=== PATIENT | female | born 1975 | race Caucasian/White ===

== ENCOUNTER 2019-10-21 10:48 | Outpatient (RCR) | payer BC, SELFPAY | END 2019-11-14 23:59 | disposition home or self-care (01) | LOC: SR3 10:48 | PROVIDERS: Family Provider Family Medicine; PCP Family Medicine; Referring Provider Specialist/Technologist Athletic Trainer; Visit Provider Specialist/Technologist Athletic Trainer | DX: R56.9 Unspecified convulsions (principal); G43.909 Migraine, unspecified, not intractable, without status migrainosus; Z79.82 Long term (current) use of aspirin | CPT/HCPCS: 95992; 96125; 97110; 97162; 97165 ==

== ENCOUNTER 2020-01-09 10:13 | Outpatient (CLI) | payer BC, SELFPAY ==
--- NOTE | 2020-01-09 10:23 | CT_ITS ---
NOTE: Report was unsigned for reason: Ordering provider was edited. Original Signature date and time was: 01/09/20 1125 WS: [id number] CT scan of the head, 01/09/2020 Clinical Data: HEADACHES WITH DIZZINESS AND NAUSEA Comparison: AP head, 09/04/2019. DLP: 992.[address] scans at [facility] use at least one of these dose optimization techniques: automated exposure control; mA and/or kV adjustment per patient size (includes targeted exams where dose is matched to clinical indication); or iterative reconstruction. Findings: The previous intracerebral hematoma involving the right parietal lobe has cleared. There is an area of encephalomalacia in the right parietal lobe at the vertex which is much smaller than the area of the previous hemorrhage. The ventricular system is normal without shift. No recent infarct or hemorrhage is seen. There are no abnormal intracerebral masses. The cerebellum and brainstem are not remarkable. Bony windows of the skull and skull base show no fractures or erosions. The mastoid air cells, internal auditory canals, sella turcica, intraorbital contents, and paranasal sinuses are unremarkable. [facility] CT/CT head wo con* [id number] Impression: 1. Small area of encephalomalacia malacia in the right parietal lobe. 2. Negative for recent hemorrhage or infarct.
== END 2020-01-09 10:14 | disposition home or self-care (01) ==
PROVIDERS: Family Provider Family Medicine; PCP Family Medicine; Visit Provider Psychiatry & Neurology Neurology
DX: I61.9 Nontraumatic intracerebral hemorrhage, unspecified (principal); R51 Headache; R42 Dizziness and giddiness; G93.89 Other specified disorders of brain
CPT/HCPCS: 70450

== ENCOUNTER 2020-02-05 20:09 | Emergency (ER) | payer BC, SELFPAY ==
[2020-02-05 20:16] VITALS: BP 143/87; PULSE 97; RESP 16; TEMP 36.4; O2SAT 99; BMI 24.3
--- NOTE | 2020-02-05 20:17 | ED_ITS ---
HPI - Allergic Reaction General: Chief complaint: Allergic Reaction Stated complaint: Allergic Reaction Time Seen by Provider: 02/05/20 20:12 History of Present Illness: HPI narrative: Estella is a very nice 44-year-old female who comes in with hives and allergic reaction type symptoms after eating bread with milk in it. The patient has a history of severe allergic reactions to different allergens. Patient currently has hives and a funny sensation in the back of her throat. She had no vomiting, diarrhea she is not been weak or lightheaded or passed out. Review of Systems General: Reports: 10 or more systems reviewed and unremarkable except in HPI and below PFSH ED PFSH: Social History Smoking and tobacco status: former smoker Alcohol intake: current Alcohol intake frequency: few times a month Marital status: Current occupational status: employed Physical Exam Const: COMMON NORMALS: no apparent distress, oriented x3, no limitations, healthy appearing and well nourished EXAM LIMITATIONS: no altered mental status GENERAL APPEARANCE: cooperative, well kempt and well developed ORIENTATION/CONSCIOUSNESS: Yes awake HENMT: COMMON NORMALS: normocephalic, head/scalp atraumatic, hearing grossly normal bilaterally, external ears normal, EAC's normal, external nose normal and moist oral mucous membranes HEAD & SCALP: normal to inspection, normocephalic and atraumatic FACE & SINUS: normal facial exam and face symmetric NOSE: external nose normal and nares normal EXTERNAL EAR: Yes external ears normal EXTERNAL AUDITORY CANAL: EAC's normal MOUTH: oral and palatal mucosa normal and tongue normal Eye: COMMON NORMALS: PERRL, EOMs intact bilaterally, conjunctivae normal and no scleral icterus GENERAL EYE: normal appearance of both eyes and normal light reflex CONJUNCTIVA: Yes conjunctivae normal SCLERA: sclerae normal CORNEA: Yes corneas normal PUPIL: Yes PERRL DIRECT OPHTHALMOSCOPY: Yes normal light reflex Neck/C-Spine: COMMON NORMALS: full ROM, no lymphadenopathy, supple, no meningeal signs and no JVD GENERAL: Yes normal visual inspection and Yes trachea midline CERVICAL SPINE: Yes cervical ROM normal Chest: COMMONS NORMALS: inspection of chest normal and palpation of chest normal Resp: COMMON NORMALS: normal respiratory effort, no retractions, no use of accessory muscles and clear to auscultation bilaterally EFFORT & INSPECTION: Yes able to speak in complete sentences AUSCULTATION: clear to auscultation bilaterally Cardio: COMMON NORMALS: no JVD, regular rate, regular rhythm, S1 normal heart sound, S2 normal heart sound, no gallops, no clicks, no murmurs and no rub JUGULAR VENOUS DISTENTION: no JVD RATE: regular rate RHYTHM: regular rhythm HEART SOUNDS: S1 normal and S2 normal GI: COMMON NORMALS: soft to palpation, non-tender, no hepatosplenomegaly and no masses INSPECTION: Yes normal to inspection PALPATION: Yes soft and Yes no hepatosplenomegaly : COMMON NORMALS: Yes no CVA tenderness BLADDER/KIDNEY EXAM: Yes no CVA tenderness Back/Pelvis: COMMON NORMALS: no CVA tenderness, thoracic and lumbar spine normal to inspection, no thoracic nor lumbar tenderness and thoraco-lumbar ROM normal Extremity: COMMON NORMALS: normal to inspection, full ROM, normal capillary refill, no joint enlargement, no clubbing, cyanosis or edema and no calf tenderness Neuro: COMMON NORMALS: oriented x3, CN's II-XII intact bilaterally, moves all extremities, no focal motor deficits and no sensory deficits noted MENINGEAL SIGNS: Yes no meningeal signs Psych: COMMON NORMALS: mental status grossly normal, thought process normal, cooperative, affect normal, speech normal and activity/motor behavior normal APPEARANCE: Yes well kempt SPEECH: Yes normal speech THOUGHT PROCESS: normal thought process Skin: COMMON NORMALS: skin turgor normal, no jaundice, no petechiae and no mottling NARRATIVE SKIN EXAM: Hives to chest and face. GENERAL SKIN EXAM: turgor normal Course ED course: 2099 -patient states she is feeling better. She still has diffuse itching but her hives are gone and she states her throat feels normal again. 2139 - Estella states her symptoms are gone at this time. She has no itching, no throat tightening, no shortness of breath. 2233 -Estella is resting comfortably without any complaint at all at this time. 14 -Estella is resting comfortably without any hives, throat issues or shortness of breath. 49 -Estella is resting comfortably without any complaints. Vital signs are stable. Vital Signs: Vital signs: Vital Signs Temperature 97.6 F 02/05/20 20:16 Pulse Rate 88 02/06/20 02:37 Respiratory Rate 16 02/06/20 02:37 Blood Pressure 110/86 02/06/20 02:37 Pulse Oximetry 99 02/06/20 02:37 MDM - Allergic Reaction MDM Narrative: Medical decision making narrative: 0200 - Estella is still symptom-free at this time. She was offered admission but because she is doing so much better she would like to go home. She is well versed in this and knows what to look for should she start to have a reaction again. She will be given another dose of Benadryl IV before leaving and she has an EpiPen at home if needed. She will be placed on Pepcid, Benadryl and prednisone for the next several days. She agrees to return should her symptoms change or worsen but otherwise she is feeling tremendously better and would like to be discharged. Discharge Plan Discharge Patient Disposition: Home, Self-Care Clinical Impression: Allergic reaction Qualifiers: Encounter type: initial encounter Qualified Code(s): T78.40XA - Allergy, unspecified, initial encounter Condition: Stable Prescriptions: New prednisone 10 mg tablets,dose pack See Rx Instructions .ROUTE .COMPLEX Qty: 21 RF: 0 Pepcid 40 mg tablet 40 mg PO BID 5 Days Qty: 10 RF: 0 No Action clonazepam 0.5 mg tablet 0.5 mg PO .prn PRNRF: 0 Linzess 72 mcg capsule 72 mcg PO QAM RF: 0 Trintellix 20 mg tablet 20 mg PO ONCE RF: 0 trazodone 50 mg tablet 50 mg PO .QHS RF: 0 epinephrine [EpiPen] 0.3 mg/0.3 mL auto-injector 0.3 mg IM Q10M PRNRF: 0 Referrals: Chi Cobb MD [Primary Care Provider] - 1-3 days Discharge Diet: Usual diet Discharge Activity: Increase activity as tolerated Patient Instructions: Allergic Reaction, Urticaria (ED), Food Allergy (ED), Anaphylaxis (ED) Activity Restrictions/Additional Instructions: Please return to the ER immediately for any of the signs or symptoms listed on your discharge instruction sheets, worsening/changing of your symptoms, you are not getting better as quickly as expected, or for ANY other cause or concerns. Take the Benadryl 25 to 50 mg every 6 hours as needed for the next 3 to 5 days. Take the Pepcid for the next 3 to 5 days and take the prednisone as I have prescribed. Stand Alone Forms: Work/School Release Discharge Date/Time: 02/06/20 02:37 Coding Level of Care Code ED Health Education Director for 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
[2020-02-05] MEDS: ondansetron 2 mg/ML SDV 2 mL 4 MG IVP (20:23)
[2020-02-05] MEDS: diphenhydrAMINE 50 mg/mL SDV 1mL IVP (20:23)
[2020-02-05] MEDS: famotidine 20 mg/2 mL INJ 40 MG IVP (20:24)
[2020-02-05] MEDS: sodium chloride 0.9% 1,000 ML 999 ML IV ×2 (20:30→23:42)
[2020-02-05] MEDS: LORazepam 2 mg/mL INJ 1 mL 1 MG IVP (20:40)
[2020-02-05 21:15] VITALS: RESP 91; O2SAT 99
[2020-02-05] MEDS: ipratropium-albuterol 3 mL Neb INHALATION (21:15)
[2020-02-05 21:19] VITALS: RESP 91
[2020-02-05 21:53] VITALS: BP 99/62; PULSE 96; RESP 13; O2SAT 97
[2020-02-05 22:58] VITALS: BP 98/62; PULSE 90; RESP 15; O2SAT 95
[2020-02-06] VITALS: BP 96/55; PULSE 87; RESP 14; O2SAT 96
[2020-02-06] MEDS: predniSONE 20 mg Tablet 60 MG PO (02:22)
[2020-02-06] MEDS: diphenhydrAMINE 50 mg/mL SDV 1mL IVP (02:23)
[2020-02-06 02:37] VITALS: BP 110/86; PULSE 88; RESP 16; O2SAT 99
== END 2020-02-06 02:37 | disposition home or self-care (01) ==
PROVIDERS: Emergency Provider Emergency Medicine; Family Provider Family Medicine; PCP Family Medicine
DX: T78.40XA Allergy, unspecified, initial encounter (principal); Z87.891 Personal history of nicotine dependence
CPT/HCPCS: 12345; 94640; 96361; 96374; 96375; 96376; 99282; 99283; 99284; J1200; J2060; J2405; J2930; J3490; J7030; J7512

== ENCOUNTER 2020-02-16 14:15 | Outpatient (RCR) | payer BC, SELFPAY ==
[2020-02-16 14:42] VITALS: BP 132/94; PULSE 77; RESP 18; TEMP 37.4; O2SAT 98; BMI 23.9
[2020-02-16] MEDS: diphenhydrAMINE 50 mg/mL SDV 1mL IVP (14:48)
== END 2020-03-14 23:59 | disposition home or self-care (01) ==
LOC: GILAB 14:15
PROVIDERS: Family Provider Family Medicine; PCP Family Medicine; Visit Provider Nurse Practitioner Family
DX: R06.02 Shortness of breath (principal); L50.9 Urticaria, unspecified; L29.9 Pruritus, unspecified
CPT/HCPCS: 96375; J1200

== ENCOUNTER 2020-02-17 14:41 | Inpatient (IN) | payer BC, SELFPAY ==
[2020-02-17 14:42] VITALS: BP 162/99; PULSE 65; RESP 16; TEMP 36.9; O2SAT 98; BMI 23.9
--- NOTE | 2020-02-17 14:57 | XR_ITS ---
WS: [id number] XR chest 1V portable [id number] REASON FOR EXAM: allergic reaction FINDINGS: The heart and mediastinal interfaces are normal. The lung alberto are adequately aerated. There is no pneumonia, pleural effusion, pulmonary edema, mas s effect, are pneumothorax. The hilum is and apices are normal. No osseous abnormalities. XR/XR chest 1V portable [id number] IMPRESSION: Negative chest for acute pathology.
[2020-02-17] MEDS: dexamethasone 10 mg/mL INJ IVP (15:03)
[2020-02-17] MEDS: diphenhydrAMINE 50 mg/mL SDV 1mL IVP (15:04)
[2020-02-17] MEDS: LORazepam 2 mg/mL INJ 1 mL 1 MG IVP (15:05)
[2020-02-17] MEDS: famotidine 20 mg/2 mL INJ IVP (15:05)
[2020-02-17] MEDS: ondansetron 2 mg/ML SDV 2 mL 4 MG IVP ×2 (15:10→20:04)
--- NOTE | 2020-02-17 15:22 | ED_ITS ---
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 Patient has been having symptoms of an allergic reaction for the past 5 days. Her and her financial health counselor had narrowed the causative agent down to milk or lactose for this episode. Patient was accidentally exposed to milk through diet recently. Also research has shown that several of the medication she is on contain lactose. Onset (ago): day(s) Location: lower extremity Severity: severe and similar to prior episodes Quality: burning and constant Pain Consistency: constant Relieving factors: none Associated symptoms: Reports cough, dyspnea, malaise and nausea Review of Systems General: Reports: 10 or more systems reviewed and unremarkable except in HPI and below Const: Reports: fatigue and malaise; Denies: fever or chills ENMT: Reports: painful swallowing; Denies: hoarseness or swelling of lips/tongue Resp: Reports: shortness of breath GI: Reports: nausea PFSH ED PFSH: Family History Mother Diabetes Thyroid condition Hypercholesteremia Family/Other Cancer Social History Smoking and tobacco status: never smoked Alcohol intake: current Alcohol intake frequency: few times a month Marital status: Current occupational status: employed Physical Exam Const: COMMON NORMALS: oriented x3 and alert GENERAL APPEARANCE: cooperative, in distress and anxious ORIENTATION/CONSCIOUSNESS: Yes awake, Yes oriented to person, Yes oriented to place and Yes oriented to time HENMT: COMMON NORMALS: normocephalic and external nose normal HEAD & SCALP: normal to inspection and normocephalic FACE & SINUS: normal facial exam NOSE: external nose normal MOUTH: oral and palatal mucosa normal and tongue normal Neck/C-Spine: COMMON NORMALS: no lymphadenopathy, supple, no meningeal signs and no JVD Lymph: LYMPHATIC: no lymphadenopathy noted Resp: COMMON NORMALS: normal respiratory effort, no retractions, no use of accessory muscles and clear to auscultation bilaterally EFFORT & INSPECTION: No stridor AUSCULTATION: clear to auscultation bilaterally and no wheezes Cardio: COMMON NORMALS: no JVD, regular rate and regular rhythm RATE: regular rate RHYTHM: regular rhythm GI: COMMON NORMALS: normal to inspection, nondistended, normoactive bowel sounds, soft to palpation and non-tender PALPATION: Yes soft : COMMON NORMALS: Yes no CVA tenderness BLADDER/KIDNEY EXAM: Yes no CVA tenderness Back/Pelvis: COMMON NORMALS: no CVA tenderness and thoracic and lumbar spine normal to inspection Extremity: COMMON NORMALS: normal to inspection and full ROM Neuro: COMMON NORMALS: oriented x3 SENSORIUM/ORIENTATION: Yes alert, Yes oriented to person, Yes oriented to place and Yes oriented to time MENINGEAL SIGNS: Yes no meningeal signs Skin: COMMON NORMALS: no jaundice, no petechiae and no mottling RASHES: rashes noted (hives to legs) Course Vital Signs: Vital signs: Vital Signs Temperature 98.4 F 02/17/20 14:42 Pulse Rate 65 02/17/20 14:42 Respiratory Rate 16 02/17/20 14:42 Blood Pressure 162/99 02/17/20 14:42 Pulse Oximetry 98 02/17/20 14:42 [facility] - General Adult Lab Data: Labs: Lab Results 02/17/20 Range/Units 15:03 WBC 8.7 (4.0-10.0) 10^3/ uL RBC 4.49 (4.1-5.3) 10^6/u L Hgb 12.5 (11.5-15.3) g/dL Hct 41.2 (37.0-47.0) % MCV 91.8 (81-99) fL MCH 27.8 L (28.0-34.0) pg MCHC 30.3 (30.0-36.0) g/dL RDW 15.2 H (12.1-15.1) % Plt Count 325 (130-400) 10^3/c mm MPV 9.8 (7.4-10.4) fL Neut % (Auto) 86.3 % Lymph % (Auto) 10.3 % [place] % (Auto) 2.2 % Eos % (Auto) 0.0 % Baso % (Auto) 0.0 % Neut # (Auto) 7.5 (1.8-7.7) 10^3/u L Lymph # (Auto) 0.9 (0.8-4.8) 10^3/u L [place] # (Auto) 0.2 (0.2-0.9) 10^3/u L Eos # (Auto) 0.0 (0.0-0.8) 10^3/u L Baso # (Auto) 0.0 (0.0-0.1) 10^3/u L Nucleated RBC % (a uto) 0 % Nucleated RBCs # 0.0 /100WBC Discharge Plan Discharge Patient Disposition: Admitted As Inpatient Clinical Impression: Multiple food allergies, Multiple environmental allergies, Hives Acute allergic reaction Qualifiers: Encounter type: subsequent encounter Qualified Code(s): T78.40XD - Allergy, unspecified, subsequent encounter Condition: Fair Referrals: Chi Cobb MD [Primary Care Provider] - Coding Level of Care Code ED Salesperson Handbags for g Fwd Exam Comprehensive
[2020-02-17 15:35] LABS: Hematocrit 41.2 % (37.0-47.0); Hemoglobin 12.5 g/dL (11.5-15.3); Lymphocytes # 0.9 10^3/uL (0.8-4.8); Lymphocytes % 10.3 %; Mean Corpuscular HGB Conc 30.3 g/dL (30.0-36.0); Mean Corpuscular Hemoglobin 27.8 pg (28.0-34.0); Mean Corpuscular Volume 91.8 fL (81-99); Mean Platelet Volume 9.8 fL (7.4-10.4); Monocytes # 0.2 10^3/uL (0.2-0.9); Monocytes % 2.2 %; Neutrophils # 7.5 10^3/uL (1.8-7.7); Neutrophils % 86.3 %; Nucleated Red Blood Cells % 0 %; Platelet Count 325 10^3/cmm (130-400); Red Blood Count 4.49 10^6/uL (4.1-5.3); Red Cell Distribution Width 15.2 % (12.1-15.1); White Blood Count 8.7 10^3/uL (4.0-10.0)
[2020-02-17 16:00] VITALS: BP 153/113; PULSE 54; RESP 14
[2020-02-17 16:41] VITALS: BP 166/93; PULSE 60; RESP 16; O2SAT 98
[2020-02-17] MEDS: metoprolol tartrate 1 mg/1 mL SDV 5 mL 5 MG IV (16:45)
[2020-02-17 16:47] LABS: Procalcitonin 0.02 ng/mL (0-0.5); Thyroid Stimulating Hormone 0.33 uIU/mL (0.27-4.20)
[2020-02-17 16:58] LABS: Alanine Aminotransferase 11 U/L (0-33); Albumin Level 4.4 g/dL (3.5-5.2); Alkaline Phosphatase 76 IU/L (35-105); Anion Gap 19.4 (5-19); Aspartate Amino Transferase 14 U/L (0-32); Blood Urea Nitrogen 13 mg/dL (6-20); Calcium 9.8 mg/dL (8.5-10.5); Carbon Dioxide 17 mmol/L (22-29); Chloride 104 mmol/L (98-107); Glomerular Filtration Rate 91.8 mL/min (90-130); Glucose 192 mg/dL (65-115); Magnesium 2.3 mg/dL (1.7-2.3); Osmolality Calculated 285 mOsm/kg (285-295); Phosphorus 3.1 mg/dL (2.5-4.5); Potassium 3.4 mmol/L (3.5-5.1); Sodium 137 mmol/L (136-145); Total Bilirubin 0.3 mg/dL (0.15-1.2); Total Protein 7.4 g/dL (6.6-8.7)
[2020-02-17 17:25] VITALS: BP 130/81; BP 133/82; PULSE 51; PULSE 52; RESP 15; RESP 18; TEMP 36.8; O2SAT 97; O2SAT 98
--- NOTE | 2020-02-17 18:24 | PM.HP ---
Providers/Chief Complaint Admitting Physician: Criselda Kennedy DO Primary Care Provider: Chi Cobb MD Chief Complaint: ACUTE ALLERGIC RXN IN PT W/ HX OF ANAPHYLAXIS History of Present Illness Estella Burgess is a 44 year old female with a past medical history of multiple anaphylactic reactions with concern for multiple food allergies that presented to the emergency department today for allergic reaction. Patient reported that she has been followed by director surgical in [place]. She reported that starting February 05 she had worsening symptoms after having bread that inadvertently contained milk products. Patient stated that she was started on a prednisone taper at that time but after burst of prednisone she continued to have difficulty and required change of medication. Ultimately prednisone was transitioned to prednisolone due to lactose-containing products. Patient had hospitalization in the fall 2018 with anaphylactic reaction with intracranial hemorrhage at that time and she was transferred to an outside facility. Patient has been followed closely for anaphylactic reaction since that time, had previously received a Xolair injection, however insurance would not cover this and she was taken off. Patient has had continued issues over the past couple of days therefore other medications have been looked into and it is also noted that her Singulair had a lactose-containing products, it was transitioned to granules today. Her Trintellix also contains lactose products and recommendation by director surgical was to receive this medication at a compounding pharmacy. Patient was seen and evaluated in the emergency department due to concern for anaphylactic reaction she was given IV Decadron, epinephrine was held off at this time due to her history of intracranial hemorrhage. She was given IV Pepcid and admitted for further evaluation and treatment. Review of Systems Const: Denies: fever or chills Eyes: Denies: change in vision ENMT: Denies: nasal congestion Card: Reports: palpitations; Denies: chest pain or edema Resp: Reports: other (Initially reported nonproductive cough and wheezing, now improved); Denies: shortness of breath, productive cough or coughing up blood GI: Denies: abdominal pain, nausea, vomiting, diarrhea, constipation, blood in stool or black tarry stool : Denies: painful urination or blood in urine Musc: Denies: extremity pain or muscle cramps Skin/Breast: Reports: rash and other (Hives); Denies: new lesion Neuro: Reports: headache; Denies: dizziness Psych: Reports: anxiety; Denies: depression Endo: Denies: excessive urination or hot flashes Nigel/Lymph: Denies: easy bruising or easy bleeding Medications/Allergies Home Medications Medication Instructions Recorded Confirmed Last Taken Type vortioxetine 20 mg tablet 20 mg PO ONCE 10/28/19 02/17/20 02/16/20 History epinephrine 0.3 mg/0.3 mL 0.3 mg IM Q10M PRN 12/15/19 02/17/20 Unknown History injection, auto-injector prednisone See Rx Instructions .ROUTE 02/06/20 02/17/20 02/16/20 Rx .COMPLEX #21 each acetaminophen [Tylenol] 325 mg PO QID PRN 02/17/20 02/17/20 02/17/20 History cetirizine 1 mg PO DAILY 02/17/20 02/17/20 02/16/20 History doxepin 10 mg PO BEDTIME 02/17/20 02/17/20 02/16/20 History famotidine [Pepcid] 40 mg PO DAILY 02/17/20 02/17/20 02/16/20 History lorazepam [Lorazepam Intensol] 2 mg PO Q6H PRN 02/17/20 02/17/20 02/16/20 History montelukast 10 mg PO DAILY 02/17/20 02/17/20 02/16/20 History omalizumab [Xolair] 150 mg SUBCUT ONCE 14 Days #1 each 02/18/20 Unknown Rx Allergies Allergy/AdvReac Type Severity Reaction Status Date / Time Beef Containing Products Allergy na Verified 02/17/20 14:52 epinephrine Allergy Unknown Verified 02/17/20 14:52 lactose Allergy ALGY-Anaphy Verified 02/17/20 14:52 laxis Pork/Porcine Containing Allergy ALGY-Anaphy Verified 02/17/20 14:52 Products laxis Poultry Allergy ALGY-Anaphy Verified 02/17/20 14:52 laxis trimethobenzamide Allergy ALGY-Anaphy Verified 02/17/20 14:52 [facility] laxis PFSH Acute PFSH: Medical History (Updated 02/17/20 @ 18:34 by Criselda Kennedy DO) Alpha galactosidase deficiency Anxiety Surgical History (Updated 02/17/20 @ 18:34 by Criselda Kennedy DO) History of abdominoplasty History of appendectomy History of artificial lens replacement History of cataract surgery History of section, low transverse History of eye surgery Surgical plate placement and removal History of surgery Intracranial angiogram Family History Mother Diabetes Thyroid condition Hypercholesteremia Family/Other Cancer Social History Smoking and tobacco status: never smoked Alcohol intake: current Alcohol intake frequency: few times a month Marital status: Current occupational status: employed Female 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 History: Date of last menstrual period: 02/09/20 Vitals/I&O/Wt Last Vital Signs Temp 98.3 F 02/17/20 17:25 Pulse 51 L 02/17/20 17:25 Resp 15 02/17/20 17:25 BP 133/82 02/17/20 17:25 Pulse Ox 98 02/17/20 17:25 Weight last 48 hrs Weight 61.235 kg Physical Exam Const: COMMON NORMALS: oriented x3 and alert GENERAL APPEARANCE: cooperative ORIENTATION/CONSCIOUSNESS: Yes awake, Yes oriented to person, Yes oriented to place and Yes oriented to time HENMT: COMMON NORMALS: normocephalic and head/scalp atraumatic HEAD & SCALP: normocephalic and atraumatic Eye: COMMON NORMALS: PERRL PUPIL: Yes PERRL Neck/C-Spine: COMMON NORMALS: supple GENERAL: Yes normal visual inspection Resp: COMMON NORMALS: normal respiratory effort and clear to auscultation bilaterally EFFORT & INSPECTION: Yes able to speak in complete sentences AUSCULTATION: clear to auscultation bilaterally, no rhonchi and no wheezes Cardio: COMMON NORMALS: regular rhythm and no murmurs RATE: bradycardic RHYTHM: regular rhythm GI: COMMON NORMALS: soft to palpation and non-tender INSPECTION: No abdominal distension AUSCULTATION: Yes normoactive bowel sounds PALPATION: Yes soft Extremity: COMMON NORMALS: no clubbing, cyanosis or edema and no calf tenderness Neuro: COMMON NORMALS: oriented x3, CN's II-XII intact bilaterally, moves all extremities and no focal motor deficits SENSORIUM/ORIENTATION: Yes alert, Yes oriented to person, Yes oriented to place and Yes oriented to time SPEECH: speech normal Psych: COMMON NORMALS: mental status grossly normal and cooperative Skin: COMMON NORMALS: no rashes or lesions noted GENERAL SKIN EXAM: no rashes or lesions noted Data : 02/18/20 05:35 02/18/20 05:35 A&P Assessment and plan (1) Acute allergic reaction: Acute allergic reaction Currently followed by director surgical in [place], Dr. Clemons Continue on IV Pepcid Continue on IV Decadron Continue on cetirizine Patient had previously received Xolair injection, insurance did not cover this further, would recommend continuation and prior authorization by director surgical We will check ESR, CRP, tryptase level, 5 HIAA 24-hour urine sample Status: Acute Qualifiers: Encounter type: subsequent encounter Qualified Code(s): T78.40XD - Allergy, unspecified, subsequent encounter (2) Hives: Secondary to above Status: Acute (3) Multiple environmental allergies: Continue to follow with outpatient director surgical, continue with restrictions at this time. Discussed with pharmacy about lactose-containing medications Recommendation from director surgical is for patient to have Trintellix compounded at a compounding pharmacy. Will discuss further Status: Acute (4) Multiple food allergies: Status: Acute Attestations Medical Necessity Statement*: Patient requires hospitalization due to acute allergic reaction in the setting of recurrent anaphylactic reactions requiring IV treatment. Expected stay greater than 2 midnights Coding Level of Care Code Acute Coal Miner for Shanthi Fwd Exam Comprehensive Diagnoses Acute allergic reaction T78.40XD Encounter type: subsequent encounter Hives L50.9 Multiple environmental allergies Z91.09 Multiple food allergies Z91.018
[2020-02-17] MEDS: sodium chloride 0.9% 500 ML IV (18:32)
[2020-02-17 19:46] VITALS: BP 130/84; PULSE 56; RESP 17; TEMP 36.7; O2SAT 98
[2020-02-17] MEDS: diphenhydrAMINE 50 mg/mL SDV 1mL 25 MG IVP ×2 (19:52→23:42)
[2020-02-17] MEDS: dexamethasone 4 mg/mL INJ IVP (19:52)
[2020-02-17] MEDS: sodium chlor 0.9% + KCl 20 mEq 20 MEQ/1,000 ML BAG 75 MEQ IV (19:53)
[2020-02-17] MEDS: LORazepam 2 mg/mL INJ 1 mL 0.5 MG IVP (20:02)
[2020-02-17 21:14] LABS: Glucose Point of Care 126 mg/dL (70-110)
[2020-02-17 22:47] LABS: Erythrocyte Sedimentation Rate 9 mm/hr (0-15)
[2020-02-17 23:11] VITALS: BP 128/72; PULSE 53; RESP 15; TEMP 37; O2SAT 96
[2020-02-18] VITALS (10 sets, daily range): BP systolic 118–150; BP diastolic 78–90; PULSE 47–82; RESP 16–18; TEMP 36.7–37.3; O2SAT 96–99
[2020-02-18] MEDS: dexamethasone 4 mg/mL INJ IVP ×4 (03:17→20:31)
[2020-02-18] MEDS: sodium chlor 0.9% + KCl 20 mEq 20 MEQ/1,000 ML BAG 75 MEQ IV ×2 (03:17→17:20)
[2020-02-18] MEDS: ondansetron 2 mg/ML SDV 2 mL 4 MG IVP (03:18)
[2020-02-18] MEDS: LORazepam 2 mg/mL INJ 1 mL 0.5 MG IVP ×5 (04:15→22:42)
[2020-02-18] MEDS: famotidine 20 mg/2 mL INJ IVP ×2 (04:16→18:03)
[2020-02-18 04:47] LABS: C Reactive Protein 1.3 mg/L (0.0-4.9)
[2020-02-18] MEDS: diphenhydrAMINE 50 mg/mL SDV 1mL 25 MG IVP ×2 (04:48→09:37)
[2020-02-18 05:47] LABS: Cortisol Random 1.33 mcg/dL (2.47-19.5)
[2020-02-18 06:42] LABS: Anion Gap 17.5 (5-19); Blood Urea Nitrogen 13 mg/dL (6-20); Calcium 9.1 mg/dL (8.5-10.5); Carbon Dioxide 19 mmol/L (22-29); Chloride 103 mmol/L (98-107); Glomerular Filtration Rate 91.8 mL/min (90-130); Glucose 127 mg/dL (65-115); Osmolality Calculated 278 mOsm/kg (285-295); Potassium 4.5 mmol/L (3.5-5.1); Sodium 135 mmol/L (136-145)
[2020-02-18 06:48] LABS: Hematocrit 35.2 % (37.0-47.0); Hemoglobin 11.3 g/dL (11.5-15.3); Mean Corpuscular HGB Conc 32.1 g/dL (30.0-36.0); Mean Corpuscular Hemoglobin 28.4 pg (28.0-34.0); Mean Corpuscular Volume 88.4 fL (81-99); Mean Platelet Volume 10.4 fL (7.4-10.4); Monocytes # 0.5 10^3/uL (0.2-0.9); Neutrophils # 7.8 10^3/uL (1.8-7.7); Neutrophils % 83.6 %; Nucleated Red Blood Cells % 0 %; Platelet Count 279 10^3/cmm (130-400); Red Blood Count 3.98 10^6/uL (4.1-5.3); Red Cell Distribution Width 15.1 % (12.1-15.1); White Blood Count 9.3 10^3/uL (4.0-10.0)
[2020-02-18 07:23] LABS: Glucose Point of Care 143 mg/dL (70-110)
--- NOTE | 2020-02-18 10:13 | PC.CHAP ---
Pastoral Care Encounter/Spiritual Assessment Type of Contact [] Declined logger visit [] Patient/Family/Request visit [] Outpatient visit [] Follow-up visit [] Physician referral [] Code/Alert [x] Routine visit [] Staff referral [] Actively dying [] Patient sleeping [] Family support [] [] Out of room [] Palliative care [] [] Receiving care in room [] Pre-surgical visit [] Trauma [] Long length of stay [] ICU visit [] Other: Relational/Emotional Strength [] Patient feels connected with others/family/visitors/staff [] Distress [] Loneliness/isolation [] Abandonment Spirituality of Patient [] Person of Evy [] Attends Mormon of their Evy [x] Believes in Prayer [] Reads Bible or Mormon materials [] There are Spiritual issues to be addressed Field Specialist Interventions [x] Prayer [] Active listening [] Non-anxious presence [] Spiritual/emotional support [] Crisis/trauma care [] Spiritual counseling [] Bereavement support [] Provided bereavement packet [] Provided Bible/devotional materials [] Provided toy/stuffed animal, coloring book to patient or family member [] Provided Communion [] Anointing/[place] [] Salvation [x] Completed spiritual assessment [] Other: Impact on Illness or Injury [] Angry [] Fearful [] Anxious [] Often cries [] Exhaustion [] Unable to work [] Unable to attend cheondoism [] Unable to walk/stand [] Unable to read [] Unable to drive [] Unable to eat/drink [] Unable to sleep [] Unable to be with family [] Patient intubated [] Other: Summary Patient resting, and feeling better Time spent with patient 5 min
[2020-02-18 12:01] LABS: Glucose Point of Care 129 mg/dL (70-110)
[2020-02-18] MEDS: diphenhydrAMINE 50 mg/mL SDV 1mL IVP ×3 (14:13→22:42)
--- NOTE | 2020-02-18 17:50 | P.PN_ITS ---
Subjective Subjective: Interval history: Patient awake in bed at time of exam. Reports that she continues to have some scratchiness throat but slightly improved today. Reports that she feels anxious about current situation and admission status as well as uncertain and feels up in the year about her home medications. Discussed with patient plan to continue with IV steroids at this time and will call and discuss with compounding pharmacy about her home medications. Vitals/I&O/Wt Last Vital Signs Temp 99.1 F 02/18/20 15:04 Pulse 55 L 02/18/20 15:11 Resp 17 02/18/20 15:04 BP 135/82 02/18/20 15:04 Pulse Ox 96 02/18/20 15:11 02/18/20 02/18/20 02/18/20 06:59 14:59 22:59 Intake Total 680 / 1080 720 / 720 875 / 1595 Output Total 450 / 450 1250 / 1250 400 / 1650 Balance 230 / 630 -530 / -530 475 / -55 Weight last 48 hrs Weight 61.235 kg Weight 61.235 kg Physical Exam Const: COMMON NORMALS: oriented x3 and alert GENERAL APPEARANCE: cooperative ORIENTATION/CONSCIOUSNESS: Yes awake, Yes oriented to person, Yes oriented to place and Yes oriented to time HENMT: COMMON NORMALS: normocephalic and head/scalp atraumatic HEAD & SCALP: normocephalic and atraumatic Eye: COMMON NORMALS: PERRL PUPIL: Yes PERRL Neck/C-Spine: COMMON NORMALS: supple GENERAL: Yes normal visual inspection Resp: COMMON NORMALS: normal respiratory effort and clear to auscultation bilaterally EFFORT & INSPECTION: Yes able to speak in complete sentences AUSCULTATION: clear to auscultation bilaterally, no rhonchi and no wheezes Cardio: COMMON NORMALS: regular rhythm and no murmurs RATE: bradycardic RHYTHM: regular rhythm GI: COMMON NORMALS: soft to palpation and non-tender INSPECTION: No abdominal distension AUSCULTATION: Yes normoactive bowel sounds PALPATION: Yes soft Extremity: COMMON NORMALS: no clubbing, cyanosis or edema and no calf tenderness Neuro: COMMON NORMALS: oriented x3, CN's II-XII intact bilaterally, moves all extremities and no focal motor deficits SENSORIUM/ORIENTATION: Yes alert, Yes oriented to person, Yes oriented to place and Yes oriented to time SPEECH: speech normal Psych: COMMON NORMALS: mental status grossly normal and cooperative Skin: COMMON NORMALS: no rashes or lesions noted GENERAL SKIN EXAM: no rashes or lesions noted Data : 02/18/20 05:35 02/18/20 05:35 A&P Assessment and plan (1) Acute allergic reaction: Acute allergic reaction Currently followed by motion picture equipment machinist in [place], Dr. Deonte Jolley, Decadron, cetirizine Strongly believe that patient would benefit from Xolair injection, this was ordered and sent to pharmacy for outpatient infusion. Will discuss with patient's motion picture equipment machinist, Dr. Clemons Pending: Tryptase level, 5 HIAA 24-hour urine sample Status: Acute Qualifiers: Encounter type: subsequent encounter Qualified Code(s): T78.40XD - Allergy, unspecified, subsequent encounter (2) Hives: Secondary to above Status: Acute (3) Multiple environmental allergies: Continue to follow with outpatient motion picture equipment machinist, continue with restrictions at this time. Discussed with pharmacy about lactose-containing medications Discussed with compounding pharmacy and unfortunately Trintellix is unable to be compounded at this time as it does not come in powder formation Status: Acute (4) Multiple food allergies: Status: Acute Additional A&P Information Anxiety: Continue with Ativan as needed, patient has been on Trintellix, however this is unknown to be with compounded and contains lactose and current formation. Discussed with psychiatry for consultation, appreciate recommendations and assistance in patient's care. Attestations Medical Necessity Statement*: Patient requires further hospitalization due to concern for acute allergic reaction with severe and refractory allergic reactions in the past Coding Level of Care Code Acute Form Builder Helper for 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 Diagnoses Acute allergic reaction T78.40XD Encounter type: subsequent encounter Hives L50.9 Multiple environmental allergies Z91.09 Multiple food allergies Z91.018
[2020-02-18] MEDS: morphine 4 mg/mL SDV 1 mL 2 MG IVP (20:33)
[2020-02-19] VITALS (12 sets, daily range): BP systolic 124–165; BP diastolic 73–92; PULSE 57–73; RESP 16–20; TEMP 36.4–36.9; O2SAT 97–98
[2020-02-19] MEDS: LORazepam 2 mg/mL INJ 1 mL 0.5 MG IVP ×4 (03:13→16:48)
[2020-02-19] MEDS: dexamethasone 4 mg/mL INJ IVP ×2 (03:13→08:03)
[2020-02-19] MEDS: diphenhydrAMINE 50 mg/mL SDV 1mL IVP ×5 (03:14→22:20)
[2020-02-19 06:15] LABS: Hematocrit 37.3 % (37.0-47.0); Lymphocytes # 1.1 10^3/uL (0.8-4.8); Lymphocytes % 9.4 %; Mean Corpuscular HGB Conc 32.2 g/dL (30.0-36.0); Mean Corpuscular Volume 83.8 fL (81-99); Mean Platelet Volume 10.1 fL (7.4-10.4); Monocytes # 0.7 10^3/uL (0.2-0.9); Monocytes % 5.7 %; Neutrophils # 10.2 10^3/uL (1.8-7.7); Neutrophils % 84.3 %; Nucleated Red Blood Cells % 0 %; Platelet Count 324 10^3/cmm (130-400); Red Blood Count 4.45 10^6/uL (4.1-5.3); White Blood Count 12.1 10^3/uL (4.0-10.0)
[2020-02-19] MEDS: famotidine 20 mg/2 mL INJ IVP ×2 (06:28→18:10)
[2020-02-19 06:32] LABS: Anion Gap 17.2 (5-19); Blood Urea Nitrogen 14 mg/dL (6-20); Calcium 9.2 mg/dL (8.5-10.5); Carbon Dioxide 22 mmol/L (22-29); Chloride 101 mmol/L (98-107); Glomerular Filtration Rate 78.7 mL/min (90-130); Glucose 144 mg/dL (65-115); Osmolality Calculated 281 mOsm/kg (285-295); Potassium 4.2 mmol/L (3.5-5.1); Sodium 136 mmol/L (136-145)
[2020-02-19] MEDS: ondansetron 2 mg/ML SDV 2 mL 4 MG IVP ×2 (08:13→17:03)
--- NOTE | 2020-02-19 08:22 | PC.NURSE ---
shadia pt took her own shadia
[2020-02-19] MEDS: morphine 4 mg/mL SDV 1 mL 2 MG IVP ×3 (09:37→19:46)
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
[2020-02-19] MEDS: pred sod phos 15 mg/5 mL Soln 30mL Btl 60 MG PO (15:20)
--- NOTE | 2020-02-19 15:46 | P.PN_ITS ---
Subjective Subjective: Interval history: Patient awake in bed at time of exam this morning. Reported feeling better but did report concern for symptoms after taking vortioxetine. Called and discussed with patient's coffee plantation worker and will transition to oral steroids and monitor symptoms overnight with potential discharge tomorrow. Vitals/I&O/Wt Last Vital Signs Temp 98.1 F 02/19/20 15:15 Pulse 73 02/19/20 15:15 Resp 17 02/19/20 15:20 BP 124/81 02/19/20 15:15 Pulse Ox 97 02/19/20 15:15 02/19/20 02/19/20 02/19/20 06:59 14:59 22:59 Intake Total 500 / 2215 1320 / 1320 Output Total 400 / 2050 Balance 100 / 165 1320 / 1320 Weight last 48 hrs Weight 61.235 kg Physical Exam Const: COMMON NORMALS: oriented x3 and alert GENERAL APPEARANCE: cooperative ORIENTATION/CONSCIOUSNESS: Yes awake, Yes oriented to person, Yes oriented to place and Yes oriented to time HENMT: COMMON NORMALS: normocephalic and head/scalp atraumatic HEAD & SCALP: normocephalic and atraumatic Eye: COMMON NORMALS: PERRL PUPIL: Yes PERRL Neck/C-Spine: COMMON NORMALS: supple GENERAL: Yes normal visual inspection Resp: COMMON NORMALS: normal respiratory effort and clear to auscultation bilaterally EFFORT & INSPECTION: Yes able to speak in complete sentences AUSCULTATION: clear to auscultation bilaterally, no rhonchi and no wheezes Cardio: COMMON NORMALS: regular rate, regular rhythm and no murmurs RATE: regular rate RHYTHM: regular rhythm GI: COMMON NORMALS: soft to palpation and non-tender INSPECTION: No abdominal distension AUSCULTATION: Yes normoactive bowel sounds PALPATION: Yes soft Extremity: COMMON NORMALS: no clubbing, cyanosis or edema and no calf tenderness Neuro: COMMON NORMALS: oriented x3, CN's II-XII intact bilaterally, moves all extremities and no focal motor deficits SENSORIUM/ORIENTATION: Yes alert, Yes oriented to person, Yes oriented to place and Yes oriented to time SPEECH: speech normal Psych: COMMON NORMALS: mental status grossly normal and cooperative Skin: COMMON NORMALS: no rashes or lesions noted GENERAL SKIN EXAM: no rashes or lesions noted Data : 02/19/20 00:55 05/07/20 00:55 A&P Assessment and plan (1) Acute allergic reaction: Acute allergic reaction with concern for severe food allergies Currently followed by coffee plantation worker in [place], Dr. Frias, cetirizine continued, discontinue decadron and start on prednisolone taper as recommended by coffee plantation worker in [place]. Start prednisolone 60mg daily for 1 week, followed by, 40mg daily for 1 week, 20mg daily for 1 week, 10mg daily for 1 week then 5mg daily for 1 week Discussed that patient would benefit from Xolair injection, Dr. Fonseca agreed and prescription and PA process started, RX sent to [facility] pharmacy Patient has televisit with Dr. Fonseca tomorrow Concern for reaction from depression medication, discussed with Dr. Cortez and appreciate consult and recommendations. He is reaching out to compounding pharmacies for options Pending: Tryptase level, 5 HIAA 24-hour urine sample Status: Acute Qualifiers: Encounter type: subsequent encounter Qualified Code(s): T78.40XD - Allergy, unspecified, subsequent encounter (2) Hives: Resolved Status: Acute (3) Multiple environmental allergies: Continue to follow with outpatient coffee plantation worker, continue with restrictions at this time. Discussed with pharmacy about lactose-containing medications Discussed with compounding pharmacy and unfortunately Trintellix is unable to be compounded at this time as it does not come in powder formation, consult to phychiatrist at this time with plan as above Status: Acute (4) Multiple food allergies: Status: Acute Attestations Medical Necessity Statement*: Patient requires further hospitalization due to severe and recurrent anaphylactic reactions with concern for medications containing lactose contributing to these reactions. Coding Level of Care Code Acute Food And Beverage Assistant Manager for 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 Diagnoses Acute allergic reaction T78.40XD Encounter type: subsequent encounter Hives L50.9 Multiple environmental allergies Z91.09 Multiple food allergies Z91.018
[2020-02-20] VITALS (10 sets, daily range): BP systolic 117–144; BP diastolic 76–93; PULSE 50–76; RESP 16–20; TEMP 36.6–37; O2SAT 96–98; BMI 29.0
[2020-02-20] MEDS: diphenhydrAMINE 50 mg/mL SDV 1mL IVP ×2 (02:25→06:24)
[2020-02-20] MEDS: morphine 4 mg/mL SDV 1 mL 2 MG IVP ×3 (02:46→13:34)
[2020-02-20 06:20] LABS: Basophils % 0.1 %; Hematocrit 38.9 % (37.0-47.0); Hemoglobin 12.4 g/dL (11.5-15.3); Lymphocytes # 1.7 10^3/uL (0.8-4.8); Lymphocytes % 12.3 %; Mean Corpuscular HGB Conc 31.9 g/dL (30.0-36.0); Mean Corpuscular Hemoglobin 27.4 pg (28.0-34.0); Mean Corpuscular Volume 86.1 fL (81-99); Mean Platelet Volume 9.7 fL (7.4-10.4); Monocytes # 1.1 10^3/uL (0.2-0.9); Monocytes % 7.9 %; Neutrophils # 10.9 10^3/uL (1.8-7.7); Neutrophils % 79.2 %; Nucleated Red Blood Cells % 0 %; Platelet Count 308 10^3/cmm (130-400); Red Blood Count 4.52 10^6/uL (4.1-5.3); Red Cell Distribution Width 14.9 % (12.1-15.1); White Blood Count 13.8 10^3/uL (4.0-10.0)
[2020-02-20] MEDS: famotidine 20 mg/2 mL INJ IVP (06:24)
[2020-02-20 06:38] LABS: Anion Gap 16.7 (5-19); Blood Urea Nitrogen 15 mg/dL (6-20); Calcium 9.7 mg/dL (8.5-10.5); Carbon Dioxide 23 mmol/L (22-29); Chloride 100 mmol/L (98-107); Glomerular Filtration Rate 91.8 mL/min (90-130); Glucose 120 mg/dL (65-115); Osmolality Calculated 277 mOsm/kg (285-295); Potassium 4.7 mmol/L (3.5-5.1); Sodium 135 mmol/L (136-145)
[2020-02-20] MEDS: pred sod phos 15 mg/5 mL Soln 30mL Btl 60 MG PO (08:00)
[2020-02-20] MEDS: LORazepam 2 mg/mL INJ 1 mL 0.5 MG IVP ×2 (08:00→14:48)
[2020-02-20] MEDS: ondansetron 2 mg/ML SDV 2 mL 4 MG IVP (08:02)
--- NOTE | 2020-02-20 15:30 | P.DS_ITS ---
Discharge Providers Date of Admission: 02/17/20 16:02 Date of Discharge: February 20, 2020 Attending Provider at Admission: Criselda Kennedy DO Attending Provider at Discharge: Sarah Shell MD Primary Care Provider: Chi Cobb MD Diagnoses at Discharge Discharge Diagnosis (1) PTSD (post-traumatic stress disorder): Status: Acute (2) Major depressive disorder: Status: Acute (3) Anxiety: Status: Acute Reason for Visit Reason for Visit: Reason For Visit: ACUTE ALLERGIC RXN IN PT W/ HX OF ANAPHYLAXIS Hospital Course Discharge Summary: Estella Burgess is a 44 year old female with a past medical history of multiple anaphylactic reactions with concern for multiple food allergies that presented to the emergency department for allergic reaction.Patient has been followed closely for anaphylactic reaction since that time, had previously received a Xolair injection, however insurance would not cover this and she was taken off. Patient has had continued issues over the past couple of days therefore other medications have been looked into and it is also noted that her Singulair had a lactose-containing products, it was transitioned to granules. Her Trintellix also contains lactose products and recommendation by social service agency director was to receive this medication at a compounding pharmacy, however this has not been possible,therefore after discussion with ricarda holt, her medication has been changed to lamictal and prozac, which will be available from [facility] in [place] in 4-5 days. Until then, she will remain on Ativan. After discussion with her social service agency director Dr. Fonseca, she is being discharged today in stable condition with the following taper: Prednisolone 60mg daily for 1 week, 40mg daily for 1 week, 20mg daily for 1 week, 10mg daily for 1 week, 5mg daily for 1 week. Attempts were made to get Xolair while she was admitted, however only 150mcg is currently available at the outpatient pharmacy, with more supply expected on Sunday (today is Sunday). An outpatient surgery appointment has been scheduled for outpatient administration of Xolair 300mcg on Sunday morning. Physical Exam Narrative: EXAM NARRATIVE: GEN: Awake, alert and oriented, no acute distress HEENT: no uvular swelling or deviation, no pharyngeal wall congestion, no angioedema CVS: S1S2 N RS: CTA B/L Abd: Soft, nt/nd , bs+ SAW MAKER: no focal neuro deficits EXT: no cludding, edema or cyanosis Discharge Data Data Completed and Pending: Completed Studies During Hospitalization Category Date Time Status XR chest 1V zee ble [id number] Urgent Exams 02/17/20 14:57 Completed Pending at discharge Category Date Time Status 5-HIAA 24Hr Urine Routine Lab 02/18/20 21:15 Received Miscellaneous Marilu t Routine Lab 02/17/20 15:03 Received Labs from last 24 hours 02/20/20 02/20/20 06:14 06:14 WBC 13.8 H RBC 4.52 Hgb 12.4 Hct 38.9 MCV 86.1 MCH 27.4 L MCHC 31.9 RDW 14.9 Plt Count 308 MPV 9.7 Neut % (Auto) 79.2 Lymph % (Auto) 12.3 [place] % (Auto) 7.9 Eos % (Auto) 0.0 Baso % (Auto) 0.1 Neut # (Auto) 10.9 H Lymph # (Auto) 1.7 [place] # (Auto) 1.1 H Eos # (Auto) 0.0 Baso # (Auto) 0.0 Nucleated RBC % (a uto) 0 Nucleated RBCs # 0.0 Sodium 135 L Potassium 4.7 Chloride 100 Carbon Dioxide 23 Anion Gap 16.7 BUN 15 Creatinine 0.7 GFR Calculation 91.8 Glucose 120 H Calculated Osmolal ity 277 L Calcium 9.7 Vitals: Last Vital Signs Temp 97.9 F 02/20/20 10:54 Pulse 76 02/20/20 10:54 Resp 18 02/20/20 13:34 BP 117/77 02/20/20 10:54 Pulse Ox 96 02/20/20 10:54 Discharge Plan Discharge Patient Disposition: Home, Self-Care Condition: Fair Prescriptions: New fluoxetine 20 mg tablet 20 mg PO QAM Qty: 30 RF: 2 lamotrigine 25 mg tablet 25 mg PO .am Qty: 42 RF: 1 lamotrigine 100 mg tablet 100 mg PO DIRECTED Qty: 60 RF: 2 lamotrigine 100 mg tablet 100 mg PO DAILY Qty: 60 RF: 2 Xolair 150 mg recon soln 300 mg SUBCUT ONCE Qty: 1 RF: 0 prednisolone sodium phosphate 15 mg/5 mL (3 mg/mL) Solution 60 mg PO DAILY 35 Days Qty: 1 RF: 0 Continued epinephrine [EpiPen] 0.3 mg/0.3 mL auto-injector 0.3 mg IM Q10M PRN (Reason: Allergic Reaction) RF: 0 Tylenol 325 mg Tablet 325 mg PO QID PRN (Reason: Pain) RF: 0 Pepcid 40 mg Tablet 40 mg PO DAILY RF: 0 doxepin 10 mg/mL concentrate 10 mg PO BEDTIME RF: 0 Lorazepam Intensol 2 mg/mL concentrate 2 mg PO Q6H PRN (Reason: Anxiety) RF: 0 cetirizine 1 mg/mL solution 1 mg PO DAILY RF: 0 Discontinued Trintellix 20 mg tablet 20 mg PO ONCE RF: 0 montelukast 10 mg tablet 10 mg PO DAILY RF: 0 prednisone 10 mg tablets,dose pack See Rx Instructions .ROUTE .COMPLEX Qty: 21 RF: 0 Discharge Orders: Discharge Order (Routine); Ordered 02/20/20 Ordered By: Sarah Shell [place] [facility] [place] - 02/24/20 10:00 am (You have been placed on the schedule to come in and receive your medication injection. They will have sterile water to administer the medication. Please [place] [facility] [place] if you have any questions or concerns at [phone]. 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
--- NOTE | 2020-02-20 17:29 | PC.SOCIAL ---
Discussed information regarding PA with Cover My Med rep # . . Dx codes: Z91.018, T78.40XA, Z91.09, E75.6. We discussed extensively that patient does not have Asthma however did well on Xolair when took it for short time (not sure of time period) when prescribed by Hazardous Substances Scientist. Cost was high since was not approved on insurance. She had repeat readmissions since stopping medications and continues to have allergic reactions to certain items including some pharmaceuticals that contain any Lactose agents. Based on the prevention of hospitalization even though clarified not related to asthma PA was approved and with Approval # [id number] from 01/21/2020-02/19/2021. Updated Patrizai at pharmacy.
[2020-02-24 13:31] LABS: 24 Hour Urine Volume 3500 mL/24 h; 5-HIAA, 24 Hour Urine 5.6 mg/24 h (<=6.0)
== END 2020-02-20 16:28 | disposition home or self-care (01) | DRG 918 ==
LOC: ER 15:31 → MEDSURG 16:41
PROVIDERS: Admitting Provider Family Medicine; Emergency Provider Family Medicine; Family Provider Family Medicine; PCP Family Medicine; Visit Provider Student in an Organized Health Care Education/Training Program
DX: T50.995A Adverse effect of other drugs, medicaments and biological substances, initial encounter (principal); L50.0 Allergic urticaria; F41.9 Anxiety disorder, unspecified; Z91.018 Allergy to other foods; Z91.048 Other nonmedicinal substance allergy status; Z86.73 Personal history of transient ischemic attack (TIA), and cerebral infarction without residual deficits; F43.10 Post-traumatic stress disorder, unspecified; F32.9 Major depressive disorder, single episode, unspecified
CPT/HCPCS: 12345; 36415; 36416; 71045; 80048; 80053; 82533; 82962; 83497; 83520; 83605; 83735; 84100; 84145; 84443; 85025; 85651; 86140; 96375; 99282; J1100; J1200; J2060; J2270; J2405; J3490; J7040; J7510

== ENCOUNTER 2020-02-25 11:21 | Outpatient (RCR) | payer BC, SELFPAY ==
[2020-02-24 11:34] VITALS: BP 100/80; PULSE 119; RESP 16; TEMP 36.1; O2SAT 97; BMI 23.9
[2020-02-24] MEDS: diphenhydrAMINE 50 mg/mL SDV 1mL IVP ×2 (11:39→12:32)
--- NOTE | 2020-02-24 11:47 | PC.NURSE ---
PT IS TO RECEIVE BENADRYL 50MG IVP PRN & XOLAIR 300MG SQ MONTHLY. PT WILL PICKUP HER XOLAIR AT THE [facility] AND BRING WITH HER TO HER APPT EACH MONTH PER BELINDA IN PHARMACY.
--- NOTE | 2020-02-24 12:33 | PC.NURSE ---
PT BEGAN FEELING ITCHY APPROXIMATELY 1 HR AFTER HER XOLAIR INJECTIONS, ANOTHER DOSE OF BENADRYL 50MG IVP WAS ADMINISTERED BY POP/RN.
--- NOTE | 2020-02-24 12:46 | PC.NURSE ---
PT RECEIVED XOLAIR FROM [facility] [place] [facility] AND IT WAS ADMINISTERED BY THIS NURSE. THE [facility] [place] DID NOT SUPPLY THIS MEDICATION, THEREFORE, THERE SHOULD BE NO CHARGE FOR THE MEDICATION ITSELF PER BELINDA IN PHARMACY.
[2020-02-25 11:20] VITALS: BP 128/90; PULSE 115; RESP 18; TEMP 37.1; O2SAT 97
[2020-02-25] MEDS: diphenhydrAMINE 50 mg/mL SDV 1mL IVP (11:30)
== END 2020-03-14 23:59 | disposition home or self-care (01) ==
LOC: GILAB 11:21
PROVIDERS: Family Provider Family Medicine; PCP Family Medicine; Visit Provider Student in an Organized Health Care Education/Training Program
DX: G43.909 Migraine, unspecified, not intractable, without status migrainosus (principal)
CPT/HCPCS: 96372; 96374; 96375; J1200; J2357

== ENCOUNTER 2020-02-28 19:05 | Inpatient (IN) | payer BC, SELFPAY ==
[2020-02-28] VITALS (15 sets, daily range): BP systolic 105–172; BP diastolic 70–107; PULSE 66–111; RESP 12–24; TEMP 36.5–36.8; O2SAT 95–98; BMI 23.9
--- NOTE | 2020-02-28 19:14 | XRR_ITS ---
PROCEDURE INFORMATION: Exam: XR Chest, 1 View Exam date and time: 02/28/2020 7:35 PM Age: 44 years old Clinical indication: Cough TECHNIQUE: Imaging protocol: XR of the chest Views: 1 view. COMPARISON: CR XR chest 1V portable [id number] 02/17/2020 3:20 PM FINDINGS: Lungs: Unremarkable. No consolidation. Pleural space: Unremarkable. No pleural effusion. No pneumothorax. Heart/Mediastinum: Unremarkable. No cardiomegaly. Bones/joints: Unremarkable. XR/XR chest 1V portable [id number] IMPRESSION: No acute findings.
[2020-02-28 19:26] LABS: Basophils % 0.1 %; Hematocrit 34.1 % (37.0-47.0); Hemoglobin 11.2 g/dL (11.5-15.3); Lymphocytes # 0.8 10^3/uL (0.8-4.8); Lymphocytes % 5.7 %; Mean Corpuscular HGB Conc 32.8 g/dL (30.0-36.0); Mean Corpuscular Hemoglobin 28.3 pg (28.0-34.0); Mean Corpuscular Volume 86.1 fL (81-99); Mean Platelet Volume 9.4 fL (7.4-10.4); Monocytes # 1.1 10^3/uL (0.2-0.9); Monocytes % 7.6 %; Neutrophils % 85.7 %; Nucleated Red Blood Cells % 0 %; Platelet Count 317 10^3/cmm (130-400); Red Blood Count 3.96 10^6/uL (4.1-5.3); White Blood Count 13.9 10^3/uL (4.0-10.0)
[2020-02-28] MEDS: LORazepam 2 mg/mL INJ 1 mL 1 MG IVP ×2 (19:26→20:54)
[2020-02-28] MEDS: famotidine 20 mg/2 mL INJ 40 MG IVP (19:27)
[2020-02-28] MEDS: dexamethasone 4 mg/mL INJ 2 MG IVP (19:28)
--- NOTE | 2020-02-28 19:28 | ED_ITS ---
HPI - Allergic Reaction General: Chief complaint: Allergic Reaction Stated complaint: SOB Time Seen by Provider: 02/28/20 19:13 History of Present Illness: HPI narrative: Estella is a very nice 44-year-old female well-known to me who comes in with report of feeling like she is having an allergic reaction. 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 She had an IV started at home and was given 10 mg of Decadron. She took a dose of hydroxyzine unknown how many milligrams. She states she just feels like there is something deep in her throat that she cannot get out. She has no skin rashes and she denies any shortness of breath. Associated symptoms: Reports hoarseness; Deny abdominal pain, dizziness, facial swelling, nausea, tongue swelling or vomiting Review of Systems Const: Denies: fever(s), chills, body aches, fatigue, malaise, night sweats or diaphoresis Eyes: Denies: change in vision, blurry vision or blind spots ENMT: Reports: throat pain and hoarseness; Denies: odynophagia, ear or mastoid pain, ear discharge, change in hearing or nasal discharge Card: Denies: chest pain, irregular heart rhythm, lightheadedness, syncope, pre-syncope, dyspnea on exertion or orthopnea Resp: Denies: dyspnea, productive cough, non-productive cough, wheezing, hemoptysis or chest congestion GI: Denies: abdominal pain, nausea, vomiting, hematemesis, coffee ground emesis, heartburn, diarrhea, constipation, GI cramping, hematochezia or melena : Denies: flank pain, dysuria, urinary frequency, urinary urgency, oliguria, urinary incontinence or hematuria Musc: Denies: neck pain, back pain, extremity pain, extremity swelling, joint pain, joint swelling, joint redness, joint warmth or joint stiffness Skin/Breast: Denies: rash, pruritus, erythema, skin tenderness or jaundice Neuro: Denies: headache(s), numbness in extremities, weakness in extremities, sensory changes, lack of coordination, difficulty walking, dizziness, vertigo, confusion or Slurred speech present Endo: Denies: polyuria, polydipsia, tired all the time, cold intolerance, excessive sweating, flushing, hot flashes or heat intolerance Nigel/Lymph: Denies: easy bruising, easy bleeding, petechiae, purpura or enlarged lymph nodes All/Imm: Denies: urticaria, throat swelling, tongue swelling, facial swelling or acute wheezing PFSH ED PFSH: Medical History Alpha galactosidase deficiency Anxiety Surgical History History of abdominoplasty History of appendectomy History of artificial lens replacement History of cataract surgery History of section, low transverse History of eye surgery Surgical plate placement and removal History of surgery Intracranial angiogram Family History Mother Diabetes Thyroid condition Hypercholesteremia Family/Other Cancer Social History Smoking and tobacco status: never smoked Alcohol intake: current Alcohol intake frequency: few times a month Marital status: Current occupational status: employed Female 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 History: Date of last menstrual period: 02/09/20 Physical Exam Const: COMMON NORMALS: patient oriented x3, no limitations, healthy appearing and well nourished EXAM LIMITATIONS: no altered mental status GENERAL APPEARANCE: cooperative, well kempt, well developed and anxious HENMT: COMMON NORMALS: normocephalic, atraumatic, hearing grossly normal bilaterally, external ears normal, EAC's normal, Normal external nose present and moist oral mucous membranes HEAD & SCALP: normal to inspection, normocephalic and atraumatic FACE & SINUS: normal facial exam and face symmetric NOSE: Normal external nose present and Normal nares present EXT ERNAL EAR: Yes external ears normal EXTERNAL AUDITORY CANAL: EAC's normal MOUTH: Normal oral and palatal mucosa present, lip normal and tongue normal Eye: COMMON NORMALS: Equal, round and reactive pupils present, EOMs intact bilaterally, conjunctivae normal and no scleral icterus GENERAL EYE: appearance normal, both eyes and all related structures ALIGNMENT: Yes alignment normal PERIORBITAL: periorbital findings normal EYELID: eyelids normal CONJUNCTIVA: Yes conjunctivae normal SCLERA: sclerae normal PUPIL: Yes Equal, round and reactive pupils present Neck/C-Spine: COMMON NORMALS: full ROM, no lymphadenopathy, supple, no meningeal signs and no JVD GENERAL: Yes normal visual inspection and Yes trachea midline CERVICAL SPINE: Yes cervical ROM normal Chest: COMMONS NORMALS: normal inspection of the chest and normal palpation of entire chest wall Resp: COMMON NORMALS: normal respiratory effort, No retractions, No use of accessory muscles and clear to auscultation bilaterally EFFORT & INSPECTION: Yes able to speak in complete sentences AUSCULTATION: clear to auscultation bilaterally, no crackles, no rales, no rhonchi and no wheezes Cardio: COMMON NORMALS: no JVD, regular rate, regular rhythm, S1 normal heart sound present, S2 normal heart sound present, No gallops present (Cardio), No clicks present (Cardio), No murmurs present (Cardio) and No rub (Cardio) RATE: regular rate RHYTHM: regular rhythm HEART SOUNDS: S1 normal heart sound present, S2 normal heart sound present, no click, no gallops, no murmurs and no rubs GI: COMMON NORMALS: Soft to palpation, non-tender, No hepatosplenomegaly present and no masses PALPATION: Yes Soft to palpation, No Tenderness to palpation present (GI), No Guarding due to palpation present (GI), No Rigid due to palpation, Yes No hepatosplenomegaly present, No Hernia present, No Palpable mass present and No Pulsatile mass present : COMMON NORMALS: Yes no CVA tenderness BLADDER/KIDNEY EXAM: Yes no CVA tenderness EXTERNAL FEMALE EXAM: No Hernia present Back/Pelvis: COMMON NORMALS: no CVA tenderness, thoracic and lumbar spine normal to inspection, no thoracic nor lumbar tenderness and thoraco-lumbar ROM normal Extremity: COMMON NORMALS: normal to inspection, full ROM, capillary refill normal, no joint enlargement, no clubbing, cyanosis or edema and no calf tenderness Neuro: COMMON NORMALS: patient oriented x3, CN's II-XII intact bilaterally, moves all extremities, no focal motor deficits and no sensory deficits noted MENINGEAL SIGNS: Yes no meningeal signs SPEECH: speech normal Psych: COMMON NORMALS: mental status grossly normal, Normal thought process present, cooperative, normal affect, speech normal and activity/motor behavior normal APPEARANCE: Yes well kempt SPEECH: Yes normal speech THOUGHT PROCESS: Normal thought process present Skin: COMMON NORMALS: no rashes or lesions noted, turgor normal, no jaundice, no petechiae and no mottling GENERAL SKIN EXAM: no rashes or lesions noted and turgor normal Course ED course: 2005 -patient states that she is feeling no worse but still has the sensation of something deep within her throat. Vital Signs: Vital signs: Vital Signs Temperature 97.7 F 02/28/20 19:16 Pulse Rate 66 02/28/20 21:49 Respiratory Rate 18 02/28/20 22:02 Blood Pressure 145/95 02/28/20 21:49 Pulse Oximetry 97 02/28/20 22:02 MDM - Allergic Reaction MDM Narrative: Medical decision making narrative: 2104 -the patient is feeling better. Her throat is slightly improved. The patient has had severe anaphylactic reactions in the past and I believe it would be in her best interest to keep her for observation. I reviewed the case in full with Dr. Leroy and he is agreeable to this. Lab Data: Attestation: I reviewed the patient's lab results. Labs: Lab Results 02/28/20 02/28/20 Range/Units 19:20 19:20 WBC 13.9 H (4.0-10.0) 10^3/ uL RBC 3.96 L (4.1-5.3) 10^6/u L Hgb 11.2 L (11.5-15.3) g/dL Hct 34.1 L (37.0-47.0) % MCV 86.1 (81-99) fL MCH 28.3 (28.0-34.0) pg MCHC 32.8 (30.0-36.0) g/dL RDW 16.0 H (12.1-15.1) % Plt Count 317 (130-400) 10^3/c mm MPV 9.4 (7.4-10.4) fL Neut % (Auto) 85.7 % Lymph % (Auto) 5.7 % [place] % (Auto) 7.6 % Eos % (Auto) 0.0 % Baso % (Auto) 0.1 % Neut # (Auto) 12.0 H (1.8-7.7) 10^3/u L Lymph # (Auto) 0.8 (0.8-4.8) 10^3/u L [place] # (Auto) 1.1 H (0.2-0.9) 10^3/u L Eos # (Auto) 0.0 (0.0-0.8) 10^3/u L Baso # (Auto) 0.0 (0.0-0.1) 10^3/u L Nucleated RBC % (a uto) 0 % Nucleated RBCs # 0.0 /100WBC Sodium 141 (136-145) mmol/L Potassium 4.2 (3.5-5.1) mmol/L Chloride 106 (98-107) mmol/L Carbon Dioxide 21 L (22-29) mmol/L Anion Gap 18.2 (5-19) BUN 10 (6-20) mg/dL Creatinine 0.7 (0.5-0.9) mg/dL GFR Calculation 91.8 (90-130) mL/min Glucose 142 H (65-115) mg/dL Calculated Osmolal ity 290 (285-295) mOsm/k g Calcium 9.3 (8.5-10.5) mg/dL Magnesium 2.2 (1.7-2.3) mg/dL Total Bilirubin 0.2 (0.15-1.2) mg/dL AST 9 (0-32) U/L ALT 11 (0-33) U/L Alkaline Phosphata se 62 (35-105) IU/L Total Protein 6.3 L (6.6-8.7) g/dL Albumin 4.1 (3.5-5.2) g/dL Globulin 2.2 (1.3-4.6) g/dL Imaging Data^: CXR: My impression: No acute cardiopulmonary findings. Discharge Plan Discharge Patient Disposition: Placed in Observation Admit Provider: Adithya Pina Clinical Impression: Allergic reaction Qualifiers: Encounter type: initial encounter Qualified Code(s): T78.40XA - Allergy, unspecified, initial encounter Condition: Stable Referrals: Chi Cobb MD [Primary Care Provider] - Discharge Date/Time: 02/28/20 22:19 Coding Level of Care Code ED Telephone Service Adviser for Chg Fwd Exam Comprehensive
[2020-02-28] MEDS: diphenhydrAMINE 50 mg/mL SDV 1mL IVP (19:32)
[2020-02-28] MEDS: ipratropium-albuterol 3 mL Neb INHALATION (19:32)
[2020-02-28 19:43] LABS: Alanine Aminotransferase 11 U/L (0-33); Albumin Level 4.1 g/dL (3.5-5.2); Alkaline Phosphatase 62 IU/L (35-105); Anion Gap 18.2 (5-19); Aspartate Amino Transferase 9 U/L (0-32); Blood Urea Nitrogen 10 mg/dL (6-20); Calcium 9.3 mg/dL (8.5-10.5); Carbon Dioxide 21 mmol/L (22-29); Chloride 106 mmol/L (98-107); Globulin 2.2 g/dL (1.3-4.6); Glomerular Filtration Rate 91.8 mL/min (90-130); Glucose 142 mg/dL (65-115); Magnesium 2.2 mg/dL (1.7-2.3); Osmolality Calculated 290 mOsm/kg (285-295); Potassium 4.2 mmol/L (3.5-5.1); Sodium 141 mmol/L (136-145); Total Bilirubin 0.2 mg/dL (0.15-1.2); Total Protein 6.3 g/dL (6.6-8.7)
[2020-02-28] MEDS: labetalol 5 mg/mL SDV 20mL 10 MG IVP (21:45)
[2020-02-28] MEDS: morphine 4 mg/mL SDV 1 mL 2 MG IVP (22:02)
[2020-02-28] MEDS: sodium chloride 0.9% 1,000 ML 100 ML IV (22:22)
[2020-02-28] MEDS: ondansetron 2 mg/ML SDV 2 mL 4 MG IVP (22:23)
--- NOTE | 2020-02-28 22:35 | PM.HP ---
Providers/Chief Complaint Admitting Physician: Adithya Pina Primary Care Provider: Chi Cobb MD Chief Complaint: ANAPHYLAXIS History of Present Illness Estella Burgess is a 44 year old female with past medical history of multiple food and drug allergies, previous anaphylactic reactions requiring ICU admission, posttraumatic stress disorder, history of recent hemorrhagic CVA during hospitalization for allergic reaction who presents today with concerns that she might be developing another allergic event. She is very anxious and worried. She felt some scratchy sensation deep in the throat. She reports that previous anaphylactic reactions presented in the same way. She also reported some hoarseness earlier. No shortness of breath, cough, wheezes, changes in mental status, chest pain, fever or chills. No new edema. She reports having some skin rash on the lower extremities earlier today which is currently resolved probably because she received steroids already. She denies any new focal weakness or sensory loss. She still has numbness and paresthesias from previous hemorrhagic CVA. Review of Systems General: Reports: 10 or more systems reviewed and unremarkable except in HPI and below Medications/Allergies Home Medications Medication Instructions Recorded Confirmed Last Taken Type epinephrine 0.3 mg/0.3 mL 0.3 mg IM Q10M PRN 12/15/19 02/24/20 Unknown History injection, auto-injector acetaminophen [Tylenol] 325 mg PO QID PRN 02/17/20 02/24/20 02/24/20 History cetirizine 1 mg PO DAILY 02/17/20 02/24/20 02/24/20 History doxepin 10 mg PO BEDTIME 02/17/20 02/24/20 02/24/20 History famotidine [Pepcid] 40 mg PO DAILY 02/17/20 02/24/20 02/24/20 History lorazepam [Lorazepam Intensol] 2 mg PO Q6H PRN 02/17/20 02/24/20 02/24/20 History montelukast 10 mg PO DAILY 02/17/20 02/24/20 02/24/20 History fluoxetine 20 mg PO QAM #30 tab 02/19/20 02/24/20 02/24/20 Rx lamotrigine 25 mg PO .am #42 tab 02/19/20 02/24/20 02/24/20 Rx lamotrigine 100 mg PO DIRECTED #60 tab 02/19/20 02/24/20 02/24/20 Rx lamotrigine 100 mg PO DAILY #60 tab 02/19/20 02/24/20 02/24/20 Rx omalizumab [Xolair] 300 mg SUBCUT ONCE #1 each 02/20/20 02/24/20 02/24/20 Rx prednisolone sodium phosphate 60 mg PO DAILY 35 Days #1 ml 02/20/20 02/24/20 02/24/20 Rx Allergies Allergy/AdvReac Type Severity Reaction Status Date / Time Beef Containing Products Allergy na Verified 02/17/20 14:52 epinephrine Allergy Unknown Verified 02/17/20 14:52 gluten Allergy Unknown Verified 02/28/20 22:30 lactose Allergy ALGY-Anaphy Verified 02/17/20 14:52 laxis Pork/Porcine Containing Allergy ALGY-Anaphy Verified 02/17/20 14:52 Products laxis Poultry Allergy ALGY-Anaphy Verified 02/17/20 14:52 laxis trimethobenzamide Allergy ALGY-Anaphy Verified 02/17/20 14:52 [From Tigan] laxis PFSH Acute PFSH: Medical History Alpha galactosidase deficiency Anxiety Surgical History History of abdominoplasty History of appendectomy History of artificial lens replacement History of cataract surgery History of section, low transverse History of eye surgery Surgical plate placement and removal History of surgery Intracranial angiogram Family History Mother Diabetes Thyroid condition Hypercholesteremia Family/Other Cancer Social History Smoking and tobacco status: never smoked Alcohol intake: current Alcohol intake frequency: few times a month Marital status: Current occupational status: employed Female 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 History: Date of last menstrual period: 02/09/20 Vitals/I&O/Wt Last Vital Signs Temp 97.7 F 02/28/20 19:16 Pulse 66 02/28/20 21:49 Resp 18 02/28/20 22:02 BP 145/95 02/28/20 21:49 Pulse Ox 97 02/28/20 22:02 Weight last 48 hrs Weight 61.235 kg Physical Exam Narrative: EXAM NARRATIVE: The patient is awake alert oriented. Anxious but no significant distress. Mood and affect are appropriate. Responses are adequate. Skin is warm and dry. No rash. Eyes Linda, extraocular muscle intact. No icterus. Moist mucous membranes. Normal speech in full sentences without changes in her voice. Neck no JVD. Midline trachea. Lungs are clear bilaterally. No wheezes or crackles. No respiratory distress no tachypnea, no accessory muscle use. Abdomen is soft, nontender, bowel sounds are present extremities: Trace edema no cyanosis no calf tenderness bilaterally Neuro. Moves all extremities. Cranial nerves II through XII are grossly intact. Data : 02/28/20 19:20 02/28/20 19:20 Other Labs: Laboratory Results WBC 13.9 10^3/uL (4.0-10.0) H 02/28/20 19:20 RBC 3.96 10^6/uL (4.1-5.3) L 02/28/20 19: Hgb 11.2 g/dL (11.5-15.3) L 02/28/20 19:20 Hct 34.1 % (37.0-47.0) L 02/28/20 19:20 MCV 86.1 fL (81-99) 02/28/20: MCH 28.3 pg (28.0-34.0) 02/28/20 19:20 MCHC 32.8 g/dL (30.0-36.0) 02/28/20 19:20 RDW 16.0 % (12.1-15.1) H 02/28/20 19: Plt Count 317 10^3/cmm (130-400) 02/28/20 19:20 MPV 9.4 fL (7.4-10.4) 02/28/20 19:20 Neut % (Auto) 85.7 % 02/28/20 19:20 Lymph % (Auto) 5.7 % 02/28/20 19:20 [place] % (Auto) 7.6 % 02/28/20 19:20 Eos % (Auto) 0.0 % 02/28/20 19:20 Baso % (Auto) 0.1 % 02/28/20: Neut # (Auto) 12.0 10^3/uL (1.8-7.7) H 02/28/20 19:20 Lymph # (Auto) 0.8 10^3/uL (0.8-4.8) 02/28/20 19:20 [place] # (Auto) 1.1 10^3/uL (0.2-0.9) H 02/28/20 19:20 Eos # (Auto) 0.0 10^3/uL (0.0-0.8) 02/28/20 19:20 Baso # (Auto) 0.0 10^3/uL (0.0-0.1) 02/28/20 19:20 Nucleated RBC % (auto) 0 % 02/28/20 19:20 Nucleated RBCs # 0.0 /100WBC 02/28/20 19:20 Sodium 141 mmol/L (136-145) 02/28/20 19:20 Potassium 4.2 mmol/L (3.5-5.1) 02/28/20 19:20 Chloride 106 mmol/L (98-107) 02/28/20 19:20 Carbon Dioxide 21 mmol/L (22-29) L 02/28/20 19:20 Anion Gap 18.2 (5-19) 02/28/20 19:20 BUN 10 mg/dL (6-20) 02/28/20 19:20 Creatinine 0.7 mg/dL (0.5-0.9) 02/28/20 19:20 GFR Calculation 91.8 mL/min (90-130) 02/28/20 19:20 Glucose 142 mg/dL (65-115) H 02/28/20 19:20 Calculated Osmolality 290 mOsm/kg (285-295) 02/28/20 19:20 Calcium 9.3 mg/dL (8.5-10.5) 02/28/20 19:20 Magnesium 2.2 mg/dL (1.7-2.3) 02/28/20 19:20 Total Bilirubin 0.2 mg/dL (0.15-1.2) 02/28/20 19:20 AST 9 U/L (0-32) 02/28/20 19:20 ALT 11 U/L (0-33) 02/28/20 19:20 Alkaline Phosphatase 62 IU/L (35-105) 02/28/20 19:20 Total Protein 6.3 g/dL (6.6-8.7) L 02/28/20 19:20 Albumin 4.1 g/dL (3.5-5.2) 02/28/20 19:20 Globulin 2.2 g/dL (1.3-4.6) 02/28/20 19:20 Chest x-ray. My impression. No acute pulmonary findings. Please review official radiology report when it is available. A&P Additional A&P Information 44-year-old female with past medical history of severe anaphylactic and other allergic reactions in the past requiring ICU hospitalization and mechanical ventilation who is presenting with suspected allergic reaction. Currently she is stable. There is no evidence of impending respiratory compromise. However due to significant prior history of we will admit her for observation and close monitoring to ICU. We will continue IV dexamethasone, PRN Benadryl and IV famotidine. She will also receive PRN DuoNeb treatments when needed. Small dose of lorazepam for anxiety which I suspect will worsen with steroids. DVT prophylaxis. Teds and SCDs only. No anticoagulation due to prior hemorrhagic CVA. The plan of care was discussed with the patient and her . They verbalized understanding and agreement. Attestations Medical Necessity Statement*: Observation Coding Level of Care Code Acute [employer] for 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
[2020-02-28] MEDS: LORazepam 2 mg/mL INJ 1 mL 0.5 MG IVP (23:15)
[2020-02-28] MEDS: diphenhydrAMINE 50 mg/mL SDV 1mL 25 MG IVP (23:16)
[2020-02-29] VITALS (18 sets, daily range): BP systolic 118–156; BP diastolic 75–96; PULSE 62–101; RESP 14–22; TEMP 36.8–37; O2SAT 96–98
[2020-02-29] MEDS: dexamethasone 4 mg/mL INJ IVP ×2 (01:42→07:21)
[2020-02-29] MEDS: diphenhydrAMINE 50 mg/mL SDV 1mL 25 MG IVP ×4 (05:21→21:07)
[2020-02-29] MEDS: LORazepam 2 mg/mL INJ 1 mL 0.5 MG IVP (05:21)
[2020-02-29 05:30] LABS: Basophils % 0.1 %; Hematocrit 35.7 % (37.0-47.0); Hemoglobin 11.3 g/dL (11.5-15.3); Lymphocytes # 0.7 10^3/uL (0.8-4.8); Lymphocytes % 5.7 %; Mean Corpuscular HGB Conc 31.7 g/dL (30.0-36.0); Mean Corpuscular Hemoglobin 28.2 pg (28.0-34.0); Mean Platelet Volume 9.7 fL (7.4-10.4); Monocytes # 0.6 10^3/uL (0.2-0.9); Monocytes % 4.5 %; Neutrophils # 11.4 10^3/uL (1.8-7.7); Neutrophils % 88.3 %; Nucleated Red Blood Cells % 0 %; Platelet Count 296 10^3/cmm (130-400); Red Blood Count 4.01 10^6/uL (4.1-5.3); Red Cell Distribution Width 16.2 % (12.1-15.1); White Blood Count 12.9 10^3/uL (4.0-10.0)
[2020-02-29 05:44] LABS: Anion Gap 19.5 (5-19); Blood Urea Nitrogen 9 mg/dL (6-20); Calcium 9.4 mg/dL (8.5-10.5); Carbon Dioxide 19 mmol/L (22-29); Chloride 104 mmol/L (98-107); Creatinine Clr Calc Pharmacy 107.8542; Glomerular Filtration Rate 109.6 mL/min (90-130); Glucose 179 mg/dL (65-115); Osmolality Calculated 286 mOsm/kg (285-295); Potassium 4.5 mmol/L (3.5-5.1); Sodium 138 mmol/L (136-145)
[2020-02-29 06:13] LABS: Magnesium 2.2 mg/dL (1.7-2.3)
[2020-02-29] MEDS: famotidine 20 mg/2 mL INJ IVP ×2 (07:20→18:27)
--- NOTE | 2020-02-29 10:42 | P.PN_ITS ---
Subjective Subjective: Interval history: Estella is doing better this morning although she continues to have a dry cough. She is able to drink water without any difficulty. Her throat remains scratchy feeling. No stridor or wheezing. We talked at length about what she has been through. In talking with her, she has identified some additional home medications that contain pork products. She has been able to get some of them changed over to different brands or compounded solutions. Vitals/I&O/Wt Last Vital Signs Temp 98.3 F 02/29/20 10:35 Pulse 84 02/29/20 10:00 Resp 17 02/29/20 10:00 BP 130/85 02/29/20 10:00 Pulse Ox 96 02/29/20 10:00 02/28/20 02/29/20 02/29/20 22:59 06:59 14:59 Intake Total 200 / 200 1000 / 1000 Balance 200 / 200 1000 / 1000 Weight last 48 hrs Weight 61.235 kg Physical Exam Narrative: EXAM NARRATIVE: Patient is sitting up in bed. She looks anxious. She has a dry cough at times. She is intermittently tearful talking about the things that she has been through. She has good insight and is able to see the situation from different perspectives. 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 Sandy has developed some puffiness in her face related to steroid use. Extraocular movements are intact. Lips are not swollen. No tongue edema. Eyes are red slightly swollen but from crying rather than allergies from what I can tell. Speech is clear. There is no audible stridor. No wheezing noted. No tachypnea no accessory muscle use. She has a regular rhythm. She has intention tremors of both hands that may actually be resting tremors she is controlling well in front of me. She has bruises to both arms at sites of blood draws and IVs. No urticaria noted. She does scratch near the IV site in her right arm. Data : 02/29/20 05:02 02/29/20 05:02 A&P Assessment and plan (1) Allergic reaction: Specific etiology not clear this time. did purchase a new dog food and she was near that. 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 Has been on high-dose steroids, 60 mg of prednisolone and decreased to 50 mg of prednisolone recently. 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 1 of these includes her medical issues. She is aware of the impact of the PTSD on her. She is very fearful of having another hemorrhagic stroke and the potential consequences from that. That particular episode was preceded by a very similar feeling to what she has today. The PTSD extends beyond this event but that is the one most prevalent at the moment. Status: Chronic (6) Anxiety: On Ativan currently with the plan to wean as outlined by Dr. Cortez compounded form of Lamictal is available Status: Chronic (7) Major depressive disorder: Has had to switch antidepressants around due to products and tablet forms Status: Chronic (8) History of gluten sensitivity: Status: Chronic (9) Cerebral hemorrhage with hemiparesis: Mild residual weakness on the left Status: Chronic Additional A&P Information I think it might be beneficial for Sandy to have some Benadryl that she can give IM at home. One of the issues is that when these events come on she has difficulty swallowing. That escalates some of the anxiety which I think in turn makes those allergic reaction issues worse. We talked about maximum daily dose of Benadryl at home not to exceed 300 mg in a day. I also talked to her about being concerned that if she was overly anxious in the setting of an allergic reaction that she might give herself too much Benadryl, not in an effort to hurt herself but in an effort to stifle the allergic reaction she is sensing. She agreed to let her Sushant keep the supply and only have access for her to obtain 2 doses at a time. She will get her second dose of Xolair on March 22. My idea was to use the IM Benadryl only for short duration until the Xolair has a little bit more time to work. Ann also may need to come down more slowly on the steroids. The situation is challenging because she is finding more and more products in her home medications that have a form of protein that she cannot be exposed to. She is working through this and paying more attention to ingredients and having medications compounded that she cannot otherwise get in a different way. With her persistent sensations of scratchy throat and cough that is similar to the symptoms she experienced prior to the episode in which she required i ntubation, will change her to inpatient status. Plan is to try to transition current medications to an oral form where we can safely do so to make sure that she can get the medications down and does okay. I would also like for her to try to give herself the IM Benadryl injections while she is here. Assuming no significant changes or problems overnight anticipate discharge tomorrow. We have been able to verify that Valerie has some of the IM Benadryl vials. Continue SCDs Wrote for her to be able to take her home doxepin, cetirizine and fluoxetine which are liquid or compounded medications which are safe for her Allergy list was updated to maximize interaction alerts for the products that she is allergic to I gave Sandy opportunity to talk and ask questions which were answered Attestations Medical Necessity Statement*: Patient stay will exceed 2 midnights. We are going to transition her to oral medications and work on a plan to get her some IM Benadryl at home to may be decreased need to come into the emergency room so frequently. Coding Level of Care Code Acute [employer] for 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 Diagnoses Allergic reaction T78.40XA Encounter type: initial encounter Hyper-IgE syndrome D82.4 History of anaphylaxis Z87.892 Alpha galactosidase deficiency E75.6 PTSD (post-traumatic stress disorder) F43.10 Anxiety F41.9 Major depressive disorder F32.9 History of gluten sensitivity Cerebral hemorrhage with hemiparesis I61.9; G81.90
[2020-02-29] MEDS: pred sod phos 15 mg/5 mL Soln 30mL Btl 60 MG PO (13:21)
[2020-02-29] MEDS: morphine 4 mg/mL SDV 1 mL 2 MG IVP (14:42)
[2020-02-29] MEDS: ondansetron 2 mg/ML SDV 2 mL 4 MG IVP (16:14)
[2020-02-29] MEDS: LORazepam 2 mg/mL INJ 1 mL PO ×2 (16:17→21:40)
[2020-02-29] MEDS: diphenhydrAMINE 50 mg/mL SDV 1mL IM (18:21)
--- NOTE | 2020-02-29 18:35 | PC.NURSE ---
update Patient reports after dinner she feels like her throat is closing, however, she is unsure of this is michael or if it is paranoia. this nurse notified Dr. Zamarripa, a one time Benadryl 50mg IM dose ordered and instructed to allow patient to administer herself with nurse supervision and instruction. Patient administered to right vastus lateralis. Patient did appropriately. She states she does get paranoid after eating that she is having another reaction.
[2020-03-01] VITALS (8 sets, daily range): BP systolic 106–148; BP diastolic 73–95; PULSE 66–96; RESP 13–19; TEMP 36.8; O2SAT 95–98
[2020-03-01] MEDS: diphenhydrAMINE 50 mg/mL SDV 1mL 25 MG IVP ×2 (03:11→08:52)
[2020-03-01] MEDS: LORazepam 2 mg/mL INJ 1 mL PO (03:12)
[2020-03-01] MEDS: famotidine 20 mg/2 mL INJ IVP (07:35)
[2020-03-01] MEDS: FLUOXETINE 20 MG 20 EACH PO (07:36)
[2020-03-01] MEDS: pred sod phos 15 mg/5 mL Soln 30mL Btl 60 MG PO (08:52)
[2020-03-01] MEDS: diphenhydrAMINE 50 mg/mL SDV 1mL 25 MG IM (11:27)
--- NOTE | 2020-03-01 11:58 | P.DS_ITS ---
Discharge Providers Date of Admission: 02/29/20 11:00 Date of Discharge: March 01, 2020 Attending Provider at Admission: Adithya Pina Attending Provider at Discharge: Sveta Zamarripa MD Primary Care Provider: Chi Cobb MD Diagnoses at Discharge Discharge Diagnosis (1) Allergic reaction: Status: Acute Qualifiers: Encounter type: initial encounter Qualified Code(s): T78.40XA - Allergy, unspecified, initial encounter (2) Hyperglycemia: Status: Acute Problem details: [place] related to steroids (3) History of anaphylaxis: Status: Chronic Problem details: Requiring intubation (4) Hyper-IgE syndrome: Status: Chronic (5) Alpha galactosidase deficiency: Status: Chronic (6) PTSD (post-traumatic stress disorder): Status: Chronic (7) Anxiety: Status: Chronic (8) Major depressive disorder: Status: Chronic (9) Multiple environmental allergies: Status: Chronic (10) Multiple food allergies: Status: Chronic (11) History of gluten sensitivity: Status: Chronic (12) Cerebral hemorrhage with hemiparesis: Status: Chronic Problem details: Occurred while on epinephrine drip for anaphylaxis. Mild residual weakness on the left side Reason for Visit Reason for Visit: Reason For Visit: ANAPHYLAXIS Hospital Course Hospital Course: Estella was admitted with recurrent symptoms suggestive of acute hypersensitivity reaction. She had a scratchy sensation in her throat and a sensation of something being stuck deep down in there that she could not get out. She was hoarse but able to talk. She had had some Decadron and hydroxyzine at home without any improvement. In the emergency room she received 2 mg of IV dexamethasone, 40 mg of IV Pepcid, 50 mg of IV Benadryl, 2 mg of Ativan, 2 mg of morphine and 10 mg of labetalol over a several hour period of time in the emergency room. Her symptoms persisted and she was admitted for further treatment and monitoring. On the floor she was continued on Decadron, Benadryl, Ativan which is a home medication, and Pepcid. She was transitioned to oral or IM equivalents the following morning as she was hoping that she could go home.. She did have clinical improvement at times that seemed to most coincide with administration of Benadryl. Nevertheless she continued to have itching of upper chest and extremities. She had some erythema but no whelps noted. The need to clear her throat and sensation of something going on her throat continued so she was watched an additional day. During my time with her noted that she frequently clears her throat even when more comfortable and relaxed. This is especially prominent after eating. 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 While there is definitely an inflammatory or autoimmune response at play here in her presentations, I am wondering if there is not also a component of some pharyngeal dysphagia. She does not recall having a swallow study after her stroke as she was doing okay. Not clear that this throat clear ing is present as frequently at times outside of when she presents with recurrent hypersensitivity reaction but we discussed this as a possible contributing factor to the sensations that she has. Emphasized that she should not ignore her symptoms in support of this diagnosis but that I thought it might be worthwhile to evaluate further. She is agreeable to modified barium swallow and this will be arranged outpatient. After the transition to IM Benadryl and resumption of other usual medications and a bump up back to 60 mg of her prednisolone, she did not have any progressive or new symptoms. She felt a bit better and wanted to try going home. We debated watching her further but thought that as long as we can get IM Benadryl at home she might be able to manage there. Prescription was called into [facility] and they did have it available. I reviewed plans with her primary care provider, Dr. Cobb. He will be in communication with Dr. Clemons, her mobile sales technician later today. Dr. Neil dawkins was agreeable with the plan for IM administration of Benadryl at home as well as the modified barium swallow at this time although, as I, is not sure it will change management administrator approach too much under the circumstances. Patient needed refills of the only Tylenol formulation she can take as well as her doxepin. These were provided. One of the challenges in her management is finding medications that do not have any components to which she is allergic. She can only take one brand of acetaminophen called MAJOR , has to have liquid formulations of several medications (Pepcid, cetirizine, doxepin, Ativan and prednisolone) rather than tablet, granule dosing rather than tablet for Singulair, compounded fluoxetine and Lamictal (Lamictal dosing is pending availability from [facility] [employer]). She has a hesitancy anytime she is exposed to or takes something new even if she has confirmed that the item or medication should be okay. She has been working with her mobile sales technician to eliminate all sources of allergens for her to the best of her ability. She has recently started on Xolair with the hope that within a month or 2 she will start to show improvement in frequency and severity of reactions. She has significant PTSD, understandably in my opinion, surrounding the anaphylactic reaction in which she required intubation and subsequently developed a hemorrhagic stroke. She was in severe respiratory distress prior to intubation and awakened from sedation with left-sided hemiparesis. When she has recurrent symptoms, this prior experience does come to mind and contributes to some anxiety about the developing symptoms she experiences even in the setting of appropriate treatment. 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 She has been following with a therapist in [place] and communicating with her mobile sales technician as well as her primary care provider. She knows that anxiety over the developing symptoms hinders her ability to approach them calmly. There is another component here. I think she is probably struggling to balance her own personal medical experience currently with some of the perceptions that she knows medical personnel develop after seeing a patient present with the same symptoms repeatedly. 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 We do have a therapist locally that does EMDR. It may not be a bad thing for her to look into this as a way to help deal with the anxiety component that naturally coincides with the hypersensitivity reactions that she is experiencing. She is willing to look into this. I will personally contact that therapist and see if this is somet jake that we can look into. During the hospital stay, patient's blood sugar was noted to be elevated. Fairly certain is from high-dose steroids but she has been on them and off lately that I did add a hemoglobin A1c to blood from yesterday. It is pending at the time of discharge. Personally reviewed with patient's plan for addition of IM Benadryl. She was given an opportunity to ask questions all of which were answered. She seemed calmer and clinically improved at the time of discharge. Personally reviewed discharge paperwork with her. Physical Exam Narrative: EXAM NARRATIVE: Patient is awake and alert. She still anxious. Voice is clear without any hoarseness. She does clear her throat intermittently. She has some erythema on arms near her blood pressure cuff and IV site. I do not see significant erythema nor evidence of shawn urticaria on the chest at this time. No oral pharyngeal or lip swelling noted. No stridor. No wheezing. Abdomen is soft. Mood is calm on the outside with an underlying anxiety, not tearful during discussion. Agreeable to plan of care. Discharge Data Data Completed and Pending: Completed Studies During Hospitalization Category Date Time Status XR chest 1V zee ble [id number] Stat Exams 02/28/20 19:14 Completed Imaging^: CXR: Radiologist's impression: FINDINGS: Lungs: Unremarkable. No consolidation. Pleural space: Unremarkable. No pleural effusion. No pneumothorax. Heart/Mediastinum: Unremarkable. No cardiomegaly. Bones/joints: Unremarkable. XR/XR chest 1V portable [id number] IMPRESSION: No acute findings. Addt'l Data from Hospital Stay: Laboratory Results - last 72 hr 02/28/20 02/28/20 02/29/20 19:20 19:20 05:02 WBC 13.9 H 12.9 H RBC 3.96 L 4.01 L Hgb 11.2 L 11.3 L Hct 34.1 L 35.7 L MCV 86.1 89.0 MCH 28.3 28.2 MCHC 32.8 31.7 RDW 16.0 H 16.2 H Plt Count 317 296 MPV 9.4 9.7 Neut % (Auto) 85.7 88.3 Lymph % (Auto) 5.7 5.7 [place] % (Auto) 7.6 4.5 Eos % (Auto) 0.0 0.0 Baso % (Auto) 0.1 0.1 Neut # (Auto) 12.0 H 11.4 H Lymph # (Auto) 0.8 0.7 L [place] # (Auto) 1.1 H 0.6 Eos # (Auto) 0.0 0.0 Baso # (Auto) 0.0 0.0 Nucleated RBC % (a uto) 0 0 Nucleated RBCs # 0.0 0.0 Sodium 141 Potassium 4.2 Chloride 106 Carbon Dioxide 21 L Anion Gap 18.2 BUN 10 Creatinine 0.7 GFR Calculation 91.8 Glucose 142 H Calculated Osmolal ity 290 Calcium 9.3 Magnesium 2.2 Total Bilirubin 0.2 AST 9 ALT 11 Alkaline Phosphata se 62 Total Protein 6.3 L Albumin 4.1 Globulin 2.2 02/29/20 02/29/20 05:02 05:02 WBC RBC Hgb Hct MCV MCH MCHC RDW Plt Count MPV Neut % (Auto) Lymph % (Auto) [place] % (Auto) Eos % (Auto) Baso % (Auto) Neut # (Auto) Lymph # (Auto) [place] # (Auto) Eos # (Auto) Baso # (Auto) Nucleated RBC % (a uto) Nucleated RBCs # Sodium 138 Potassium 4.5 Chloride 104 Carbon Dioxide 19 L Anion Gap 19.5 H BUN 9 Creatinine 0.6 GFR Calculation 109.6 Glucose 179 H Calculated Osmolal ity 286 Calcium 9.4 Magnesium 2.2 Total Bilirubin AST ALT Alkaline Phosphata se Total Protein Albumin Globulin Vitals: Last Vital Signs Temp 98.2 F 03/01/20 00:00 Pulse 93 03/01/20 10:00 Resp 18 03/01/20 10:00 BP 140/95 03/01/20 10:00 Pulse Ox 97 03/01/20 10:00 Discharge Plan Discharge Patient Disposition: Home, Self-Care Condition: Stable Prescriptions: New diphenhydramine HCl 50 mg/mL solution 50 mg IM Q12H PRN (Reason: allergic reaction) 15 Days Qty: 25 RF: 2 (DME) Monoject Safety Syringes 3 mL 20 gauge x 1 1/2 syringe See Rx Instructions .ROUTE .MEDSUPPLY Qty: 100 RF: 0 famotidine 40 mg/5 mL (8 mg/mL) suspension 40 mg PO Q12H 30 Days Qty: 300 RF: 0 Continued montelukast 10 mg tablet 10 mg PO DAILY RF: 0 lorazepam [Lorazepam Intensol] 2 mg/mL concentrate 2 mg PO Q6H PRN (Reason: Anxiety) RF: 0 cetirizine 1 mg/mL solution 10 mg PO BID RF: 0 fluoxetine 20 mg/5 mL (4 mg/mL) Solution 20 mg PO DAILY Qty: 0 RF: 0 doxepin 10 mg/mL concentrate 10 mg PO BEDTIME Qty: 30 RF: 0 Changed Tylenol 325 mg Tablet 650 mg PO QID PRN (Reason: Pain) Qty: 100 RF: 0 prednisolone sodium phosphate 15 mg/5 mL (3 mg/mL) solution 60 mg PO DAILY Qty: 0 RF: 0 Xolair 150 mg recon soln 300 mg SUBCUT DIRECTED Qty: 1 RF: 0 Discharge Orders: Discharge Order (Routine); Ordered 03/01/20 Ordered By: Sveta Zamarripa Other Ambulatory Orders: [place] barium swallow modifd [id number] (Routine) Timeframe: 2 Weeks Facility: [facility] - Location: Radiology Ordered By: Sveta Zamarripa Referrals: Anne-Marie Turner [Other] (Dr Zamarripa will contact you with information after I discuss case with her) Chi Cobb MD [Primary Care Provider] - 1 week (Appointment scheduled for , March 11, 2020 at 1:45pm.) Discharge Diet: Usual diet Discharge Activity: Resume usual activity Activity Restrictions/Additional Instructions: You presented with sensations of scratchy throat and increased itching similar to symptoms of prior anaphylactic reaction. You were admitted to the hospital and treated with increased dose steroids, H2 grady, Benadryl as well as usual home medications. Your symptoms did not progress though you continue to have intermittent sensation of the scratchy throat. Arrangements have been made for IM Benadryl prescription to facilitate management of symptoms at home. You can take a maximum of 300 mg a day. Recommend only having access to 2 vials with syringes at a time. Refills for your doxepin and MAJOR Brand acetaminophen (the only brand you can take), as well as for Pepcid were transmitted to [facility] pharmacy. Recommend going back up on prednisolone 60 mg a day. Unless otherwise directed by your meter engineer, decrease by no more than 5 mg/week back to 50 mg dose you are on prior to arrival. I personally discussed hospital stay and plan of discharge care with your primary care provider Dr. Cobb prior to discharge. He was agreeable to outpatient modified barium swallow. Order has been placed. Keep follow-up with Dr. Cobb, your meter engineer, neurologist and other care providers. I did notice that your blood sugars have been elevated. Assume related to high-dose steroids in the setting of allergic reaction. I did add an hemoglobin A1c to blood in the lab. Result is pending at the time of discharge. Return to the ER for worsening signs and symptoms of anaphylactic reaction. Your next dose of Xolair is March 22. Discharge Date/Time: 03/01/20 12:30 Discharge Attestations Time Spent in Discharge Care*: greater than 30 min Specific Discharge Activities: Specific discharge activities: educating patient, discussing with pcp/other providers, documenting/other paperwork and evaluating patient/reviewing data Quality Metrics Clinical Quality Measures During this hospital stay, did patient experience: None Coding Level of Care Code Acute Physician Vice President for Chg Fwd Diagnoses Allergic reaction T78.40XA Encounter type: initial encounter Hyperglycemia R73.9 History of anaphylaxis Z87.892 Hyper-IgE syndrome D82.4 Alpha galactosidase deficiency E75.6 PTSD (post-traumatic stress disorder) F43.10 Anxiety F41.9 Major depressive disorder F32.9 Multiple environmental allergies Z91.09 Multiple food allergies Z91.018 History of gluten sensitivity Cerebral hemorrhage with hemiparesis I61.9; G81.90
[2020-03-01 12:48] LABS: Estmated Average Glucose 134; Hemoglobin A1C 6.3 % (4.0-6.0)
--- NOTE | 2020-03-01 12:49 | PC.NURSE ---
discharge Dr. Zamarripa reviewed new meds and medication changes. also reviewed follow up appointments. Patient verbalized understanding. Patient taken to personal vehicle via wheelchair. Patient tolerated well.
== END 2020-03-01 12:30 | disposition home or self-care (01) | DRG 916 ==
LOC: ER 21:20 → ICU 21:21
PROVIDERS: Emergency Medicine; Admitting Provider Internal Medicine; Family Provider Family Medicine; PCP Family Medicine; Visit Provider Hospitalist
DX: T78.49XA Other allergy, initial encounter (principal); I69.359 Hemiplegia and hemiparesis following cerebral infarction affecting unspecified side; E75.6 Lipid storage disorder, unspecified; D82.4 Hyperimmunoglobulin E [IgE] syndrome; F41.8 Other specified anxiety disorders; F43.12 Post-traumatic stress disorder, chronic; R73.9 Hyperglycemia, unspecified; X58.XXXA Exposure to other specified factors, initial encounter
CPT/HCPCS: 12345; 36415; 71045; 80048; 80053; 83036; 83735; 85025; 94640; 94664; 96372; 96375; 99283; G0378; J1100; J1200; J2060; J2270; J2405; J3490; J7030; J7510

== ENCOUNTER 2020-03-14 18:45 | Inpatient (IN) | payer BC, SELFPAY ==
[2020-03-14] VITALS (26 sets, daily range): BP systolic 123–175; BP diastolic 77–110; PULSE 104–167; RESP 9–31; TEMP 36.6; O2SAT 97–100; BMI 24.7
[2020-03-14] MEDS: famotidine 20 mg/2 mL INJ 40 MG IVP (19:00)
[2020-03-14] MEDS: diphenhydrAMINE 50 mg/mL SDV 1mL IVP (19:00)
[2020-03-14] MEDS: midazolam 1 mg/mL INJ 2 mL 4 MG IVP (19:06)
[2020-03-14] MEDS: dexamethasone 10 mg/mL INJ IVP (19:08)
[2020-03-14] MEDS: racepinephrine 0.5 mL Neb 1 ML INHALATION (19:09)
[2020-03-14] MEDS: sodium chloride 0.9% 1,000 ML 999 ML IV (19:13)
[2020-03-14 19:30] LABS: Alanine Aminotransferase 33 U/L (0-33); Albumin Level 4.5 g/dL (3.5-5.2); Alkaline Phosphatase 82 IU/L (35-105); Anion Gap 24.2 (5-19); Blood Urea Nitrogen 6 mg/dL (6-20); Calcium 10.1 mg/dL (8.5-10.5); Carbon Dioxide 20 mmol/L (22-29); Chloride 98 mmol/L (98-107); Globulin 2.5 g/dL (1.3-4.6); Glomerular Filtration Rate 68.7 mL/min (90-130); Glucose 238 mg/dL (65-115); Osmolality Calculated 292 mOsm/kg (285-295); Potassium 3.2 mmol/L (3.5-5.1); Sodium 139 mmol/L (136-145); Total Bilirubin 0.2 mg/dL (0.15-1.2)
[2020-03-14 19:32] LABS: Aspartate Amino Transferase 35 U/L (0-32)
[2020-03-14 20:06] LABS: Basophils % 0.2 %; Hematocrit 34.7 % (37.0-47.0); Hemoglobin 11.1 g/dL (11.5-15.3); Lymphocytes # 0.5 10^3/uL (0.8-4.8); Lymphocytes % 7.8 %; Mean Corpuscular Volume 90.6 fL (81-99); Mean Platelet Volume 9.4 fL (7.4-10.4); Monocytes # 0.4 10^3/uL (0.2-0.9); Monocytes % 5.9 %; Neutrophils # 5.5 10^3/uL (1.8-7.7); Neutrophils % 85.3 %; Nucleated Red Blood Cells % 0 %; Platelet Count 258 10^3/cmm (130-400); Red Blood Count 3.83 10^6/uL (4.1-5.3); Red Cell Distribution Width 16.5 % (12.1-15.1); White Blood Count 6.4 10^3/uL (4.0-10.0)
[2020-03-14] MEDS: fentaNYL 50 mcg/mL INJ 2mL 100 MCG IVP (20:07)
--- NOTE | 2020-03-14 20:25 | W.ED.ALLEREA ---
HPI - Allergic Reaction General: Chief complaint: Allergic Reaction Stated complaint: RESP DISTRESS Time Seen by Provider: 03/14/20 18:51 History of Present Illness: HPI narrative: 44-year-old female history of anaphylactic reactions presents with itchiness to her chest and right thigh in particular, shortness of breath, a full feeling in her throat, and tightness in her chest and throat. This started around dinnertime this evening. She did not have any new foods that she knows of, and prepared the meal she ate herself. She had given herself Benadryl at home without any improvement. She is also already on daily antihistamine including cetirizine, diphenhydramine, and methylprednisolone. complaint: allergic reaction Onset (ago): hour(s) Exposure: unknown Associated symptoms: Reports difficulty breathing, hoarseness, itching and nausea; Deny abdominal pain, dizziness or vomiting Severity: similar to previous episodes Treatment prior to arrival: benadryl and steroids Review of Systems Const: Denies: fever(s) or chills Eyes: Denies: change in vision or blurry vision ENMT: Reports: hoarseness Card: Reports: dyspnea on exertion; Denies: chest pain, palpitations or orthopnea Resp: Reports: dyspnea, non-productive cough and wheezing; Denies: productive cough GI: Reports: nausea; Denies: abdominal pain or vomiting : Denies: dysuria or hematuria Musc: Denies: neck pain or back pain Skin/Breast: Reports: rash and erythema; Denies: pruritus Neuro: Reports: headache(s); Denies: dizziness or vertigo Psych: Reports: anxiety PFS ED PFSH: Medical History (Updated 03/15/20 @ 00:43 by Tj Garcia DO) Alpha galactosidase deficiency Anxiety Cerebral hemorrhage with hemiparesis (~08/2019) Occurred while on epinephrine drip for anaphylaxis. Mild residual weakness on the left side History of anaphylaxis Requiring intubation History of gluten sensitivity Hyper-IgE syndrome Major depressive disorder Multiple environmental allergies Multiple food allergies PCOS (polycystic ovarian syndrome) PTSD (post-traumatic stress disorder) Rosacea Vocal cord palsy Per laryngoscopy 08/20/2019 showing shortened right true vocal fold with possible superior laryngeal nerve palsy. Surgical History History of abdominoplasty History of appendectomy History of artificial lens replacement History of cataract surgery History of section, low transverse History of eye surgery Surgical plate placement and removal History of surgery Intracranial angiogram Family History Mother Diabetes Thyroid condition Hypercholesteremia Family/Other Cancer Social History Smoking and tobacco status: never smoked Alcohol intake: current Alcohol intake frequency: few times a month Marital status: Current occupational status: employed Female 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 History: Date of last menstrual period: 02/09/20 Physical Exam Const: GENERAL APPEARANCE: well developed, in distress and ill appearing ORIENTATION/CONSCIOUSNESS: Yes oriented to person, Yes oriented to place and Yes oriented to time HENMT: COMMON NORMALS: normocephalic, external ears normal and Normal external nose present HEAD & SCALP: normocephalic FACE & SINUS: normal facial exam NOSE: Normal external nose present and No nasal discharge present EXTERNAL EAR: Yes external ears normal MOUTH: tongue normal Eye: COMMON NORMALS: Equal, round and reactive pupils present, EOMs intact bilaterally and conjunctivae normal EYELID: eyelids normal CONJUNCTIVA: Yes conjunctivae normal PUPIL: Yes Equal, round and reactive pupils present Neck/C-Spine: GENERAL: No tracheal deviation Chest: COMMONS NORMALS: normal inspection of the chest CHEST: No tenderness Resp: EFFORT & INSPECTION: Yes tachypneic, Yes respiratory distress, No retractions, Yes uses accessory muscles and No tracheal deviation AUSCULTATION: no rhonchi, no wheezes, lung sounds not diminished and other (Mild stridor) Cardio: RATE: tachycardic HEART SOUNDS: no murmurs PERIPHERAL PULSES: radial pulses present GI: INSPECTION: No abdominal distension AUSCULTATION: No Hyperactive bowel sounds present and No Hypoactive bowel sounds present PALPATION: No Guarding due to palpation present (GI) and No Rigid due to palpation PERCUSSION: no dullness to percussion and no tympanic to percussion Neuro: SENSORIUM/ORIENTATION: Yes oriented to person, Yes oriented to place and Yes oriented to time Psych: COMMON NORMALS: mental status grossly normal Skin: NARRATIVE SKIN EXAM: Mild general erythema to anterior chest. She has an urticarial rash on her right thigh. Course Vital Signs: Vital signs: Vital Signs Temperature 97.6 F 03/15/20 00:00 Pulse Rate 120 H 03/14/20 22:22 Respiratory Rate 18 03/14/20 22:22 Blood Pressure 129/77 03/15/20 00:00 Pulse Oximetry 98 03/14/20 22:22 MDM - Allergic Reaction MDM Narrative: Medical decision making narrative: 44-year-old female presenting in significant respiratory distress with stridulous breath sounds on arrival. Her oxygen saturations remain normal. Stridor resolved after racemic epinephrine treatment, then later returned and resolved again after another racemic treatment. She had had adverse reactions to epinephrine including subarachnoid hemorrhage prior, so attempt was made not to use epinephrine unless absolutely necessary. The patient maintained a normal to significantly hypertensive pressure throughout this process. She received 10 mg of dexamethasone, 40 mg Pepcid, 50 mg Benadryl IV. She received some antianxiety medication as well. When this did not improve her pressure, she received 20 of hydralazine which improved her pressure significantly. Intubation/difficult airway instrumentation was at the bedside the entire time in the ER. Medications for RSI were ordered, but did not have to be given. Lab Data: Labs: Lab Results 03/14/20 03/14/20 03/14/20 Range/Units 19:04 19:04 20:00 WBC 6.4 (4.0-10.0) 10^3/ uL RBC 3.83 L (4.1-5.3) 10^6/u L Hgb 11.1 L (11.5-15.3) g/dL Hct 34.7 L (37.0-47.0) % MCV 90.6 (81-99) fL MCH 29.0 (28.0-34.0) pg MCHC 32.0 (30.0-36.0) g/dL RDW 16.5 H (12.1-15.1) % Plt Count 258 (130-400) 10^3/c mm MPV 9.4 (7.4-10.4) fL Neut % (Auto) 85.3 % Lymph % (Auto) 7.8 % [place] % (Auto) 5.9 % Eos % (Auto) 0.0 % Baso % (Auto) 0.2 % Neut # (Auto) 5.5 (1.8-7.7) 10^3/u L Lymph # (Auto) 0.5 L (0.8-4.8) 10^3/u L [place] # (Auto) 0.4 (0.2-0.9) 10^3/u L Eos # (Auto) 0.0 (0.0-0.8) 10^3/u L Baso # (Auto) 0.0 (0.0-0.1) 10^3/u L Nucleated RBC % (a uto) 0 % Nucleated RBCs # 0.0 /100WBC D-Dimer >= 20.00 H (0-0.59) ug/mIFE U Sodium 139 (136-145) mmol/L Potassium 3.2 L (3.5-5.1) mmol/L Chloride 98 (98-107) mmol/L Carbon Dioxide 20 L (22-29) mmol/L Anion Gap 24.2 H (5-19) BUN 6 (6-20) mg/dL Creatinine 0.9 (0.5-0.9) mg/dL GFR Calculation 68.7 L (90-130) mL/min Glucose 238 H (65-115) mg/dL Calculated Osmolal ity 292 (285-295) mOsm/k g Calcium 10.1 (8.5-10.5) mg/dL Ferritin (15-150) ng/mL Total Bilirubin 0.2 (0.15-1.2) mg/dL AST 35 H (0-32) U/L ALT 33 (0-33) U/L Alkaline Phosphata se 82 (35-105) IU/L Lactate Dehydrogen ase (135-214) U/L C-Reactive Protein (0.0-4.9) mg/L Total Protein 7.0 (6.6-8.7) g/dL Albumin 4.5 (3.5-5.2) g/dL Globulin 2.5 (1.3-4.6) g/dL Procalcitonin (0-0.5) ng/mL 03/14/20 Range/Units 20:00 WBC (4.0-10.0) 10^3/ uL RBC (4.1-5.3) 10^6/u L Hgb (11.5-15.3) g/dL Hct (37.0-47.0) % MCV (81-99) fL MCH (28.0-34.0) pg MCHC (30.0-36.0) g/dL RDW (12.1-15.1) % Plt Count (130-400) 10^3/c mm MPV (7.4-10.4) fL Neut % (Auto) % Lymph % (Auto) % [place] % (Auto) % Eos % (Auto) % Baso % (Auto) % Neut # (Auto) (1.8-7.7) 10^3/u L Lymph # (Auto) (0.8-4.8) 10^3/u L [place] # (Auto) (0.2-0.9) 10^3/u L Eos # (Auto) (0.0-0.8) 10^3/u L Baso # (Auto) (0.0-0.1) 10^3/u L Nucleated RBC % (a uto) % Nucleated RBCs # /100WBC D-Dimer (0-0.59) ug/mIFE U Sodium (136-145) mmol/L Potassium (3.5-5.1) mmol/L Chloride (98-107) mmol/L Carbon Dioxide (22-29) mmol/L Anion Gap (5-19) BUN (6-20) mg/dL Creatinine (0.5-0.9) mg/dL GFR Calculation (90-130) mL/min Glucose (65-115) mg/dL Calculated Osmolal ity (285-295) mOsm/k g Calcium (8.5-10.5) mg/dL Ferritin 28 (15-150) ng/mL Total Bilirubin (0.15-1.2) mg/dL AST (0-32) U/L ALT (0-33) U/L Alkaline Phosphata se (35-105) IU/L Lactate Dehydrogen ase 236 H (135-214) U/L C-Reactive Protein 1.4 (0.0-4.9) mg/L Total Protein (6.6-8.7) g/dL Albumin (3.5-5.2) g/dL Globulin (1.3-4.6) g/dL Procalcitonin 0.05 (0-0.5) ng/mL Critical Care Time Critical Care Time: Critical Care Time: Yes Total Critical Care Time: 60 Attestation: This case had a high probability of a clinically significant, sudden, or life threatening deterioration of this patient's condition which required my full and direct attention, intervention and personal management. 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
--- NOTE | 2020-03-14 20:51 | PM.HP ---
Providers/Chief Complaint Primary Care Provider: Chi Cobb MD Chief Complaint: RESP DISTRESS History of Present Illness Estella Burgess is a 44 year old female who carries diagnosis of multiple food and drug allergies, in August last year she was intubated because of laryngeal edema, she has had multiple admissions due to respiratory distress in the past, she has spent 6 to 8 weeks in [place] for management of similar complaints, coming in today with chief complaint of respiratory stress and stridor. She is stating that she has started seeing an food and nutrition professor at [place], he has started her on Xolair which she is getting every week, she is trying to eat low histamine containing vegan lactose-free diet, she has been very careful about her drug and food intake, she is using specific brand medications to avoid recurrence of symptoms. Unfortunately she has been experiencing a lot of anxiety, her Prozac dose has been increased to 40 mg and Lamictal was added by Dr. Cobb. Her prednisolone has been tapered down to 30 mg from 60 mg. Today she was cooking her dinner when she started experiencing sore throat and scratchy sensation in back of her throat (her was cooking meat outside), she started experiencing stridor as well, she took Benadryl and Pepcid at home and came to the ER for further evaluation. In the ER she had stridor on arrival, consideration was being given to intubation, but her condition improved after getting treatment At the time of my interview she is very anxious, systolic blood pressure 180, diastolic 100, heart rate 120 sinus tachycardia, she has been experiencing coarse tremors, no active stridor or respiratory distress Drill Operator has been contacted by the ER physician to see if she would benefit from medical management at their hospital, they recommended tryptase test and continuing current management. In the ER she has been given hydralazine 20 mg, Ativan 4 mg, midazolam 4 mg, racemic epinephrine 1.5 mL, famotidine 40 mg IV, Benadryl 50 mg and Decadron 10 mg Of note, she was tested for COVID today at [facility] because of the possibility of exposure of her son to his uncle who is symptomatic. She is denying fever, myalgias, sputum production. Her son is also asymptomatic. Review of Systems Const: Reports: chills, fatigue, malaise and change in sleep pattern Eyes: Denies: change in vision ENMT: Reports: throat pain and dry mouth; Denies: odynophagia or hoarseness Card: Reports: palpitations and dyspnea on exertion; Denies: chest pain, irregular heart rhythm, edema, swelling of feet/ankles, lightheadedness or orthopnea Resp: Reports: dyspnea; Denies: productive cough or non-productive cough GI: Denies: abdominal pain, nausea or vomiting : Denies: flank pain Musc: Reports: muscle cramps; Denies: neck pain Skin/Breast: Denies: rash Neuro: Denies: headache(s) Psych: Reports: anxiety, panic attacks, paranoia and difficulty concentrating Endo: Denies: polyuria Nigel/Lymph: Denies: easy bruising All/Imm: Reports: urticaria, seasonal rhinorrhea and food intolerance; Denies: tongue swelling, facial swelling, acute wheezing or itchy eyes Medications/Allergies Home Medications Medication Instructions Recorded Confirmed Last Taken Type cetirizine 10 mg PO BID 02/17/20 02/29/20 02/28/20 History lorazepam [Lorazepam Intensol] 2 mg PO Q6H PRN 02/17/20 02/29/20 02/28/20 History montelukast 10 mg PO DAILY 02/17/20 02/29/20 02/28/20 History diphenhydramine HCl 50 mg IM Q12H PRN 15 Days #25 ml 02/29/20 Unknown Rx syringe with needle, safety #100 each 02/29/20 Unknown Rx [Monoject Safety Syringes] Tylenol 650 mg PO QID PRN #100 tab 03/01/20 02/29/20 02/24/20 Rx Xolair 300 mg SUBCUT DIRECTED #1 each 03/01/20 02/29/20 02/24/20 Rx doxepin 10 mg PO BEDTIME #30 ml 03/01/20 Unknown Rx famotidine 40 mg PO Q12H 30 Days #300 ml 03/01/20 Unknown Rx fluoxetine 20 mg PO DAILY #0 ml 03/01/20 02/29/20 02/28/20 Rx prednisolone sodium phosphate 60 mg PO DAILY #0 ml 03/01/20 02/29/20 02/28/20 Rx Allergies Allergy/AdvReac Type Severity Reaction Status Date / Time Beef Containing Products Allergy Severe ALGY-Anaphy Verified 02/29/20 08:01 laxis epinephrine Allergy Severe Hemorrhagic Verified 02/29/20 08:49 stroke after epi drip lactose Allergy Severe ALGY-Anaphy Verified 02/29/20 09:55 laxis Pork/Porcine Containing Allergy Severe ALGY-Anaphy Verified 02/29/20 08:01 Products laxis Poultry Allergy Severe ALGY-Anaphy Verified 02/29/20 08:01 laxis trimethobenzamide Allergy Severe ALGY-Anaphy Verified 02/29/20 09:55 [From Tigan] laxis gluten Allergy Unknown Verified 02/28/20 22:30 PFSH Acute PFSH: Medical History (Updated 03/14/20 @ 22:25 by David Moy MD) Alpha galactosidase deficiency Anxiety Cerebral hemorrhage with hemiparesis (~08/2019) Occurred while on epinephrine drip for anaphylaxis. Mild residual weakness on the left side History of anaphylaxis Requiring intubation History of gluten sensitivity Hyper-IgE syndrome Major depressive disorder Multiple environmental allergies Multiple food allergies PCOS (polycystic ovarian syndrome) PTSD (post-traumatic stress disorder) Rosacea Vocal cord palsy Per laryngoscopy 08/20/2019 showing shortened right true vocal fold with possible superior laryngeal nerve palsy. Surgical History History of abdominoplasty History of appendectomy History of artificial lens replacement History of cataract surgery History of section, low transverse History of eye surgery Surgical plate placement and removal History of surgery Intracranial angiogram Family History Mother Diabetes Thyroid condition Hypercholesteremia Family/Other Cancer Social History Smoking and tobacco status: never smoked Alcohol intake: current Alcohol intake frequency: few times a month Marital status: Current occupational status: employed Female 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 History: Date of last menstrual period: 02/09/20 Vitals/I&O/Wt Last Vital Signs Temp 97.8 F 03/14/20 19:20 Pulse 127 H 03/14/20 20:08 Resp 16 03/14/20 20:08 BP 130/96 03/14/20 20:08 Pulse Ox 99 03/14/20 20:08 Weight last 48 hrs Weight 63.503 kg Physical Exam Narrative: EXAM NARRATIVE: Head to toe examination Patient sitting in her bed saturating well on room air Very anxious appearing Tachycardic heart rate 120, systolic blood pressure 180 diastolic 110 Pressured speech Coarse tremors positive No focal deficit Alert oriented x3 GCS 15 No active stridor or audible wheezing No active respiratory distress Bilateral good breath sounds without adventitious sounds Soft abdomen S1-S2 sinus tachycardia Anxious mood Skin does not show any sign ischemia gangrene ulcer Data : 03/14/20 20:00 03/14/20 19:04 A&P Assessment and plan (1) Acute allergic reaction: Status: Acute (2) Hypertension: Status: Acute (3) Anxiety: Status: Acute Additional A&P Information Acute allergic reaction History of multiple food and drug allergies No active respiratory distress or stridor She is feeling better after racemic epinephrine and H1, H2 grady medications, she received Decadron as well She would use her own medications because they are brand specific to avoid recurrent reactions I would use famotidine 20 mg IV twice daily, 50 mg Benadryl IV every 6(max is 300 mg/day), reduce Decadron dose to 4 mg (she is adamant that methylprednisolone or prednisolone is not helping her), racemic epinephrine on a as needed basis, DuoNeb as needed basis Close monitoring in ICU Acute anxiety attack She has coarse tremors, tachycardic and hypertensive Would use Ativan on as needed basis, Recently Lamictal has been added, Prozac dose has been increased by her PCP She would like to use her own medication Hypokalemia: Repleted Diet: She would call [employer] to have her meal prepared, DVT prophylaxis not indicated because of low risk and previous history of hemorrhagic stroke Full code Drill Operator from [place] recommended tryptase level. 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
[2020-03-14] MEDS: fentaNYL 50 mcg/mL INJ 2mL IVP (21:07)
[2020-03-14] MEDS: racepinephrine 0.5 mL Neb INHALATION (21:07)
[2020-03-14] MEDS: ondansetron 2 mg/ML SDV 2 mL 4 MG IVP (21:24)
--- NOTE | 2020-03-14 21:39 | PC.NURSE ---
attempted to call report waiting for ICU to call back
[2020-03-14] MEDS: LORazepam 2 mg/mL INJ 1 mL 4 MG IVP (22:09)
[2020-03-14] MEDS: hyDRALAzine 20 mg/mL INJ 1 mL IVP (22:12)
[2020-03-14 23:31] LABS: Procalcitonin 0.05 ng/mL (0-0.5)
[2020-03-14 23:36] LABS: D Dimer >= 20.00 ug/mIFEU (0-0.59)
[2020-03-14 23:42] LABS: C Reactive Protein 1.4 mg/L (0.0-4.9); Ferritin 28 ng/mL (15-150); Lactate Dehydrogenase 236 U/L (135-214)
[2020-03-15] VITALS (38 sets, daily range): BP systolic 103–141; BP diastolic 62–87; PULSE 75–149; RESP 14–24; TEMP 36.4–37; O2SAT 96–98
[2020-03-15] MEDS: acetaminophen 325 mg Tablet 650 MG PO
[2020-03-15] MEDS: LORazepam 2 mg/mL INJ 1 mL IVP ×5 (01:00→21:14)
[2020-03-15] MEDS: diphenhydrAMINE 50 mg/mL SDV 1mL IVP ×5 (01:00→21:14)
[2020-03-15 03:37] LABS: Basophils % 0.1 %; Hematocrit 35.1 % (37.0-47.0); Hemoglobin 11.1 g/dL (11.5-15.3); Lymphocytes # 0.5 10^3/uL (0.8-4.8); Lymphocytes % 5.3 %; Mean Corpuscular HGB Conc 31.6 g/dL (30.0-36.0); Mean Corpuscular Hemoglobin 28.8 pg (28.0-34.0); Mean Corpuscular Volume 90.9 fL (81-99); Mean Platelet Volume 9.5 fL (7.4-10.4); Monocytes # 0.1 10^3/uL (0.2-0.9); Neutrophils # 8.7 10^3/uL (1.8-7.7); Neutrophils % 93.1 %; Nucleated Red Blood Cells % 0 %; Platelet Count 254 10^3/cmm (130-400); Red Blood Count 3.86 10^6/uL (4.1-5.3); Red Cell Distribution Width 17.1 % (12.1-15.1); White Blood Count 9.4 10^3/uL (4.0-10.0)
[2020-03-15 03:45] LABS: Alanine Aminotransferase 25 U/L (0-33); Alkaline Phosphatase 60 IU/L (35-105); Anion Gap 14.9 (5-19); Aspartate Amino Transferase 23 U/L (0-32); Blood Urea Nitrogen 5 mg/dL (6-20); Carbon Dioxide 21 mmol/L (22-29); Chloride 105 mmol/L (98-107); Globulin 1.6 g/dL (1.3-4.6); Glomerular Filtration Rate 109.6 mL/min (90-130); Glucose 137 mg/dL (65-115); Osmolality Calculated 280 mOsm/kg (285-295); Potassium 4.9 mmol/L (3.5-5.1); Sodium 136 mmol/L (136-145); Total Bilirubin 0.2 mg/dL (0.15-1.2); Total Protein 5.6 g/dL (6.6-8.7)
[2020-03-15] MEDS: sodium chloride 0.9% 1,000 ML 75 ML IV ×2 (05:05→18:51)
[2020-03-15] MEDS: famotidine 20 mg/2 mL INJ IVP ×2 (07:47→18:51)
[2020-03-15] MEDS: fluoxetine 20 mg Capsule 40 MG PO (07:48)
[2020-03-15] MEDS: cetirizine 10 mg Tablet PO ×2 (07:48→16:47)
[2020-03-15] MEDS: dexamethasone 4 mg/mL INJ IVP (07:48)
[2020-03-15] MEDS: montelukast sodium 10 mg Tablet PO (07:48)
[2020-03-15] MEDS: ipratropium-albuterol 3 mL Neb INHALATION (08:33)
[2020-03-15] MEDS: fentaNYL 50 mcg/mL INJ 2mL 25 MCG IVP ×2 (09:20→18:49)
--- NOTE | 2020-03-15 10:15 | CT_ITS ---
WS: [id number] CT angio chest PE protcl [id number] REASON FOR EXAM: pulmonary embolism, elevated D dimer > 20 TECHNIQUE: Coronal and sagittal 2-D and MIP reformations. IV CONTRAST ADMINISTERED: Omnipaque 395 cc. TOTAL EXAM DLP: 453.[address] scans at [facility] use at least one of these dose optimization techniques: automat ed exposure control; mA and/or kV adjustment per patient size (includes targeted exams where dose is matched to clinical indication); or iterative reconstruction. FINDINGS: After the bolus injection of contrast the pulmonary vessels fill readily. No filling defect s to suggest thromboembolic disease. There is normal perfusion throughout both lung alberto. The mediastinum was normal. There was no evidence to suggest pneumonia, pleural effusion, pulmonary edema, or mass effect. The liver show normal perfusion and filling The lower lung alberto were normal. The right and left adrenal glands were normal. The gallbladder fill readily. CT/CT angio chest PE protcl [id number] IMPRESSION: No evidence of thromboembolic disease.
--- NOTE | 2020-03-15 10:23 | P.PN_ITS ---
Subjective Subjective: Interval history: patient continues to be tachycardic this morning with HR 150s-160s. Overnight review of telemetry shows tachycardia btween 120- 130 bpm, with HR 90s while asleep. She reports previously being on atenolol for rate control after her discharge from [facility], however this needed to be discontinued due to low blood pressure eventually. EKG with sinus tachycardia. Occasional intermittent dry cough +. Current nebulization is with duoneb. Reports chest discomfort over left anterior chest which is non specific. Medications: Reviewed: Yes Vitals/I&O/Wt Last Vital Signs Temp 98.1 F 03/15/20 08:00 Pulse 136 H 03/15/20 08:38 Resp 20 H 03/15/20 09:20 BP 134/87 03/15/20 08:00 Pulse Ox 97 03/15/20 09:20 Weight last 48 hrs Weight 63.503 kg Physical Exam Narrative: EXAM NARRATIVE: GEN: Awake, alert and oriented, no acute distress CVS: S1S2 N, tachycardia+ RS: CTA B/L Abd: Soft, nt/nd , bs+ GRIZZLY WORKER: no focal neuro deficits EXT: No lower extremity swelling, discoloration or pain. No pain on passive streching. SKIn: No rashes Data : 03/15/20 03:15 03/15/20 03:15 A&P Assessment and plan (1) Anaphylaxis: Status: Acute Qualifiers: Encounter type: initial encounter Qualified Code(s): T78.2XXA - Anaphylactic shock, unspecified, initial encounter (2) Anxiety: Status: Acute (3) Hyper-IgE syndrome: Status: Chronic (4) Multiple environmental allergies: Status: Chronic (5) Multiple food allergies: Status: Chronic (6) Major depressive disorder: Status: Chronic (7) PTSD (post-traumatic stress disorder): Status: Chronic (8) Alpha galactosidase deficiency: Status: Chronic (9) Elevated d-dimer: Status: Acute (10) Acute allergic reaction: Status: Acute (11) Hypertension: Status: Acute Additional A&P Information continue ICU level monitoring 1. Acute allergic reaction with a background history of multiple anaphylaxis for which she follows with data control clerk supervisor Dr. Fonseca in [place]. History of multiple food and drug allergies, alpha galactosidase deficiency No active respiratory distress or stridor She is feeling better after racemic epinephrine and H1, H2 grady medications, she received Decadron as well in the ER. Continue Cetrizine, decadron 4mg IVP daily,montelukast, benadryl,famotidine 2. Elevated D dimer together with tachycardia, respiratory symptoms and non specific chest pain, cannot exclude PE. Will obtain CTA chest to evaluate for above. No past D dimer in the system to compare yesetrday's results 3. Dyspnea upon presentation likely related to known multiple allergies, however given significantly elevated D dimer and elevated LDH with indirect COVID exposure (son exposed to someone with symptoms and known positive in [place]), will need to rule out. She was recently tested at [facility], per discussion with [facility] clinic this morning, results are not expected back until later this week. In order to optimize PPE, staffing and further diagnostic testing, will contact infection control to send testing to [facility] lab, with quicker result time. 4. Sinus tachycardia May be related to anxiety, nebulized medications EKG with sinus tachy, no acute St-T changes Check troponin series given chest pain and elevated D dimer Will start low dose atenolol. Patient has used this in the past without triggering allergic reaction 5. Acute anxiety attack She has coarse tremors, tachycardic and reports anxiety Continue ativan, doxepin and prozac per home formulations from compounding pharmacy (patient using her own) Recently Lamictal has been added, Prozac dose has been increased by her PCP She would like to use her own medication Hypokalemia: Repleted Diet: She would call [employer] to have her meal prepared, DVT prophylaxis not indicated because of low risk and previous history of hemorrhagic stroke Full code Small Business Consultant from [place] recommended tryptase level. Additional labs to be faxed over from Dr. 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
--- NOTE | 2020-03-15 12:10 | ECG_ITS ---
Measurements Intervals [place] Rate: 100 P: 69 ND: 138 QRS: 67 QRSD: 86 T: 37 QT: 342 QTc: 443 SINUS TACHYCARDIA POSSIBLE LEFT ATRIAL ENLARGEMENT [-0.1mV P WAVE IN V1/V2] ABNORMAL RHYTHM ECG Compared to ECG 03/15/2020 12:43:33 Short ND interval no longer present T-wave abnormality no longer present Electronically Signed On 03-16-2020 19:39:01 CDT by David Tyler M.D. [email or web address]
[2020-03-15] MEDS: iohexol 350 mg/mL 100 mL Btl IV (13:50)
[2020-03-15 14:24] LABS: Troponin(5th) Baseline 8 ng/mL (0-10)
--- NOTE | 2020-03-15 16:10 | ECG_ITS ---
Measurements Intervals [place] Rate: 137 P: 61 OR: 104 QRS: 63 QRSD: 86 T: 10 QT: 309 QTc: 467 SINUS TACHYCARDIA WITH SHORT OR INTERVAL NONSPECIFIC T-WAVE ABNORMALITY ABNORMAL RHYTHM ECG Compared to ECG 08/18/2019 19:04:00 Short OR interval now present T-wave abnormality now present Ventricular premature complex(es) no longer present ST (T wave) deviation no longer present Electronically Signed On 03-15-2020 17:07:48 CDT by Rob Reynolds M.D. [email or web address]
[2020-03-15] MEDS: atenolol 50 mg Tablet 12.5 MG PO (18:52)
[2020-03-15] MEDS: doxepin 10 mg Capsule PO (21:14)
[2020-03-16] VITALS (13 sets, daily range): BP systolic 105–151; BP diastolic 71–105; PULSE 66–86; RESP 12–24; TEMP 36.8–37.3; O2SAT 95–98
[2020-03-16] MEDS: sodium chloride 0.9% 1,000 ML 75 ML IV ×2 (00:10→13:47)
[2020-03-16] MEDS: LORazepam 2 mg/mL INJ 1 mL IVP ×2 (02:32→09:18)
[2020-03-16] MEDS: diphenhydrAMINE 50 mg/mL SDV 1mL IVP ×4 (05:03→23:38)
[2020-03-16] MEDS: fentaNYL 50 mcg/mL INJ 2mL 25 MCG IVP ×2 (05:07→09:18)
[2020-03-16] MEDS: dexamethasone 4 mg/mL INJ IVP (09:17)
[2020-03-16] MEDS: famotidine 20 mg/2 mL INJ IVP ×2 (09:17→20:10)
[2020-03-16] MEDS: atenolol 50 mg Tablet 12.5 MG PO (09:19)
[2020-03-16] MEDS: cetirizine 10 mg Tablet PO (09:20)
[2020-03-16] MEDS: fluoxetine 20 mg Capsule 40 MG PO (09:20)
[2020-03-16] MEDS: montelukast sodium 10 mg Tablet PO (09:21)
--- NOTE | 2020-03-16 09:41 | USCV_ITS ---
Estella Burgess Age: 44 Gender: F : 1975 Exam Date: 03/16/2020 14:16 Ordering Phys: Sarah Shell MD Technologist: Lori Garcia Exam Location: [facility]_ Indication: SWELLING HISTORY: Upper extremity swelling. PROCEDURES: Venous duplex imaging was performed in only the right upper extremity. The following venous structures were evaluated: internal jugular vein, subclavian vein, axillary vein, and brachial veins. In addition, the basilic vein, cephalic vein, radial vein, and ulnar vein. Serial compression, augmentation maneuvers, and spectral Doppler flow evaluation were performed. FINDINGS: Non obstructive thrombus seen within the right Baslic, all other veins appear free of thrombus at this time. The diastolic vein was found to be partially compressible CONCLUSIONS Features of right basilic vein thrombus, causing partial occlusion. No evidence of thrombosis in the deep vein Dr Edvin Bo MD [facility] (Electronically Signed) Final Date: 16 March 2020 17:50 S
--- NOTE | 2020-03-16 10:14 | P.PN_ITS ---
Subjective Subjective: Interval history: Tachycardia is improving after atenolol last evening. Hr ranging between 70-90bpm. BP 140/77 this am. This am noted right arm to be swollen in placed along with tenderness, mostly around sites of iv lines, appears to be consistent with superficial thromb ophlebitis. No fever. Medications: Reviewed: Yes Vitals/I&O/Wt Last Vital Signs Temp 98.3 F 03/16/20 04:00 Pulse 66 03/16/20 04:00 Resp 22 H 03/16/20 04:00 BP 119/81 03/16/20 04:00 Pulse Ox 97 03/16/20 04:00 03/15/20 03/16/20 03/16/20 22:59 06:59 14:59 Intake Total 1480 / 1959 398.75 / 2358.75 240 / 240 Balance 148 / 1959 398.75 / 2358.75 240 / 240 Weight last 48 hrs Weight 63.503 kg Physical Exam Narrative: EXAM NARRATIVE: GEN: Awake, alert and oriented, no acute distress CVS: S1S2 N, tachycardia+ RS: CTA B/L Abd: Soft, nt/nd , bs+ TECHNICAL SALES CONSULTANT: no focal neuro deficits EXT: No lower extremity swelling, discoloration or pain. No pain on passive streching. RUE with patchy areas of erythema, swelling and tenderness, mostly centered arou nd iv sites. No axillary swelling or discoloration. SKIn: No rashes Data : 03/15/20 03:15 03/15/20 03:15 A&P Assessment and plan (1) Anaphylaxis: Status: Acute Qualifiers: Encounter type: initial encounter Qualified Code(s): T78.2XXA - Anaphylactic shock, unspecified, initial encounter (2) Anxiety: Status: Acute (3) Hyper-IgE syndrome: Status: Chronic (4) Multiple environmental allergies: Status: Chronic (5) Multiple food allergies: Status: Chronic (6) Major depressive disorder: Status: Chronic (7) PTSD (post-traumatic stress disorder): Status: Chronic (8) Alpha galactosidase deficiency: Status: Chronic (9) Elevated d-dimer: Status: Acute (10) Acute allergic reaction: Status: Acute (11) Hypertension: Status: Acute Additional A&P Information continue ICU level monitoring 1. Acute allergic reaction with a background history of multiple anaphylaxis for which she follows with patient relations coordinator Dr. Fonseca in [place]. History of multiple food and drug allergies, alpha galactosidase deficiency No active respiratory distress or stridor She is feeling better after racemic epinephrine and H1, H2 grady medications, she received Decadron as well in the ER. Will convert back to prednisolone after discussion with her patient relations coordinator. Currently on 4mg iv decadron which converts to 26.7mg of po prednisolone Continue Cetrizine, decadron 4mg IVP daily,montelukast, benadryl,famotidine for now Next xolair due 2. Elevated D dimer together with tachycardia, respiratory symptoms and non specific chest pain, underwent CTA chest to evaluate for PE- negative for the same. No past D dimer in the system to compare results 3. Dyspnea upon presentation likely related to known multiple allergies, however given significantly elevated D dimer and elevated LDH with indirect COVID exposure (son exposed to someone with symptoms and known positive in [place]), will need to rule out. She was recently tested at [facility], per discussion with the clinic this morning, results are not expected back until later this week. In order to optimize PPE, staffing and further diagnostic testing, will contact infection control to send testing to [facility] lab, with quicker result time. 4. Sinus tachycardia May be related to anxiety, nebulized medications EKG with sinus tachy, no acute ST-T changes Baseline troponin negative improved after starting atenolol 12.5mg po qd 5. Acute anxiety Continue ativan, doxepin and prozac per home formulations from compounding pharmacy (patient using her own) Recently Lamictal has been added, Prozac dose has been increased by her PCP She would like to use her own medication 6. RUE pain Appears to be thrombophelibitis, superficial. Ice pack. RUE doppler. Less likely to be cellulitis, monitor off abx. 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
[2020-03-16 12:54] LABS: Coronavirus Lab Test PTC NOT DETECTED
[2020-03-16] MEDS: NON-FORMULARY MEDICATION (Lorazepam [Lorazepam Intensol] 2 MG) 2 EACH PO (13:49)
--- NOTE | 2020-03-16 13:51 | PC.NURSE ---
HOME MEDICATIONS HERE FROM PHARMACY. PT TOOK A DOSE OF LORAZEPAM & OXYCONTIN LIQUID TO MONITOR FOR REACTION. AWAITING ULTRASOUND
--- NOTE | 2020-03-16 19:53 | PC.NURSE ---
Report taken from CHARLOTTE Camejo. Patient is very anxious. States she just needs a plan . Nursing reassured that Dr. Shell is working on possibility of transfer but that it may not be a possibility tonight. Patient seems to accept that at this time. Patient has own home meds in room and is taking them appropriately. Will continue to monitor.
--- NOTE | 2020-03-16 21:15 | PC.NURSE ---
Covid screen negative. Dr. Moy notified and order given to discontinue isolation order.
--- NOTE | 2020-03-16 21:16 | PC.NURSE ---
Patient took home med of doxepin 10mg. This nurse did not admin.
--- NOTE | 2020-03-16 22:15 | PM.CONSULT ---
Providers/Reason For Consult Consulting Physican/Specialty*: Pulmonary critical care medicine Reason for Consult*: Suspected anaphylactic reaction Attending Physician: Sarah Shell MD Primary Care Provider: Chi Cobb MD History of Present Illness History of Present Illness Estella Burgess is a 44 year old female with a fairly complicated past medical history. I had evaluated the patient in late last year at which time she had multiple hospital admission with similar complaints as this time. The patient currently has a diagnosis of alpha gal allergy. However, how much of this is contributing to her illness is unknown. In the past month the patient had 3 hospital visits. All of them because of suspicion for laryngeal edema in the setting of anaphylaxis/exposure to unknown allergen. Last year, the patient was hospitalized multiple times with the same presentation. She underwent intubation and had suffered from intracranial bleed from which she has recovered beautifully. This time, the patient was at home preparing dinner and all of a sudden she had a scratchy sensation in her throat followed by rapid development of stridor. In the ED, the patient received racemic epinephrine and according to the patient she had immediate relief of her stridor. Currently the patient is in ICU and doing well. The patient is extremely anxious and concerned about going home. The patient thinks that since she does not know what predisposes her to have this life-threatening emergencies she might have the same problem again and at home. The patient would like to find out as soon as possible what is wrong with her. The patient is seeing an appliance service representative in [place] and was recently started on omalizumab for suspected diagnosis of idiopathic urticaria. There is also a concern for systemic mastocytosis however has depressed level on this admission as well as her last admission in August of last year was negative. Her complement and autoimmune work-up has always been negative. Recently she was found to have an ESR of 13 The patient told me today that when a laryngoscopy was performed last year she was told that she had right-sided vocal cord palsy. I had performed a bronchoscopy last year when the patient was intubated and at that time there was evidence of swelling of the vocal cords. However, this could have been secondary to the intubation and presence of endotracheal tube in the vocal cord. She has never been evaluated for vocal cord dysfunction. Review of Systems Narrative: General: No fevers chills night sweats Skin: No rash HEENT: No nasal congestion, rhinitis, sinusitis, sneezing, Improved hoarseness of voice. There is no blurred vision, double vision, redness of the eye or visual loss. There is no oral ulcer, sore throat or dry mouth. Neck: There is no neck swelling, mass or swollen glands. Respiratory: No significant cough, sputum production, wheezing or resting shortness of breath Cardiovascular: No chest pain, orthopnea, proximal nocturnal dyspnea, palpitation or lower extremity edema. Gastrointestinal: No abdominal pain, nausea, vomiting, melena Musculoskeletal: No joint pain or swelling, muscle weakness, morning stiffness, numbness or tingling. Neurological: Patient is awake alert and oriented x3, no paralysis, gross motor function is normal. Psychiatric: The patient is depressed and has significant anxiety. The patient is trembling Meds/Allergies Home Medications and Allergies Home Medications Medication Instructions Recorded Confirmed Last Taken Type cetirizine 10 mg PO BID 02/17/20 03/14/20 02/28/20 History lorazepam [Lorazepam Intensol] 2 mg PO Q6H PRN 02/17/20 03/14/20 03/13/20 18:00 History montelukast 10 mg PO DAILY 02/17/20 03/14/20 03/13/20 09:00 History diphenhydramine HCl 50 mg IM Q12H PRN 15 Days #25 ml 02/29/20 03/14/20 03/14/20 18:00 Rx syringe with needle, safety #100 each 02/29/20 03/14/20 Unknown Rx [Monoject Safety Syringes] Xolair 300 mg SUBCUT DIRECTED #1 each 03/01/20 02/29/20 02/24/20 Rx acetaminophen [Tylenol] 650 mg PO QID PRN #100 tab 03/01/20 03/14/20 02/24/20 Rx doxepin 10 mg PO BEDTIME #30 ml 03/01/20 03/14/20 03/13/20 21:00 Rx famotidine 40 mg PO Q12H 30 Days #300 ml 03/01/20 03/14/20 03/13/20 09:00 Rx fluoxetine 20 mg PO DAILY #0 ml 03/01/20 03/14/20 02/28/20 Rx prednisolone sodium phosphate 60 mg PO DAILY #0 ml 03/01/20 03/14/20 03/14/20 09:00 Rx hydroxyzine pamoate 50 mg PO BID PRN 03/14/20 03/14/20 03/14/20 08:00 History lamotrigine [Lamictal] 2 03/14/20 03/13/20 21:00 History lorazepam 2 mg PO Q4H PRN #30 ml 03/16/20 Unknown Rx oxycodone 10 mg PO QID PRN #30 ml 03/16/20 Unknown Rx Allergies Allergy/AdvReac Type Severity Reaction Status Date / Time Beef Containing Products Allergy Severe ALGY-Anaphy Verified 02/29/20 08:01 laxis epinephrine Allergy Severe Hemorrhagic Verified 02/29/20 08:49 stroke after epi drip lactose Allergy Severe ALGY-Anaphy Verified 02/29/20 09:55 laxis Pork/Porcine Containing Allergy Severe ALGY-Anaphy Verified 02/29/20 08:01 Products laxis Poultry Allergy Severe ALGY-Anaphy Verified 02/29/20 08:01 laxis trimethobenzamide Allergy Severe ALGY-Anaphy Verified 02/29/20 09:55 [From [facility]] laxis gluten Allergy Unknown Verified 02/28/20 22:30 Current Medications Current Medications Generic Name Dose Route Start Last Admin Trade Name Freq PRN Reason Stop Dose Admin Acetaminophen 650 mg 03/14/20 23:06 03/15/20 00:00 Tylenol PO 650 mg QID PRN Administration Pain Albuterol/Ipratropium 3 ml 03/14/20 23:06 03/15/20 08:33 Duoneb INHALATION 3 ml Q6H.RESPIRATORY PRN Administration SHORTNESS OF BREATH Atenolol 12.5 mg 03/15/20 19:00 03/16/20 09:19 Tenormin PO 12.5 mg DAILY RAYSA Administration Cetirizine HCl 10 mg 03/15/20 09:00 03/16/20 19:51 Zyrtec PO Not Given BID RAYSA Dexamethasone 4 mg 03/15/20 09:00 03/16/20 09:17 Decadron IVP 4 mg DAILY RAYSA Administration Diphenhydramine HCl 50 mg 03/14/20 23:06 03/16/20 17:49 Benadryl IVP 50 mg Q6H RAYSA Administration Doxepin HCl 10 mg 03/15/20 21:00 03/16/20 21:16 Sinequan PO Not Given BEDTIME RAYSA Famotidine 20 mg 03/15/20 09:00 03/16/20 20:10 Pepcid Inj IVP 20 mg BID RAYSA Administration Fentanyl 25 mcg 03/15/20 18:18 03/16/20 09:18 Sublimaze IVP 25 mcg Q8H PRN Administration SEVERE PAIN Fluoxetine HCl 40 mg 03/15/20 09:00 03/16/20 09:20 Prozac PO 40 mg DAILY RAYSA Administration Sodium Chloride 1,000 mls @ 75 mls/hr 03/15/20 04:45 03/16/20 13:47 Sodium Chloride 0.9% IV 75 mls/hr .[id number] RAYSA Administration Lorazepam 2 mg 03/14/20 23:06 03/16/20 09:18 Ativan IVP 2 mg Q4H PRN Administration ANXIETY Montelukast Sodium 10 mg 03/15/20 09:00 03/16/20 09:21 Singulair PO 10 mg DAILY RAYSA Administration Non-Formulary Medication 2 mg 03/14/20 23:06 03/16/20 13:49 Lorazepam [Lorazepam Intensol] PO 2 mg Q6H PRN Administration Anxiety Non-Formulary- 2 each 03/15/20 09:00 03/16/20 09:21 Lamotrigine 25mg PO 2 each DAILY RAYSA Administration PFSH Acute PFSH: Medical History Alpha galactosidase deficiency Anxiety Cerebral hemorrhage with hemiparesis (~08/2019) Occurred while on epinephrine drip for anaphylaxis. Mild residual weakness on the left side History of anaphylaxis Requiring intubation History of gluten sensitivity Hyper-IgE syndrome Major depressive disorder Multiple environmental allergies Multiple food allergies PCOS (polycystic ovarian syndrome) PTSD (post-traumatic stress disorder) Rosacea Vocal cord palsy Per laryngoscopy 08/20/2019 showing shortened right true vocal fold with possible superior laryngeal nerve palsy. Surgical History History of abdominoplasty History of appendectomy History of artificial lens replacement History of cataract surgery History of section, low transverse History of eye surgery Surgical plate placement and removal History of surgery Intracranial angiogram Family History Mother Diabetes Thyroid condition Hypercholesteremia Family/Other Cancer Social History Smoking and tobacco status: never smoked Alcohol intake: current Alcohol intake frequency: few times a month Marital status: Current occupational status: employed Female 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 History: Date of last menstrual period: 02/09/20 Vitals/I&O/Wt Last Vital Signs Temp 98.9 F 03/16/20 12:00 Pulse 81 03/16/20 21:22 Resp 24 H 03/16/20 21:22 BP 151/81 03/16/20 20:00 Pulse Ox 98 03/16/20 21:22 03/16/20 03/16/20 03/16/20 06:59 14:59 22:59 Intake Total 398.75 / 2358.75 1690 / 1690 700 / 2390 Balance 398.75 / 2358.75 1690 / 1690 700 / 2390 Physical Exam Narrative: EXAM NARRATIVE: General: Patient is awake alert and oriented, in no distress but very anxious. Neck: No JVD Respiratory: Auscultation: Bilateral clear to auscultation both anterior and posteriorly, no crackles wheezing or rhonchi Cardiovascular: Regular rate and rhythm, S1-S2 present, no murmur, no right ventricular heave, no peripheral edema. Abdomen: Soft, nontender, nondistended, positive bowel sound Skin: No rash, no evidence of erythema nodosum or multiforme. Neuro: Mental status is normal, no gross cranial nerve deficit, normal motor and coordination. Data Other Data: Other data: I have reviewed the patient's laboratory, radiologic and microbiologic data. CT angiogram of the chest was essentially normal. The patient does not have any significant CBC and CMP abnormalities. Her complement levels are normal tryptase level is normal as well. 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 During her multiple hospital admission in the past the patient had never developed hypertension, swelling of any other mucosal membrane including tongue or lips or skin.The patient has allergies to an unknown antigen and currently she is on omalizumab, high-dose steroid, H1 and H2 blockers and high-dose prednisone. Her autoimmune work-up has always been negative. And a normal tryptase level in the setting of active anaphylaxis is virtually impossible. I wonder, whether the patient has a different diagnosis for these episodes of stridor. Also, the patient experienced significant and rapid improvement with racemic epinephrine which is also unusual with laryngeal edema. Status: Acute Qualifiers: Encounter type: initial encounter Qualified Code(s): T78.2XXA - Anaphylactic shock, unspecified, initial encounter (2) Vocal cord palsy: The patient has evidence of right vocal cord palsy. It is possible that the patient has vocal cord dysfunction or inducible laryngeal obstruction or paradoxical vocal cord movement. The vocal cord dysfunction can present with discomfort in the throat, repeated throat clearing and rapid development of stridor-like sound. I had an extensive discussion with the patient today. The patient would like to go to [place] and get evaluated by her appliance service representative. We have initiated the process. The patient is in contact with her appliance service representative. We have also discussed the possibility of getting a laryngoscopic evaluation for vocal cord dysfunction. I am going to obtain a spirometry with flow volume loop if the patient is in the hospital tomorrow. We have also discussed the possibility of sending her record to large academic centers and for them to evaluate her overall condition. Status: Acute Coding Level of Care Code Acute New Product Trainer for 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 Diagnoses Anaphylaxis T78.2XXA Encounter type: initial encounter Vocal cord palsy J38.00
[2020-03-17] VITALS (14 sets, daily range): BP systolic 100–147; BP diastolic 64–94; PULSE 55–83; RESP 10–20; TEMP 36.8; O2SAT 97–98
--- NOTE | 2020-03-17 | USCV_ITS ---
Estella Burgess Age: 44 Gender: F : 1975 Exam Date: 03/17/2020 12:37 Ordering Phys: Sarah Shell MD Technologist: Sonia Moya Exam Location: [facility] [place] Indication: LUE PAIN HISTORY: History DVT, Central line RUE jugular vein, Left arm pain PROCEDURES: Venous duplex imaging was performed in only the left upper extremity. Serial compression, augmentation maneuvers, and spectral Doppler flow evaluation were performed. FINDINGS: The veins of the left upper extremity are readily compressible with normal venous flow dynamics including spontaneous flow, respiratory phasic variation and augmentation. Reevaluation of the right jugular and subclavian vein are normal CONCLUSIONS No left upper extremity DVT. No DVT right jugular or subclavian vein. Dr. Kiana Gaitan DO (Electronically Signed) Final Date: 17 March 2020 16:29 S
[2020-03-17] MEDS: diphenhydrAMINE 50 mg/mL SDV 1mL IVP ×3 (04:57→16:40)
[2020-03-17] MEDS: sodium chloride 0.9% 1,000 ML 75 ML IV (05:01)
[2020-03-17] MEDS: atenolol 50 mg Tablet 12.5 MG PO (08:18)
[2020-03-17] MEDS: dexamethasone 4 mg/mL INJ IVP (08:19)
[2020-03-17] MEDS: famotidine 20 mg/2 mL INJ IVP ×2 (08:19→16:45)
[2020-03-17] MEDS: fentaNYL 50 mcg/mL INJ 2mL 25 MCG IVP (10:06)
[2020-03-17] MEDS: LORazepam 2 mg/mL INJ 1 mL IVP (10:10)
[2020-03-17] MEDS: diphenhydrAMINE 50 mg/mL SDV 1mL 25 MG IVP (12:49)
--- NOTE | 2020-03-17 15:55 | PM.TDS ---
Transfer Summary Providers Date of Admission: 03/14/20 21:00 Date of Discharge: 03/17/20 Attending Provider at Admission: David Moy MD Attending Provider at Transfer: Sarah Shell MD Primary Care Provider: Chi Cobb MD Anticipated Date of Transfer: Anticipated date of transfer: 03/17/20 Receiving Facility & Provider: Receiving Provider: [[place], [place]] Receiving facility: [Dr. Cabrera/Dr. Sierra] Diagnoses at Discharge Discharge Diagnosis (1) Anaphylaxis: Status: Acute Qualifiers: Encounter type: initial encounter Qualified Code(s): T78.2XXA - Anaphylactic shock, unspecified, initial encounter (2) Vocal cord palsy: Status: Acute (3) Elevated d-dimer: Status: Acute (4) Acute allergic reaction: Status: Acute (5) Hyper-IgE syndrome: Status: Chronic (6) History of gluten sensitivity: Status: Chronic (7) Multiple environmental allergies: Status: Chronic (8) Multiple food allergies: Status: Chronic (9) Major depressive disorder: Status: Chronic (10) PTSD (post-traumatic stress disorder): Status: Chronic (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 Acute allergic reaction with a background history of multiple anaphylaxis for which she follows with hemmer automatic Dr. Fonseca in [place]. History of multiple food and drug allergies, alpha galactosidase deficiency She is feeling better after racemic epinephrine and H1, H2 grady medications, she received Decadron as well in the ER. Currently on 4mg iv decadron Continue Cetrizine, decadron 4mg IVP daily,montelukast, benadryl,famotidine Next xolair due 03/22 Per discussion with undercutter operator Dr. Driver other differential for her symptoms may include vocal cord dysfunction. The patient has evidence of right vocal cord palsy. It is possible that the patient has vocal cord dysfunction or inducible laryngeal obstruction or paradoxical vocal cord movement which needs further ENT evalutaion. This would additionally need discussion with her hemmer automatic. 2. Elevated D dimer together with tachycardia, respiratory symptoms and non specific chest pain, underwent CTA chest to evaluate for PE- negative for the same. No past D dimer in the system to compare results 3. Dyspnea upon presentation likely related to known multiple allergies, however given significantly elevated D dimer and elevated LDH with COVID exposure to family member, underwent COVID testing as inpatient and with PCP- both negative. 4. Sinus tachycardia May be related to anxiety, nebulized medications EKG with sinus tachy, no acute ST-T changes Baseline troponin negative improved after starting atenolol 12.5mg po qd 5. Significant anxiety Continue ativan, doxepin and prozac per home formulations from compounding pharmacy (patient using her own due to allergies, prepared specifically) 6. RUE pain Appears to be thrombophelibitis. RUE duplex with partial basilic vein thrombosis. 7. 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 She has a history of multiple admissions due to respiratory distress in the past. She follows with hemmer automatic Dr. Fonseca at [place] and has recently been started on high-dose steroids by way of prednisolone 60mg and Xolair injections which she is taking at the present time. She was admitted here on March 14 after presenting with chief complaints of started to experience a sore throat and scratchy sensation in the back of her throat while her was cooking meat outside the house. He started experiencing stridor as well and presented to the ER for further evaluation. She had significant respiratory distress upon admission, fortunately she improved with inhalation of racemic epinephrine, steroids and Benadryl. After her history of hemorrhagic stroke in August which was attributed to likely epinephrine use after anaphylaxis, attempts have been made to avoid systemic epinephrine as much as possible. She is currently stable from a respiratory perspective except for intermittent sensation of throat scratchiness which responds to benadryl and ativan. Due to a positive COVID contact in her household, she was tested and was negative by RT-PCR for COVID19 on Sunday. She had previously also been tested at her primary care physician's office over the weekend and per report from their office, was also negative. Active isssues during admission have included sinus tachycardia, which is currently well controlled after starting atenolol 12.5mg per day. Other issues have been elevted D dimer >20(no comparative numbers available), CTA chest was negative for PE. She has also developed R basilic vein partial thrombosis and signs of superficial thrombophlebitis on her right upper extremity with pain and localized swelling without overt concern for septic thrombophlebitis at this time. 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 weighing the risk/benefit ratio, deferred therapeutic anticoagulation for now given history of intracranial hemorrhage in the recent past. Should she require anticoagulation or if thrombosis progresses, it would be prudent to initiate this under the supervision of her hemmer automatic and with vascular specialty opinion on feasibility of alternate treatment options such as clot extraction, etc, if any. For both of these specialty services, transfer was initiated at [facility] in [place]. Physical Exam Narrative: EXAM NARRATIVE: GEN: Awake, alert and oriented, no acute distress CVS: S1S2 N RS: CTA B/L Abd: Soft, nt/nd , bs+ MENTAL HEALTH CLINICIAN: no focal neuro deficits TS Data Data Completed and Pending: Completed Studies During Hospitalization Category Date Time Status CT angio chest PE protcl [id number] Rout ine Cat Scan 03/15/20 10:15 [place] [id number] Routin e Ultrasound 03/16/20 09:41 Completed Pending at discharge Category Date Time Status Methylenetetrahyd rofolate Red Routi ne Lab 03/15/20 11:20 Received Miscellaneous Marilu t Routine Lab 03/14/20 19:04 Received Miscellaneous Marilu t Routine Lab 03/15/20 05:49 [place] [id number] Routin e Ultrasound 03/17/20 Taken Vitals: Last Vital Signs Temp 98.2 F 03/17/20 09:09 Pulse 74 03/17/20 14:02 Resp 17 03/17/20 14:02 BP 147/85 03/17/20 14:02 Pulse Ox 97 03/17/20 14:02 TS Medications Medications Home Medications cetirizine 10 mg PO BID 02/17/20 [History Confirmed 03/14/20] lorazepam [Lorazepam Intensol] 2 mg PO Q6H PRN 02/17/20 [History Confirmed 03/14/20] montelukast 10 mg PO DAILY 02/17/20 [History Confirmed 03/14/20] diphenhydramine HCl 50 mg IM Q12H PRN 15 Days #25 ml 02/29/20 [Rx Confirmed 03/14/20] syringe with needle, safety [Monoject Safety Syringes] #100 each 02/29/20 [Rx Confirmed 03/14/20] Xolair 300 mg SUBCUT DIRECTED #1 each 03/01/20 [Rx Confirmed 02/29/20] acetaminophen [Tylenol] 650 mg PO QID PRN #100 tab 03/01/20 [Rx Confirmed 03/14/20] doxepin 10 mg PO BEDTIME #30 ml 03/01/20 [Rx Confirmed 03/14/20] famotidine 40 mg PO Q12H 30 Days #300 ml 03/01/20 [Rx Confirmed 03/14/20] fluoxetine 20 mg PO DAILY #0 ml 03/01/20 [Rx Confirmed 03/14/20] prednisolone sodium phosphate 60 mg PO DAILY #0 ml 03/01/20 [Rx Confirmed 03/14/20] hydroxyzine pamoate 50 mg PO BID PRN 03/14/20 [History Confirmed 03/14/20] lamotrigine [Lamictal] 2 03/14/20 [History] lorazepam 2 mg PO Q4H PRN #30 ml 03/16/20 [Rx] oxycodone 10 mg PO QID PRN #30 ml 03/16/20 [Rx] Active Medications Acetaminophen (Tylenol) 650 mg PO QID PRN PRN Reason: Pain Last Admin: 03/15/20 00:00 Dose: 650 mg Documented by: Albuterol/Ipratropium (Duoneb) 3 ml INHALATION Q6H.RESPIRATORY PRN PRN Reason: SHORTNESS OF BREATH Last Admin: 03/15/20 08:33 Dose: 3 ml Documented by: Atenolol (Tenormin) 12.5 mg PO DAILY [facility] Last Admin: 03/17/20 08:18 Dose: 12.5 mg Documented by: Cetirizine HCl (Zyrtec) 10 mg PO BID [facility] Last Admin: 03/17/20 08:41 Dose: Not Given Documented by: Dexamethasone (Decadron) 4 mg IVP DAILY [facility] Last Admin: 03/17/20 08:19 Dose: 4 mg Documented by: Diphenhydramine HCl (Benadryl) 50 mg IVP Q6H [facility] Last Admin: 03/17/20 10:34 Dose: 50 mg Documented by: Doxepin HCl (Sinequan) 10 mg PO BEDTIME [facility] Last Admin: 03/16/20 21:16 Dose: Not Given Documented by: Epinephrine (Vaponephrine) 0.5 ml INHALATION ONCE PRN PRN Reason: AIR HUNGER Famotidine (Pepcid Inj) 20 mg IVP BID [facility] Last Admin: 03/17/20 08:19 Dose: 20 mg Documented by: Fentanyl (Sublimaze) 25 mcg IVP Q8H PRN PRN Reason: SEVERE PAIN Last Admin: 03/17/20 10:06 Dose: 25 mcg Documented by: Fluoxetine HCl (Prozac) 40 mg PO DAILY [facility] Last Admin: 03/17/20 08:40 Dose: Not Given Documented by: Hydralazine HCl (Apresoline) 5 mg IVP Q4H PRN PRN Reason: If systolic pressure above 200 or diastolic above 110 Sodium Chloride (Sodium Chloride 0.9%) 1,000 mls @ 75 mls/hr IV .[id number] [facility] Last Admin: 03/17/20 05:01 Dose: 75 mls/hr Documented by: Lorazepam (Ativan) 2 mg IVP Q4H PRN PRN Reason: ANXIETY Last Admin: 03/17/20 10:10 Dose: 2 mg Documented by: Montelukast Sodium (Singulair) 10 mg PO DAILY [facility] Last Admin: 03/17/20 08:40 Dose: Not Given Documented by: Non-Formulary Medication (Lorazepam [Lorazepam Intensol]) 2 mg PO Q6H PRN PRN Reason: Anxiety Last Admin: 03/16/20 13:49 Dose: 2 mg Documented by: Non-Formulary- (Lamotrigine 25mg) 2 each PO DAILY [facility] Last Admin: 03/17/20 08:44 Dose: Not Given Documented by: Non-Formulary Medication (Oxycodone Liquid Concentrate) 10 mg PO Q6H PRN PRN Reason: pain Ondansetron HCl (Zofran) 4 mg IVP Q6H PRN PRN Reason: vomit Discharge Plan Discharge Condition: Stable Prescriptions: New oxycodone 20 mg/mL concentrate 10 mg PO QID PRN (Reason: pain) Qty: 30 RF: 0 lorazepam 2 mg/mL concentrate 2 mg PO Q4H PRN (Reason: anxiety) Qty: 30 RF: 0 No Action montelukast 10 mg tablet 10 mg PO DAILY RF: 0 lorazepam [Lorazepam Intensol] 2 mg/mL concentrate 2 mg PO Q6H PRN (Reason: Anxiety) RF: 0 cetirizine 1 mg/mL solution 10 mg PO BID RF: 0 hydroxyzine pamoate 50 mg Capsule 50 mg PO BID PRN (Reason: Anxiety) RF: 0 Lamictal 25 mg Tablet 2 RF: 0 diphenhydramine HCl 50 mg/mL solution 50 mg IM Q12H PRN (Reason: allergic reaction) 15 Days Qty: 25 RF: 2 (DME) Monoject Safety Syringes 3 mL 20 gauge x 1 1/2 syringe See Rx Instructions .ROUTE .MEDSUPPLY Qty: 100 RF: 0 famotidine 40 mg/5 mL (8 mg/mL) suspension 40 mg PO Q12H 30 Days Qty: 300 RF: 0 fluoxetine 20 mg/5 mL (4 mg/mL) Solution 20 mg PO DAILY Qty: 0 RF: 0 acetaminophen [Tylenol] 325 mg Tablet 650 mg PO QID PRN (Reason: Pain) Qty: 100 RF: 0 prednisolone sodium phosphate 15 mg/5 mL (3 mg/mL) solution 60 mg PO DAILY Qty: 0 RF: 0 doxepin 10 mg/mL concentrate 10 mg PO BEDTIME Qty: 30 RF: 0 Xolair 150 mg recon soln 300 mg SUBCUT DIRECTED Qty: 1 RF: 0 Discharge Orders: Transfer Out of Facility (Order); Ordered 03/17/20 Ordered By: Sarah hSell Transfer Attestations Time Spent in Transfer Care*: greater than 30 min Specific Discharge Activities: Specific discharge activities: discussing with pcp/other providers, discussing with case filler/social workers/dc planners and evaluating patient/reviewing data Quality Metrics Clinical Quality Measures: During this hospital stay, did patient experience: None Coding Level of Care Code Acute Wrapper Leaf Inspector for Chg Fwd Diagnoses Anaphylaxis T78.2XXA Encounter type: initial encounter Vocal cord palsy J38.00 Elevated d-dimer R79.89 Acute allergic reaction T78.40XA Hyper-IgE syndrome D82.4 History of gluten sensitivity Multiple environmental allergies Z91.09 Multiple food allergies Z91.018 Major depressive disorder F32.9 PTSD (post-traumatic stress disorder) F43.10 Alpha galactosidase deficiency E75.6 Sinus tachycardia R00.0 COVID-19 ruled out by laboratory testing Z03.818 Basilic vein thrombosis I82.619
--- NOTE | 2020-03-17 17:49 | PC.NURSE ---
TRANSFER OUT OF FACILITY Patient transferred to [facility]. All belongings sent with patient. Family aware of transfer. EMS here to take patient by ground ambulance. Report called to receiving RN. Physician aware patient left.
== END 2020-03-17 17:54 | disposition short-term general hospital (02) | DRG 916 ==
LOC: ER 18:58 → ICU 21:29
PROVIDERS: Emergency Medicine; Admitting Provider Internal Medicine; PCP Family Medicine; Visit Provider Student in an Organized Health Care Education/Training Program
DX: T78.2XXA Anaphylactic shock, unspecified, initial encounter (principal); E74.29 Other disorders of galactose metabolism; I69.254 Hemiplegia and hemiparesis following other nontraumatic intracranial hemorrhage affecting left non-dominant side; I82.611 Acute embolism and thrombosis of superficial veins of right upper extremity; T78.40XA Allergy, unspecified, initial encounter; X58.XXXA Exposure to other specified factors, initial encounter; Z20.828 Contact with and (suspected) exposure to other viral communicable diseases; F41.9 Anxiety disorder, unspecified; F32.9 Major depressive disorder, single episode, unspecified; Z91.048 Other nonmedicinal substance allergy status; E28.2 Polycystic ovarian syndrome; F43.10 Post-traumatic stress disorder, unspecified; J38.01 Paralysis of vocal cords and larynx, unilateral; I10 Essential (primary) hypertension; R25.1 Tremor, unspecified; R00.0 Tachycardia, unspecified; E87.6 Hypokalemia; M79.602 Pain in left arm; Z86.718 Personal history of other venous thrombosis and embolism; L50.1 Idiopathic urticaria; I80.8 Phlebitis and thrombophlebitis of other sites
CPT/HCPCS: 12345; 36415; 71275; 80053; 82728; 83520; 83615; 84145; 84484; 85025; 85378; 86140; 87635; 93005; 93971; 94640; 96375; 99283; J0360; J1100; J1200; J2060; J2250; J2405; J3010; J3490; J7030; Q9967

== ENCOUNTER 2020-03-21 10:35 | Outpatient (CLI) | payer BC, SELFPAY ==
[2020-03-21 10:25] VITALS: BP 113/84; PULSE 93; RESP 16; TEMP 36.3; O2SAT 98; BMI 23.9
[2020-03-21] MEDS: diphenhydrAMINE 50 mg/mL SDV 1mL IM (10:52)
[2020-03-21] MEDS: omalizumab 150 mg SDV 300 MG SUBCUT (10:54)
== END 2020-03-21 10:36 | disposition home or self-care (01) ==
LOC: GILAB 10:36
PROVIDERS: PCP Family Medicine; Visit Provider Student in an Organized Health Care Education/Training Program
DX: T78.40XA Allergy, unspecified, initial encounter (principal)
CPT/HCPCS: 96372; J1200

== ENCOUNTER 2020-03-29 15:19 | Outpatient (CLI) | payer BC, SELFPAY ==
--- NOTE | 2020-03-29 15:43 | CTR_ITS ---
PROCEDURE INFORMATION: Exam: CT Angiography Chest With Contrast Exam date and time: 03/29/2020 3:50 PM Age: 44 years old Clinical indication: Shortness of breath; Additional info: Chest pain - SOB - dvt in right wrist, now right side chest pain TECHNIQUE: Imaging protocol: Computed tomographic angiography of the chest with intravenous contrast. 3D rendering: MIP and/or 3D reconstructed images were created by the technologist. Radiation optimization: All CT scans at this facility use at least one of these dose optimization techniques: automated exposure control; mA and/or kV adjustment per patient size (includes targeted exams where dose is matched to clinical indication); or iterative reconstruction. Contrast material: VISI 320; Contrast volume: 70 ml; Contrast route: IV; COMPARISON: CR XR chest 1V portable [id number] 02/28/2020 7:20 PM RADIATION DOSE METRICS: Total DLP: 568.88 mGy-cm FINDINGS: Pulmonary arteries: Normal. No pulmonary emboli. Aorta: Unremarkable. No aortic aneurysm. No aortic dissection. Lungs: Unremarkable. No consolidation. No masses. Pleural space: Unremarkable. No pneumothorax. No pleural effusion. Heart: Unremarkable. No cardiomegaly. No pericardial effusion. Lymph nodes: Unremarkable. No enlarged lymph nodes. Bones/joints: Unremarkable. No acute fracture. Soft tissues: Unremarkable. CT/CT angio chest PE protcl [id number] IMPRESSION: No acute findings. Radiation Dose CTDIVOL = (mGy): DLP = 568.88 (mGy-cm)
[2020-03-29] MEDS: iodixanol 320 mg/mL 100mL Btl IV (17:06)
== END 2020-03-29 15:20 | disposition home or self-care (01) ==
PROVIDERS: PCP Family Medicine; Visit Provider Hospitalist
DX: R07.9 Chest pain, unspecified (principal); R06.02 Shortness of breath
CPT/HCPCS: 71275; J1200; J1720

== ENCOUNTER → 2020-04-22 07:09 | Day surgery (SDC) | payer BC, SELFPAY ==
[2020-04-22] MEDS: diphenhydrAMINE 50 mg/mL SDV 1mL IM (07:38)
[2020-04-22] MEDS: omalizumab 150 mg SDV 300 MG SUBCUT (07:39)
[2020-04-22 07:40] VITALS: BMI 23.9
[2020-04-22 07:41] VITALS: BP 96/73; PULSE 83; RESP 18; TEMP 36.7
== END ==
PROVIDERS: PCP Family Medicine; Visit Provider Family Medicine
DX: T78.49XA Other allergy, initial encounter (principal)
CPT/HCPCS: 96372; J1200

== ENCOUNTER 2020-04-24 14:23 | Outpatient (CLI) | payer BC, SELFPAY ==
--- NOTE | 2020-04-24 | USR_ITS ---
PROCEDURE INFORMATION: Exam: US Duplex Right Upper Extremity Veins, Limited Exam date and time: 04/24/2020 2:41 PM Age: 44 years old Clinical indication: Pain; Arm, upper and arm, lower; Right; Additional info: Pain rue TECHNIQUE: Imaging protocol: Real-time Duplex ultrasound of the Right Upper Extremity with 2-D rubin scale, color Doppler flow and spectral waveform analysis with image documentation. Limited exam focused on the right upper extremity veins. COMPARISON: No relevant prior studies available. FINDINGS: Right deep veins: Unremarkable. Axillary and brachial veins are patent throughout without thrombus. Normal Doppler waveforms. Normal compressibility and/or augmentation response. Visualized internal jugular and subclavian veins are patent. Right superficial veins: Unremarkable. There is nonocclusive thrombus is the right basilic vein at the level of the upper arm. Visualized cephalic vein is patent without thrombus. Soft tissues: Unremarkable. US/[place] [id number] IMPRESSION: There is nonocclusive superficial thrombus is the right basilic vein at the level of the upper arm. No evidence of deep vein thrombosis.
== END 2020-04-24 14:24 | disposition home or self-care (01) ==
PROVIDERS: PCP Family Medicine; Visit Provider Family Medicine
DX: M79.601 Pain in right arm (principal)
CPT/HCPCS: 93971

== ENCOUNTER 2020-05-17 09:52 | Outpatient (CLI) | payer BC, SELFPAY ==
[2020-05-17 10:37] LABS: SARS Covid-2 Antigen Negative (Negative)
== END 2020-05-17 09:53 | disposition home or self-care (01) ==
PROVIDERS: PCP Family Medicine; Visit Provider Family Medicine
DX: J06.9 Acute upper respiratory infection, unspecified (principal)
CPT/HCPCS: 87426

== ENCOUNTER 2020-05-19 10:43 | Outpatient (CLI) | payer BC, SELFPAY ==
[2020-05-21 14:13] LABS: Coronavirus Lab Test PTC SEE COMMENTS
== END 2020-05-19 10:44 | disposition home or self-care (01) ==
LOC: LAB 10:43
PROVIDERS: PCP Family Medicine; Visit Provider Family Medicine
DX: J06.9 Acute upper respiratory infection, unspecified (principal)
CPT/HCPCS: 87635

== ENCOUNTER → 2020-05-21 13:58 | Day surgery (SDC) | payer BC, SELFPAY ==
[2020-05-21 14:36] VITALS: BP 104/64; PULSE 75; RESP 18; TEMP 36.5; O2SAT 100
[2020-05-21] MEDS: omalizumab 150 mg SDV 300 MG SUBCUT (14:44)
[2020-05-21] MEDS: diphenhydrAMINE 50 mg/mL SDV 1mL IVP (14:48)
[2020-05-21] MEDS: diphenhydrAMINE 50 mg/mL SDV 1mL IM (15:18)
--- NOTE | 2020-05-21 15:20 | SUR.OPER ---
patient was given benadryl 50mg injection per xolaire 300mg injection. after 10min patient started to itch all over body. nurse called dr. arnold who ordered another 50mg of benadryl. patient states she is itching less, will continue to moniter patient.
--- NOTE | 2020-05-21 15:49 | SUR.PREOP ---
1515 Dr. Cobb notified of patient still itching following second dose of Benadryl for suspected allergic reaction to Xolair. Pt taken to ER via wheelchair for follow up.
== END ==
PROVIDERS: PCP Family Medicine; Visit Provider Family Medicine
DX: Z91.018 Allergy to other foods (principal)
CPT/HCPCS: 96372; 96375; J1100; J1200; J2250; J2405; J2704; J3010; J3490

== ENCOUNTER 2020-05-21 15:33 | Observation (INO) | payer BC, SELFPAY ==
[2020-05-21] VITALS (24 sets, daily range): BP systolic 87–126; BP diastolic 56–83; PULSE 78–95; RESP 6–85; TEMP 37–37.1; O2SAT 95–100; BMI 23.9
--- NOTE | 2020-05-21 15:53 | ED_ITS ---
HPI - Allergic Reaction General: Chief complaint: Allergic Reaction Stated complaint: ALLERGIC REACTION Time Seen by Provider: 05/21/20 15:36 History of Present Illness: HPI narrative: 44 yo male presents to the ER from outpatients. She had been in outpatients receiving a treatment of Xolair. She began getting hives and some stridor. He has had multiple episodes of this in the past from various different stimuli precipitating him vocal cord spasm has been considered 1 of the causes. She usually does respond to steroids and antihistamines. Last year in August she had an episode like this that was thought to be mediated by food. At that time she was on epi drip and eventually ended up with a hemorrhagic stroke. She was just recently evaluated for COVID and was the result came back today is negative. This was done as an outpatient. She is on anticoagulants due to a basilic vein thrombus. 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 She does state after the last couple of Xolair treatment she has been having some hives and leading up to today she has been having hives for several days she had treated this at home with YAEL Pierre MD complaint: allergic reaction Onset (ago): minute(s) Exposure: medication (Xolair) Associated symptoms: Reports hoarseness, itching, nausea and other (Mild urticaria) Treatment prior to arrival: roland Previous Allergic Reaction History: prior ED visit(s), anaphylaxis and intubation Review of Systems Const: Denies: fever(s), chills, body aches, change in appetite, fatigue or malaise ENMT: Reports: hoarseness Card: Denies: chest pain, edema, dyspnea on exertion or orthopnea Resp: Denies: dyspnea, productive cough or non-productive cough GI: Reports: nausea : Denies: flank pain, difficulty voiding, dysuria, urinary frequency or urinary urgency Skin/Breast: Denies: rash or pruritus PFSH ED PFSH: Medical History Alpha galactosidase deficiency Anxiety Cerebral hemorrhage with hemiparesis (~08/2019) Occurred while on epinephrine drip for anaphylaxis. Mild residual weakness on the left side History of anaphylaxis Requiring intubation History of gluten sensitivity Hyper-IgE syndrome Major depressive disorder Multiple environmental allergies Multiple food allergies PCOS (polycystic ovarian syndrome) PTSD (post-traumatic stress disorder) Rosacea Vocal cord palsy Surgical History History of abdominoplasty History of appendectomy History of artificial lens replacement History of cataract surgery History of section, low transverse History of eye surgery Surgical plate placement and removal History of surgery Intracranial angiogram Family History Mother Diabetes Thyroid condition Hypercholesteremia Family/Other Cancer Social History Smoking and tobacco status: never smoked Alcohol intake: current Alcohol intake frequency: few times a month Marital status: Current occupational status: employed 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 History: Date of last menstrual period: 02/09/20 Physical Exam Const: COMMON NORMALS: no acute distress GENERAL APPEARANCE: cooperative and comfortable ORIENTATION/CONSCIOUSNESS: Yes awake, Yes oriented to person, Yes oriented to place and Yes oriented to time HENMT: COMMON NORMALS: normocephalic, atraumatic, moist oral mucous membranes and oropharynx normal HEAD & SCALP: normocephalic and atraumatic Eye: COMMON NORMALS: Equal, round and reactive pupils present, EOMs intact bilaterally, conjunctivae normal and no scleral icterus CONJUNCTIVA: Yes conjunctivae normal PUPIL: Yes Equal, round and reactive pupils present Neck/C-Spine: COMMON NORMALS: full ROM, no lymphadenopathy, supple and no JVD OTHER: Moderate upper respiratory stridor noted Lymph: LYMPHATIC: no lymphadenopathy noted and no lymphedema noted Resp: COMMON NORMALS: normal respiratory effort, No retractions, No use of accessory muscles and clear to auscultation bilaterally AUSCULTATION: clear to auscultation bilaterally Cardio: COMMON NORMALS: no JVD, regular rate, regular rhythm and No murmurs present (Cardio) RATE: regular rate RHYTHM: regular rhythm GI: COMMON NORMALS: Soft to palpation and No hepatosplenomegaly present AUSCULTATION: Yes normoactive bowel sounds PALPATION: Yes Soft to palpation, No Tenderness to palpation present (GI), No Guarding due to palpation present (GI) and Yes No hepatosplenomegaly present Extremity: COMMON NORMALS: normal to inspection, capillary refill normal, no clubbing, cyanosis or edema, no calf tenderness and no pedal edema Neuro: SENSORIUM/ORIENTATION: Yes oriented to person, Yes oriented to place and Yes oriented to time Skin: COMMON NORMALS: no rashes or lesions noted GENERAL SKIN EXAM: no rashes or lesions noted Course Vital Signs: Vital signs: Vital Signs Temperature 98.6 F 05/21/20 19:44 Pulse Rate 104 H 05/22/20 08:00 Respiratory Rate 17 05/22/20 08:00 Blood Pressure 104/71 05/22/20 08:00 Pulse Oximetry 98 05/22/20 08:00 MDM - Allergic Reaction MDM Narrative: Medical decision making narrative: Yanni with Dr. Teran we will place on observation in the ICU. She will see the patient in the emergency room. Lab Data: Labs: Lab Results 05/21/20 05/21/20 05/21/20 Range/Units 15:56 15:56 15:56 WBC 6.2 (4.0-10.0) 10^3/ uL RBC 3.59 L (4.1-5.3) 10^6/u L Hgb 10.5 L (11.5-15.3) g/dL Hct 33.5 L (37.0-47.0) % MCV 93.3 (81-99) fL MCH 29.2 (28.0-34.0) pg MCHC 31.3 (30.0-36.0) g/dL RDW 14.7 (12.1-15.1) % Plt Count 288 (130-400) 10^3/c mm MPV 10.2 (7.4-10.4) fL Neut % (Auto) 55.3 % Lymph % (Auto) 32.3 % [place] % (Auto) 10.3 % Eos % (Auto) 1.1 % Baso % (Auto) 0.8 % Neut # (Auto) 3.45 (1.8-7.7) 10^3/u L Lymph # (Auto) 2.0 (0.8-4.8) 10^3/u L Carolina # (Auto) 0.6 (0.2-0.9) 10^3/u L Eos # (Auto) 0.1 (0.0-0.8) 10^3/u L Baso # (Auto) 0.1 (0.0-0.1) 10^3/u L Nucleated RBC % (a uto) 0 % Nucleated RBCs # 0.0 /100WBC ESR 11 (0-15) mm/hr Sodium 138 (136-145) mmol/L Potassium 3.4 L (3.5-5.1) mmol/L Chloride 105 (98-107) mmol/L Carbon Dioxide 24 (22-29) mmol/L Anion Gap 12.4 (5-19) BUN 4 L (6-20) mg/dL Creatinine 0.7 (0.5-0.9) mg/dL GFR Calculation 91.8 (90-130) mL/min Glucose 89 (65-115) mg/dL Calculated Osmolal ity 281 L (285-295) mOsm/k g Calcium 8.8 (8.5-10.5) mg/dL Total Bilirubin 0.2 (0.15-1.2) mg/dL AST 22 (0-32) U/L ALT 17 (0-33) U/L Alkaline Phosphata se 77 (35-105) IU/L C-Reactive Protein 3.3 (0.0-4.9) mg/L Total Protein 6.3 L (6.6-8.7) g/dL Albumin 4.1 (3.5-5.2) g/dL Globulin 2.2 (1.3-4.6) g/dL Discharge Plan Discharge Admit Provider: Ruth Pringle Clinical Impression: Adverse reaction to drug, Multiple food allergies, Multiple environmental allergies, Alpha galactosidase deficiency, History of gluten sensitivity, Hyper- IgE syndrome, History of anaphylaxis, Vocal cord palsy Condition: Stable Interventions: ED Discharge Assessment Last Done: 05/21/20 19:03 ED Charges Last Done: 05/21/20 19:05 Discharge Date/Time: 05/21/20 19:05 Coding Level of Care Code ED Repeat Photocomposing Machine Operator for 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
[2020-05-21 16:10] LABS: Basophils # 0.1 10^3/uL (0.0-0.1); Basophils % 0.8 %; Eosinophils # 0.1 10^3/uL (0.0-0.8); Eosinophils % 1.1 %; Hematocrit 33.5 % (37.0-47.0); Hemoglobin 10.5 g/dL (11.5-15.3); Lymphocytes % 32.3 %; Mean Corpuscular HGB Conc 31.3 g/dL (30.0-36.0); Mean Corpuscular Hemoglobin 29.2 pg (28.0-34.0); Mean Corpuscular Volume 93.3 fL (81-99); Mean Platelet Volume 10.2 fL (7.4-10.4); Monocytes # 0.6 10^3/uL (0.2-0.9); Monocytes % 10.3 %; Neutrophils # 3.45 10^3/uL (1.8-7.7); Neutrophils % 55.3 %; Nucleated Red Blood Cells % 0 %; Platelet Count 288 10^3/cmm (130-400); Red Blood Count 3.59 10^6/uL (4.1-5.3); Red Cell Distribution Width 14.7 % (12.1-15.1); White Blood Count 6.2 10^3/uL (4.0-10.0)
--- NOTE | 2020-05-21 16:10 | ECG_ITS ---
[facility] Test Date: 2020-05-21 Pat Name: Estella Burgess Department: Room: Gender: Female Maintenance Tech: : [id number] Requested By: Dagoberto Clarke Order Number: [id number] Mehdrad MD: Satish Gerardo M.D. Measurements Intervals [place] Rate: 71 P: 58 MO: 124 QRS: 76 QRSD: 84 T: 61 QT: 382 QTc: 417 Interpretive Statements SINUS RHYTHM Compared to ECG 03/15/2020 15:44:29 Sinus tachycardia no longer present Electronically Signed On 05-21-2020 18:04:27 CDT by Satish Gerardo M.D. [email or web address] Solutionsgulf coast veterans health care [id number]
[2020-05-21] MEDS: famotidine 20 mg/2 mL INJ 40 MG IVP (16:16)
[2020-05-21] MEDS: dexamethasone 10 mg/mL INJ IVP (16:16)
[2020-05-21 16:29] LABS: Alanine Aminotransferase 17 U/L (0-33); Albumin Level 4.1 g/dL (3.5-5.2); Alkaline Phosphatase 77 IU/L (35-105); Aspartate Amino Transferase 22 U/L (0-32); Blood Urea Nitrogen 4 mg/dL (6-20); C Reactive Protein 3.3 mg/L (0.0-4.9); Calcium 8.8 mg/dL (8.5-10.5); Carbon Dioxide 24 mmol/L (22-29); Chloride 105 mmol/L (98-107); Globulin 2.2 g/dL (1.3-4.6); Glomerular Filtration Rate 91.8 mL/min (90-130); Glucose 89 mg/dL (65-115); Osmolality Calculated 281 mOsm/kg (285-295); Sodium 138 mmol/L (136-145); Total Bilirubin 0.2 mg/dL (0.15-1.2); Total Protein 6.3 g/dL (6.6-8.7)
[2020-05-21 16:37] LABS: Anion Gap 12.4 (5-19); Potassium 3.4 mmol/L (3.5-5.1)
[2020-05-21] MEDS: LORazepam 2 mg/mL INJ 1 mL 0.5 MG IVP (16:45)
[2020-05-21] MEDS: diphenhydrAMINE 50 mg/mL SDV 1mL 25 MG IVP (16:45)
[2020-05-21 17:07] LABS: Erythrocyte Sedimentation Rate 11 mm/hr (0-15)
[2020-05-21] MEDS: promethazine 25 mg/mL SDV 1 mL IM (18:14)
--- NOTE | 2020-05-21 19:05 | P.HP_ITS ---
Providers/Chief Complaint Admitting Physician: Ruth Pringle MD Primary Care Provider: Chi Cobb MD Chief Complaint: ALLERGIC REACTION History of Present Illness Estella Burgess is a 44 year old female with complex past medical history primarily involving acute allergic reactions and anaphylaxis resulting in multiple hospital visits, presents from clinic where she was receiving her Xolair injection following noted generalized hives, itching, throat itching and cough despite 2 doses of Benadryl 50 mg IM. She has been admitted at our facility on multiple prior occasions with similar symptoms. She reports having had some mild reactions following has previous Xolair injections primarily in the form of itching and hives, she has been able to manage these at home with B enadryl which she takes both orally and IM. She states that even before her Xolair injection earlier today she was experiencing some hives and has been taking her antihistamines for about 2 days. Because of her history of anaphylaxis and multiple triggers for episodes she was brought to the ER for further evaluation. She is protecting her airway appropriately, able to provide a good history, able to speak in complete sentences, states that her itching and hives have improved while she has been in the ER, though continues to have some throat itching. So far she has received IV steroids, Pepcid, additional Benadryl and hydrocodone and morphine for pain control. She typically takes oral medications that are specially formulated which have requested her to bring to the hospital. Due to her multiple food allergies will request very specific preparation for her diet. Due to complicated history surrounding her previous allergic reactions she is quite anxious, understandably so. She was recently started on Arixtra for anticoagulation secondary to right basilic vein thrombosis. She follows up with an cupola operator in [place], Dr. Clemons who has been find to identify particular allergens, she is currently undergoing genetic testing for this. Dr. Barraza spoke with Dr. Clemons who recommended at least overnight monitoring given patient's complicated history and low threshold for anaphylaxis. is present at bedside during my evaluation in the ER. Currently working on establishing IV access. Will admit patient to ICU secondary to low threshold for decompensation. Review of Systems Const: Denies: fever(s) or chills Eyes: Denies: change in vision ENMT: Reports: other (itching in the back of throat) Card: Denies: chest pain, swelling of feet/ankles or lightheadedness Resp: Reports: non-productive cough; Denies: dyspnea, productive cough or stridor GI: Denies: abdominal pain, nausea, vomiting, hematemesis or hematochezia : Denies: difficulty voiding or dysuria Musc: Denies: back pain Skin/Breast: Reports: rash (hives) and pruritus Neuro: Denies: numbness in extremities or weakness in extremities Psych: Reports: anxiety All/Imm: Reports: urticaria and food intolerance; Denies: throat swelling, tongue swelling or facial swelling Medications/Allergies Home Medications Medication Instructions Recorded Confirmed Last Taken Type montelukast 10 mg PO DAILY 02/17/20 05/21/20 05/21/20 History diphenhydramine HCl 50 mg IM Q12H PRN 15 Days #25 ml 02/29/20 05/21/20 05/21/20 Rx Xolair 300 mg SUBCUT DIRECTED #1 each 03/01/20 05/21/20 05/21/20 Rx acetaminophen [Tylenol] 650 mg PO QID PRN #100 tab 03/01/20 05/21/20 05/21/20 Rx hydroxyzine pamoate 50 mg PO BID PRN 03/14/20 05/21/20 05/21/20 History lamotrigine [Lamictal] 50 mg PO DAILY 03/14/20 05/21/20 05/21/20 History lorazepam 2 mg PO Q4H PRN #30 ml 03/16/20 05/21/20 05/21/20 Rx famotidine 40 mg PO BID 05/21/20 05/21/20 05/21/20 History fluoxetine 60 mg PO DAILY 05/21/20 05/21/20 05/21/20 History Allergies Allergy/AdvReac Type Severity Reaction Status Date / Time Beef Containing Products Allergy Severe ALGY-Anaphy Verified 05/21/20 15:38 laxis epinephrine Allergy Severe Hemorrhagic Verified 05/21/20 15:38 stroke after epi drip lactose Allergy Severe ALGY-Anaphy Verified 05/21/20 15:38 laxis Pork/Porcine Containing Allergy Severe ALGY-Anaphy Verified 05/21/20 15:38 Products laxis Poultry Allergy Severe ALGY-Anaphy Verified 05/21/20 15:38 laxis trimethobenzamide Allergy Severe ALGY-Anaphy Verified 05/21/20 15:38 [From [employer]] laxis gluten Allergy Unknown Verified 05/21/20 15:38 PFSH Acute PFSH: Medical History Alpha galactosidase deficiency Anxiety Cerebral hemorrhage with hemiparesis (~08/2019) Occurred while on epinephrine drip for anaphylaxis. Mild residual weakness on the left side History of anaphylaxis Requiring intubation History of gluten sensitivity Hyper-IgE syndrome Major depressive disorder Multiple environmental allergies Multiple food allergies PCOS (polycystic ovarian syndrome) PTSD (post-traumatic stress disorder) Rosacea Vocal cord palsy Surgical History History of abdominoplasty History of appendectomy History of artificial lens replacement History of cataract surgery History of section, low transverse History of eye surgery Surgical plate placement and removal History of surgery Intracranial angiogram Family History Mother Diabetes Thyroid condition Hypercholesteremia Family/Other Cancer Social History (Updated 05/21/20 @ 19:11 by Ruth Pringle MD) Smoking and tobacco status: never smoked Alcohol intake: current Alcohol intake frequency: few times a month Marital status: Current occupational status: employed 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[place] Female 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 History: Date of last menstrual period: 02/09/20 Vitals/I&O/Wt Last Vital Signs Temp 98.7 F 05/21/20 15:33 Pulse 78 05/21/20 19:03 Resp 21 H 05/21/20 19:03 BP 112/78 05/21/20 19:03 Pulse Ox 98 05/21/20 19:03 Weight last 48 hrs Weight 61.235 kg Physical Exam Const: COMMON NORMALS: no acute distress, patient oriented x3 and alert GENERAL APPEARANCE: cooperative, comfortable and anxious ORIENTATION/CONSCIOUSNESS: Yes awake OTHER: -appears appropriate for age HENMT: COMMON NORMALS: normocephalic, atraumatic, hearing grossly normal karina aterally and moist oral mucous membranes HEAD & SCALP: normocephalic and atraumatic MOUTH: no drooling and no muffled voice THROAT: posterior oropharynx normal Eye: COMMON NORMALS: Equal, round and reactive pupils present, EOMs intact bilaterally and conjunctivae normal CONJUNCTIVA: Yes conjunctivae normal PUPIL: Yes Equal, round and reactive pupils present Neck/C-Spine: COMMON NORMALS: full ROM GENERAL: Yes normal visual inspection and Yes trachea midline Resp: COMMON NORMALS: normal respiratory effort, No retractions, No use of accessory muscles and clear to auscultation bilaterally EFFORT & INSPECTION: Yes able to speak in complete sentences, Yes symmetric chest movement and No tachypneic AUSCULTATION: clear to auscultation bilaterally OTHER: -on RA Cardio: COMMON NORMALS: regular rate, regular rhythm, S1 normal heart sound present, S2 normal heart sound present and No murmurs present (Cardio) RATE: regular rate RHYTHM: regular rhythm HEART SOUNDS: S1 normal heart sound present and S2 normal heart sound present GI: COMMON NORMALS: Normal to inspection, nondistended, normoactive bowel sounds present, Soft to palpation and non-tender PALPATION: Yes Soft to palpation Extremity: COMMON NORMALS: normal to inspection, full ROM and no clubbing, cy anosis or edema; negative for no pedal edema Neuro: COMMON NORMALS: patient oriented x3, moves all extremities, no focal motor deficits, no sensory deficits noted and gait normal Psych: COMMON NORMALS: mental status grossly normal, Normal thought process present, cooperative, normal affect and speech normal SPEECH: Yes normal speech THOUGHT PROCESS: Normal thought process present Skin: COMMON NORMALS: no jaundice, no petechiae and no mottling OTHER: - residual hives on lower abdomen, back, extremities, face Data : 05/21/20 15:56 05/21/20 15:56 A&P Assessment and plan (1) Acute allergic reaction: -Patient has a very complex history of previous allergic and anaphylactic reactions, has multiple food allergies and histamine sensitivity, known alpha galactosidase deficiency; has had multiple hospital visits secondary to these episodes -Follows up with cupola operator Dr. Clemons in [place]; currently undergoing genetic testing to determine particular allergens -Presented with hives, had coughing episode and throat itching while receiving Xolair injection earlier today. Her symptoms persisted despite 2 doses of 50 mg IM Benadryl. Has previously had hives following her Xolair injections which she has been able to manage on her own with Benadryl -Received dexamethasone, additional Benadryl, Pepcid. Currently protecting her airway with no noted wheezing or stridor. Did not receive any epinephrine. -just tested for COVID-19, results earlier today, negative -Continue supportive care with IV fluid hydration, IV steroids, Benadryl, Pepcid -Very low threshold for evolving into anaphylaxis, monitor closely; as such will minimize oral intake -Has had anaphylaxis requiring mechanical ventilation in the past -Most of her oral medications are specially formulated, to bring to the hospital for administration -Discussed with kitchen need for specific foods given her extensive allergy profile to prevent inadvertent reaction -Close monitoring of vital signs Status: Acute Qualifiers: Encounter type: initial encounter Qualified Code(s): T78.40XA - Allergy, unspecified, initial encounter (2) Anxiety: -Resume anxiolytics Status: Chronic (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, has been on anticoagulation with Arixtra, continue this Status: Chronic Additional A&P Information -Known alpha galactosidase deficiency, histamine sensitivity, multiple food allergies -Prior CVA; no residual -History of intracranial hemorrhage; has recovered well -Previously noted right vocal cord palsy, possible vocal cord dysfunction: Pending further evaluation for this, has been delayed due to COVID pandemic -Hypokalemia -Mild normocytic anemia -no need for further DVT ppx as on Aritxra -vegan diet when able to advance diet -Dispo: home -Code status: FULL code -ICU admission due to need for close monitoring and low threshold for decompens ation with hx of anaphylaxis Attestations Medical Necessity Statement*: Estella Burgess's hospital stay will be less than 2 midnights for management of acute allergic reaction following Xolair injection earlier today, with prior history of anaphylactic reactions. Time Spent in Patient Care: Greater than 35 minutes (>than 50% of time spent in counselling and/or direct pt care on unit) . Coding Level of Care Code Acute Child Daycare Worker for 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 Diagnoses Acute allergic reaction T78.40XA Encounter type: initial encounter Anxiety F41.9 Basilic vein thrombosis I82.619
[2020-05-21] MEDS: diphenhydrAMINE 50 mg/mL SDV 1mL (19:49)
[2020-05-21] MEDS: LORazepam 2 mg Tablet PO (20:16)
[2020-05-21] MEDS: famotidine 20 mg/2 mL INJ IVP (20:39)
[2020-05-21] MEDS: dexamethasone 4 mg/mL INJ IVP (20:39)
[2020-05-21] MEDS: morphine 4 mg/mL SDV 1 mL 2 MG IVP (21:23)
--- NOTE | 2020-05-21 23:00 | PC.NURSE ---
Pt to unit from ED via wheelchair. VSS, RA, lungs clear, cough present. Pt states shes been suffering from hives and a scratchy throat intermittently since her allergy shot. at bedside with homemade pizza. Pt immediately stated her throat felt tight after eating. Physician at bedside, benadryl administered. Pt recovered. New IV access established, pain medication administered, pt up to bathroom with stand by assist.
[2020-05-22] VITALS (39 sets, daily range): BP systolic 70–125; BP diastolic 46–88; PULSE 80–110; RESP 13–25; TEMP 36.9; O2SAT 95–100
[2020-05-22] MEDS: morphine 4 mg/mL SDV 1 mL 2 MG IVP ×4 (02:29→17:56)
[2020-05-22] MEDS: dexamethasone 4 mg/mL INJ IVP ×4 (02:29→18:13)
[2020-05-22 03:46] LABS: Basophils % 0.2 %; Hematocrit 33.3 % (37.0-47.0); Hemoglobin 10.6 g/dL (11.5-15.3); Lymphocytes # 0.3 10^3/uL (0.8-4.8); Lymphocytes % 5.6 %; Mean Corpuscular HGB Conc 31.8 g/dL (30.0-36.0); Mean Corpuscular Hemoglobin 29.6 pg (28.0-34.0); Mean Platelet Volume 10.7 fL (7.4-10.4); Monocytes # 0.1 10^3/uL (0.2-0.9); Monocytes % 1.4 %; Neutrophils # 5.29 10^3/uL (1.8-7.7); Neutrophils % 92.5 %; Nucleated Red Blood Cells % 0 %; Platelet Count 286 10^3/cmm (130-400); Red Blood Count 3.58 10^6/uL (4.1-5.3); Red Cell Distribution Width 14.6 % (12.1-15.1); White Blood Count 5.7 10^3/uL (4.0-10.0)
[2020-05-22 04:08] LABS: Alanine Aminotransferase 17 U/L (0-33); Alkaline Phosphatase 81 IU/L (35-105); Aspartate Amino Transferase 17 U/L (0-32); Blood Urea Nitrogen 5 mg/dL (6-20); Calcium 8.8 mg/dL (8.5-10.5); Carbon Dioxide 19 mmol/L (22-29); Chloride 106 mmol/L (98-107); Globulin 2.4 g/dL (1.3-4.6); Glomerular Filtration Rate 91.8 mL/min (90-130); Glucose 293 mg/dL (65-115); Osmolality Calculated 287 mOsm/kg (285-295); Sodium 135 mmol/L (136-145); Total Bilirubin 0.2 mg/dL (0.15-1.2); Total Protein 6.4 g/dL (6.6-8.7)
[2020-05-22] MEDS: diphenhydrAMINE 50 mg/mL SDV 1mL IM (04:21)
[2020-05-22 04:42] LABS: Anion Gap 14.3 (5-19); Potassium 4.3 mmol/L (3.5-5.1)
[2020-05-22] MEDS: famotidine 20 mg/2 mL INJ IVP ×2 (06:49→18:14)
[2020-05-22] MEDS: promethazine 25 mg/mL SDV 1 mL IM (07:33)
--- NOTE | 2020-05-22 07:39 | PC.NURSE ---
request phenergan at this time before breakfast states she has nausea before meals
--- NOTE | 2020-05-22 08:58 | PC.NURSE ---
[facility] given dose
--- NOTE | 2020-05-22 09:00 | PC.NURSE ---
home med taken by patient at this time
--- NOTE | 2020-05-22 09:35 | PC.NURSE ---
placed on npo status for possible port placement today
--- NOTE | 2020-05-22 10:23 | P.CONIM_ITS ---
Providers/Reason For Consult Consulting Physican/Specialty*: Dr. Pringle Reason for Consult*: PowerPort Attending Physician: Ruth Pringle MD Primary Care Provider: Chi Cobb MD History of Present Illness History of Present Illness Estella Burgess is a 44 year old female who has had multiple hospitalizations over the last few months due to allergic reactions. patient has poor peripheral venous access. No history of clavicle fractures or central line placement. Review of Systems General: Reports: 10 or more systems reviewed and unremarkable except in HPI and below Meds/Allergies Home Medications and Allergies Home Medications Medication Instructions Recorded Confirmed Last Taken Type montelukast 10 mg PO DAILY 02/17/20 05/21/20 05/21/20 History Xolair 300 mg SUBCUT DIRECTED #1 each 03/01/20 05/21/20 05/21/20 Rx acetaminophen [Tylenol] 650 mg PO QID PRN #100 tab 03/01/20 05/21/20 05/21/20 Rx hydroxyzine pamoate 50 mg PO BID PRN 03/14/20 05/21/20 05/21/20 History lamotrigine [Lamictal] 100 mg PO BEDTIME 03/14/20 05/21/20 05/21/20 History lorazepam 2 mg PO Q4H PRN #30 ml 03/16/20 05/21/20 05/21/20 Rx atenolol DAILY 05/21/20 Unknown History famotidine 40 mg PO BID 05/21/20 05/21/20 05/21/20 History fluoxetine 60 mg PO DAILY 05/21/20 05/21/20 05/21/20 History oxycodone 2.5 mg PO TID PRN 05/21/20 05/21/20 Unknown History diphenhydramine HCl 50 mg IM Q12H PRN 15 Days #25 ml 05/23/20 Unknown Rx methylprednisolone [Methylpred DP] See Rx Instructions .ROUTE 05/23/20 Unknown Rx .COMPLEX #21 each Allergies Allergy/AdvReac Type Severity Reaction Status Date / Time Beef Containing Products Allergy Severe ALGY-Anaphy Verified 05/21/20 15:38 laxis epinephrine Allergy Severe Hemorrhagic Verified 05/21/20 15:38 stroke after epi drip lactose Allergy Severe ALGY-Anaphy Verified 05/21/20 15:38 laxis Pork/Porcine Containing Allergy Severe ALGY-Anaphy Verified 05/21/20 15:38 Products laxis Poultry Allergy Severe ALGY-Anaphy Verified 05/21/20 15:38 laxis trimethobenzamide Allergy Severe ALGY-Anaphy Verified 05/21/20 15:38 [From [facility]] laxis gluten Allergy Unknown Verified 05/21/20 15:38 Current Medications Current Medications Generic Name Dose Route Start Last Admin Trade Name Freq PRN Reason Stop Dose Admin Atenolol 12.5 mg 05/22/20 09:00 05/22/20 09:05 Tenormin PO Not Given DAILY RAYSA Dexamethasone 4 mg 05/21/20 19:11 05/22/20 06:49 Decadron IVP 4 mg Q6H RAYSA Administration Diphenhydramine HCl 50 mg 05/21/20 19:11 05/22/20 04:21 Benadryl IM 50 mg Q12H PRN Administration HIVES Famotidine 20 mg 05/21/20 19:11 05/22/20 06:49 Pepcid Inj IVP 20 mg Q12H RAYSA Administration Montelukast Sodium 10 mg 05/22/20 09:00 05/22/20 09:05 Singulair PO Not Given DAILY RAYSA Morphine Sulfate 2 mg 05/21/20 19:57 05/22/20 07:09 Morphine IVP 2 mg Q4H PRN Administration SEVERE PAIN Non-Formulary: 1 each 05/22/20 06:00 05/22/20 07:03 Fluoxetine (Dye Free PO 1 each ) 60mg QAM RAYSA Administration Non-Formulary: 1 each 05/22/20 09:00 05/22/20 09:06 Lamotrigine (Dye- PO Not Given Free) 100mg BID@0900,2100 RAYSA Non-Formulary: 1 each 05/22/20 02:32 05/22/20 08:57 Lorazepam Oral Conc PO 1 each 2mg/Ml Q4H PRN Administration ANXIETY Promethazine HCl 25 mg 05/21/20 18:00 05/22/20 07:33 Phenergan IM 25 mg Q6H PRN Administration NAUSEA PFSH Acute PFSH: Medical History Alpha galactosidase deficiency Anxiety Cerebral hemorrhage with hemiparesis (~08/2019) Occurred while on epinephrine drip for anaphylaxis. Mild residual weakness on the left side History of anaphylaxis Requiring intubation History of gluten sensitivity Hyper-IgE syndrome Major depressive disorder Multiple environmental allergies Multiple food allergies PCOS (polycystic ovarian syndrome) PTSD (post-traumatic stress disorder) Rosacea Vocal cord palsy Surgical History History of abdominoplasty History of appendectomy History of artificial lens replacement History of cataract surgery History of section, low transverse History of eye surgery Surgical plate placement and removal History of surgery Intracranial angiogram Family History Mother Diabetes Thyroid condition Hypercholesteremia Family/Other Cancer Social History Smoking and tobacco status: never smoked Alcohol intake: current Alcohol intake frequency: few times a month Marital status: Current occupational status: employed 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[place] 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 History: Date of last menstrual period: 02/09/20 Vitals/I&O/Wt Last Vital Signs Temp 98.6 F 05/21/20 19:44 Pulse 104 H 05/22/20 08:00 Resp 17 05/22/20 08:00 BP 104/71 05/22/20 08:00 Pulse Ox 98 05/22/20 08:00 05/21/20 05/22/20 05/22/20 22:59 06:59 14:59 Intake Total 250 / 250 Balance 250 / 250 Weight last 48 hrs Weight 135 lb Physical Exam Narrative: EXAM NARRATIVE: HEENT: Normocephalic Eye: Sclera /conjunctiva normal Respiratory and chest: Bilateral clear breath sounds on auscultation Cardiovascular: Normal S1 and S2 heart sounds Abdomen: Soft to palpation Neurological: Oriented to place person and time Skin: Intact, hives on her neck and over the sternum A&P Assessment and plan (1) Poor venous access: 44-year-old female with frequent hospitalizations with poor venous access requesting a long-term central venous aceess. Unfortunately patient is allergic to all porcine-based products and therefore she cannot receive heparin for port flushes. We will therefore need to investigate further to find an appropriate flushing regimen before placing the port which hopefully will do later this week. Plan for placement of PowerPort under MAC Procedure, risks, benefits and alternatives have been discussed with the patient who wishes to proceed with surgery. Status: Acute Coding Level of Care Code Acute Readers' Advisory Service Librarian for Chg Fwd Diagnoses Poor venous access I87.8
[2020-05-22] MEDS: diphenhydrAMINE 50 mg/mL SDV 1mL IVP (10:27)
[2020-05-22] MEDS: diphenhydrAMINE 50 mg/mL SDV 1mL 25 MG IVP (10:54)
[2020-05-22] MEDS: LORazepam 2 mg/mL INJ 1 mL IVP ×2 (10:55→19:23)
--- NOTE | 2020-05-22 11:01 | PC.NURSE ---
rash noted face and chest very anxious at this time lungs cta and no wheeze iv ativan and benadryl
--- NOTE | 2020-05-22 20:14 | P.PN_ITS ---
Subjective Subjective: Interval history: Patient seen and examined several times throughout the day, continues to be quite anxious, has had hives and throat itching intermittently throughout the day, anxiety seems to exacerbate her symptoms. Had a discussion on possibility of port placement including consultation with Dr. Laird. Unfortunately at this time unsure about options though will be safe to use for flushing the port to maintain patency so we will likely need to hold off on this until further clarification. Discussed this with patient and her at bedside. Throughout the day she has required quite a bit of Benadryl and some Ativan. Hemodynamically has been stable. Medications: Reviewed: Yes Medication Review Details: Active Medications Generic Name Dose Route Start Last Admin Trade Name Freq PRN Reason Stop Dose Admin Acetaminophen 650 mg 05/21/20 19:11 Tylenol PO Q6H PRN MILD PAIN OR INCR EASE TEMP Atenolol 12.5 mg 05/22/20 09:00 05/22/20 09:05 Tenormin PO Not Given DAILY RAYSA Dexamethasone 4 mg 05/21/20 19:11 05/22/20 18:13 Decadron IVP 4 mg Q6H RAYSA Administration Diphenhydramine HC l 50 mg 05/21/20 19:11 05/22/20 04:21 Benadryl IM 50 mg Q12H PRN Administration HIVES Diphenhydramine HC l 50 mg 05/22/20 10:09 05/22/20 10:27 Benadryl IVP 50 mg Q4H PRN Administration ITCHING Famotidine 20 mg 05/21/20 19:11 05/22/20 18:14 Pepcid Inj IVP 20 mg Q12H RAYSA Administration Fondaparinux 7.5 mg 05/22/20 10:00 Arixtra SUBCUT Q24H RAYSA Hydroxyzine Pamoat e 50 mg 05/21/20 19:34 Vistaril PO BID PRN Anxiety Cefazolin Sodium/D extrose 2 gm in 50 mls @ 100 mls/hr 05/23/20 07:21 Kefzol IV 05/23/20 07:50 STEAM PIPE FITTER ONE Protocol Lorazepam 2 mg 05/22/20 10:42 05/22/20 19:23 Ativan IVP 2 mg Q4H PRN Administration ANXIETY Montelukast Sodium 10 mg 05/22/20 09:00 05/22/20 09:05 Singulair PO Not Given DAILY RAYSA Morphine Sulfate 2 mg 05/21/20 19:57 05/22/20 17:56 Morphine IVP 2 mg Q4H PRN Administration SEVERE PAIN Non-Formulary: 1 each 05/22/20 06:00 05/22/20 07:03 Fluoxetine (Dye Fr ee PO 1 each ) 60mg QAM RAYSA Administration Non-Formulary: 1 each 05/22/20 09:00 05/22/20 09:06 Lamotrigine (Dye- PO Not Given Free) 100mg BID@0900,2100 RAYSA Non-Formulary: 1 each 05/22/20 02:32 05/22/20 08:57 Lorazepam Oral Con c PO 1 each 2mg/Ml Q4H PRN Administration ANXIETY Non-Formulary: 1 each 05/22/20 02:41 Benadryl Liquigel PO 25mg Q4H PRN ALLERGIES Promethazine HCl 25 mg 05/21/20 18:00 05/22/20 07:33 Phenergan IM 25 mg Q6H PRN Administration NAUSEA Beef Containing Products Allergy (Severe, Verified 05/21/20 15:38) ALGY-Anaphylaxis epinephrine Allergy (Severe, Verified 05/21/20 15:38) Hemorrhagic stroke after epi drip lactose Allergy (Severe, Verified 05/21/20 15:38) ALGY-Anaphylaxis Pork/Porcine Containing Products Allergy (Severe, Verified 05/21/20 15:38) ALGY-Anaphylaxis Poultry Allergy (Severe, Verified 05/21/20 15:38) ALGY-Anaphylaxis trimethobenzamide [From Tigan] Allergy (Severe, Verified 05/21/20 15:38) ALGY-Anaphylaxis gluten Allergy (Verified 05/21/20 15:38) Unknown Vitals/I&O/Wt Last Vital Signs Temp 98.6 F 05/21/20 19:44 Pulse 107 H 05/22/20 18:00 Resp 17 05/22/20 18:00 BP 108/75 05/22/20 18:00 Pulse Ox 96 05/22/20 18:00 05/22/20 05/22/20 05/22/20 06:59 14:59 22:59 Intake Total 250 / 250 500 / 750 Balance 250 / 250 500 / 750 Weight last 48 hrs Weight 61.235 kg Physical Exam Const: COMMON NORMALS: no acute distress, patient oriented x3 and alert GENERAL APPEARANCE: cooperative, comfortable and anxious ORIENTATION/CONSCIOUSNESS: Yes awake OTHER: -appears appropriate for age HENMT: COMMON NORMALS: normocephalic, atraumatic, hearing grossly normal bilaterally and moist oral mucous membranes HEAD & SCALP: normocephalic and atraumatic MOUTH: no drooling and no muffled voice THROAT: posterior oropharynx normal Eye: COMMON NORMALS: Equal, round and reactive pupils present, EOMs intact bilaterally and conjunctivae normal CONJUNCTIVA: Yes conjunctivae normal PUPIL: Yes Equal, round and reactive pupils present Neck/C-Spine: COMMON NORMALS: full ROM GENERAL: Yes normal visual inspection and Yes trachea midline Resp: COMMON NORMALS: normal respiratory effort, No retractions, No use of accessory muscles and clear to auscultation bilaterally EFFORT & INSPECTION: Yes able to speak in complete sentences, Yes symmetric chest movement and No tachypneic AUSCULTATION: clear to auscultation bilaterally OTHER: -on RA Cardio: COMMON NORMALS: regular rate, regular rhythm, S1 normal heart sound present, S2 normal heart sound present and No murmurs present (Cardio) RATE: regular rate RHYTHM: regular rhythm HEART SOUNDS: S1 normal heart sound present and S2 normal heart sound present GI: COMMON NORMALS: Normal to inspection, nondistended, normoactive bowel sounds present, Soft to palpation and non-tender PALPATION: Yes Soft to palpation Extremity: COMMON NORMALS: normal to inspection, full ROM and no clubbing, cyanosis or edema; negative for no pedal edema Neuro: COMMON NORMALS: patient oriented x3, moves all extremities, no focal motor deficits, no sensory deficits noted and gait normal SENSORIUM/ORIENTATION: Yes alert Psych: COMMON NORMALS: mental status grossly normal, Normal thought process present, cooperative, normal affect and speech normal SPEECH: Yes normal s peech THOUGHT PROCESS: Normal thought process present OTHER: -very low threshold for anxiety Skin: COMMON NORMALS: no jaundice, no petechiae and no mottling OTHER: - hives on lower face, neck, upper chest -dermatitis on lower face and upper neck; appears to be contact dermatitis due to wearing mask Data : 05/22/20 03:10 05/22/20 03:10 A&P Assessment and plan (1) Acute allergic reaction: -Patient has a very complex history of previous allergic and anaphylactic reactions, has multiple food allergies and histamine sensitivity, known alpha galactosidase deficiency; has had multiple hospital visits secondary to these episodes -Follows up with environmental conservation professor Dr. Clemons in [place]; currently undergoing genetic testing to determine particular allergens -Presented with hives, had coughing episode and throat itching while receiving Xolair injection earlier today. Her symptoms persisted despite 2 doses of 50 mg IM Benadryl. Has previously had hives following her Xolair injections which she has been able to manage on her own with Benadryl -Received dexamethasone, additional Benadryl, Pepcid. Continues to protect her airway with no noted wheezing or stridor. Did not receive any epinephrine. -just tested for COVID-19, negative -Continue supportive care with IV steroids, Benadryl, Pepcid; no need for IVF as hydrated appropriately PO -Very low threshold for evolving into anaphylaxis, monitor closely; as such will minimize oral intake -Has had anaphylaxis requiring mechanical ventilation in the past -Most of her oral medications are specially formulated, to bring to the hospital for administration -Discussed with kitchen need for specific foods given her extensive allergy profile to prevent inadvertent reaction -Close monitoring of vital signs -Noted significant difficulty with establishing IV access which per patient is not new. Discussed possibility of port placement for this purpose particularly given her complicated history. At this point unfortunately unable to determine alternative agent to be used for flushing as patient has porcine allergy and Lovenox allergy. Discussed this with Dr. Greenberg who will look into options on Sunday. For now we will hold off on port placement and this is further cla rified. 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, has been on anticoagulation with Arixtra, continue this Status: Chronic Additional A&P Information -Known alpha galactosidase deficiency, histamine sensitivity, multiple food allergies -Prior CVA; no residual -History of intracranial hemorrhage; has recovered well -Previously noted right vocal cord palsy, possible vocal cord dysfunction: Pending further evaluation for this, has been delayed due to COVID pandemic -Hypokalemia -Mild normocytic anemia -no need for further DVT ppx as on Aritxra -vegan diet when able to advance diet -Dispo: home -Code status: FULL code -ICU admission due to need for close monitoring and low threshold for decompensation with hx of anaphylaxis Attestations Medical Necessity Statement*: Patient requires hospitalization for continued management of acute allergic reaction with noted intermittent hives and throat itching today that would require further monitoring due to low threshold for decompensation and evolution into anaphylaxis. Time Spent in Patient Care: Greater than 35 minutes (>than 50% of time spent in counselling and/or direct pt care on unit) . Coding Level of Care Code Acute Recreational Aide for 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 Diagnoses Acute allergic reaction T78.40XA Encounter type: initial encounter Anxiety F41.9 Basilic vein thrombosis I82.619
[2020-05-23] VITALS (13 sets, daily range): BP systolic 82–126; BP diastolic 48–86; PULSE 77–100; RESP 13–19; TEMP 36.9; O2SAT 96–99
[2020-05-23] MEDS: dexamethasone 4 mg/mL INJ IVP ×2 (01:17→06:18)
[2020-05-23] MEDS: famotidine 20 mg/2 mL INJ IVP ×2 (06:18→10:27)
[2020-05-23] MEDS: morphine 4 mg/mL SDV 1 mL 2 MG IVP (06:44)
--- NOTE | 2020-05-23 07:01 | PC.NURSE ---
anxious requesting coffee if not going to surgery request we attempt to find out
[2020-05-23] MEDS: LORazepam 2 mg/mL INJ 1 mL IVP (08:14)
--- NOTE | 2020-05-23 08:17 | PC.NURSE ---
anxious and stressed ativan given per request
--- NOTE | 2020-05-23 09:10 | PC.NURSE ---
dr blancas here talked with client will not be getting port today am brk sereved at this time
--- NOTE | 2020-05-23 09:26 | PM.PN ---
Subjective Subjective: Interval history: Patient has been doing well, she is ready to go home today Vitals/I&O/Wt Last Vital Signs Temp 98.5 F 05/23/20 04:00 Pulse 92 05/23/20 07:00 Resp 19 H 05/23/20 07:00 BP 121/73 05/23/20 07:00 Pulse Ox 98 05/23/20 07:00 05/22/20 05/23/20 05/23/20 22:59 06:59 14:59 Intake Total 800 / 1050 0 / 1050 Balance 800 / 1050 0 / 1050 Weight last 48 hrs Weight 135 lb Physical Exam Const: COMMON NORMALS: no acute distress GENERAL APPEARANCE: cooperative and comfortable Data : 05/22/20 03:10 05/22/20 03:10 A&P Assessment and plan (1) Allergic reaction: 42-year-old female with multiple hospitalizations due to allergic reaction with poor venous axis. Patient like a long-term Port-A-Cath in place but she is allergic to porcine products which would include heparin. We would therefore like to look at other options to flush the catheter long-term before placing a Port-A-Cath. I will plan to schedule her for surgery on 05/26/2020 once we have a plan in place for long-term flushing of the catheter. Status: Acute Qualifiers: Encounter type: initial encounter Qualified Code(s): T78.40XA - Allergy, unspecified, initial encounter Attestations Medical Necessity Statement*: Allergic reaction, DC home today Coding Level of Care Code Acute Director Employee Safety And Health for 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 Diagnoses Allergic reaction T78.40XA Encounter type: initial encounter
[2020-05-23] MEDS: diphenhydrAMINE 50 mg/mL SDV 1mL IVP (10:27)
--- NOTE | 2020-05-23 10:46 | P.DS_ITS ---
Discharge Providers Date of Admission: 05/21/20 17:08 Date of Discharge: May 23, 2020 Attending Provider at Admission: Ruth Pringle MD Attending Provider at Discharge: Ruth Pringle MD Consults: Surgery, Dr. Osvaldo Laird Primary Care Provider: Chi Cobb MD Diagnoses at Discharge Discharge Diagnosis (1) Allergic reaction: Status: Acute Problem details: -Patient has a very complex history of previous allergic and anaphylactic reactions, has multiple food allergies and histamine sensitivity, known alpha galactosidase deficiency; has had multiple hospital visits secondary to these episodes -Follows up with precision farming specialist Dr. Clemons in [place]; currently undergoing genetic testing to determine particular allergens -Presented with hives, had coughing episode and throat itching while receiving Xolair injection earlier today. Her symptoms persisted despite 2 doses of 50 mg IM Benadryl. Has previously had hives following her Xolair injections which she has been able to manage on her own with Benadryl -Received dexamethasone, additional Benadryl, Pepcid. Continues to protect her airway with no noted wheezing or stridor. Did not receive any epinephrine. -just tested for COVID-19, negative -Continue supportive care with IV steroids, Benadryl, Pepcid; no need for IVF as hydrated appropriately PO -Very low threshold for evolving into anaphylaxis, monitor closely; as such will minimize oral intake -Has had anaphylaxis requiring mechanical ventilation in the past -Most of her oral medications are specially formulated, to bring to the hospital for administration -Discussed with kitchen need for specific foods given her extensive allergy profile to prevent inadvertent reaction -stable vital signs -Noted significant difficulty with establishing IV access which per patient is not new. Discussed possibility of port placement for this purpose particularly given her complicated history. At this point unfortunately unable to determine alternative agent to be used for flushing as patient has porcine allergy and Lovenox allergy. Discussed this with Dr. Greenberg and may be able to use saline flushes. For now we will hold off on port placement and this is further clarified. 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 Medications are specially formulated due to her allergy profile -Prior CVA; no residual -History of intracranial hemorrhage; has recovered well -Previously noted right vocal cord palsy, possible vocal cord dysfunction: Pending further evaluation for this, has been delayed due to COVID pandemic -Hypokalemia -Mild normocytic anemia Reason for Visit Reason for Visit: ALLERGIC REACTION Hospital Course Hospital Course: Patient was admitted to ICU due to need for close monitoring secondary to acute allergic reaction with previous history of anaphylactic reactions some of which have resulted in intubation. It is unclear what may have triggered her reaction but suspicion that her Xolair injection may have triggered this as she has had some minor reactions to her prior treatments, typically takes Benadryl prior to her treatments. At this time she had increased throat itching, more extensive hives and some coughing, and given her history of anaphylaxis needed close monitoring in the hospital setting. She has been managed with Benadryl, Pepcid, steroids and has been noted to have intermittent episodes of hives and some throat itching though nothing that has required more aggressive intervention. She has consistently been on room air, hemodynamically stable. Due to her complicated history she has a very low threshold for anxiety which seems to exacerbate her symptoms. She follows up with an precision farming specialist Dr. Clemons in [place] and is currently undergoing further work-up to identify particular allergens including genetic testing. She has had issues with establishing and maintaining peripheral IV access in the past particularly with her frequent hospital visits so there was some discussion about potential port placement. It is unclear what kind of anticoagulant she would be able to use for flushes as she is allergic to Lovenox and has a porcine allergy is a component of heparin. I discussed this with Dr. Laird and Dr. Greenberg and in light of known urgency, unclear agent for maintenance of port once placed, have decided to hold off on placement of this at this time. Per Dr. Greenberg we may be able to use saline flushes though I am unsure how practical this would be so will defer port placement for outpatient consideration. Patient will follow-up with Dr. Laird once this is clarified. She should continue anticoagulation with Arixtra which had been started for treatment of right upper extremity DVT. Of note, some of patient's medications are specially formulated so used her home meds as much as possible. Discharge Summary: -Patient to follow-up with her primary care provider within 1 week -Patient to continue to follow-up with her precision farming specialist in [place] Physical Exam Const: COMMON NORMALS: no acute distress, patient oriented x3 and alert GENERAL APPEARANCE: cooperative, comfortable and anxious ORIENTATION/CONSCIOUSNESS: Yes awake OTHER: -appears appropriate for age HENMT: COMMON NORMALS: normocephalic, atraumatic, hearing grossly normal bilaterally and moist oral mucous membranes HEAD & SCALP: normocephalic and atraumatic MOUTH: no drooling and no muffled voice THROAT: posterior mary ann pharynx normal Eye: COMMON NORMALS: Equal, round and reactive pupils present, EOMs intact bilaterally and conjunctivae normal CONJUNCTIVA: Yes conjunctivae normal PUPIL: Yes Equal, round and reactive pupils present Neck/C-Spine: COMMON NORMALS: full ROM GENERAL: Yes normal visual inspection and Yes trachea midline Resp: COMMON NORMALS: normal respiratory effort, No retractions, No use of accessory muscles and clear to auscultation bilaterally EFFORT & INSPECTION: Yes able to speak in complete sentences, Yes symmetric chest movement and No tachypneic AUSCULTATION: clear to auscultation bilaterally OTHER: -on RA Cardio: COMMON NORMALS: regular rate, regular rhythm, S1 normal heart sound present, S2 normal heart sound present and No murmurs present (Cardio) RATE: regular rate RHYTHM: regular rhythm HEART SOUNDS: S1 normal heart sound present and S2 normal heart sound present GI: COMMON NORMALS: Normal to inspection, nondistended, normoactive bowel sounds present, Soft to palpation and non-tender PALPATION: Yes Soft to palpation Extremity: COMMON NORMALS: normal to inspection, full ROM and no clubbing, cyanosis or edema; negative for no pedal edema Neuro: COMMON NORMALS: patient oriented x3, moves all extremities, no focal motor deficits, no sensory deficits noted and gait normal S ENSORIUM/ORIENTATION: Yes alert Psych: COMMON NORMALS: mental status grossly normal, Normal thought process pr esent, cooperative, normal affect and speech normal SPEECH: Yes normal speech THOUGHT PROCESS: Normal thought process present OTHER: -very low threshold for anxiety Skin: COMMON NORMALS: no jaundice, no petechiae and no mottling OTHER: - hives on lower face, neck, upper chest now resolved -dermatitis on lower face and upper neck; appears to be contact dermatitis due to wearing mask Discharge Data Data Completed and Pending: Pending at discharge Category Date Time Status Tryptase Routine Lab 05/21/20 15:56 Received Vitals: Last Vital Signs Temp 98.5 F 05/23/20 04:00 Pulse 100 05/23/20 10:00 Resp 17 05/23/20 10:00 BP 110/69 05/23/20 10:00 Pulse Ox 98 05/23/20 10:00 Discharge Plan Discharge Patient Disposition: Home Condition: Stable Prescriptions: New Methylpred DP 4 mg tablets,dose pack See Rx Instructions .ROUTE .COMPLEX Qty: 21 RF: 0 Continued montelukast 10 mg tablet 10 mg PO DAILY RF: 0 hydroxyzine pamoate 50 mg Capsule 50 mg PO BID PRN (Reason: Anxiety) RF: 0 lamotrigine [Lamictal] 25 mg Tablet 100 mg PO BEDTIME RF: 0 lorazepam 2 mg/mL concentrate 2 mg PO Q4H PRN (Reason: anxiety) Qty: 30 RF: 0 fluoxetine 20 mg/5 mL (4 mg/mL) solution 60 mg PO DAILY RF: 0 famotidine 40 mg/5 mL (8 mg/mL) Suspension 40 mg PO BID RF: 0 atenolol 12.5 MG DAILY RF: 0 oxycodone 5 mg/5 mL Solution 2.5 mg PO TID PRN (Reason: Pain) RF: 0 diphenhydramine HCl 50 mg/mL solution 50 mg IM Q12H PRN (Reason: allergic reaction) 15 Days Qty: 25 RF: 2 acetaminophen [Tylenol] 325 mg Tablet 650 mg PO QID PRN (Reason: Pain) Qty: 100 RF: 0 Xolair 150 mg recon soln 300 mg SUBCUT DIRECTED Qty: 1 RF: 0 Discharge Orders: Discharge Order (Routine); Ordered 05/23/20 Ordered By: Ruth Pringle Referrals: Chi Cobb MD [Primary Care Provider] - 4-7 days (Post hospital discharge follow up) Discharge Diet: Usual diet Discharge Activity: Resume usual activity and Increase activity as tolerated Discharge Attestations Time Spent in Discharge Care*: greater than 30 min Specific Discharge Activities: Specific discharge activities: educating patient, documenting/other paperwork and evaluating patient/reviewing data Status at Discharge: Cognitive status at discharge: cognitively intact , Behavioral status at discharge: cooperative and independent in ADL's , Functional status at discharge: independent ambulation Overall status at discharge: patient is back to baseline Quality Metrics Clinical Quality Measures During this hospital stay, did patient experience: None Coding Level of Care Code Acute Wool Grower for Shanthi Fwd Diagnoses Allergic reaction T78.40XA Encounter type: initial encounter Anxiety F41.9 Basilic vein thrombosis I82.619
--- NOTE | 2020-05-23 12:48 | PC.NURSE ---
discharged home to husbands care for followup apt with dr arnold
== END 2020-05-23 10:30 | disposition home or self-care (01) ==
LOC: ER 17:42 → ICU 17:58
PROVIDERS: Family Medicine; Admitting Provider Family Medicine; Emergency Provider Emergency Medicine; PCP Family Medicine; Visit Provider Family Medicine
DX: T78.40XA Allergy, unspecified, initial encounter (principal); F41.9 Anxiety disorder, unspecified; I82.619 Acute embolism and thrombosis of superficial veins of unspecified upper extremity; I87.8 Other specified disorders of veins; E74.29 Other disorders of galactose metabolism; Z86.73 Personal history of transient ischemic attack (TIA), and cerebral infarction without residual deficits; E87.6 Hypokalemia; D64.9 Anemia, unspecified
CPT/HCPCS: 12345; 36415; 80053; 83520; 85025; 85651; 86140; 93005; 93010; 96372; 96374; 96375; 99282; 99285; G0378; J1100; J1200; J1652; J2060; J2270; J2550; J3490

== ENCOUNTER 2020-05-26 05:49 | Day surgery (SDC) | payer BC, SELFPAY ==
--- NOTE | 2020-05-26 | SCC_ITS ---
Procedure Done: Placement of PowerPort in the left subclavian vein Fluoroscopic guidance and interpretation for placement of catheter 21.4 seconds of fluoroscopic guidance, for a cumulative dose of 2.67 mGy, was provided to Dr. Laird by the radiology department. C-arm images of the chest were saved for the patient's permanent record. [facility]
[2020-05-26 06:08] VITALS: BMI 23.9
[2020-05-26 06:12] VITALS: BP 125/82; PULSE 81; RESP 18; TEMP 36.6; O2SAT 99
[2020-05-26] MEDS: sodium chloride 0.9% 1,000 ML 30 ML IV (06:29)
--- NOTE | 2020-05-26 06:42 | P.ANESASSM_ITS ---
Pre-Anesthetic Assessment Pre-Anesthetic Assessment: Height/Weight: Height 1.6 m Weight 61.235 kg Temp Pulse Resp BP Pulse Ox 97.9 F 81 18 125/82 99 05/26/20 06:12 05/26/20 06:12 05/26/20 06:12 05/26/20 06:12 05/26/20 06:12 Preop Diagnosis: Poor venous access Proposed Procedure: Operation Date: 05/26/20 07:00 Proposed Procedures p Portacath Placement 71434/ i87.8(Not Applicable) - Tobi Laird MD Familial anesthetic complications: PONV - does TIVA Last intake: Intake Last Liquid Date 05/25/20 Last Liquid Time 21:00 Last Solid Date 05/25/20 Last Solid Time 19:00 Social: Social History: No alcohol and No tobacco Exam: Pre-Anes Outpt Exam: alert, oriented x 3, clear to auscultation bilaterally and regular rate & rhythm Airway: Cervical ROM: WNL MP: 1 Dentition: Full and Other (veneers) Neuropsych: Neuropsych: CVA Comments: hx hemorrhagic stroke from epi drip - residual L sided hemineglect and foot drop Anesthetic Plan: ASA status: 3 Anesthesia: MAC Other: Epi as last resort for allergic rxn d/t hx of hemorrhagic stroke Has eaten egg before without hives, but has lead to hives other time (egg yolk better than egg white, per patient( Risk of > 500 ml blood loss (7ml/kg in children): No Meds/Allergies Current Medications: Current Medications Generic Name Dose Route Start Last Admin Trade Name Freq PRN Reason Stop Dose Admin Sodium Chloride 1,000 mls @ 30 ml s/hr 05/26/20 06:00 05/26/20 06:29 Sodium Chloride 0.9% IV 05/27/20 05:59 30 mls/hr .Q24H RAYSA Administration PFSH Anesthesia PFSH: Medical History (Updated 05/23/20 @ 13:19 by Tobi Laird MD) Alpha galactosidase deficiency Anxiety Cerebral hemorrhage with hemiparesis (~08/2019) Occurred while on epinephrine drip for anaphylaxis. Mild residual weakness on the left side History of anaphylaxis Requiring intubation History of gluten sensitivity Hyper-IgE syndrome Major depressive disorder Multiple environmental allergies Multiple food allergies PCOS (polycystic ovarian syndrome) PTSD (post-traumatic stress disorder) Rosacea Vocal cord palsy Surgical History History of abdominoplasty History of appendectomy History of artificial lens replacement History of cataract surgery History of section, low transverse History of eye surgery Surgical plate placement and removal History of surgery Intracranial angiogram Family History Mother Diabetes Thyroid condition Hypercholesteremia Family/Other Cancer Social History Smoking and tobacco status: never smoked Alcohol intake: current Alcohol intake frequency: few times a month Marital status: Current occupational status: employed 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
[2020-05-26 06:55] LABS: OR HCG Qualitative Urine Negative (Negative)
--- NOTE | 2020-05-26 06:57 | W.PM.OPSUD ---
Surgery/Procedure H&P Update DATE OF PROCEDURE: May 26, 2020 DATE H&P PERFORMED: 05/22/20 H&P UPDATE INFORMATION: I have reviewed H&P completed within last 30 days, I have examined patient prior to procedure and No changes to prior documentation PREOP DIAGNOSIS: Poor venous access PLANNED PROCEDURE: Operation Date: 05/26/20 07:00 Proposed Procedures p Portacath Placement 15398/ i87.8(Not Applicable) - Tobi Laird MD
--- NOTE | 2020-05-26 07:05 | SC_ITS ---
WS: [id number] INTRAOPERATIVE TECHNIQUE: 2 Spot fluoroscopic images for intraoperative purposes. FLUOROSCOPY TIME: 21.4 seconds CLINICAL INFORMATION: surgery COMPARISON: None. FINDINGS: Left central venous catheter with tip in the SVC/RA junction no visualized pneumothorax. SC/C-arm FL for CVA [id number] IMPRESSION: Images obtained for intraoperative purposes.
[2020-05-26] MEDS: lidocaine 1% INJ 20 mL SUBCUT (07:19)
[2020-05-26 07:39] VITALS: BP 117/79; PULSE 73; RESP 16; TEMP 36.6; O2SAT 98
--- NOTE | 2020-05-26 07:41 | P.OP_ITS ---
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 A total of 10 mL of 1% lidocaine with 0.5% Marcaine was infiltrated under the clavicle on the left side at the site of the planned entry into the subclavian vein. An introducer needle was then used to access the subclavian vein under the clavicle and after withdrawing blood syringe was removed and a guidewire passed under fluoroscopy into the superior vena cava. The site of the planned port was then marked on the chest and a 15 blade was used to make a 3 cm skin incision this was extended into the subcutaneous tissue using electrocautery and a subcutaneous pocket over the pectoralis fascia was created 2-0 Vicryl suture was used to suture the port to the pectoral fascia in the pocket on 3 sides. The catheter, after having been flushed with hep saline, was attached to the tunneler and a tunnel created between the port site and the subclavian vein entry site. Under fluoroscopy the dilator sheath was passed over the guidewire i nto the proximal superior vena cava. The inner dilator was removed and the sheath left behind and~ the catheter was introduced through the peel-away sheath with the tip in the superior vena cava. The peel-away sheath was removed. The proximal end of the catheter was cut to the right size and was attached to the port. Using a Sierra needle the port was accessed, it withdrew blood easily and flushed easily. A final 5cc of heparin was used to flush the PowerPort. The subcutaneous tissue was approximated using interrupted 3-0 Vicryl sutures and the skin at the introducer site and the port site was closed using subcuticular running 4-0 Monocryl sutures. Surgical glue was applied and the patient was stable throughout the procedure. Fluoroscopic guidance and interpretation was performed for introduction of the guidewire in the left subclavian vein, passage of dilator and placement of catheter tip in the distal superior vena cava.
[2020-05-26] MEDS: ondansetron 2 mg/ML SDV 2 mL 4 MG IVP (07:54)
[2020-05-26 08:01] VITALS: BP 133/92; PULSE 70; RESP 18; O2SAT 99
[2020-05-26 08:10] VITALS: RESP 18; O2SAT 99
[2020-05-26] MEDS: morphine 4 mg/mL SDV 1 mL IVP (08:10)
[2020-05-26 08:39] VITALS: BP 129/88; PULSE 66; RESP 18; O2SAT 99
== END 2020-05-26 09:05 | disposition home or self-care (01) ==
PROVIDERS: Anesthesiology; PCP Family Medicine; Visit Provider Surgery
PROC: (CPT 36561; principal; 2020-05-26 07:00)
DX: I87.8 Other specified disorders of veins (principal); F43.10 Post-traumatic stress disorder, unspecified; D82.4 Hyperimmunoglobulin E [IgE] syndrome; I69.359 Hemiplegia and hemiparesis following cerebral infarction affecting unspecified side; L71.9 Rosacea, unspecified; E74.29 Other disorders of galactose metabolism; E28.2 Polycystic ovarian syndrome
CPT/HCPCS: 36561; 12345; 76000; 77001; 81025; 84703; C1788; J0690; J1720; J2270; J2405; J3490; J7030

== ENCOUNTER 2020-06-10 21:11 | Observation (INO) | payer BC, SELFPAY ==
[2020-06-10 21:15] VITALS: BP 123/81; PULSE 100; RESP 16; TEMP 36.8; O2SAT 99; BMI 23.9
[2020-06-10] MEDS: diphenhydrAMINE 50 mg/mL SDV 1mL IVP (21:26)
[2020-06-10] MEDS: famotidine 20 mg/2 mL INJ 40 MG IVP (21:27)
--- NOTE | 2020-06-10 21:34 | ED_ITS ---
HPI - Allergic Reaction General: Chief complaint: Allergic Reaction Stated complaint: allergic reaction Time Seen by Provider: 06/10/20 21:14 Source: patient Mode of arrival: ambulatory Limitations: no limitations History of Present Illness: HPI narrative: Sandy is a 44-year-old female who comes in complaining of allergic reaction. She states she can feel a tickle in the back of her throat after she ate some new food. She claims that she had hives at home but after self administrating Benadryl IM her hives resolved with the tickle in throat discomfort continue. She denies any shortness of breath. Patient is well-known to me and she has had several other cases of allergic reactions even anaphylactic reactions in the past. Associated symptoms: Deny abdominal pain, dizziness, facial swelling, hoarseness, nausea, tongue swelling or vomiting Review of Systems Const: Denies: fever(s), chills, body aches, fatigue, malaise or diaphoresis Eyes: Denies: change in vision, blurry vision, photophobia, eye discomfort, eye discharge or eye redness ENMT: Denies: throat pain, odynophagia, hoarseness, swelling of lips/tongue, ear or mastoid pain, ear discharge, change in hearing or nasal discharge Card: Denies: chest pain, palpitations, irregular heart rhythm, edema, lightheadedness, syncope, pre-syncope, dyspnea on exertion or orthopnea Resp: Denies: dyspnea, productive cough, non-productive cough, wheezing, hemoptysis or chest congestion GI: Denies: abdominal pain, nausea, vomiting, hematemesis, coffee ground emesis, heartburn, diarrhea, constipation, GI cramping, hematochezia or melena : Denies: flank pain, dysuria, urinary frequency, urinary urgency or hematuria Musc: Denies: neck pain, back pain, extremity pain, extremity swelling, joint pain, joint swelling, joint redness, joint warmth or joint stiffness Skin/Breast: Denies: rash, pruritus, erythema or skin tenderness Neuro: Denies: headache(s), numbness in extremities, weakness in extremities, sensory changes, lack of coordination, difficulty walking, dizziness, vertigo, confusion, Slurred speech present or seizure-like activity Nigel/Lymph: Denies: easy bruising, easy bleeding, petechiae, purpura or enlarged lymph nodes All/Imm: Reports: urticaria and throat swelling; Denies: tongue swelling, facial swelling or acute wheezing PFSH ED PFSH: Medical History Alpha galactosidase deficiency Anxiety Cerebral hemorrhage with hemiparesis (~08/2019) Occurred while on epinephrine drip for anaphylaxis. Mild residual weakness on the left side History of anaphylaxis Requiring intubation History of gluten sensitivity Hyper-IgE syndrome Major depressive disorder Multiple environmental allergies Multiple food allergies PCOS (polycystic ovarian syndrome) PTSD (post-traumatic stress disorder) Rosacea Vocal cord palsy Surgical History History of abdominoplasty History of appendectomy History of artificial lens replacement History of cataract surgery History of section, low transverse History of eye surgery Surgical plate placement and removal History of surgery Intracranial angiogram Port-A-Cath in place (05/26/20) left subclavian Family History Mother Diabetes Thyroid condition Hypercholesteremia Family/Other Cancer Social History Smoking and tobacco status: never smoked Alcohol intake: current Alcohol intake frequency: few times a month Marital status: Current occupational status: employed 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 History: Date of last menstrual period: 05/10/20 Physical Exam Const: COMMON NORMALS: no acute distress, patient oriented x3, no limitations, healthy appearing and well nourished GENERAL APPEARANCE: cooperative, well kempt and well developed HENMT: COMMON NORMALS: normocephalic, atraumatic, external ears normal, EAC's normal and Normal external nose present HEAD & SCALP: normal to inspection, normocephalic and atraumatic FACE & SINUS: normal facial exam and face symmetric NOSE: Normal external nose present and Normal nares present EXTERNAL EAR: Yes external ears normal EXTERNAL AUDITORY CANAL: EAC's normal MOUTH: Normal oral and palatal mucosa present, lip normal and tongue normal THROAT: other (Mild soft palate erythema/swelling) Eye: COMMON NORMALS: Equal, round and reactive pupils present and conjunctivae normal GENERAL EYE: appearance normal, both eyes and all related structures ALIGNMENT: Yes alignment normal PERIORBITAL: periorbital findings normal EYELID: eyelids normal CONJUNCTIVA: Yes conjunctivae normal SCLERA: sclerae normal PUPIL: Yes Equal, round and reactive pupils present Neck/C-Spine: COMMON NORMALS: full ROM, no lymphadenopathy, supple, no meningeal signs and no JVD GENERAL: Yes normal visual inspection and Yes trachea midline Chest: COMMONS NORMALS: normal inspection of the chest and normal palpation of entire chest wall Resp: COMMON NORMALS: normal respiratory effort, No retractions, No use of accessory muscles and clear to auscultation bilaterally EFFORT & INSPECTION: Yes able to speak in complete sentences and Yes symmetric chest movement AUSCULTATION: clear to auscultation bilaterally, no crackles, no rales, no rhonchi and no wheezes Cardio: COMMON NORMALS: no JVD, regular rate, regular rhythm, S1 normal heart sound present and S2 normal heart sound present RATE: regular rate RHYTHM: regular rhythm HEART SOUNDS: S1 normal heart sound present, S2 normal heart sound present, no click, no gallops, no murmurs, no rubs and abnormal split S2 GI: COMMON NORMALS: Soft to palpation and No hepatosplenomegaly present PALPATION: Yes Soft to palpation, No Tenderness to palpation present (GI), No Guarding due to palpation present (GI), No Rigid due to palpation, Yes No hepatosplenomegaly present, No Hernia present, No Palpable mass present and No Pulsatile mass present : COMMON NORMALS: Yes no CVA tenderness BLADDER/KIDNEY EXAM: Yes no CVA tenderness EXTERNAL FEMALE EXAM: No Hernia present Back/Pelvis: COMMON NORMALS: no CVA tenderness, thoracic and lumbar spine normal to inspection, no thoracic nor lumbar tenderness and thoraco-lumbar ROM normal Extremity: COMMON NORMALS: normal to inspection, full ROM, capillary refill normal, no joint enlargement, no clubbing, cyanosis or edema and no calf tenderness Neuro: COMMON NORMALS: patient oriented x3, CN's II-XII intact bilaterally, moves all extremities, no focal motor deficits and no sensory deficits noted MENINGEAL SIGNS: Yes no meningeal signs SPEECH: speech normal Psych: COMMON NORMALS: mental status grossly normal, Normal thought process present, cooperative, normal affect, speech normal and activity/motor behavior normal APPEARANCE: Yes well kempt SPEECH: Yes normal speech THOUGHT PROCESS: Normal thought process present Skin: COMMON NORMALS: no rashes or lesions noted, turgor normal, no jaundice, no petechiae and no mottling GENERAL SKIN EXAM: no rashes or lesions noted and turgor normal Course Vital Signs: Vital signs: Vital Signs Temperature 98.2 F 06/10/20 21:15 Pulse Rate 107 H 06/10/20 22:10 Respiratory Rate 22 H 06/10/20 22:10 Blood Pressure 131/75 06/10/20 22:10 Pulse Oximetry 99 06/10/20 22:10 MDM - Allergic Reaction MDM Narrative: Medical decision making narrative: 2234 - Discharge Plan Discharge Prescriptions: No Action montelukast 10 mg tablet 10 mg PO DAILY RF: 0 hydroxyzine pamoate 50 mg Capsule 50 mg PO BID PRN (Reason: Anxiety) RF: 0 lamotrigine [Lamictal] 25 mg Tablet 100 mg PO BEDTIME RF: 0 lorazepam 2 mg/mL concentrate 2 mg PO Q4H PRN (Reason: anxiety) Qty: 30 RF: 0 fluoxetine 20 mg/5 mL (4 mg/mL) solution 60 mg PO DAILY RF: 0 famotidine 40 mg/5 mL (8 mg/mL) Suspension 40 mg PO BID RF: 0 atenolol 12.5 MG 12.5 mg PO DAILY RF: 0 diphenhydramine HCl 50 mg/mL solution 50 mg IM Q12H PRN (Reason: allergic reaction) 15 Days Qty: 25 RF: 2 acetaminophen [Tylenol] 325 mg Tablet 650 mg PO QID PRN (Reason: Pain) Qty: 100 RF: 0 Xolair 150 mg recon soln 300 mg SUBCUT DIRECTED Qty: 1 RF: 0 oxycodone 20 mg/mL concentrate 5 mg PO Q8H Qty: 10 RF: 0 Coding Level of Care Code ED Journeyman Level Acoustic Analyst for Chg Fwd Exam Comprehensive
[2020-06-10] MEDS: ondansetron 2 mg/ML SDV 2 mL 4 MG IVP (21:42)
[2020-06-10] MEDS: LORazepam 2 mg/mL INJ 1 mL 1 MG IVP (21:44)
[2020-06-10 22:10] VITALS: BP 131/75; PULSE 107; RESP 22; O2SAT 99
--- NOTE | 2020-06-10 22:23 | PM.HP ---
Providers/Chief Complaint Primary Care Provider: Chi Cobb MD Chief Complaint: allergic reaction History of Present Illness Estella Burgess is a 44 year old female who carries history of hyper IgE syndrome, alcohol galactosidase deficiency, multiple allergies to food and medications, mastocytosis ruled out, has been referred to [facility] for further work-up came in today for recurrent symptoms of dry hacking cough. 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 She normally responds well to Benadryl, steroids, montelukast and uses brand specific medications to avoid recurrent symptoms. Today after her dinner she started experiencing similar symptoms. She has not noticed any fever, shortness of breath, but she is endorsing dry hacking cough, constipation, dry skin, dry mouth associated with some anxiety. At home she has taken Benadryl, she has been given 125 mg of Solu-Medrol, in the ER she was given 1 mg of Ativan. At the time of my evaluation she was tachycardic, appeared very anxious but no active stridor or restaurant distress noticed. 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 in the past, results were negative Medications/Allergies Home Medications Medication Instructions Recorded Confirmed Last Taken Type montelukast 10 mg PO DAILY 02/17/20 05/25/20 05/21/20 History Xolair 300 mg SUBCUT DIRECTED #1 each 03/01/20 05/25/20 05/21/20 Rx acetaminophen [Tylenol] 650 mg PO QID PRN #100 tab 03/01/20 05/25/20 05/21/20 Rx hydroxyzine pamoate 50 mg PO BID PRN 03/14/20 05/25/20 05/21/20 History lamotrigine [Lamictal] 100 mg PO BEDTIME 03/14/20 05/25/20 05/21/20 History lorazepam 2 mg PO Q4H PRN #30 ml 03/16/20 05/25/20 05/21/20 Rx atenolol 12.5 mg PO DAILY 05/21/20 05/25/20 Unknown History famotidine 40 mg PO BID 05/21/20 05/25/20 05/21/20 History fluoxetine 60 mg PO DAILY 05/21/20 05/25/2005/21/20 History diphenhydramine HCl 50 mg IM Q12H PRN 15 Days #25 ml 05/23/20 05/25/20 Unknown Rx oxycodone 5 mg PO Q8H #10 ml 05/26/20 Unknown Rx Allergies Allergy/AdvReac Type Severity Reaction Status Date / Time Beef Containing Products Allergy Severe ALGY-Anaphy Verified 06/10/20 21:18 laxis epinephrine Allergy Severe Hemorrhagic Verified 06/10/20 21:18 stroke after epi drip lactose Allergy Severe ALGY-Anaphy Verified 06/10/20 21:18 laxis Pork/Porcine Containing Allergy Severe ALGY-Anaphy Verified 06/10/20 21:18 Products laxis Poultry Allergy Severe ALGY-Anaphy Verified 06/10/20 21:18 laxis trimethobenzamide Allergy Severe ALGY-Anaphy Verified 06/10/20 21:18 [From [facility]] laxis gluten Allergy Unknown Verified 06/10/20 21:18 PFSH Acute PFSH: Medical History Alpha galactosidase deficiency Anxiety Cerebral hemorrhage with hemiparesis (~08/2019) Occurred while on epinephrine drip for anaphylaxis. Mild residual weakness on the left side History of anaphylaxis Requiring intubation History of gluten sensitivity Hyper-IgE syndrome Major depressive disorder Multiple environmental allergies Multiple food allergies PCOS (polycystic ovarian syndrome) PTSD (post-traumatic stress disorder) Rosacea Vocal cord palsy Surgical History History of abdominoplasty History of appendectomy History of artificial lens replacement History of cataract surgery History of section, low transverse History of eye surgery Surgical plate placement and removal History of surgery Intracranial angiogram Port-A-Cath in place (05/26/20) left subclavian Family History Mother Diabetes Thyroid condition Hypercholesteremia Family/Other Cancer Social History Smoking and tobacco status: never smoked Alcohol intake: current Alcohol intake frequency: few times a month Marital status: Current occupational status: employed 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 at the time when I entered the room, she had no active respiratory distress No active stridor, No active neurological deficit Appears anxious Sinus tachycardia noted, Bilateral breath sounds adequate without adventitious sounds, no wheezing Soft abdomen S1, S2 is tachycardia Lower extremity no edema gangrene ulcer Multiple hives on her skin, right hand has scratch cook A&P Assessment and plan (1) Acute allergic reaction: Status: Acute Qualifiers: Encounter type: initial encounter Qualified Code(s): T78.40XA - Allergy, unspecified, initial encounter (2) Basilic vein thrombosis: Status: Chronic (3) Adverse reaction to drug: Status: Acute (4) Poor venous access: Status: Acute (5) COVID-19 ruled out by laboratory testing: Status: Acute (6) Sinus tachycardia: Status: Acute (7) Anxiety: Status: Chronic Additional A&P Information Acute allergic reaction Dry hacking cough started after eating her dinner She would like to use her home meds, I reviewed her medications in the ER, No active respiratory stress, no stridor or wheezing Mastocytosis ruled out Multiple food, gluten sensitivity, galactosidase deficiency, follows up with [facility] at [place]. She required mechanical ventilation in the past, Admit to MedSurg because she is not in any active respiratory distress at the moment I would resume her home regimen which are specifically formulated Basilic vein thrombosis: Continue Arixtra she is on 3-month regimen of anticoagulant No acute complications Recent left subclavian venous port surgery Anxiety She seems to have low threshold for anxiety, Received 1 mg of Ativan in the ER At home she takes liquid Ativan 1 mL every 6 hours History of CVA: No permanent deficit Good recovery, History of CVA while she was getting epinephrine for her anaphylaxis COVID 19: Ruled out Gluten-free specific diet to be ordered for her meals Sinus tachycardia: Encouraged her to increase her fluid intake, start normal saline at maintenance rate, sodium 135 Normocytic anemia: Hemoglobin stable Full code DVT prophylaxis not needed as she is on Arixtra Attestations Medical Necessity Statement*: Anticipating discharge in less than 48 hours currently need overnight monitoring because of her recurrent acute allergic reaction with underlying food/drug allergies Time Spent in Patient Care: (>than 50% of time spent in counselling and/or direct pt care on unit). 40 minutes Coding Level of Care Code Acute Plastic Boat Buffer for Shanthi Fwd Diagnoses Acute allergic reaction T78.40XA Encounter type: initial encounter Basilic vein thrombosis I82.619 Adverse reaction to drug T50.905A Poor venous access I87.8 COVID-19 ruled out by laboratory testing Z03.818 Sinus tachycardia R00.0 Anxiety F41.9
[2020-06-10] MEDS: sodium chloride 0.9% 1,000 ML 999 ML IV (22:47)
[2020-06-10] MEDS: acetaminophen 500 mg Tablet 1000 MG PO (22:47)
[2020-06-10 23:10] VITALS: BP 123/88; PULSE 99; RESP 15
[2020-06-10 23:42] VITALS: BP 118/78; PULSE 108; RESP 20; TEMP 36.8; O2SAT 96
[2020-06-10] MEDS: sodium chloride 0.9% 1,000 ML 100 ML IV (23:59)
[2020-06-11] VITALS (15 sets, daily range): BP systolic 106–136; BP diastolic 68–87; PULSE 87–118; RESP 16–20; TEMP 36.8–36.9; O2SAT 93–98
[2020-06-11] MEDS: LORazepam 2 mg/mL INJ 1 mL 1 MG IVP ×3 (00:19→17:26)
[2020-06-11] MEDS: diphenhydrAMINE 50 mg/mL SDV 1mL 25 MG IVP ×3 (00:19→12:08)
[2020-06-11] MEDS: sodium chloride 0.9% 1,000 ML 100 ML IV ×2 (01:06→19:51)
[2020-06-11] MEDS: morphine 4 mg/mL SDV 1 mL IVP ×4 (01:55→21:14)
[2020-06-11 04:57] LABS: Anion Gap 14.7 (5-19); Blood Urea Nitrogen 3 mg/dL (6-20); Calcium 8.4 mg/dL (8.5-10.5); Carbon Dioxide 21 mmol/L (22-29); Chloride 110 mmol/L (98-107); Glomerular Filtration Rate 78.7 mL/min (90-130); Glucose 176 mg/dL (65-115); Osmolality Calculated 292 mOsm/kg (285-295); Potassium 4.7 mmol/L (3.5-5.1); Sodium 141 mmol/L (136-145)
--- NOTE | 2020-06-11 13:01 | PC.CHAP ---
Pastoral Care Encounter/Spiritual Assessment Type of Contact [] Declined hop weigher visit [] Patient/Family/Request visit [] Outpatient visit [] Follow-up visit [] Physician referral [] Code/Alert [xx] Routine visit [] Staff referral [] Actively dying [] Patient sleeping [] Family support [] [] Out of room [] Palliative care [] [] Receiving care in room [] Pre-surgical visit [] Trauma [] Long length of stay [] ICU visit [] Other: Relational/Emotional Strength [xx] Patient feels connected with others/family/visitors/staff [] Distress [] Loneliness/isolation [] Abandonment Spirituality of Patient [xx] Person of Evy [xx] Attends Episcopal of their Evy [xx] Believes in Prayer [xx] Reads Bible or Baptism materials [] There are Spiritual issues to be addressed Twisting Frame Changer Interventions [xx] Prayer [xx] Active listening [xx] Non-anxious presence [] Spiritual/emotional support [] Crisis/trauma care [] Spiritual counseling [] Bereavement support [] Provided bereavement packet [] Provided Bible/devotional materials [] Provided toy/stuffed animal, coloring book to patient or family member [] Provided Communion [] Anointing/Wheeling [] Salvation [xx] Completed spiritual assessment [] Other: Impact on Illness or Injury [] Angry [] Fearful [xx] Anxious [] Often cries [] Exhaustion [] Unable to work [] Unable to attend holiness [] Unable to walk/stand [] Unable to read [] Unable to drive [] Unable to eat/drink [] Unable to sleep [] Unable to be with family [] Patient intubated [] Other: Summary As soon as Twisting Frame Changer walked into room, patient requested prayer. She has medical complications that require a miracle because the doctors have been unable to determine all the causes of her allergies that have put her in the hospital numerous times. Time spent with patient 5 minutes Twisting Frame Changer Gema D[place]
--- NOTE | 2020-06-11 13:17 | PM.CONSULT ---
Providers/Reason For Consult Consulting Physican/Specialty*: Dr. Eric Reason for Consult*: Status post port placement, postop check Attending Physician: Josh Vanessa MD Primary Care Provider: Chi Cobb MD History of Present Illness History of Present Illness Estella Burgess is a 44 year old female who had undergone placement of a Port-A-Cath in the left subclavian vein couple of weeks ago. She was due to be seen in the clinic today but had to be admitted to the hospital yesterday due to an allergic reaction. Her Port-A-Cath is being used currently and has been functioning well. Patient denies any drainage from the incision Review of Systems General: Reports: 10 or more systems reviewed and unremarkable except in HPI and below Meds/Allergies Home Medications and Allergies Home Medications Medication Instructions Recorded Confirmed Last Taken Type Xolair 300 mg SUBCUT DIRECTED #1 each 03/01/20 06/11/20 05/21/20 Rx lamotrigine [Lamictal] 100 mg PO BEDTIME 03/14/20 06/11/20 06/09/20 21:00 History famotidine 40 mg PO BID 05/21/20 06/11/20 06/10/20 08:00 History fluoxetine 60 mg PO DAILY 05/21/20 06/11/20 06/10/20 08:00 History diphenhydramine HCl 50 mg IM Q12H PRN 15 Days #25 ml 05/23/20 06/11/20 Unknown Rx oxycodone 5 mg PO Q8H #10 ml 05/26/20 06/11/20 06/10/20 12:00 Rx Tylenol 1,000 mg PO TID PRN 06/11/20 06/11/20 Unknown History cetirizine 10 mg PO BID 06/11/20 06/11/20 06/10/20 08:00 History fondaparinux 7.5 mg SUBCUT DAILY 06/11/20 06/11/20 06/10/20 08:00 History lorazepam See Rx Instructions .ROUTE 06/11/20 06/11/20 Unknown History .COMPLEX PRN montelukast 10 mg PO DAILY 06/11/20 06/11/20 06/09/20 08:00 History trazodone 100 mg PO BEDTIME 06/11/20 06/11/20 06/09/20 21:00 History Allergies Allergy/AdvReac Type Severity Reaction Status Date / Time Beef Containing Products Allergy Severe ALGY-Anaphy Verified 06/10/20 21:18 laxis epinephrine Allergy Severe Hemorrhagic Verified 06/10/20 21:18 stroke after epi drip lactose Allergy Severe ALGY-Anaphy Verified 06/10/20 21:18 laxis Pork/Porcine Containing Allergy Severe ALGY-Anaphy Verified 06/10/20 21:18 Products laxis trimethobenzamide Allergy Severe ALGY-Anaphy Verified 06/10/20 21:18 [From Tigan] laxis egg Allergy ALGY-Anaphy Verified 06/11/20 00:57 laxis enoxaparin [From Lovenox] Allergy ALGY-Anaphy Verified 06/11/20 00:57 laxis gluten Allergy Unknown Verified 06/10/20 21:18 heparin (porcine) Allergy ALGY-Anaphy Verified 06/11/20 00:57 laxis Current Medications Current Medications Generic Name Dose Route Start Last Admin Trade Name Freq PRN Reason Stop Dose Admin Cetirizine HCl 10 mg 06/11/20 09:00 06/11/20 10:00 Zyrtec PO Not Given BID RAYSA Diphenhydramine HCl 25 mg 06/11/20 00:53 06/11/20 09:26 Benadryl IVP 25 mg Q4H PRN Administration ITCHING Sodium Chloride 1,000 mls @ 100 mls/hr 06/10/20 23:45 06/11/20 11:55 Sodium Chloride 0.9% IV Infused .Q10H RAYSA Infusion Lorazepam 1 mg 06/10/20 23:51 06/11/20 09:25 Ativan IVP 1 mg Q8H PRN Administration ANXIETY Morphine Sulfate 4 mg 06/11/20 01:30 06/11/20 09:42 Morphine IVP 4 mg Q4H PRN Administration SEVERE PAIN Non-Formulary Medication 40 mg 06/11/20 09:00 06/11/20 10:03 Famotidine PO 40 mg BID RAYSA Administration Non-Formulary Medication 60 mg 06/11/20 09:00 06/11/20 10:04 Fluoxetine PO 60 mg DAILY RAYSA Administration Non-Formulary 7.5 each 06/11/20 09:00 06/11/20 09:58 Medication( SUBCUT 7.5 each Fondaparinux 7.5 Mg/ DAILY RAYSA Administration 0.6 Ml Syringe) Non-Formulary Medication 10 mg 06/11/20 09:00 06/11/20 10:04 Montelukast PO 10 mg DAILY RAYSA Administration Non-Formulary Medication 5 mg 06/11/20 01:00 06/11/20 10:05 Oxycodone PO Not Given Q8H RAYSA PFSH Acute PFSH: Medical History Alpha galactosidase deficiency Anxiety Cerebral hemorrhage with hemiparesis (~08/2019) Occurred while on epinephrine drip for anaphylaxis. Mild residual weakness on the left side History of anaphylaxis Requiring intubation History of gluten sensitivity Hyper-IgE syndrome Major depressive disorder Multiple environmental allergies Multiple food allergies PCOS (polycystic ovarian syndrome) PTSD (post-traumatic stress disorder) Rosacea Vocal cord palsy Surgical History History of abdominoplasty History of appendectomy History of artificial lens replacement History of cataract surgery History of section, low transverse History of eye surgery Surgical plate placement and removal History of surgery Intracranial angiogram Port-A-Cath in place (05/26/20) left subclavian Family History Mother Diabetes Thyroid condition Hypercholesteremia Family/Other Cancer Social History Smoking and tobacco status: never smoked Alcohol intake: current Alcohol intake frequency: few times a month Marital status: Current occupational status: employed 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[place] Female 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 History: Date of last menstrual period: 05/10/20 Vitals/I&O/Wt Last Vital Signs Temp 98.2 F 06/11/20 12:00 Pulse 105 H 06/11/20 12:00 Resp 18 06/11/20 12:00 BP 122/76 06/11/20 12:00 Pulse Ox 96 06/11/20 12:00 06/10/20 06/11/20 06/11/20 22:59 06:59 14:59 Intake Total 1411.667 / 6361.304 7472 / 1480 Output Total 1000 / 1000 600 / 600 Balance 411.667 / 411.667 880 / 880 Weight last 48 hrs Weight 135 lb Physical Exam Narrative: EXAM NARRATIVE: HEENT: Normocephalic Eye: Sclera /conjunctiva normal Abdomen: Soft to palpation Neurological: Oriented to place person and time Skin: Intact, no lesions appreciated on gross exam, incision left chest healing well, no cellulitis or hematoma A&P Assessment and plan (1) Port-A-Cath in place: Status post placement of Port-A-Cath 2 weeks ago doing well Catheter has been functioning well. She will need monthly flushes to be done at the [facility] where she receives Xolair injections Status: Resolved Coding Level of Care Code Acute Screw Machine Set Up Operator for 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 Diagnoses Port-A-Cath in place Z95.828
[2020-06-11] MEDS: budesonide 0.5 mg/2 mL Neb INHALATION (14:06)
[2020-06-11] MEDS: LORazepam 2 mg/mL INJ 1 mL IVP (14:36)
--- NOTE | 2020-06-11 16:00 | PM.PN ---
Subjective Subjective: Interval history: Patient states that she is doing better this morning, minimal hives, no shortness of breath, has some pruritus, no nausea, no vomiting, she not sure exactly what she ate that caused her symptoms, she stated that she ordered some cupcakes from a vegan bakery in [place], which she thinks might have caused her symptoms, but she is not exactly sure what in the cupcakes she has reacted to, she ate the cookies from the bakery and she did okay, no nausea no vomiting this morning, no lightheadedness, no dizziness However this afternoon, patient reported worsening pruritus, and hives over her anterior chest, some on her forehead, some shortness of breath, improved with Benadryl, improved with her home Zyrtec, will continue to monitor Vitals/I&O/Wt Last Vital Signs Temp 98.2 F 06/11/20 15:41 Pulse 99 06/11/20 15:41 Resp 17 06/11/20 15:41 BP 136/87 06/11/20 15:41 Pulse Ox 93 06/11/20 15:41 06/11/20 06/11/20 06/11/20 06:59 14:59 22:59 Intake Total 1411.667 / 2610.139 3195 / 1600 Output Total 1000 / 1000 600 / 600 800 / 1400 Balance 411.667 / 774.951 3155 / 1000 -800 / 200 Weight last 48 hrs Weight 61.235 kg Physical Exam Const: COMMON NORMALS: no acute distress and patient oriented x3 HENMT: COMMON NORMALS: normocephalic HEAD & SCALP: normocephalic Neck/C-Spine: COMMON NORMALS: no JVD Resp: COMMON NORMALS: normal respiratory effort, No retractions, No use of accessory muscles and clear to auscultation bilaterally AUSCULTATION: clear to auscultation bilaterally Cardio: COMMON NORMALS: no JVD, regular rate, regular rhythm, S1 normal heart sound present and S2 normal heart sound present RATE: regular rate RHYTHM: regular rhythm HEART SOUNDS: S1 normal heart sound present and S2 normal heart sound present GI: COMMON NORMALS: Normal to inspection, nondistended, normoactive bowel sounds present, Soft to palpation, non-tender, No hepatosplenomegaly present, no masses and no bruits PALPATION: Yes Soft to palpation and Yes No hepatosplenomegaly present Extremity: COMMON NORMALS: capillary refill normal, no clubbing, cyanosis or edema, no calf tenderness and no pedal edema Neuro: COMMON NORMALS: patient oriented x3 Psych: COMMON NORMALS: mental status grossly normal Skin: NARRATIVE SKIN EXAM: Minimal diffuse eczema Data : 06/11/20 04:16 A&P Assessment and plan (1) Acute allergic reaction: Status: Acute Qualifiers: Encounter type: initial encounter Qualified Code(s): T78.40XA - Allergy, unspecified, initial encounter (2) Basilic vein thrombosis: Status: Chronic (3) Adverse reaction to drug: Status: Acute (4) Poor venous access: Status: Acute (5) COVID-19 ruled out by laboratory testing: Status: Acute (6) Sinus tachycardia: Status: Acute (7) Anxiety: Status: Chronic Additional A&P Information Acute allergic reaction Dry hacking cough started after eating her dinner She would like to use her home meds, I reviewed her medications in the ER, Some shortness of breath complaints, worsening hives this morning, pruritus Mastocytosis ruled out Multiple food, gluten sensitivity, galactosidase deficiency, follows up with branch customer service representative at [place]. She required mechanical ventilation in the past, [facility] because she is not in any active respiratory distress at the moment I would resume her home regimen which are specifically formulated Continue IV Benadryl, home cetirizine, Solu-Medrol 40 mg IV daily Basilic vein thrombosis: Continue Arixtra she is on 3-month regimen of anticoagulant No acute complications Recent left subclavian venous port surgery Anxiety She seems to have low threshold for anxiety, Received 1 mg of Ativan in the ER At home she takes liquid Ativan 1 mL every 6 hours History of CVA: No permanent deficit Good recovery, History of CVA while she was getting epinephrine for her anaphylaxis COVID 19: Ruled out Gluten-free specific diet to be ordered for her meals Sinus tachycardia: Encouraged her to increase her fluid intake, start normal saline at maintenance rate, sodium 135 Normocytic anemia: Hemoglobin stable Full code DVT prophylaxis not needed as she is on Arixtra Attestations Medical Necessity Statement*: Patient requires hospitalization for acute allergic reaction Coding Level of Care Code Acute Actuarial Associate for 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 Diagnoses Acute allergic reaction T78.40XA Encounter type: initial encounter Basilic vein thrombosis I82.619 Adverse reaction to drug T50.905A Poor venous access I87.8 COVID-19 ruled out by laboratory testing Z03.818 Sinus tachycardia R00.0 Anxiety F41.9
[2020-06-11] MEDS: ondansetron 2 mg/ML SDV 2 mL 4 MG IVP ×2 (16:57→21:14)
[2020-06-11] MEDS: diphenhydrAMINE 50 mg/mL SDV 1mL IVP (17:25)
[2020-06-12] MEDS: diphenhydrAMINE 50 mg/mL SDV 1mL IVP ×3 (00:09→10:11)
[2020-06-12] MEDS: LORazepam 2 mg/mL INJ 1 mL 1 MG IVP ×2 (00:09→05:54)
[2020-06-12 04:00] VITALS: BP 119/79; PULSE 111; RESP 24; TEMP 36.8; O2SAT 97
[2020-06-12 06:57] VITALS: RESP 18
[2020-06-12] MEDS: morphine 4 mg/mL SDV 1 mL IVP (06:57)
[2020-06-12] MEDS: ondansetron 2 mg/ML SDV 2 mL 4 MG IVP (06:58)
[2020-06-12 07:52] VITALS: BP 135/87; PULSE 81; RESP 16; TEMP 36.7; O2SAT 97
[2020-06-12] MEDS: sodium chloride 0.9% 1,000 ML 100 ML IV (08:03)
[2020-06-12 08:21] VITALS: PULSE 81; RESP 18; O2SAT 98
[2020-06-12] MEDS: budesonide 0.5 mg/2 mL Neb INHALATION (08:21)
[2020-06-12 12:00] VITALS: BP 134/81; PULSE 70; RESP 16; TEMP 37; O2SAT 97
--- NOTE | 2020-06-12 12:04 | P.DS_ITS ---
Discharge Providers Date of Admission: 06/11/20 16:25 Date of Discharge: June 12, 2020 Attending Provider at Admission: David Moy MD Attending Provider at Discharge: Josh Vanessa MD Primary Care Provider: Chi Cobb MD Diagnoses at Discharge Discharge Diagnosis (1) Acute allergic reaction: Status: Acute Qualifiers: Encounter type: initial encounter Qualified Code(s): T78.40XA - Allergy, unspecified, initial encounter (2) Basilic vein thrombosis: Status: Chronic Problem details: -Previously noted to have right basilic vein thrombosis and superficial thrombophlebitis, has been on anticoagulation with Arixtra, continue this (3) Adverse reaction to drug: Status: Acute (4) Poor venous access: Status: Acute (5) COVID-19 ruled out by laboratory testing: Status: Acute (6) Sinus tachycardia: Status: Acute (7) Anxiety: Status: Chronic Problem details: -on anxiolytics -low threshold for anxiety Reason for Visit Reason for Visit: allergic reaction Hospital Course Discharge Summary: This is a 44-year-old female with a past medical history of cerebral hemorrhage with hemiparesis with mild residual left-sided weakness, history of anaphylaxis requiring intubation, hyper IgE syndrome, alcohol galactosidase deficiency, multiple allergies to food and medications, mastoids cytosis has been ruled out, has been referred to [facility] for further work-up who presents [facility] due to concerns for a rash, pruritus, and a hacking cough. Patient was admitted to [facility], general medical floors, for concerns for allergic reaction, no concerns for anaphylaxis, received Benadryl, steroids, IV fluids, nebulizer treatments, nebulized steroids. Patient clinically improved, rash and pruritus improved. Patient on discharge was advised to avoid trigger, it possibly could be cupcakes from a mail order bakery. Patient is to follow-up with specialist at [facility]. Follow-up primary care provider in 1 week. Patient will be discharged on a steroid taper, 40 mg for the next 3 days, she already has plenty of prednisone pills at home. Discharged on budesonide inhaler therapy PRN. She has Benadryl at home.. If she were to have recurrent symptoms come back to the emergency room. Physical Exam Const: COMMON NORMALS: no acute distress and patient oriented x3 HENMT: COMMON NORMALS: normocephalic HEAD & SCALP: normocephalic Neck/C-Spine: COMMON NORMALS: no JVD Resp: COMMON NORMALS: normal respiratory effort, No retractions, No use of accessory muscles and clear to auscultation bilaterally AUSCULTATION: clear to auscultation bilaterally Cardio: COMMON NORMALS: no JVD, regular rate, regular rhythm, S1 normal heart sound present and S2 normal heart sound present RATE: regular rate RHYTHM: regular rhythm HEART SOUNDS: S1 normal heart sound present and S2 normal heart sound present GI: COMMON NORMALS: Normal to inspection, nondistended, normoactive bowel sounds present, Soft to palpation, non-tender, No hepatosplenomegaly present, no masses and no bruits PALPATION: Yes Soft to palpation and Yes No hepatosplenomegaly present Extremity: COMMON NORMALS: capillary refill normal, no clubbing, cyanosis or edema, no calf tenderness and no pedal edema Neuro: COMMON NORMALS: patient oriented x3 Psych: COMMON NORMALS: mental status grossly normal Discharge Data Vitals: Last Vital Signs Temp 98.1 F 06/12/20 07:52 Pulse 81 06/12/20 08:21 Resp 18 06/12/20 08:21 BP 135/87 06/12/20 07:52 Pulse Ox 98 06/12/20 08:21 Discharge Plan Discharge Patient Disposition: Home Condition: Stable Prescriptions: New budesonide 0.5 mg/2 mL Suspension For Nebulization 0.5 mg inhalation BID.RESPIRATORY PRN (Reason: shortness of breath or wheezing) Qty: 60 RF: 0 oxycodone 20 mg/mL concentrate 5 mg PO Q8H PRN (Reason: pain) 7 Days Qty: 3 RF: 0 Continued lamotrigine [Lamictal] 25 mg Tablet 100 mg PO BEDTIME RF: 0 fluoxetine 20 mg/5 mL (4 mg/mL) solution 60 mg PO DAILY RF: 0 famotidine 40 mg/5 mL (8 mg/mL) Suspension 40 mg PO BID RF: 0 diphenhydramine HCl 50 mg/mL solution 50 mg IM Q12H PRN (Reason: allergic reaction) 15 Days Qty: 25 RF: 2 cetirizine 5 mg/5 mL Solution 10 mg PO BID RF: 0 trazodone 100 mg Tablet 100 mg PO BEDTIME RF: 0 montelukast 4 mg Granules In Packet 10 mg PO DAILY RF: 0 lorazepam 2 mg/mL concentrate See Rx Instructions .ROUTE .COMPLEX PRN (Reason: anxiety) RF: 0 fondaparinux 7.5 mg/0.6 mL Syringe 7.5 mg SUBCUT DAILY RF: 0 Tylenol 325 mg tablet 1,000 mg PO TID PRN (Reason: Pain) RF: 0 Xolair 150 mg recon soln 300 mg SUBCUT DIRECTED Qty: 1 RF: 0 Discharge Orders: Discharge Order (Routine); Ordered 06/12/20 Ordered By: Josh Vanessa Other Ambulatory Orders: DME: Nebulizer with Neb Kit (Order) Location: None Selected Ordered By: Josh Vanessa Referrals: Chi Cobb MD [Primary Care Provider] - 1 week (Please call patient at home with a hospital follow up appointment in 1 week. Faxed information to clinic) Discharge Diet: As Directed Discharge Activity: Resume usual activity Patient Instructions: Allergic Reaction, Oxycodone, Rapid Release (By mouth), Budesonide (By breathing) Activity Restrictions/Additional Instructions: -Drink plenty of electrolyte balance fluids -Take steroid taper as prescribed, 40 mg for the next 3 days -If you have repeat allergic reaction come back to the emergency room Discharge Attestations Time Spent in Discharge Care*: less than 30 min Status at Discharge: Cognitive status at discharge: cognitively intact , Behavioral status at discharge: cooperative and independent in ADL's , Quality Metrics Clinical Quality Measures During this hospital stay, did patient experience: None Coding Level of Care Code Acute Administrative Processor for Shanthi Fwbreanna Diagnoses Acute allergic reaction T78.40XA Encounter type: initial encounter Basilic vein thrombosis I82.619 Adverse reaction to drug T50.905A Poor venous access I87.8 COVID-19 ruled out by laboratory testing Z03.818 Sinus tachycardia R00.0 Anxiety F41.9
[2020-06-12 14:18] VITALS: BP 134/81; PULSE 70; RESP 16; TEMP 37; O2SAT 97
== END 2020-06-12 11:30 | disposition home or self-care (01) ==
LOC: ER 21:29 → MEDSURG 22:44
PROVIDERS: Admitting Provider Internal Medicine; PCP Family Medicine; Visit Provider Family Medicine
DX: T78.40XA Allergy, unspecified, initial encounter (principal); I82.619 Acute embolism and thrombosis of superficial veins of unspecified upper extremity; R00.0 Tachycardia, unspecified; F41.9 Anxiety disorder, unspecified; Z87.892 Personal history of anaphylaxis; Z86.73 Personal history of transient ischemic attack (TIA), and cerebral infarction without residual deficits; Z95.828 Presence of other vascular implants and grafts; Z20.818 Contact with and (suspected) exposure to other bacterial communicable diseases; X58.XXXA Exposure to other specified factors, initial encounter
CPT/HCPCS: 12345; 36415; 80048; 94640; 96361; 96372; 96374; 96375; 99281; 99285; G0378; J1200; J2060; J2270; J2405; J2920; J2930; J3490; J7030; J7626

== ENCOUNTER → 2020-06-18 09:39 | Day surgery (SDC) | payer BC, SELFPAY ==
[2020-06-18 09:53] VITALS: BP 111/79; PULSE 92; RESP 18; TEMP 37.3; O2SAT 98
[2020-06-18] MEDS: diphenhydrAMINE 50 mg/mL SDV 1mL IVP ×4 (10:05→13:20)
[2020-06-18 11:00] VITALS: BP 115/86; PULSE 96; RESP 20; TEMP 36.7; O2SAT 96
[2020-06-18] MEDS: omalizumab 150 mg SDV 300 MG SUBCUT (12:21)
[2020-06-18] MEDS: famotidine 20 mg/2 mL INJ IVP (13:36)
== END ==
PROVIDERS: PCP Family Medicine; Visit Provider Family Medicine
DX: Z45.2 Encounter for adjustment and management of vascular access device (principal); T78.49XA Other allergy, initial encounter
CPT/HCPCS: 96372; 96374; 96375; 96523; J1200; J2357; J2930; J3490

== ENCOUNTER 2020-06-24 20:43 | Emergency (ER) | payer BC, SELFPAY ==
[2020-06-24 20:52] VITALS: BP 137/79; PULSE 102; RESP 18; O2SAT 100; BMI 23.6
[2020-06-24] MEDS: ondansetron 2 mg/ML SDV 2 mL 4 MG IVP (21:27)
[2020-06-24] MEDS: famotidine 20 mg/2 mL INJ 40 MG IVP (21:27)
[2020-06-24] MEDS: diphenhydrAMINE 50 mg/mL SDV 1mL IVP ×2 (21:27→22:33)
[2020-06-24] MEDS: lidocaine 2% viscous 15 ML, aluminum-mag hydrox-simethicon 30 ML, sucralfate oral liq 1 GM PO (21:44)
[2020-06-24 21:45] VITALS: BP 108/87; PULSE 87; RESP 16; O2SAT 98
[2020-06-24] MEDS: LORazepam 2 mg/mL INJ 1 mL IVP (22:12)
[2020-06-24] MEDS: budesonide 0.5 mg/2 mL Neb INHALATION (22:25)
[2020-06-24 22:27] VITALS: PULSE 91; RESP 18; O2SAT 97
[2020-06-24 22:31] VITALS: PULSE 89; RESP 18; O2SAT 100
--- NOTE | 2020-06-24 22:32 | W.ED.ALLEREA ---
HPI - Allergic Reaction General: Chief complaint: Allergic Reaction Stated complaint: allergic reaction Time Seen by Provider: 06/24/20 20:52 History of Present Illness: HPI narrative: This patient is a 44-year-old female presenting with irritation in her throat. She has a complicated medical history of anaphylaxis which has started with similar symptoms as what she has today. She was found to have an alpha gal deficiency as well as histamine hyperreactivity. Her symptoms have been extremely difficult to control. She presents tonight with similar symptoms. She says these have typically responded to Benadryl, Pepcid, Solu-Medrol. She has had Benadryl and Pepcid at home tonight. She feels like the hives that she had on her arms have improved but she continues to have irritation in her throat and feels like it is closing. She also has a layer of anxiety related to this and takes Ativan. She did take a new medication tonight, digoxin, which caused some stomach irritation. She also took some Diflucan which she has had previously without an issue. She has had problems with low blood pressure and tachycardia and Dr. Garcia, cardiology, started her on the digoxin thinking that she may have some autonomic dysfunction. complaint: allergic reaction and hives Onset (ago): hour(s) (2) Exposure: unknown and medication (New medication, digoxin) Associated symptoms: Reports abdominal pain, difficulty breathing, hoarseness and nausea Severity: similar to previous episodes Treatment prior to arrival: benadryl Previous Allergic Reaction History: prior ED visit(s), anaphylaxis and intubation Review of Systems General: Reports: 10 or more systems reviewed and unremarkable except in HPI and below ENMT: Reports: hoarseness GI: Reports: abdominal pain, nausea and constipation Skin/Breast: Reports: pruritus Psych: Reports: anxiety [facility] ED PFS: Medical History (Updated 06/24/20 @ 23:44 by Aarti Jung MD) Alpha galactosidase deficiency Anxiety Cerebral hemorrhage with hemiparesis (~08/2019) Occurred while on epinephrine drip for anaphylaxis. Mild residual weakness on the left side History of anaphylaxis Requiring intubation History of gluten sensitivity Hyper-IgE syndrome Major depressive disorder Multiple environmental allergies Multiple food allergies PCOS (polycystic ovarian syndrome) PTSD (post-traumatic stress disorder) Rosacea Vocal cord palsy Surgical History History of abdominoplasty History of appendectomy History of artificial lens replacement History of cataract surgery History of section, low transverse History of eye surgery Surgical plate placement and removal History of surgery Intracranial angiogram Port-A-Cath in place (05/26/20) left subclavian Family History Mother Diabetes Thyroid condition Hypercholesteremia Family/Other Cancer Social History Smoking and tobacco status: never smoked Alcohol intake: current Alcohol intake frequency: few times a month Marital status: Current occupational status: employed 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 History: Date of last menstrual period: 05/10/20 Physical Exam Narrative: EXAM NARRATIVE: Anxious, frequent throat clearing Const: COMMON NORMALS: patient oriented x3, no limitations and alert GENERAL APPEARANCE: cooperative HENMT: HEAD & SCALP: normal to inspection FACE & SINUS: normal facial exam Eye: GENERAL EYE: appearance normal, both eyes and all related structures Neck/C-Spine: COMMON NORMALS: supple, no meningeal signs and no JVD Chest: COMMONS NORMALS: normal inspection of the chest Resp: COMMON NORMALS: normal respiratory effort, No use of accessory muscles and clear to auscultation bilaterally AUSCULTATION: clear to auscultation bilaterally Cardio: COMMON NORMALS: no JVD, regular rate, regular rhythm and No murmurs present (Cardio) RATE: regular rate RHYTHM: regular rhythm GI: COMMON NORMALS: Normal to inspection, nondistended, normoactive bowel sounds present, Soft to palpation and non-tender INSPECTION: Yes normal to inspection AUSCULTATION: Yes normoactive bowel sounds PALPATION: Yes Soft to palpation Back/Pelvis: COMMON NORMALS: thoracic and lumbar spine normal to inspection Extremity: COMMON NORMALS: normal to inspection Neuro: COMMON NORMALS: patient oriented x3, moves all extremities, no focal motor deficits and no sensory deficits noted SENSORIUM/ORIENTATION: Yes alert MENINGEAL SIGNS: Yes no meningeal signs Psych: COMMON NORMALS: mental status grossly normal, cooperative and normal affect Skin: COMMON NORMALS: turgor normal GENERAL SKIN EXAM: turgor normal RASHES: rashes noted (Urticarial, forearms) Course ED course: Clinical symptoms improved throughout the ED stay. She had multiple doses of Benadryl which she says is the only thing that seems to help. She was fairly shaky at the time of discharge but otherwise alert and appropriate. She will continue her outpatient work-up including a referral to [facility]. Vital Signs: Vital signs: Vital Signs Pulse Rate 87 06/24/20 23:59 Respiratory Rate 18 06/24/20 23:59 Blood Pressure 108/87 06/24/20 23:59 Pulse Oximetry 98 06/24/20 23:59 Discharge Plan Discharge Patient Disposition: Home Clinical Impression: Urticaria Condition: Stable Prescriptions: No Action digoxin 50 mcg/mL (0.05 mg/mL) solution 12.5 mcg PO DIRECTED Qty: 60 RF: 3 lamotrigine [Lamictal] 25 mg Tablet 100 mg PO BEDTIME RF: 0 fluoxetine 20 mg/5 mL (4 mg/mL) solution 60 mg PO DAILY RF: 0 famotidine 40 mg/5 mL (8 mg/mL) Suspension 40 mg PO BID RF: 0 diphenhydramine HCl 50 mg/mL solution 50 mg IM Q12H PRN (Reason: allergic reaction) 15 Days Qty: 25 RF: 2 cetirizine 5 mg/5 mL Solution 10 mg PO BID RF: 0 trazodone 100 mg Tablet 100 mg PO BEDTIME RF: 0 montelukast 4 mg Granules In Packet 10 mg PO DAILY RF: 0 lorazepam 2 mg/mL concentrate See Rx Instructions .ROUTE .COMPLEX PRN (Reason: anxiety) RF: 0 fondaparinux 7.5 mg/0.6 mL Syringe 7.5 mg SUBCUT DAILY RF: 0 Tylenol 325 mg tablet 1,000 mg PO TID PRN (Reason: Pain) RF: 0 budesonide 0.5 mg/2 mL Suspension For Nebulization 0.5 mg inhalation BID.RESPIRATORY PRN (Reason: shortness of breath or wheezing) Qty: 60 RF: 0 oxycodone 20 mg/mL concentrate 5 mg PO Q8H PRN (Reason: pain) 7 Days Qty: 3 RF: 0 Xolair 150 mg recon soln 300 mg SUBCUT DIRECTED Qty: 1 RF: 0 Discharge Orders: Discharge Order (Routine); Ordered 06/24/20 Ordered By: Aarti Jung Referrals: Chi Cobb MD [Primary Care Provider] - Discharge Diet: Usual diet Discharge Activity: Resume usual activity Activity Restrictions/Additional Instructions: Return to the ED if worsening in any way. Follow-up with Dr. Garcia regarding the digoxin. Continue regular medications. Discharge Date/Time: 06/25/20 00:00 Coding Level of Care Code ED Wool Sampler for Sophiag Fwd Exam Comprehensive
[2020-06-24 23:24] VITALS: BP 132/85; PULSE 76; RESP 16; O2SAT 97
[2020-06-24 23:59] VITALS: BP 108/87; PULSE 87; RESP 18; O2SAT 98
== END 2020-06-25 | disposition home or self-care (01) ==
PROVIDERS: Emergency Provider Emergency Medicine; PCP Family Medicine
DX: L50.9 Urticaria, unspecified (principal)
CPT/HCPCS: 12345; 94640; 96374; 96375; 96376; 99282; 99283; J1200; J2060; J2405; J2930; J3490; J7626

== ENCOUNTER 2020-07-05 16:46 | Emergency (ER) | payer BC, SELFPAY ==
[2020-07-05 17:07] VITALS: BP 114/79; PULSE 86; RESP 18; TEMP 36.8; O2SAT 99; BMI 23.9
[2020-07-05] MEDS: ondansetron 2 mg/ML SDV 2 mL 4 MG IVP (17:55)
[2020-07-05] MEDS: diphenhydrAMINE 50 mg/mL SDV 1mL IVP (18:18)
--- NOTE | 2020-07-05 18:24 | W.ED.GENADLT ---
HPI - General Adult General: Chief complaint: General Medical Stated complaint: cough/head/body ache/dihrea Time Seen by Provider: 07/05/20 17:04 History of Present Illness: HPI narrative: This patient is a 44-year-old female who comes in today with concern for COVID. She had an exposure to a coworker who tested positive. The exposures were 5 and 8 days ago. Yesterday she started having cough and scratchy throat. She said some shortness of breath. Today she started having some vomiting and a little bit of diarrhea. She has not had a documented fever. She has a complicated medical history including anaphylaxis from multiple sensitivities and an autonomic dysfunction as well as a hemorrhagic stroke. Onset (ago): day(s) (2 or 3) Associated symptoms: Reports chest pain, dyspnea, malaise, nausea and vomiting Review of Systems Const: Reports: fatigue and malaise; Denies: fever(s) ENMT: Reports: throat pain Card: Reports: chest pain and pre-syncope (Chronic) Resp: Reports: dyspnea and non-productive cough GI: Reports: nausea and vomiting [facility] ED PFSH: Medical History Alpha galactosidase deficiency Anxiety Cerebral hemorrhage with hemiparesis (~08/2019) Occurred while on epinephrine drip for anaphylaxis. Mild residual weakness on the left side History of anaphylaxis Requiring intubation History of gluten sensitivity Hyper-IgE syndrome Major depressive disorder Multiple environmental allergies Multiple food allergies PCOS (polycystic ovarian syndrome) PTSD (post-traumatic stress disorder) Rosacea Vocal cord palsy Surgical History History of abdominoplasty History of appendectomy History of artificial lens replacement History of cataract surgery History of section, low transverse History of eye surgery Surgical plate placement and removal History of surgery Intracranial angiogram Port-A-Cath in place (05/26/20) left subclavian Family History Mother Diabetes Thyroid condition Hypercholesteremia Family/Other Cancer Social History Smoking and tobacco status: never smoked Alcohol intake: current Alcohol intake frequency: few times a month Marital status: Current occupational status: employed 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[place] Female 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 History: Date of last menstrual period: 05/10/20 Physical Exam Const: COMMON NORMALS: no acute distress, patient oriented x3, no limitations and alert GENERAL APPEARANCE: cooperative and comfortable HENMT: HEAD & SCALP: normal to inspection FACE & SINUS: normal facial exam Eye: GENERAL EYE: appearance normal, both eyes and all related structures Neck/C-Spine: COMMON NORMALS: supple, no meningeal signs and no JVD Chest: COMMONS NORMALS: normal inspection of the chest Resp: COMMON NORMALS: normal respiratory effort, No use of accessory muscles and clear to auscultation bilaterally AUSCULTATION: clear to auscultation bilaterally Cardio: COMMON NORMALS: no JVD, regular rate, regular rhythm and No murmurs present (Cardio) RATE: regular rate RHYTHM: regular rhythm GI: COMMON NORMALS: Normal to inspection, nondistended, normoactive bowel sounds present, Soft to palpation and non-tender INSPECTION: Yes normal to inspection AUSCULTATION: Yes normoactive bowel sounds PALPATION: Yes Soft to palpation Back/Pelvis: COMMON NORMALS: thoracic and lumbar spine normal to inspection Extremity: COMMON NORMALS: normal to inspection Neuro: COMMON NORMALS: patient oriented x3, moves all extremities, no focal motor deficits and no sensory deficits noted SENSORIUM/ORIENTATION: Yes alert MENINGEAL SIGNS: Yes no meningeal signs Psych: COMMON NORMALS: mental status grossly normal, cooperative and normal affect Skin: COMMON NORMALS: no rashes or lesions noted and turgor normal GENERAL SKIN EXAM: no rashes or lesions noted and turgor normal Course ED course: Patient felt better after some IV fluids and Zofran. She was no longer vomiting and felt like she was ready to go home. She will be discharged and will continue to self isolate pending the COVID result. Vital Signs: Vital signs: Vital Signs Temperature 97.7 F 07/05/20 20:17 Pulse Rate 60 07/05/20 20:17 Respiratory Rate 16 07/05/20 20:17 Blood Pressure 129/85 07/05/20 20:17 Pulse Oximetry 95 07/05/20 20:17 Discharge Plan Discharge Patient Disposition: Home Clinical Impression: COVID-19 virus test result unknown, Acute dehydration Condition: Stable Prescriptions: No Action lamotrigine [Lamictal] 25 mg Tablet 100 mg PO BEDTIME RF: 0 fluoxetine 20 mg/5 mL (4 mg/mL) solution 60 mg PO DAILY RF: 0 famotidine 40 mg/5 mL (8 mg/mL) Suspension 40 mg PO BID RF: 0 diphenhydramine HCl 50 mg/mL solution 50 mg IM Q12H PRN (Reason: allergic reaction) 15 Days Qty: 25 RF: 2 cetirizine 5 mg/5 mL Solution 10 mg PO BID RF: 0 trazodone 100 mg Tablet 100 mg PO BEDTIME RF: 0 montelukast 4 mg Granules In Packet 10 mg PO DAILY RF: 0 lorazepam 2 mg/mL concentrate See Rx Instructions .ROUTE .COMPLEX PRN (Reason: anxiety) RF: 0 acetaminophen [Tylenol] 325 mg tablet 1,000 mg PO TID PRN (Reason: Pain) RF: 0 budesonide 0.5 mg/2 mL suspension for nebulization 0.5 mg inhalation BID PRN (Reason: shortness of breath or wheezing) RF: 0 propranolol 10 mg Tablet 5 mg PO BID RF: 0 Xolair 150 mg recon soln 300 mg SUBCUT DIRECTED Qty: 1 RF: 0 Discharge Orders: Discharge Order (Routine); Ordered 07/05/20 Ordered By: Aarti Jung Referrals: Chi Cobb MD [Primary Care Provider] - Discharge Diet: Usual diet Discharge Activity: Resume usual activity Activity Restrictions/Additional Instructions: Be strong and let yourself heal!! Discharge Date/Time: 07/05/20 20:20 Coding Level of Care Code ED Hydraulic Specialist for Chg Fwd Exam Comprehensive
[2020-07-05] MEDS: sodium chloride 0.9% 1,000 ML 999 ML IV (19:16)
[2020-07-05] MEDS: ondansetron 2 mg/ML SDV 2 mL 8 MG IVP (19:19)
[2020-07-05 20:17] VITALS: BP 129/85; PULSE 60; RESP 16; TEMP 36.5; O2SAT 95
[2020-07-06 15:25] LABS: Coronavirus Lab Test PTC Negative
== END 2020-07-05 20:20 | disposition home or self-care (01) ==
PROVIDERS: Emergency Provider Emergency Medicine; PCP Family Medicine
DX: E86.0 Dehydration (principal); Z20.828 Contact with and (suspected) exposure to other viral communicable diseases
CPT/HCPCS: 12345; 87635; 96360; 96375; 99282; 99283; J1200; J2405; J7030

== ENCOUNTER 2020-07-06 16:18 | Emergency (ER) | payer BC, SELFPAY ==
[2020-07-06 16:23] VITALS: BP 148/99; PULSE 97; RESP 26; TEMP 36.8; O2SAT 100; BMI 23.9
--- NOTE | 2020-07-06 16:24 | W.ED.ALLEREA ---
Documented by User: Dagoberto Barraza DO 07/07/20 06:18 HPI - Allergic Reaction General: Chief complaint: Allergic Reaction Stated complaint: ALLERGIC RXN Time Seen by Provider: 07/06/20 16:22 History of Present Illness: HPI narrative: 44-year-old female who has had recurrent reactions. She presents today with complaints of swelling and stridor began about 2 hours ago on her return car ride from [place]. She took 150 mg p.o. of Benadryl while in route to the hospital and 50 mg increments. States she has not really had significant relief from that. She has had some prednisolone 60 mg p.o. as well. She not developed any stridor or difficulty with her voice or cough. She recently has been potentially exposed to COVID and had a COVID's PCR swab done yesterday which was negative. MD complaint: allergic reaction Onset (ago): hour(s) (2) Associated symptoms: Reports difficulty breathing, dysphagia, dizziness, facial swelling, hoarseness, itching, lip swelling and nausea; Deny abdominal pain, rash, tongue swelling or vomiting Severity: severe Treatment prior to arrival: benadryl and steroids Previous Allergic Reaction History: prior ED visit(s), anaphylaxis, intubation and other (Intracranial bleed likely related to IV epi drip) Review of Systems Const: Reports: chills, body aches, change in appetite, fatigue and malaise; Denies: fever(s) ENMT: Reports: hoarseness Card: Denies: chest pain, edema, dyspnea on exertion or orthopnea Resp: Denies: dyspnea, productive cough or non-productive cough GI: Reports: nausea and dysphagia; Denies: abdominal pain or vomiting : Denies: flank pain, difficulty voiding, dysuria, urinary frequency or urinary urgency Skin/Breast: Denies: rash or pruritus Neuro: Reports: dizziness All/Imm: Reports: facial swelling; Denies: tongue swelling PFSH ED PFSH: Medical History Alpha galactosidase deficiency Anxiety Cerebral hemorrhage with hemiparesis (~08/2019) Occurred while on epinephrine drip for anaphylaxis. Mild residual weakness on the left side History of anaphylaxis Requiring intubation History of gluten sensitivity Hyper-IgE syndrome Major depressive disorder Multiple environmental allergies Multiple food allergies PCOS (polycystic ovarian syndrome) PTSD (post-traumatic stress disorder) Rosacea Vocal cord palsy Surgical History History of abdominoplasty History of appendectomy History of artificial lens replacement History of cataract surgery History of section, low transverse History of eye surgery Surgical plate placement and removal History of surgery Intracranial angiogram Port-A-Cath in place (05/26/20) left subclavian Family History Mother Diabetes Thyroid condition Hypercholesteremia Family/Other Cancer Social History Smoking and tobacco status: never smoked Alcohol intake: current Alcohol intake frequency: few times a month Marital status: Current occupational status: employed 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 History: Date of last menstrual period: 05/10/20 Physical Exam Const: COMMON NORMALS: no acute distress GENERAL APPEARANCE: cooperative and comfortable ORIENTATION/CONSCIOUSNESS: Yes awake, Yes oriented to person, Yes oriented to place and Yes oriented to time HENMT: COMMON NORMALS: normocephalic, atraumatic, hearing grossly normal bilaterally, external ears normal and oropharynx normal HEAD & SCALP: normocephalic and atraumatic EXTERNAL EAR: Yes external ears normal Eye: COMMON NORMALS: Equal, round and reactive pupils present, EOMs intact bilaterally, conjunctivae normal and no scleral icterus CONJUNCTIVA: Yes conjunctivae normal PUPIL: Yes Equal, round and reactive pupils present Neck/C-Spine: COMMON NORMALS: full ROM, no lymphadenopathy, supple and no JVD Lymph: LYMPHATIC: no lymphadenopathy noted and no lymphedema noted Resp: COMMON NORMALS: normal respiratory effort, No retractions, No use of accessory muscles and clear to auscultation bilaterally AUSCULTATION: clear to auscultation bilaterally Cardio: COMMON NORMALS: no JVD, regular rate, regular rhythm and No murmurs present (Cardio) RATE: regular rate RHYTHM: regular rhythm GI: COMMON NORMALS: Soft to palpation and No hepatosplenomegaly present AUSCULTATION: Yes normoactive bowel sounds PALPATION: Yes Soft to palpation, No Tenderness to palpation present (GI), No Guarding due to palpation present (GI) and Yes No hepatosplenomegaly present Extremity: COMMON NORMALS: normal to inspection, capillary refill normal, no clubbing, cyanosis or edema, no calf tenderness and no pedal edema Neuro: SENSORIUM/ORIENTATION: Yes oriented to person, Yes oriented to place and Yes oriented to time Skin: COMMON NORMALS: no rashes or lesions noted GENERAL SKIN EXAM: no rashes or lesions noted Procedures Procedural Sedation Indication: other Preparation: relocation specialist applied, pulse oximeter, supplemental O2 applied, suction/airway equipment at bedside and IV secured Ketamine dose (mg): 200 Complications: none Additional Comments: Patient tolerated well. See Dr. Casas's note. She had just begun to recover from the ketamine prior to care being signed off to Dr. Casas her tremor hoarseness and sensation of difficulty speaking and swallowing and breathing had all resolved. Course ED course: Despite heavy doses of diphenhydramine and steroids patient is continued complaint of problem she has significant tremor as well. Consulted Dr. Cortez by phone. There is a component of anxiety related to these episodes. Patient herself acknowledges this. At this time she is anxious to the point of asking that we consider intubation. I discussed with Dr. Cortez he feels a trial of a dose of ketamine would potentially be beneficial. He recommends 200 mg. I discussed with the patient and her they have signed informed consent and wished to proceed. Vital Signs: Vital signs: Vital Signs Temperature 98.3 F 07/06/20 16:23 Pulse Rate 87 07/06/20 19:50 Respiratory Rate 14 07/06/20 19:50 Blood Pressure 125/86 07/06/20 19:50 Pulse Oximetry 97 07/06/20 19:50 MDM - Allergic Reaction MDM Narrative: Medical decision making narrative: Care turned over to Dr. Casas at change of shift see his notes for final disposition and diagnosis. Lab Data: Labs: Lab Results 07/06/20 07/06/20 Range/Units 16:48 16:48 WBC 6.5 (4.0-10.0) 10^3/ uL RBC 4.00 L (4.1-5.3) 10^6/u L Hgb 11.8 (11.5-15.3) g/dL Hct 36.3 L (37.0-47.0) % MCV 90.8 (81-99) fL MCH 29.5 (28.0-34.0) pg MCHC 32.5 (30.0-36.0) g/dL RDW 13.2 (12.1-15.1) % Plt Count 376 (130-400) 10^3/c mm MPV 9.4 (7.4-10.4) fL Neut % (Auto) 59.0 % Lymph % (Auto) 29.5 % [place] % (Auto) 9.4 % Eos % (Auto) 1.2 % Baso % (Auto) 0.6 % Neut # (Auto) 3.84 (1.8-7.7) 10^3/u L Lymph # (Auto) 1.9 (0.8-4.8) 10^3/u L [place] # (Auto) 0.6 (0.2-0.9) 10^3/u L Eos # (Auto) 0.1 (0.0-0.8) 10^3/u L Baso # (Auto) 0.0 (0.0-0.1) 10^3/u L Nucleated RBC % (a uto) 0 % Nucleated RBCs # 0.0 /100WBC Sodium 137 (136-145) mmol/L Potassium 3.6 (3.5-5.1) mmol/L Chloride 101 (98-107) mmol/L Carbon Dioxide 20 L (22-29) mmol/L Anion Gap 19.6 H (5-19) BUN 4 L (6-20) mg/dL Creatinine 0.8 (0.5-0.9) mg/dL GFR Calculation 78.7 L (90-130) mL/min Glucose 101 (65-115) mg/dL Calculated Osmolal ity 281 L (285-295) mOsm/k g Calcium 8.9 (8.5-10.5) mg/dL Total Bilirubin 0.4 (0.15-1.2) mg/dL AST 64 H (0-32) U/L ALT 30 (0-33) U/L Alkaline Phosphata se 78 (35-105) IU/L Total Protein 6.9 (6.6-8.7) g/dL Albumin 4.5 (3.5-5.2) g/dL Globulin 2.4 (1.3-4.6) g/dL Lipase 23 (13-60) U/L Discharge Plan Discharge Patient Disposition: Home Clinical Impression: Allergic reaction, Anxiety, Alpha galactosidase deficiency, Multiple food allergies Condition: Stable Prescriptions: No Action lamotrigine [Lamictal] 25 mg Tablet 100 mg PO BEDTIME RF: 0 fluoxetine 20 mg/5 mL (4 mg/mL) solution 60 mg PO DAILY RF: 0 famotidine 40 mg/5 mL (8 mg/mL) Suspension 40 mg PO BID RF: 0 diphenhydramine HCl 50 mg/mL solution 50 mg IM Q12H PRN (Reason: allergic reaction) 15 Days Qty: 25 RF: 2 cetirizine 5 mg/5 mL Solution 10 mg PO BID RF: 0 trazodone 100 mg Tablet 100 mg PO BEDTIME RF: 0 montelukast 4 mg Granules In Packet 10 mg PO DAILY RF: 0 lorazepam 2 mg/mL concentrate See Rx Instructions .ROUTE .COMPLEX PRN (Reason: anxiety) RF: 0 acetaminophen [Tylenol] 325 mg tablet 1,000 mg PO TID PRN (Reason: Pain) RF: 0 budesonide 0.5 mg/2 mL suspension for nebulization 0.5 mg inhalation BID PRN (Reason: shortness of breath or wheezing) RF: 0 propranolol 10 mg Tablet 5 mg PO BID RF: 0 Xolair 150 mg recon soln 300 mg SUBCUT DIRECTED Qty: 1 RF: 0 Discharge Orders: Discharge Order (Routine); Ordered 07/06/20 Ordered By: Gregoria Da Silva Referrals: Chi Cobb MD [Primary Care Provider] - 1-3 days Discharge Diet: Advance as tolerated Discharge Activity: Increase activity as tolerated Patient Instructions: Allergic Reaction Activity Restrictions/Additional Instructions: Please return to the ER immediately for any of the signs or symptoms listed on your discharge instruction sheets, worsening/changing of your symptoms, you are not getting better as quickly as expected, or for ANY other cause or concerns. Take your Benadryl and Pepcid as you have been previously instructed. Take your prednisolone taper as previously prescribed. Interventions: ED Discharge Assessment Last Done: 07/06/20 20:02 ED Charges Last Done: 07/06/20 20:02 Discharge Date/Time: 07/06/20 20:03 Sign Out Sign Out Data: Patient Sign Out occurred on 07/06/20 at 18:42. Patient's care was discussed, and care was transferred from to Gregoria Da Silva. Coding Level of Care Code ED Oracle Developer for Chg Fwd Exam Comprehensive Documented by User: Gregoria Da Silva 07/06/20 19:41 HPI - Allergic Reaction General: Chief complaint: Allergic Reaction Stated complaint: ALLERGIC RXN Time Seen by Provider: 07/06/20 16:22 PFSH ED PFSH: Medical History Alpha galactosidase deficiency Anxiety Cerebral hemorrhage with hemiparesis (~08/2019) Occurred while on epinephrine drip for anaphylaxis. Mild residual weakness on the left side History of anaphylaxis Requiring intubation History of gluten sensitivity Hyper-IgE syndrome Major depressive disorder Multiple environmental allergies Multiple food allergies PCOS (polycystic ovarian syndrome) PTSD (post-traumatic stress disorder) Rosacea Vocal cord palsy Surgical History History of abdominoplasty History of appendectomy History of artificial lens replacement History of cataract surgery History of section, low transverse History of eye surgery Surgical plate placement and removal History of surgery Intracranial angiogram Port-A-Cath in place (05/26/20) left subclavian Family History Mother Diabetes Thyroid condition Hypercholesteremia Family/Other Cancer Social History Smoking and tobacco status: never smoked Alcohol intake: current Alcohol intake frequency: few times a month Marital status: Current occupational status: employed 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 Her symptoms have almost completely resolved. She states she is feeling ready to go home. She states she knows how to take Benadryl and Pepcid at home and has done so many times for reaction similar to this. This time I see no sign of anaphylaxis. Patient has no sign of stridor, throat swelling or any other difficulties. She is to return should her symptoms change or worsen but she also has a prednisolone liquid course of steroids at home to take as well. Patient is very well versed in how to handle these reactions. She agrees to return should her symptoms change or worsen. Lab Data: Labs: Lab Results 07/06/20 07/06/20 Range/Units 16:48 16:48 WBC 6.5 (4.0-10.0) 10^3/ uL RBC 4.00 L (4.1-5.3) 10^6/u L Hgb 11.8 (11.5-15.3) g/dL Hct 36.3 L (37.0-47.0) % MCV 90.8 (81-99) fL MCH 29.5 (28.0-34.0) pg MCHC 32.5 (30.0-36.0) g/dL RDW 13.2 (12.1-15.1) % Plt Count 376 (130-400) 10^3/c mm MPV 9.4 (7.4-10.4) fL Neut % (Auto) 59.0 % Lymph % (Auto) 29.5 % [place] % (Auto) 9.4 % Eos % (Auto) 1.2 % Baso % (Auto) 0.6 % Neut # (Auto) 3.84 (1.8-7.7) 10^3/u L Lymph # (Auto) 1.9 (0.8-4.8) 10^3/u L [place] # (Auto) 0.6 (0.2-0.9) 10^3/u L Eos # (Auto) 0.1 (0.0-0.8) 10^3/u L Baso # (Auto) 0.0 (0.0-0.1) 10^3/u L Nucleated RBC % (a uto) 0 % Nucleated RBCs # 0.0 /100WBC Sodium 137 (136-145) mmol/L Potassium 3.6 (3.5-5.1) mmol/L Chloride 101 (98-107) mmol/L Carbon Dioxide 20 L (22-29) mmol/L Anion Gap 19.6 H (5-19) BUN 4 L (6-20) mg/dL Creatinine 0.8 (0.5-0.9) mg/dL GFR Calculation 78.7 L (90-130) mL/min Glucose 101 (65-115) mg/dL Calculated Osmolal ity 281 L (285-295) mOsm/k g Calcium 8.9 (8.5-10.5) mg/dL Total Bilirubin 0.4 (0.15-1.2) mg/dL AST 64 H (0-32) U/L ALT 30 (0-33) U/L Alkaline Phosphata se 78 (35-105) IU/L Total Protein 6.9 (6.6-8.7) g/dL Albumin 4.5 (3.5-5.2) g/dL Globulin 2.4 (1.3-4.6) g/dL Lipase 23 (13-60) U/L Discharge Plan Discharge Patient Disposition: Home Clinical Impression: Allergic reaction, Anxiety, Alpha galactosidase deficiency, Multiple food allergies Condition: Stable Prescriptions: No Action lamotrigine [Lamictal] 25 mg Tablet 100 mg PO BEDTIME RF: 0 fluoxetine 20 mg/5 mL (4 mg/mL) solution 60 mg PO DAILY RF: 0 famotidine 40 mg/5 mL (8 mg/mL) Suspension 40 mg PO BID RF: 0 diphenhydramine HCl 50 mg/mL solution 50 mg IM Q12H PRN (Reason: allergic reaction) 15 Days Qty: 25 RF: 2 cetirizine 5 mg/5 mL Solution 10 mg PO BID RF: 0 trazodone 100 mg Tablet 100 mg PO BEDTIME RF: 0 montelukast 4 mg Granules In Packet 10 mg PO DAILY RF: 0 lorazepam 2 mg/mL concentrate See Rx Instructions .ROUTE .COMPLEX PRN (Reason: anxiety) RF: 0 acetaminophen [Tylenol] 325 mg tablet 1,000 mg PO TID PRN (Reason: Pain) RF: 0 budesonide 0.5 mg/2 mL suspension for nebulization 0.5 mg inhalation BID PRN (Reason: shortness of breath or wheezing) RF: 0 propranolol 10 mg Tablet 5 mg PO BID RF: 0 Xolair 150 mg recon soln 300 mg SUBCUT DIRECTED Qty: 1 RF: 0 Discharge Orders: Discharge Order (Routine); Ordered 07/06/20 Ordered By: Gregoria Da Silva Referrals: Chi Cobb MD [Primary Care Provider] - 1-3 days Discharge Diet: Advance as tolerated Discharge Activity: Increase activity as tolerated Patient Instructions: Allergic Reaction Activity Restrictions/Additional Instructions: Please return to the ER immediately for any of the signs or symptoms listed on your discharge instruction sheets, worsening/changing of your symptoms, you are not getting better as quickly as expected, or for ANY other cause or concerns. Take your Benadryl and Pepcid as you have been previously instructed. Take your prednisolone taper as previously prescribed. Interventions: ED Discharge Assessment Last Done: 07/06/20 20:02 ED Charges Last Done: 07/06/20 20:02 Discharge Date/Time: 07/06/20 20:03 Sign Out Sign Out Data: Patient Sign Out occurred on 07/06/20 at 18:42. Patient's care was discussed, and care was transferred from to Gregoria Da Silva. Coding Level of Care Code ED Oracle Developer for Chg Fwd Exam Comprehensive
[2020-07-06] MEDS: diphenhydrAMINE 50 mg/mL SDV 1mL IVP (16:32)
--- NOTE | 2020-07-06 16:34 | XRR_ITS ---
PROCEDURE INFORMATION: Exam: XR Chest, 1 View Exam date and time: 07/06/2020 5:17 PM Age: 44 years old Clinical indication: Cough and dyspnea; Patient HX: Allergic reaction; Additional info: Dyspnea/cough TECHNIQUE: Imaging protocol: XR of the chest Views: 1 view. COMPARISON: CR XR chest 1V portable [id number] 02/28/2020 7:20 PM FINDINGS: Tubes, catheters and devices: Left upper thoracic port with attached left subclavian central venous line, tip overlying the right atrium. Lungs: The lungs are clear bilaterally. Pulmonary vasculature within normal limits. Pleural space: No visible pneumothorax or pleural effusion. Heart/Mediastinum: Cardiomediastinal silhouette contour is within normal limits. Bones/joints: No emergent findings identified. XR/XR chest 1V portable [id number] IMPRESSION: 1. No radiographic findings of acute cardiopulmonary disease.
[2020-07-06] MEDS: famotidine 20 mg/2 mL INJ 40 MG IVP (16:37)
[2020-07-06] MEDS: ondansetron 2 mg/ML SDV 2 mL 4 MG IVP (16:47)
[2020-07-06] MEDS: LORazepam 2 mg/mL INJ 1 mL IVP (16:51)
[2020-07-06 16:54] VITALS: BP 137/85; PULSE 84; RESP 18; O2SAT 100
[2020-07-06 16:55] LABS: Basophils % 0.6 %; Eosinophils # 0.1 10^3/uL (0.0-0.8); Eosinophils % 1.2 %; Hematocrit 36.3 % (37.0-47.0); Hemoglobin 11.8 g/dL (11.5-15.3); Lymphocytes # 1.9 10^3/uL (0.8-4.8); Lymphocytes % 29.5 %; Mean Corpuscular HGB Conc 32.5 g/dL (30.0-36.0); Mean Corpuscular Hemoglobin 29.5 pg (28.0-34.0); Mean Corpuscular Volume 90.8 fL (81-99); Mean Platelet Volume 9.4 fL (7.4-10.4); Monocytes # 0.6 10^3/uL (0.2-0.9); Monocytes % 9.4 %; Neutrophils # 3.84 10^3/uL (1.8-7.7); Nucleated Red Blood Cells % 0 %; Platelet Count 376 10^3/cmm (130-400); Red Cell Distribution Width 13.2 % (12.1-15.1); White Blood Count 6.5 10^3/uL (4.0-10.0)
[2020-07-06] MEDS: EPINEPHrine 1 mg/mL INJ 0.3 MG IM (17:30)
[2020-07-06 17:41] LABS: Alanine Aminotransferase 30 U/L (0-33); Albumin Level 4.5 g/dL (3.5-5.2); Alkaline Phosphatase 78 IU/L (35-105); Anion Gap 19.6 (5-19); Aspartate Amino Transferase 64 U/L (0-32); Blood Urea Nitrogen 4 mg/dL (6-20); Calcium 8.9 mg/dL (8.5-10.5); Carbon Dioxide 20 mmol/L (22-29); Chloride 101 mmol/L (98-107); Globulin 2.4 g/dL (1.3-4.6); Glomerular Filtration Rate 78.7 mL/min (90-130); Glucose 101 mg/dL (65-115); Lipase 23 U/L (13-60); Osmolality Calculated 281 mOsm/kg (285-295); Potassium 3.6 mmol/L (3.5-5.1); Sodium 137 mmol/L (136-145); Total Bilirubin 0.4 mg/dL (0.15-1.2); Total Protein 6.9 g/dL (6.6-8.7)
[2020-07-06 18:14] VITALS: BP 141/96; PULSE 80; RESP 18; O2SAT 99
--- NOTE | 2020-07-06 19:16 | PC.NURSE ---
report received from fernando gutierrez assumed care.
[2020-07-06 19:50] VITALS: BP 125/86; PULSE 87; RESP 14; O2SAT 97
[2020-07-06] MEDS: diphenhydrAMINE 50 mg/mL SDV 1mL 25 MG IVP (19:53)
--- NOTE | 2020-07-06 19:56 | PC.NURSE ---
VO TO DC DIPHENHYDRAMINE 50 MG IVP
--- NOTE | 2020-07-06 20:01 | PC.NURSE ---
PORT REMOVED NO HEPARIN FLUSH USED PT STATES THAT SHE IS ALLERGIC AND JUST USES A SALINE FLUSH.
== END 2020-07-06 20:03 | disposition home or self-care (01) ==
PROVIDERS: Family Medicine; Emergency Provider Emergency Medicine; PCP Family Medicine
DX: T78.40XA Allergy, unspecified, initial encounter (principal); F41.9 Anxiety disorder, unspecified; E74.29 Other disorders of galactose metabolism
CPT/HCPCS: 12345; 36415; 71045; 80053; 83690; 85025; 87040; 96372; 96374; 96375; 96376; 99283; J0171; J1200; J2060; J2405; J2930; J3490

== ENCOUNTER 2020-07-14 16:37 | Emergency (ER) | payer BC, SELFPAY ==
[2020-07-14] VITALS (7 sets, daily range): BP systolic 95–118; BP diastolic 62–81; PULSE 77–96; RESP 12–18; TEMP 36.6; O2SAT 97–99; BMI 23.0
--- NOTE | 2020-07-14 17:04 | ECG_ITS ---
[facility] Test Date: 2020-07-14 Pat Name: Estella Burgess Department: Room: Gender: Female Brush Head Maker: : 1975 Requested By: Dagoberto Clarke Order Number: [id number] Mehrdad MD: David Tyler M.D. Measurements Intervals [place] Rate: 79 P: 31 NH: 121 QRS: 68 QRSD: 83 T: 42 QT: 397 QTc: 456 Interpretive Statements SINUS RHYTHM Compared to ECG 05/21/2020 16:24:45 No significant changes Electronically Signed On 07-14-2020 18:36:37 CDT by David Tyler M.D. [id number]
[2020-07-14] MEDS: sodium chloride 0.9% 1,000 ML 999 ML IV (17:27)
[2020-07-14] MEDS: ondansetron 2 mg/ML SDV 2 mL 4 MG IVP (17:33)
--- NOTE | 2020-07-14 17:48 | W.ED.SYNCOPE ---
Documented by User: Dagoberto Barraza DO 07/20/20 07:26 HPI - Syncope General: Chief Complaint: Syncope Stated Complaint: SYNCOPE Time Seen by Provider: 07/14/20 16:54 History of Present Illness: HPI narrative: 44-year-old female presents emergency room with lightheadedness and dizziness she has been very postural hypotensive-like symptoms she has not had any full-blown syncope today but has felt extremely lightheaded she has been being seen by cardiology for these episodes they think it may be related to her intracranial hemorrhage that occurred a little less than a year ago. They are considering starting her on fludrocortisone. She is scheduled to see electrophysiology in [place]. She was directed to the emergency room by Dr. Cheema to get IV fluids. complaint: almost passed out Onset (ago): week(s) Prodromal symptoms: none Context: other (Postural changes) Injuries sustained associated with event: none Associated symptoms: Reports lightheadedness; Deny abdominal pain, chest pain, fever(s), headache(s), nausea, short of breath, vertigo or weakness History: other (Intracranial hemorrhage, recurrent allergic reactions) Treatments prior to arrival: none Review of Systems Const: Denies: fever(s) Card: Reports: lightheadedness; Denies: chest pain Resp: Denies: dyspnea, productive cough or non-productive cough GI: Denies: abdominal pain or nausea : Denies: flank pain, difficulty voiding, dysuria, urinary frequency or urinary urgency Neuro: Denies: headache(s) or vertigo [facility] ED PFSH: Medical History (Updated 07/14/20 @ 19:01 by Gregoria Da Silva) Alpha galactosidase deficiency Anxiety Cerebral hemorrhage with hemiparesis (~08/2019) Occurred while on epinephrine drip for anaphylaxis. Mild residual weakness on the left side History of anaphylaxis Requiring intubation History of gluten sensitivity Hyper-IgE syndrome Major depressive disorder Multiple environmental allergies Multiple food allergies PCOS (polycystic ovarian syndrome) PTSD (post-traumatic stress disorder) Rosacea Vocal cord palsy Surgical History History of abdominoplasty History of appendectomy History of artificial lens replacement History of cataract surgery History of section, low transverse History of eye surgery Surgical plate placement and removal History of surgery Intracranial angiogram Port-A-Cath in place (05/26/20) left subclavian Family History Mother Diabetes Thyroid condition Hypercholesteremia Family/Other Cancer Social History Smoking and tobacco status: never smoked Alcohol intake: current Alcohol intake frequency: few times a month Marital status: Current occupational status: employed 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[place] Female 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 History: Date of last menstrual period: 07/10/20 Physical Exam Const: COMMON NORMALS: no acute distress GENERAL APPEARANCE: cooperative and comfortable ORIENTATION/CONSCIOUSNESS: Yes awake, Yes oriented to person, Yes oriented to place and Yes oriented to time HENMT: COMMON NORMALS: normocephalic, atraumatic and hearing grossly normal bilaterally HEAD & SCALP: normocephalic and atraumatic Neck/C-Spine: COMMON NORMALS: no JVD Resp: COMMON NORMALS: normal respiratory effort, No retractions, No use of accessory muscles and clear to auscultation bilaterally AUSCULTATION: clear to auscultation bilaterally Cardio: COMMON NORMALS: no JVD, regular rate, regular rhythm and No murmurs present (Cardio) RATE: regular rate RHYTHM: regular rhythm GI: COMMON NORMALS: Soft to palpation and No hepatosplenomegaly present AUSCULTATION: Yes normoactive bowel sounds PALPATION: Yes Soft to palpation, No Tenderness to palpation present (GI), No Guarding due to palpation present (GI) and Yes No hepatosplenomegaly present Extremity: COMMON NORMALS: normal to inspection, capillary refill normal, no clubbing, cyanosis or edema, no calf tenderness and no pedal edema Neuro: SENSORIUM/ORIENTATION: Yes oriented to person, Yes oriented to place and Yes oriented to time Skin: COMMON NORMALS: no rashes or lesions noted GENERAL SKIN EXAM: no rashes or lesions noted Course Vital Signs: Vital signs: Vital Signs Temperature 97.9 F 07/14/20 16:44 Pulse Rate 77 07/14/20 20:05 Respiratory Rate 18 07/14/20 20:05 Blood Pressure 118/81 07/14/20 20:05 Pulse Oximetry 98 07/14/20 20:05 MDM - Syncope MDM Narrative: Medical decision making narrative: Patient be given IV fluids as well as antiemetics. At change of shift her care was transferred to Dr. Casas see his notes for final diagnosis and disposition. Lab Data: Labs: Lab Results 07/14/20 07/14/20 Range/Units 18:00 18:00 WBC 5.8 (4.0-10.0) 10^3/ uL RBC 3.60 L (4.1-5.3) 10^6/u L Hgb 10.5 L (11.5-15.3) g/dL Hct 33.4 L (37.0-47.0) % MCV 92.8 (81-99) fL MCH 29.2 (28.0-34.0) pg MCHC 31.4 (30.0-36.0) g/dL RDW 13.8 (12.1-15.1) % Plt Count 275 (130-400) 10^3/c mm MPV 9.4 (7.4-10.4) fL Neut % (Auto) 56.1 % Lymph % (Auto) 31.0 % [place] % (Auto) 10.0 % Eos % (Auto) 1.9 % Baso % (Auto) 0.7 % Neut # (Auto) 3.25 (1.8-7.7) 10^3/u L Lymph # (Auto) 1.8 (0.8-4.8) 10^3/u L [place] # (Auto) 0.6 (0.2-0.9) 10^3/u L Eos # (Auto) 0.1 (0.0-0.8) 10^3/u L Baso # (Auto) 0.0 (0.0-0.1) 10^3/u L Nucleated RBC % (a uto) 0 % Nucleated RBCs # 0.0 /100WBC Sodium 136 (136-145) mmol/L Potassium 3.6 (3.5-5.1) mmol/L Chloride 104 (98-107) mmol/L Carbon Dioxide 22 (22-29) mmol/L Anion Gap 13.6 (5-19) BUN 6 (6-20) mg/dL Creatinine 0.7 (0.5-0.9) mg/dL GFR Calculation 91.8 (90-130) mL/min Glucose 96 (65-115) mg/dL Calculated Osmolal ity 279 L (285-295) mOsm/k g Calcium 8.4 L (8.5-10.5) mg/dL Discharge Plan Discharge Patient Disposition: Home Clinical Impression: Near syncope, Orthostasis Condition: Stable Prescriptions: No Action lamotrigine [Lamictal] 25 mg Tablet 100 mg PO BEDTIME RF: 0 fluoxetine 20 mg/5 mL (4 mg/mL) solution 60 mg PO DAILY RF: 0 famotidine 40 mg/5 mL (8 mg/mL) Suspension 40 mg PO BID RF: 0 diphenhydramine HCl 50 mg/mL solution 50 mg IM Q12H PRN (Reason: allergic reaction) 15 Days Qty: 25 RF: 2 cetirizine 5 mg/5 mL Solution 10 mg PO BID RF: 0 trazodone 100 mg Tablet 150 - 200 mg PO BEDTIME RF: 0 montelukast 4 mg Granules In Packet See Rx Instructions .ROUTE .COMPLEX RF: 0 lorazepam 2 mg/mL concentrate See Rx Instructions .ROUTE .COMPLEX PRN (Reason: anxiety) RF: 0 acetaminophen [Tylenol] 325 mg tablet 1,000 mg PO PRN RF: 0 budesonide 0.5 mg/2 mL suspension for nebulization 0.5 mg inhalation BID PRN (Reason: shortness of breath or wheezing) RF: 0 propranolol 10 mg Tablet See Rx Instructions .ROUTE .COMPLEX RF: 0 Xolair 150 mg recon soln 300 mg SUBCUT DIRECTED Qty: 1 RF: 0 aspirin 81 mg Tablet,Delayed Release (Dr/Ec) 81 mg PO DAILY RF: 0 Discharge Orders: Discharge Order (Routine); Ordered 07/14/20 Ordered By: Gregoria Da Silva Referrals: David Tyler MD [Physician] - 1-3 days Chi Cobb MD [Primary Care Provider] - 1-3 days Discharge Diet: Usual diet Discharge Activity: Increase activity as tolerated Patient Instructions: Near Syncope (ED) Activity Restrictions/Additional Instructions: Please return to the ER immediately for any of the signs or symptoms listed on your discharge instruction sheets, worsening/changing of your symptoms, you are not getting better as quickly as expected, or for ANY other cause or concerns. If you develop any sign or symptom of allergic reaction, you become near syncopal again or had if any other symptoms please return to the ER immediately for recheck. Discharge Date/Time: 07/14/20 20:08 Sign Out Sign Out Data: Patient Sign Out occurred on 07/14/20 at 18:11. Patient's care was discussed, and care was transferred from to Gregoria Da Silva. Coding Level of Care Code ED Customer Professional for Chg Fwd Exam Comprehensive Documented by User: Gregoria Da Silva 07/14/20 21:34 HPI - Syncope General: Chief Complaint: Syncope Stated Complaint: SYNCOPE Time Seen by Provider: 07/14/20 16:54 PFSH ED PFSH: Medical History (Updated 07/14/20 @ 19:01 by Gregoria Da Silva) Alpha galactosidase deficiency Anxiety Cerebral hemorrhage with hemiparesis (~08/2019) Occurred while on epinephrine drip for anaphylaxis. Mild residual weakness on the left side History of anaphylaxis Requiring intubation History of gluten sensitivity Hyper-IgE syndrome Major depressive disorder Multiple environmental allergies Multiple food allergies PCOS (polycystic ovarian syndrome) PTSD (post-traumatic stress disorder) Rosacea Vocal cord palsy Surgical History History of abdominoplasty History of appendectomy History of artificial lens replacement History of cataract surgery History of section, low transverse History of eye surgery Surgical plate placement and removal History of surgery Intracranial angiogram Port-A-Cath in place (05/26/20) left subclavian Family History Mother Diabetes Thyroid condition Hypercholesteremia Family/Other Cancer Social History Smoking and tobacco status: never smoked Alcohol intake: current Alcohol intake frequency: few times a month Marital status: Current occupational status: employed 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 She not has nausea, palpitations and has never had chest pain. She was here just receive IV fluids and I have given her those. I did discuss the case in full with Dr. Chemea who states the patient already has an outpatient follow-up plan and medicines waiting for her. She agrees to follow this plan understands she can return here if her symptoms change or worsen but at this time she is feeling better and would like to be discharged. Lab Data: Attestation: I reviewed the patient's lab results. Labs: Lab Results 07/14/20 07/14/20 Range/Units 18:00 18:00 WBC 5.8 (4.0-10.0) 10^3/ uL RBC 3.60 L (4.1-5.3) 10^6/u L Hgb 10.5 L (11.5-15.3) g/dL Hct 33.4 L (37.0-47.0) % MCV 92.8 (81-99) fL MCH 29.2 (28.0-34.0) pg MCHC 31.4 (30.0-36.0) g/dL RDW 13.8 (12.1-15.1) % Plt Count 275 (130-400) 10^3/c mm MPV 9.4 (7.4-10.4) fL Neut % (Auto) 56.1 % Lymph % (Auto) 31.0 % Rabun % (Auto) 10.0 % Eos % (Auto) 1.9 % Baso % (Auto) 0.7 % Neut # (Auto) 3.25 (1.8-7.7) 10^3/u L Lymph # (Auto) 1.8 (0.8-4.8) 10^3/u L Rabun # (Auto) 0.6 (0.2-0.9) 10^3/u L Eos # (Auto) 0.1 (0.0-0.8) 10^3/u L Baso # (Auto) 0.0 (0.0-0.1) 10^3/u L Nucleated RBC % (a uto) 0 % Nucleated RBCs # 0.0 /100WBC Sodium 136 (136-145) mmol/L Potassium 3.6 (3.5-5.1) mmol/L Chloride 104 (98-107) mmol/L Carbon Dioxide 22 (22-29) mmol/L Anion Gap 13.6 (5-19) BUN 6 (6-20) mg/dL Creatinine 0.7 (0.5-0.9) mg/dL GFR Calculation 91.8 (90-130) mL/min Glucose 96 (65-115) mg/dL Calculated Osmolal ity 279 L (285-295) mOsm/k g Calcium 8.4 L (8.5-10.5) mg/dL EKG Data^: EKG 1: Attestation: I personally reviewed and interpreted this EKG as follows: EKG interpretation date: 07/14/20 EKG interpretation time: 17:15 Interpretation: Normal sinus rhythm at 79 beats a minute, normal axis, no blocks, normal intervals, no acute ST or T wave changes. Discharge Plan Discharge Patient Disposition: Home Clinical Impression: Near syncope, Orthostasis Condition: Stable Prescriptions: No Action lamotrigine [Lamictal] 25 mg Tablet 100 mg PO BEDTIME RF: 0 fluoxetine 20 mg/5 mL (4 mg/mL) solution 60 mg PO DAILY RF: 0 famotidine 40 mg/5 mL (8 mg/mL) Suspension 40 mg PO BID RF: 0 diphenhydramine HCl 50 mg/mL solution 50 mg IM Q12H PRN (Reason: allergic reaction) 15 Days Qty: 25 RF: 2 cetirizine 5 mg/5 mL Solution 10 mg PO BID RF: 0 trazodone 100 mg Tablet 150 - 200 mg PO BEDTIME RF: 0 montelukast 4 mg Granules In Packet See Rx Instructions .ROUTE .COMPLEX RF: 0 lorazepam 2 mg/mL concentrate See Rx Instructions .ROUTE .COMPLEX PRN (Reason: anxiety) RF: 0 acetaminophen [Tylenol] 325 mg tablet 1,000 mg PO PRN RF: 0 budesonide 0.5 mg/2 mL suspension for nebulization 0.5 mg inhalation BID PRN (Reason: shortness of breath or wheezing) RF: 0 propranolol 10 mg Tablet See Rx Instructions .ROUTE .COMPLEX RF: 0 Xolair 150 mg recon soln 300 mg SUBCUT DIRECTED Qty: 1 RF: 0 aspirin 81 mg Tablet,Delayed Release (Dr/Ec) 81 mg PO DAILY RF: 0 Discharge Orders: Discharge Order (Routine); Ordered 07/14/20 Ordered By: Gregoria Da Silva Referrals: David Tyler MD [Physician] - 1-3 days Chi Cobb MD [Primary Care Provider] - 1-3 days Discharge Diet: Usual diet Discharge Activity: Increase activity as tolerated Patient Instructions: Near Syncope (ED) Activity Restrictions/Additional Instructions: Please return to the ER immediately for any of the signs or symptoms listed on your discharge instruction sheets, worsening/changing of your symptoms, you are not getting better as quickly as expected, or for ANY other cause or concerns. If you develop any sign or symptom of allergic reaction, you become near syncopal again or had if any other symptoms please return to the ER immediately for recheck. Discharge Date/Time: 07/14/20 20:08 Sign Out Sign Out Data: Patient Sign Out occurred on 07/14/20 at 18:11. Patient's care was discussed, and care was transferred from to Gregoria Da Silva. Coding Level of Care Code ED Customer Professional for Chg Fwd Exam Comprehensive
[2020-07-14 18:06] LABS: Basophils % 0.7 %; Eosinophils # 0.1 10^3/uL (0.0-0.8); Eosinophils % 1.9 %; Hematocrit 33.4 % (37.0-47.0); Hemoglobin 10.5 g/dL (11.5-15.3); Lymphocytes # 1.8 10^3/uL (0.8-4.8); Mean Corpuscular HGB Conc 31.4 g/dL (30.0-36.0); Mean Corpuscular Hemoglobin 29.2 pg (28.0-34.0); Mean Corpuscular Volume 92.8 fL (81-99); Mean Platelet Volume 9.4 fL (7.4-10.4); Monocytes # 0.6 10^3/uL (0.2-0.9); Neutrophils # 3.25 10^3/uL (1.8-7.7); Neutrophils % 56.1 %; Nucleated Red Blood Cells % 0 %; Platelet Count 275 10^3/cmm (130-400); Red Cell Distribution Width 13.8 % (12.1-15.1); White Blood Count 5.8 10^3/uL (4.0-10.0)
[2020-07-14 18:32] LABS: Anion Gap 13.6 (5-19); Blood Urea Nitrogen 6 mg/dL (6-20); Calcium 8.4 mg/dL (8.5-10.5); Carbon Dioxide 22 mmol/L (22-29); Chloride 104 mmol/L (98-107); Creatinine Clr Calc Pharmacy 90.9471; Glomerular Filtration Rate 91.8 mL/min (90-130); Glucose 96 mg/dL (65-115); Osmolality Calculated 279 mOsm/kg (285-295); Potassium 3.6 mmol/L (3.5-5.1); Sodium 136 mmol/L (136-145)
[2020-07-14] MEDS: lactated ringers 1,000 ML 999 ML IV (18:37)
[2020-07-14] MEDS: diphenhydrAMINE 50 mg/mL SDV 1mL IVP (19:10)
[2020-07-14] MEDS: morphine 4 mg/mL SDV 1 mL IVP (19:49)
== END 2020-07-14 20:08 | disposition home or self-care (01) ==
PROVIDERS: Family Medicine; Emergency Provider Emergency Medicine; PCP Family Medicine
DX: R55 Syncope and collapse (principal); I95.1 Orthostatic hypotension; Z79.82 Long term (current) use of aspirin
CPT/HCPCS: 12345; 36415; 80048; 85025; 93005; 96365; 96375; 99284; J1200; J2270; J2405; J7030

== ENCOUNTER → 2020-07-22 10:19 | Day surgery (SDC) | payer BC, SELFPAY ==
[2020-07-22] MEDS: diphenhydrAMINE 50 mg/mL SDV 1mL IVP ×3 (10:50→12:22)
[2020-07-22] MEDS: sodium chloride 0.9% 1,000 ML 999 ML IV (11:02)
[2020-07-22] MEDS: omalizumab 150 mg SDV 300 MG SUBCUT (11:08)
[2020-07-22 11:21] VITALS: BP 123/75; PULSE 103; RESP 18; TEMP 37.1; O2SAT 97
[2020-07-22 11:50] VITALS: PULSE 109; O2SAT 100
--- NOTE | 2020-07-22 11:58 | SUR.PREOP ---
patient reports itching on arms, back, face, chest. There is some redness of these areas. Patient also reports some tightness of throat. Patient has had 100mg iv benadryl and has taken home rx of ativan. I have called Dr. Cobb's office and cell and left messages for further orders for itching.
--- NOTE | 2020-07-22 14:08 | SUR.PREOP ---
1300: patient still feels short of breath, itching. Redness not noted. O2 sat at 100% on room air. Patient requests to be evaluated by hospitalist. I called [facility] Kennedy Halytsky. No one can see her at this time. 1350: Patient taken to ER per patient request. Patient able to ambulate, alert and oriented. taken by wheelchair to ER 16. report given to ER nurse.
== END ==
PROVIDERS: PCP Family Medicine; Visit Provider Family Medicine
DX: T78.49XA Other allergy, initial encounter (principal)
CPT/HCPCS: 96365; 96372; 96374; 96375; J1200; J2357; J2930; J7030

== ENCOUNTER 2020-07-22 13:52 | Emergency (ER) | payer BC, SELFPAY ==
[2020-07-22 13:54] VITALS: BP 131/84; PULSE 102; RESP 12; O2SAT 99; BMI 23.0
--- NOTE | 2020-07-22 14:23 | ECG_ITS ---
[facility] Test Date: 2020-07-22 Pat Name: Estella Burgess Department: Room: Gender: Female [employer]: : 1975 Requested By: Dagoberto Clarke Order Number: [id number] Mehrdad MD: Edvin Bo M.D. Measurements Intervals [place] Rate: 89 P: 62 MD: 148 QRS: 68 QRSD: 82 T: 47 QT: 381 QTc: 465 Interpretive Statements SINUS RHYTHM POSSIBLE LEFT ATRIAL ENLARGEMENT [-0.1mV P WAVE IN V1/V2] Compared to ECG 07/14/2020 17:15:08 No significant changes Electronically Signed On 07-22-2020 21:39:38 CDT by Edvin Bo M.D. [email or web address]
--- NOTE | 2020-07-22 14:23 | XR_ITS ---
WS: [id number] XR chest 1V portable [id number] REASON FOR EXAM: dyspnea/cough FINDINGS: Accessed chemotherapy infusion port over the left chest with the catheter through the left subclavian vein and the tip at the atrial level. The heart and mediastinum within normal limits. No active pulmonary parenchymal pleural disease is noted. XR/XR chest 1V portable [id number] IMPRESSION: No acute chest abnormality. If there is a question that the chest pain and reaction is related to the injec tion of the chemotherapy port, a lateral view putting the port in profile will demonstrate if the access needle is properly positioned.
[2020-07-22 14:49] LABS: Basophils % 0.5 %; Eosinophils % 0.1 %; Hematocrit 33.2 % (37.0-47.0); Hemoglobin 10.8 g/dL (11.5-15.3); Lymphocytes # 0.5 10^3/uL (0.8-4.8); Lymphocytes % 5.7 %; Mean Corpuscular HGB Conc 32.5 g/dL (30.0-36.0); Mean Corpuscular Hemoglobin 29.8 pg (28.0-34.0); Mean Corpuscular Volume 91.5 fL (81-99); Mean Platelet Volume 9.5 fL (7.4-10.4); Monocytes # 0.2 10^3/uL (0.2-0.9); Monocytes % 2.2 %; Neutrophils # 7.95 10^3/uL (1.8-7.7); Neutrophils % 91.3 %; Nucleated Red Blood Cells % 0 %; Platelet Count 290 10^3/cmm (130-400); Red Blood Count 3.63 10^6/uL (4.1-5.3); Red Cell Distribution Width 13.7 % (12.1-15.1); White Blood Count 8.7 10^3/uL (4.0-10.0)
[2020-07-22 15:07] LABS: Alanine Aminotransferase 15 U/L (0-33); Albumin Level 4.1 g/dL (3.5-5.2); Alkaline Phosphatase 68 IU/L (35-105); Anion Gap 15.8 (5-19); Aspartate Amino Transferase 21 U/L (0-32); Blood Urea Nitrogen 7 mg/dL (6-20); Carbon Dioxide 21 mmol/L (22-29); Chloride 106 mmol/L (98-107); Creatinine Clr Calc Pharmacy 90.9471; Globulin 2.1 g/dL (1.3-4.6); Glomerular Filtration Rate 91.8 mL/min (90-130); Glucose 132 mg/dL (65-115); Osmolality Calculated 288 mOsm/kg (285-295); Potassium 3.8 mmol/L (3.5-5.1); Sodium 139 mmol/L (136-145); Total Bilirubin 0.2 mg/dL (0.15-1.2); Total Protein 6.2 g/dL (6.6-8.7)
--- NOTE | 2020-07-22 15:31 | W.ED.ALLEREA ---
HPI - Allergic Reaction General: Chief complaint: Allergic Reaction Stated complaint: ALLERGIC REACTION Time Seen by Provider: 07/22/20 13:54 History of Present Illness: HPI narrative: 44-year-old female presents to the emergency room from the outpatient care area. She is receiving a injection of Xolair and began to have pruritic reaction she initially noticed some hives on her anterior torso her arms bilaterally the hives have resolved. She was given 3 50 mg injections of Benadryl in the outpatient area as well as 125 of Solu-Medrol. Since getting those the hives have resolved and she is improving. She initially was mildly short of breath she is extremely anxious and having some tremor now. She not having any stridor or wheezing. She was given a liter of fluid in outpatients as well. She has a throbbing sensation in the center of her chest initially that improved some. MD complaint: allergic reaction and hives Onset (ago): minute(s) Exposure: medication Associated symptoms: Reports difficulty breathing, dysphagia and dizziness; Deny abdominal pain, facial swelling, hoarseness, itching, lip swelling, nausea, rash, tongue swelling or vomiting Severity: moderate Treatment prior to arrival: benadryl and steroids Previous Allergic Reaction History: none Review of Systems Const: Denies: fever(s), chills, body aches, change in appetite, fatigue or malaise ENMT: Denies: hoarseness Card: Denies: chest pain, edema, dyspnea on exertion or orthopnea Resp: Denies: dyspnea, productive cough or non-productive cough GI: Reports: dysphagia; Denies: abdominal pain, nausea or vomiting : Denies: flank pain, difficulty voiding, dysuria, urinary frequency or urinary urgency Skin/Breast: Denies: rash or pruritus Neuro: Reports: dizziness All/Imm: Denies: tongue swelling or facial swelling PFSH ED PFSH: Medical History Alpha galactosidase deficiency Anxiety Cerebral hemorrhage with hemiparesis (~08/2019) Occurred while on epinephrine drip for anaphylaxis. Mild residual weakness on the left side History of anaphylaxis Requiring intubation History of gluten sensitivity Hyper-IgE syndrome Major depressive disorder Multiple environmental allergies Multiple food allergies PCOS (polycystic ovarian syndrome) PTSD (post-traumatic stress disorder) Rosacea Vocal cord palsy Surgical History History of abdominoplasty History of appendectomy History of artificial lens replacement History of cataract surgery History of section, low transverse History of eye surgery Surgical plate placement and removal History of surgery Intracranial angiogram Port-A-Cath in place (05/26/20) left subclavian Family History Mother Diabetes Thyroid condition Hypercholesteremia Family/Other Cancer Social History Smoking and tobacco status: never smoked Alcohol intake: current Alcohol intake frequency: few times a month Marital status: Current occupational status: employed 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 History: Date of last menstrual period: 07/10/20 Physical Exam Const: COMMON NORMALS: no acute distress GENERAL APPEARANCE: cooperative and comfortable ORIENTATION/CONSCIOUSNESS: Yes awake, Yes oriented to person, Yes oriented to place and Yes oriented to time HENMT: COMMON NORMALS: normocephalic, atraumatic and hearing grossly normal bilaterally HEAD & SCALP: normocephalic and atraumatic Eye: COMMON NORMALS: Equal, round and reactive pupils present, EOMs intact bilaterally, conjunctivae normal and no scleral icterus CONJUNCTIVA: Yes conjunctivae normal PUPIL: Yes Equal, round and reactive pupils present Neck/C-Spine: COMMON NORMALS: no JVD Resp: COMMON NORMALS: normal respiratory effort, No retractions, No use of accessory muscles and clear to auscultation bilaterally AUSCULTATION: clear to auscultation bilaterally Cardio: COMMON NORMALS: no JVD, regular rate, regular rhythm and No murmurs present (Cardio) RATE: regular rate RHYTHM: regular rhythm Extremity: COMMON NORMALS: normal to inspection, capillary refill normal, no clubbing, cyanosis or edema, no calf tenderness and no pedal edema Neuro: SENSORIUM/ORIENTATION: Yes oriented to person, Yes oriented to place and Yes oriented to time Skin: COMMON NORMALS: no rashes or lesions noted GENERAL SKIN EXAM: no rashes or lesions noted Course Vital Signs: Vital signs: Vital Signs Pulse Rate 103 H 07/22/20 17:55 Respiratory Rate 16 07/22/20 17:55 Blood Pressure 120/86 07/22/20 17:55 Pulse Oximetry 97 07/22/20 17:55 MDM - Allergic Reaction MDM Narrative: Medical decision making narrative: Consult to Dr. Cortez as well. Working to have her stop her Xolair use Phenergan as needed for nausea. Discussed Dr. Zavala he will follow up with the patient tomorrow in his office to see about getting her referred to a different signals intelligence analyst if she has recurrent allergy problems return to the emergency room. Lab Data: Labs: Lab Results 07/22/20 07/22/20 Range/Units 14:43 14:43 WBC 8.7 (4.0-10.0) 10^3/ uL RBC 3.63 L (4.1-5.3) 10^6/u L Hgb 10.8 L (11.5-15.3) g/dL Hct 33.2 L (37.0-47.0) % MCV 91.5 (81-99) fL MCH 29.8 (28.0-34.0) pg MCHC 32.5 (30.0-36.0) g/dL RDW 13.7 (12.1-15.1) % Plt Count 290 (130-400) 10^3/c mm MPV 9.5 (7.4-10.4) fL Neut % (Auto) 91.3 % Lymph % (Auto) 5.7 % [place] % (Auto) 2.2 % Eos % (Auto) 0.1 % Baso % (Auto) 0.5 % Neut # (Auto) 7.95 H (1.8-7.7) 10^3/u L Lymph # (Auto) 0.5 L (0.8-4.8) 10^3/u L [place] # (Auto) 0.2 (0.2-0.9) 10^3/u L Eos # (Auto) 0.0 (0.0-0.8) 10^3/u L Baso # (Auto) 0.0 (0.0-0.1) 10^3/u L Nucleated RBC % (a uto) 0 % Nucleated RBCs # 0.0 /100WBC Sodium 139 (136-145) mmol/L Potassium 3.8 (3.5-5.1) mmol/L Chloride 106 (98-107) mmol/L Carbon Dioxide 21 L (22-29) mmol/L Anion Gap 15.8 (5-19) BUN 7 (6-20) mg/dL Creatinine 0.7 (0.5-0.9) mg/dL GFR Calculation 91.8 (90-130) mL/min Glucose 132 H (65-115) mg/dL Calculated Osmolal ity 288 (285-295) mOsm/k g Calcium 9.0 (8.5-10.5) mg/dL Total Bilirubin 0.2 (0.15-1.2) mg/dL AST 21 (0-32) U/L ALT 15 (0-33) U/L Alkaline Phosphata se 68 (35-105) IU/L Total Protein 6.2 L (6.6-8.7) g/dL Albumin 4.1 (3.5-5.2) g/dL Globulin 2.1 (1.3-4.6) g/dL Discharge Plan Discharge Patient Disposition: Home Clinical Impression: Allergic reaction Condition: Stable Prescriptions: New promethazine 6.25 mg/5 mL syrup 25 mg PO Q6H PRN (Reason: nausea and vomiting) Qty: 473 RF: 0 No Action lamotrigine [Lamictal] 25 mg Tablet 100 mg PO BEDTIME RF: 0 fluoxetine 20 mg/5 mL (4 mg/mL) solution 60 mg PO DAILY RF: 0 famotidine 40 mg/5 mL (8 mg/mL) Suspension 40 mg PO BID RF: 0 diphenhydramine HCl 50 mg/mL solution 50 mg IM Q12H PRN (Reason: allergic reaction) 15 Days Qty: 25 RF: 2 cetirizine 5 mg/5 mL Solution 10 mg PO BID RF: 0 trazodone 100 mg Tablet 150 - 200 mg PO BEDTIME RF: 0 montelukast 4 mg Granules In Packet See Rx Instructions .ROUTE .COMPLEX RF: 0 lorazepam 2 mg/mL concentrate See Rx Instructions .ROUTE .COMPLEX PRN (Reason: anxiety) RF: 0 acetaminophen [Tylenol] 325 mg tablet 1,000 mg PO PRN PRN (Reason: Pain) RF: 0 budesonide 0.5 mg/2 mL suspension for nebulization 0.5 mg inhalation BID PRN (Reason: shortness of breath or wheezing) RF: 0 Xolair 150 mg recon soln 300 mg SUBCUT DIRECTED Qty: 1 RF: 0 aspirin 81 mg Tablet,Delayed Release (Dr/Ec) 81 mg PO DAILY RF: 0 Discharge Orders: Discharge Order (Routine); Ordered 07/22/20 Ordered By: Dagoberto Barraza Referrals: Chi Cobb MD [Primary Care Provider] - Discharge Diet: Usual diet Discharge Activity: Increase activity as tolerated Activity Restrictions/Additional Instructions: Hold off on any further Xolair infusions. Please call Dr. Cobb's office tomorrow to help arrange for referral to signals intelligence analyst and to autonomic clinic in [place] and arrange for any testing that needs to be done prior to those appointments. Discharge Date/Time: 07/22/20 18:29 Coding Level of Care Code ED Music Supervisor for Chg Fwd Exam Comprehensive
[2020-07-22 15:36] VITALS: BP 125/84; PULSE 90; RESP 14; O2SAT 95
[2020-07-22] MEDS: famotidine 20 mg/2 mL INJ 40 MG IVP (17:01)
[2020-07-22 17:04] VITALS: PULSE 113; RESP 19; O2SAT 94
[2020-07-22] MEDS: LORazepam 2 mg/mL INJ 1 mL IVP (17:04)
[2020-07-22 17:26] VITALS: RESP 19; O2SAT 98
[2020-07-22] MEDS: morphine 4 mg/mL SDV 1 mL IVP (17:26)
[2020-07-22] MEDS: promethazine 25 mg/mL SDV 1 mL IM (17:27)
[2020-07-22 17:55] VITALS: BP 120/86; PULSE 103; RESP 16; O2SAT 97
== END 2020-07-22 18:29 | disposition home or self-care (01) ==
PROVIDERS: Emergency Provider Family Medicine; PCP Family Medicine
DX: T78.40XA Allergy, unspecified, initial encounter (principal); Z79.82 Long term (current) use of aspirin
CPT/HCPCS: 12345; 71045; 80053; 85025; 93005; 96372; 96374; 96375; 99283; 99284; J2060; J2270; J2550; J3490

== ENCOUNTER 2020-08-09 14:36 | Emergency (ER) | payer BC, SELFPAY ==
[2020-08-09 14:43] VITALS: BP 119/79; PULSE 85; RESP 14; TEMP 37.3; O2SAT 99; BMI 24.7
--- NOTE | 2020-08-09 15:01 | ED_ITS ---
Documented by User: GRACIELA Anderson 08/09/20 16:56 HPI - General Adult General: Chief complaint: General Medical Stated complaint: needs fluids per pcp Time Seen by Provider: 08/09/20 14:58 History of Present Illness: HPI narrative: Patient is a 44-year-old female that was sent here from her PCP to come get fluids and labs done. Dr. Cobb sent patient over for outpatient services but they were full so she came here to the ED. He is requesting that patient gets 2 L of normal saline and collect CBC, CMP and UA labs. Patient has been having episodes of hypotension and presyncope. Patient also complained of being dehydrated. She also reports having a headache and feeling nauseous. Denies any shortness of breath or swelling of throat. Associated symptoms: Reports headache(s) and nausea; Deny chest pain, dyspnea, rash, palpitations or vomiting Review of Systems Const: Denies: fever(s), chills or fatigue Eyes: Denies: change in vision or eye discomfort ENMT: Denies: throat pain, odynophagia, nasal discharge or nasal congestion Card: Denies: chest pain, palpitations, edema, swelling of feet/ankles, dyspnea on exertion or orthopnea Resp: Denies: dyspnea, productive cough or non-productive cough GI: Reports: nausea; Denies: abdominal pain, vomiting, diarrhea, constipation or hematochezia : Denies: flank pain, dysuria or hematuria Musc: Denies: neck pain, back pain or extremity swelling Skin/Breast: Denies: rash or new lesions Neuro: Reports: headache(s); Denies: numbness in extremities or weakness in extremities PFS ED PFSH: Medical History Alpha galactosidase deficiency Anxiety Cerebral hemorrhage with hemiparesis (~08/2019) Occurred while on epinephrine drip for anaphylaxis. Mild residual weakness on the left side History of anaphylaxis Requiring intubation History of gluten sensitivity Hyper-IgE syndrome Major depressive disorder Multiple environmental allergies Multiple food allergies PCOS (polycystic ovarian syndrome) PTSD (post-traumatic stress disorder) Rosacea Vocal cord palsy Surgical History History of abdominoplasty History of appendectomy History of artificial lens replacement History of cataract surgery History of section, low transverse History of eye surgery Surgical plate placement and removal History of surgery Intracranial angiogram Port-A-Cath in place (05/26/20) left subclavian Family History Mother Diabetes Thyroid condition Hypercholesteremia Family/Other Cancer Social History Smoking and tobacco status: never smoked Alcohol intake: current Alcohol intake frequency: few times a month Marital status: Current occupational status: employed 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[place] Female 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 History: Date of last menstrual period: 07/10/20 Physical Exam Const: COMMON NORMALS: patient oriented x3, healthy appearing and alert GENERAL APPEARANCE: cooperative and comfortable HENMT: COMMON NORMALS: normocephalic HEAD & SCALP: normocephalic MOUTH: Normal oral and palatal mucosa present THROAT: posterior oropharynx normal and uvula midline Neck/C-Spine: COMMON NORMALS: supple GENERAL: Yes normal visual inspection Resp: COMMON NORMALS: normal respiratory effort, No retractions, No use of accessory muscles and clear to auscultation bilaterally AUSCULTATION: clear to auscultation bilaterally Cardio: COMMON NORMALS: regular rate, regular rhythm, S1 normal heart sound present, S2 normal heart sound present, No gallops present (Cardio), No clicks present (Cardio), No murmurs present (Cardio) and Peripheral pulses 2+ throughout RATE: regular rate RHYTHM: regular rhythm HEART SOUNDS: S1 normal heart sound present and S2 normal heart sound present PERIPHERAL PULSES: Peripheral pulses 2+ throughout GI: COMMON NORMALS: Normal to inspection, nondistended, normoactive bowel sounds present, Soft to palpation, non-tender and no masses PALPATION: Yes Soft to palpation : COMMON NORMALS: Yes no CVA tenderness BLADDER/KIDNEY EXAM: Yes no CVA tenderness Back/Pelvis: COMMON NORMALS: no CVA tenderness Extremity: COMMON NORMALS: normal to inspection and no pedal edema Neuro: COMMON NORMALS: patient oriented x3 and moves all extremities SENSORIUM/ORIENTATION: Yes alert Skin: NARRATIVE SKIN EXAM: Patient had some pruritic hives on lower abdomen and lower back. GENERAL SKIN EXAM: dry skin Course Reevaluation(s): Reevaluation #1: Patient said her headache has improved after getting IV fluids and morphine. The first dose of Zofran did not help her nausea is much, so I ordered Phenergan because she said that his worked well in the past. Time: 15:40 Vital Signs: Vital signs: Vital Signs Temperature 99.1 F 08/09/20 14:43 Pulse Rate 75 08/09/20 17:32 Respiratory Rate 18 08/09/20 17:32 Blood Pressure 112/79 08/09/20 17:32 Pulse Oximetry 97 08/09/20 17:32 MDM - General Adult MDM Narrative: Medical decision making narrative: Patient is a 44-year-old female who was sent over here by Dr. Cobb to outpatient to get some labs and IV fluids. Outpatient was full and so patient came here to the ED to receive treatment. Dr. Cobb with the patient to get a CBC, CMP and a UA. He also wanted her to receive 2 L of IV fluids. She was sent over here because of symptoms of hypotension, presyncope and dehydration. Patient also complained of having a headache and some nausea as well. Patient appeared in good health was lying comfortably on exam chair when I enter the room. She is showing no signs of any acute respiratory distress. She did have some hives and itching, but she was given Benadryl IV and symptoms improved. She received 2 L of IV fluids, 4 mg of morphine, Phenergan and her symptoms improved. CMP and UA were unremarkable. Patient's hemoglobin was 10.5 which appears to be normal for her when going back and looking at her past labs. Rest of CBC was unremarkable. Patient care is transferred over to Hayder Mahan COMBER SETTER. Patient just needs to finish out IV fluids and monitor her condition and discharge if she is feeling well. Lab Data: Attestation: I reviewed the patient's lab results. Labs: Lab Results 08/09/20 08/09/20 08/09/20 Range/Units 14:55 15:18 15:18 WBC 6.0 (4.0-10.0) 10^3/ uL RBC 3.59 L (4.1-5.3) 10^6/u L Hgb 10.5 L (11.5-15.3) g/dL Hct 32.6 L (37.0-47.0) % MCV 90.8 (81-99) fL MCH 29.2 (28.0-34.0) pg MCHC 32.2 (30.0-36.0) g/dL RDW 13.7 (12.1-15.1) % Plt Count 298 (130-400) 10^3/c mm MPV 9.7 (7.4-10.4) fL Neut % (Auto) 63.0 % Lymph % (Auto) 25.6 % [place] % (Auto) 9.5 % Eos % (Auto) 1.2 % Baso % (Auto) 0.5 % Neut # (Auto) 3.77 (1.8-7.7) 10^3/u L Lymph # (Auto) 1.5 (0.8-4.8) 10^3/u L [place] # (Auto) 0.6 (0.2-0.9) 10^3/u L Eos # (Auto) 0.1 (0.0-0.8) 10^3/u L Baso # (Auto) 0.0 (0.0-0.1) 10^3/u L Nucleated RBC % (a uto) 0 % Nucleated RBCs # 0.0 /100WBC Sodium 137 (136-145) mmol/L Potassium 3.8 (3.5-5.1) mmol/L Chloride 102 (98-107) mmol/L Carbon Dioxide 24 (22-29) mmol/L Anion Gap 14.8 (5-19) BUN 8 (6-20) mg/dL Creatinine 0.9 (0.5-0.9) mg/dL GFR Calculation 68.7 L (90-130) mL/min Glucose 120 H (65-115) mg/dL Calculated Osmolal ity 284 L (285-295) mOsm/k g Calcium 9.0 (8.5-10.5) mg/dL Total Bilirubin 0.2 (0.15-1.2) mg/dL AST 24 (0-32) U/L ALT 23 (0-33) U/L Alkaline Phosphata se 78 (35-105) IU/L Total Protein 6.2 L (6.6-8.7) g/dL Albumin 4.3 (3.5-5.2) g/dL Globulin 1.9 (1.3-4.6) g/dL Urine Color Straw (Yellow) Urine Appearance Clear (CLEAR) Urine pH 8 H (5-7) Ur Specific Gravit y 1.015 (1.005-1.030) Urine Protein Neg (Negative) Urine Glucose (UA) Norm (Normal) Urine Ketones Negative (Negative) Urine Blood 2+ H (Negative) Urine Nitrate Negative (Negative) Urine Bilirubin Neg (Negative) Prot Sulfosalicyli c Acd Negative (Negative) Urine Urobilinogen Norm (Negative) mg/dL Ur Leukocyte Carli ase Negative (Negative) Urine RBC 0-4 H (0-2) /hpf Urine WBC None (0-5) /hpf Ur Squamous Epith Cells Rare (0-5) /hpf Amorphous Sediment Not Reportable Urine Bacteria Trace (NONE) /hpf Discharge Plan Discharge Patient Disposition: Home Clinical Impression: Acute hypotension Condition: Stable Prescriptions: No Action lamotrigine [Lamictal] 25 mg Tablet 100 mg PO BEDTIME RF: 0 fluoxetine 20 mg/5 mL (4 mg/mL) solution 60 mg PO DAILY RF: 0 famotidine 40 mg/5 mL (8 mg/mL) Suspension 40 mg PO BID RF: 0 diphenhydramine HCl 50 mg/mL solution 50 mg IM Q12H PRN (Reason: allergic reaction) 15 Days Qty: 25 RF: 2 cetirizine 5 mg/5 mL Solution 10 mg PO BID RF: 0 trazodone 100 mg Tablet 150 - 200 mg PO BEDTIME RF: 0 montelukast 4 mg Granules In Packet See Rx Instructions .ROUTE .COMPLEX RF: 0 lorazepam 2 mg/mL concentrate See Rx Instructions .ROUTE .COMPLEX PRN (Reason: anxiety) RF: 0 acetaminophen [Tylenol] 325 mg tablet 1,000 mg PO PRN PRN (Reason: Pain) RF: 0 budesonide 0.5 mg/2 mL suspension for nebulization 0.5 mg inhalation BID PRN (Reason: shortness of breath or wheezing) RF: 0 Xolair 150 mg recon soln 300 mg SUBCUT DIRECTED Qty: 1 RF: 0 aspirin 81 mg Tablet,Delayed Release (Dr/Ec) 81 mg PO DAILY RF: 0 promethazine 6.25 mg/5 mL syrup 25 mg PO Q6H PRN (Reason: nausea and vomiting) Qty: 473 RF: 0 Discharge Orders: Discharge Order (Routine); Ordered 08/09/20 Ordered By: Hayder Mahan Referrals: Chi Cobb MD [Primary Care Provider] - Discharge Diet: Usual diet Discharge Activity: Increase activity as tolerated Activity Restrictions/Additional Instructions: Follow-up your primary care provider as scheduled. Monitor blood pressure at home as you been doing. Discharge Date/Time: 08/09/20 18:00 Coding Level of Care Code ED Contract Administration Specialist for Chg Fwd Exam Comprehensive Documented by User: MICHELL Tobar 08/09/20 18:02 HPI - General Adult General: Chief complaint: General Medical Stated complaint: needs fluids per pcp Time Seen by Provider: 08/09/20 14:58 PFSH ED PFSH: Medical History Alpha galactosidase deficiency Anxiety Cerebral hemorrhage with hemiparesis (~08/2019) Occurred while on epinephrine drip for anaphylaxis. Mild residual weakness on the left side History of anaphylaxis Requiring intubation History of gluten sensitivity Hyper-IgE syndrome Major depressive disorder Multiple environmental allergies Multiple food allergies PCOS (polycystic ovarian syndrome) PTSD (post-traumatic stress disorder) Rosacea Vocal cord palsy Surgical History History of abdominoplasty History of appendectomy History of artificial lens replacement History of cataract surgery History of section, low transverse History of eye surgery Surgical plate placement and removal History of surgery Intracranial angiogram Port-A-Cath in place (05/26/20) left subclavian Family History Mother Diabetes Thyroid condition Hypercholesteremia Family/Other Cancer Social History Smoking and tobacco status: never smoked Alcohol intake: current Alcohol intake frequency: few times a month Marital status: Current occupational status: employed 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 Vital Signs: Vital signs: Vital Signs Temperature 99.1 F 08/09/20 14:43 Pulse Rate 75 08/09/20 17:32 Respiratory Rate 18 10/26/20 17:32 Blood Pressure 112/79 08/09/20 17:32 Pulse Oximetry 97 08/09/20 17:32 [facility] - General Adult Lab Data: Labs: Lab Results 08/09/20 08/09/20 08/09/20 Range/Units 14:55 15:18 15:18 WBC 6.0 (4.0-10.0) 10^3/ uL RBC 3.59 L (4.1-5.3) 10^6/u L Hgb 10.5 L (11.5-15.3) g/dL Hct 32.6 L (37.0-47.0) % MCV 90.8 (81-99) fL MCH 29.2 (28.0-34.0) pg MCHC 32.2 (30.0-36.0) g/dL RDW 13.7 (12.1-15.1) % Plt Count 298 (130-400) 10^3/c mm MPV 9.7 (7.4-10.4) fL Neut % (Auto) 63.0 % Lymph % (Auto) 25.6 % [place] % (Auto) 9.5 % Eos % (Auto) 1.2 % Baso % (Auto) 0.5 % Neut # (Auto) 3.77 (1.8-7.7) 10^3/u L Lymph # (Auto) 1.5 (0.8-4.8) 10^3/u L [place] # (Auto) 0.6 (0.2-0.9) 10^3/u L Eos # (Auto) 0.1 (0.0-0.8) 10^3/u L Baso # (Auto) 0.0 (0.0-0.1) 10^3/u L Nucleated RBC % (a uto) 0 % Nucleated RBCs # 0.0 /100WBC Sodium 137 (136-145) mmol/L Potassium 3.8 (3.5-5.1) mmol/L Chloride 102 (98-107) mmol/L Carbon Dioxide 24 (22-29) mmol/L Anion Gap 14.8 (5-19) BUN 8 (6-20) mg/dL Creatinine 0.9 (0.5-0.9) mg/dL GFR Calculation 68.7 L (90-130) mL/min Glucose 120 H (65-115) mg/dL Calculated Osmolal ity 284 L (285-295) mOsm/k g Calcium 9.0 (8.5-10.5) mg/dL Total Bilirubin 0.2 (0.15-1.2) mg/dL AST 24 (0-32) U/L ALT 23 (0-33) U/L Alkaline Phosphata se 78 (35-105) IU/L Total Protein 6.2 L (6.6-8.7) g/dL Albumin 4.3 (3.5-5.2) g/dL Globulin 1.9 (1.3-4.6) g/dL Urine Color Straw (Yellow) Urine Appearance Clear (CLEAR) Urine pH 8 H (5-7) Ur Specific Gravit y 1.015 (1.005-1.030) Urine Protein Neg (Negative) Urine Glucose (UA) Norm (Normal) Urine Ketones Negative (Negative) Urine Blood 2+ H (Negative) Urine Nitrate Negative (Negative) Urine Bilirubin Neg (Negative) Prot Sulfosalicyli c Acd Negative (Negative) Urine Urobilinogen Norm (Negative) mg/dL Ur Leukocyte Carli ase Negative (Negative) Urine RBC 0-4 H (0-2) /hpf Urine WBC None (0-5) /hpf Ur Squamous Epith Cells Rare (0-5) /hpf Amorphous Sediment Not Reportable Urine Bacteria Trace (NONE) /hpf Discharge Plan Discharge Patient Disposition: Home Clinical Impression: Acute hypotension Condition: Stable Prescriptions: No Action lamotrigine [Lamictal] 25 mg Tablet 100 mg PO BEDTIME RF: 0 fluoxetine 20 mg/5 mL (4 mg/mL) solution 60 mg PO DAILY RF: 0 famotidine 40 mg/5 mL (8 mg/mL) Suspension 40 mg PO BID RF: 0 diphenhydramine HCl 50 mg/mL solution 50 mg IM Q12H PRN (Reason: allergic reaction) 15 Days Qty: 25 RF: 2 cetirizine 5 mg/5 mL Solution 10 mg PO BID RF: 0 trazodone 100 mg Tablet 150 - 200 mg PO BEDTIME RF: 0 montelukast 4 mg Granules In Packet See Rx Instructions .ROUTE .COMPLEX RF: 0 lorazepam 2 mg/mL concentrate See Rx Instructions .ROUTE .COMPLEX PRN (Reason: anxiety) RF: 0 acetaminophen [Tylenol] 325 mg tablet 1,000 mg PO PRN PRN (Reason: Pain) RF: 0 budesonide 0.5 mg/2 mL suspension for nebulization 0.5 mg inhalation BID PRN (Reason: shortness of breath or wheezing) RF: 0 Xolair 150 mg recon soln 300 mg SUBCUT DIRECTED Qty: 1 RF: 0 aspirin 81 mg Tablet,Delayed Release (Dr/Ec) 81 mg PO DAILY RF: 0 promethazine 6.25 mg/5 mL syrup 25 mg PO Q6H PRN (Reason: nausea and vomiting) Qty: 473 RF: 0 Discharge Orders: Discharge Order (Routine); Ordered 08/09/20 Ordered By: Hayder Mahan Referrals: Chi Cobb MD [Primary Care Provider] - Discharge Diet: Usual diet Discharge Activity: Increase activity as tolerated Activity Restrictions/Additional Instructions: Follow-up your primary care provider as scheduled. Monitor blood pressure at home as you been doing. Discharge Date/Time: 08/09/20 18:00 Coding Level of Care Code ED Contract Administration Specialist for Chg Fwd Exam Comprehensive
[2020-08-09] MEDS: sodium chloride 0.9% 1,000 ML 999 ML IV ×2 (15:22→15:27)
[2020-08-09 15:23] LABS: Basophils % 0.5 %; Eosinophils # 0.1 10^3/uL (0.0-0.8); Eosinophils % 1.2 %; Hematocrit 32.6 % (37.0-47.0); Hemoglobin 10.5 g/dL (11.5-15.3); Lymphocytes # 1.5 10^3/uL (0.8-4.8); Lymphocytes % 25.6 %; Mean Corpuscular HGB Conc 32.2 g/dL (30.0-36.0); Mean Corpuscular Hemoglobin 29.2 pg (28.0-34.0); Mean Corpuscular Volume 90.8 fL (81-99); Mean Platelet Volume 9.7 fL (7.4-10.4); Monocytes # 0.6 10^3/uL (0.2-0.9); Monocytes % 9.5 %; Neutrophils # 3.77 10^3/uL (1.8-7.7); Nucleated Red Blood Cells % 0 %; Platelet Count 298 10^3/cmm (130-400); Red Blood Count 3.59 10^6/uL (4.1-5.3); Red Cell Distribution Width 13.7 % (12.1-15.1)
[2020-08-09] MEDS: ondansetron 2 mg/ML SDV 2 mL 4 MG IVP (15:24)
[2020-08-09 15:32] VITALS: RESP 18
[2020-08-09 15:32] LABS: Bilirubin Urine Neg (Negative); Blood Urine 2+ (Negative); Glucose Urine UA Norm (Normal); Ketones Urine Negative (Negative); Leukocyte Esterase Urine Negative (Negative); Nitrate Urine Negative (Negative); Protein Urine Neg (Negative); RBC Urine 0-4 /hpf (0-2); Specific Gravity, Urine 1.015 (1.005-1.030); Sulfosalicylic Acid Urine Negative (Negative); Urine Appearance Clear (CLEAR); Urine Color Straw (Yellow); Urobilinogen Urine Norm (Negative); pH Urine 8 (5-7)
[2020-08-09] MEDS: morphine 4 mg/mL SDV 1 mL IVP (15:32)
[2020-08-09 15:33] LABS: Add Urine Culture? No; Bacteria Urine TRACE /hpf; Squamous Epithelial Cell Urine RARE /hpf (0-5)
[2020-08-09 15:34] VITALS: BP 117/77; PULSE 85; RESP 18; O2SAT 99
[2020-08-09 15:41] LABS: Alanine Aminotransferase 23 U/L (0-33); Albumin Level 4.3 g/dL (3.5-5.2); Alkaline Phosphatase 78 IU/L (35-105); Anion Gap 14.8 (5-19); Aspartate Amino Transferase 24 U/L (0-32); Blood Urea Nitrogen 8 mg/dL (6-20); Carbon Dioxide 24 mmol/L (22-29); Chloride 102 mmol/L (98-107); Globulin 1.9 g/dL (1.3-4.6); Glomerular Filtration Rate 68.7 mL/min (90-130); Glucose 120 mg/dL (65-115); Osmolality Calculated 284 mOsm/kg (285-295); Potassium 3.8 mmol/L (3.5-5.1); Sodium 137 mmol/L (136-145); Total Bilirubin 0.2 mg/dL (0.15-1.2); Total Protein 6.2 g/dL (6.6-8.7)
[2020-08-09] MEDS: diphenhydrAMINE 50 mg/mL SDV 1mL 25 MG IVP ×2 (15:52→16:39)
[2020-08-09] MEDS: promethazine 25 mg/mL SDV 1 mL IM (15:54)
[2020-08-09 17:32] VITALS: BP 112/79; PULSE 75; RESP 18; O2SAT 97
== END 2020-08-09 18:00 | disposition home or self-care (01) ==
PROVIDERS: Physician Assistant; Emergency Provider Nurse Practitioner Family; PCP Family Medicine
DX: I95.9 Hypotension, unspecified (principal); Z79.82 Long term (current) use of aspirin
CPT/HCPCS: 12345; 80053; 81001; 85025; 96361; 96372; 96374; 96375; 96376; 99282; 99283; 99284; J1200; J2270; J2405; J2550; J7030

== ENCOUNTER 2020-08-11 13:21 | Outpatient (CLI) | payer BC, SELFPAY ==
--- NOTE | 2020-08-11 13:00 | CT_ITS ---
WS: [id number] CT ANGIOGRAM CEREBRAL AND CAROTID ARTERIES HISTORY: CVA TECHNIQUE: CT angiogram is performed of the carotid and cerebral arteries. During arterial injection imaging is obtained from the skull vertex to the aortic arch in 1.25 mm imaging. Coronal and sagittal reformats are submitted. Additional multi planar reformats of the carotid and cerebral arteries are submitted, MIP imaging also reviewed. NASCET criteria utilized. All CT scans at [facility] use at least one of these dose optimization techniques: automated exposure control; mA and/or kV ad justment per patient size (includes targeted exams where dose is matched to clinical indication); or iterative reconstruction. CONTRAST: Omnipaque 350; 65 mL IV. DLP: 2831.91 mGy.cm COMPARISON: None available. Noncontrast CT of the head is negative for acute intracranial hemorrhage or midline shift. Large iesha te RIGHT parietal infarct towards the apex. No new infarcts. Carotid Angiogram: Right carotid: Common carotid artery: Arises normally from the innominate artery. No significant plaque or stenosis. Internal carotid artery: No plaque or stenosis. External carotid artery: Patent. Left carotid: Common carotid artery: Arises normally from the aorta. No significant plaque or stenosis. Internal carotid artery: No plaque or stenosis. External carotid artery: Patent. Right vertebral artery: Unremarkable. Left vertebral artery: Arises directly from the arch which is a normal variant. Subclavian arteries: No stenosis or significant abnormality. Upper thorax: Normal. Thyroid gland: Normal. Osseous structures: Mild straightening of the normal cervical lordosis with mild degenerative disc di sease. CEREBRAL ANGIOGRAM: Intracranial vertebral arteries: Normal with no significant atherosclerosis. Basilar artery: No significant stenosis or occlusion. No aneurysm. Intracranial Internal carotid arteries: Demonstrates no significant stenosis or plaque. Middle cerebral arteries: Normal. Anterior cerebral arteries and ACOM: Normal. Posterior cerebral arteries and PCOM's: Posterior cerebral arteries are normal. Very small caliber po sterior communicating arteries versus absent. Small caliber LEFT transverse sinus. Mastoid air cells: Normal. Paranasal sinuses: Normal. Calvarium: Normal. CT/CT angio headneck* [id number] IMPRESSION: 1. Normal carotid arteries. 2. No significant occlusions or aneurysms. Small caliber/hypoplastic bilateral posterior communicating arteries is normal variant. 3. Prior RIGHT parietal infarct.
[2020-08-11] MEDS: iodixanol 320 mg/mL 100mL Btl IV (14:53)
== END 2020-08-11 13:22 | disposition home or self-care (01) ==
PROVIDERS: PCP Family Medicine; Visit Provider Internal Medicine Cardiovascular Disease
DX: I63.9 Cerebral infarction, unspecified (principal)
CPT/HCPCS: 70496; 70498; J1200

== ENCOUNTER 2020-08-27 11:11 | Outpatient (CLI) | payer BC, SELFPAY ==
[2020-08-29 07:43] LABS: Coronavirus Lab Test PTC Negative
== END 2020-08-27 11:12 | disposition home or self-care (01) ==
PROVIDERS: PCP Family Medicine; Visit Provider Family Medicine
DX: Z11.59 Encounter for screening for other viral diseases (principal)
CPT/HCPCS: 87635

== ENCOUNTER 2020-09-13 11:05 | Outpatient (CLI) | payer BC, SELFPAY ==
--- NOTE | 2020-09-13 11:14 | MM_ITS ---
WS: [id number] BILATERAL DIGITAL DIAGNOSTIC MAMMOGRAM MAMMOGRAPHY WITH CAD CLINICAL INFORMATION: RIGHT BREAST PAIN COMPARISON: TECHNIQUE: Bilateral CC, MLO, and ML views. FINDINGS: The breasts are composed of heterogeneous fibroglandular density, which can limit the detection of sm all underlying mass lesions. Punctate calcifications. Vascular calcification. No suspicious focal mass, asymmetry, calcifications, or architectural distortion. No evidence of jimmy gnancy. MM/[place] [id number] IMPRESSION: BI-RADS: 2-Benign FOLLOW UP: 1 Year Follow-up Recommend return to annual screening mammography.
== END 2020-09-13 11:06 | disposition home or self-care (01) ==
LOC: RADSHAW 11:09
PROVIDERS: PCP Family Medicine; Visit Provider Family Medicine
DX: N64.4 Mastodynia (principal)
CPT/HCPCS: 77066

== ENCOUNTER 2020-09-22 13:59 | Emergency (ER) | payer BC, SELFPAY ==
[2020-09-22] VITALS (8 sets, daily range): BP systolic 109–132; BP diastolic 71–87; PULSE 80–109; RESP 12–22; TEMP 36.7; O2SAT 86–99; BMI 23.9
[2020-09-22] MEDS: sodium chloride 0.9% 1,000 ML 999 ML IV (14:37)
[2020-09-22] MEDS: diphenhydrAMINE 50 mg/mL SDV 1mL IVP (14:38)
[2020-09-22] MEDS: metoclopramide 5 mg/mL SDV 2 mL 10 MG IVP (14:38)
[2020-09-22] MEDS: LORazepam 2 mg/mL INJ 1 mL IVP (16:13)
--- NOTE | 2020-09-22 16:35 | W.ED.ALLEREA ---
HPI - Allergic Reaction General: Chief complaint: Allergic Reaction Stated complaint: allergic reaction Time Seen by Provider: 09/22/20 14:05 History of Present Illness: HPI narrative: Patient is a well-appearing 45-year-old female seen for concern for allergic reaction. She states that over the last few days she has been eating new chocolate chips which she is not certain conform to her very restricted diet. She had mild symptoms last night, and then worse this morning after eating more of the chocolate chips. She describes a globus sensation, cough, stridor, rash which started on the neck and emanated to the chest and arms. At home she tried Benadryl as well as her normal medications, consisting of montelukast, lorazepam, famotidine, and cetirizine. She states this happens to her frequently, despite being very careful about her diet and taking all her prescribed medications. Associated symptoms: Reports hoarseness Review of Systems General: Reports: 10 or more systems reviewed and unremarkable except in HPI and below ENMT: Reports: hoarseness Resp: Reports: stridor Skin/Breast: Reports: rash and pruritus PFSH ED PFSH: Medical History (Updated 09/22/20 @ 16:24 by Wild Gamez MD) Alpha galactosidase deficiency Anxiety Cerebral hemorrhage with hemiparesis (~08/2019) Occurred while on epinephrine drip for anaphylaxis. Mild residual weakness on the left side History of anaphylaxis Requiring intubation History of gluten sensitivity Hyper-IgE syndrome Major depressive disorder Multiple environmental allergies Multiple food allergies PCOS (polycystic ovarian syndrome) PTSD (post-traumatic stress disorder) Rosacea Vocal cord palsy Surgical History History of abdominoplasty History of appendectomy History of artificial lens replacement History of cataract surgery History of section, low transverse History of eye surgery Surgical plate placement and removal History of surgery Intracranial angiogram Port-A-Cath in place (05/26/20) left subclavian Family History Mother Diabetes Thyroid condition Hypercholesteremia Family/Other Cancer Social History Smoking and tobacco status: never smoked Alcohol intake: current Alcohol intake frequency: few times a month Marital status: Current occupational status: employed 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 History: Date of last menstrual period: 07/10/20 Physical Exam Const: COMMON NORMALS: no acute distress, patient oriented x3 and alert HENMT: COMMON NORMALS: atraumatic, moist oral mucous membranes and oropharynx normal HEAD & SCALP: normal to inspection and atraumatic Neck/C-Spine: COMMON NORMALS: full ROM, supple and no JVD GENERAL: Yes normal visual inspection and Yes trachea midline Chest: COMMONS NORMALS: normal inspection of the chest Resp: COMMON NORMALS: normal respiratory effort, No retractions, No use of accessory muscles and clear to auscultation bilaterally AUSCULTATION: clear to auscultation bilaterally Cardio: COMMON NORMALS: no JVD and regular rate RATE: regular rate GI: COMMON NORMALS: Normal to inspection, nondistended, normoactive bowel sounds present, Soft to palpation and non-tender PALPATION: Yes Soft to palpation Neuro: COMMON NORMALS: patient oriented x3 SENSORIUM/ORIENTATION: Yes alert Skin: COMMON NORMALS: turgor normal and no mottling NARRATIVE SKIN EXAM: mild redness of anterior neck and bilateral forearms GENERAL SKIN EXAM: turgor normal Course Vital Signs: Vital signs: Vital Signs Temperature 98.1 F 09/22/20 14:03 Pulse Rate 109 H 09/22/20 18:38 Respiratory Rate 17 09/22/20 18:38 Blood Pressure 132/86 09/22/20 18:38 Pulse Oximetry 97 09/22/20 18:38 MDM - Allergic Reaction MDM Narrative: Medical decision making narrative: Patient remained hemodynamically stable throughout ED course. She had mild redness of the neck and upper chest concerning for hives versus excoriations. No point time do not appreciate stridor or shortness of breath. Vital signs remained stable. After several doses of IV Benadryl, symptoms abated. She will be discharged in stable and improved condition with follow-up to primary care. She knows she is welcome back in the emergency department if her symptoms get worse before outpatient follow-up. Differential includes but is not limited to allergic reaction, anaphylaxis, anxiety, medication reaction, other Discharge Plan Discharge Patient Disposition: Home Clinical Impression: Cough, Globus sensation Acute allergic reaction Qualifiers: Encounter type: initial encounter Qualified Code(s): T78.40XA - Allergy, unspecified, initial encounter Condition: Stable Prescriptions: No Action fluoxetine 20 mg/5 mL (4 mg/mL) solution 60 mg PO DAILY RF: 0 famotidine 40 mg/5 mL (8 mg/mL) Suspension 40 mg PO BID@799,1999 RF: 0 diphenhydramine HCl 50 mg/mL solution 50 mg IM Q12H PRN (Reason: allergic reaction) 15 Days Qty: 25 RF: 2 cetirizine 5 mg/5 mL Solution 10 mg PO BID@799,1999 RF: 0 trazodone 100 mg Tablet 150 - 200 mg PO BEDTIME@1999 RF: 0 montelukast 4 mg Granules In Packet See Rx Instructions .ROUTE .COMPLEX RF: 0 lorazepam 2 mg/mL concentrate See Rx Instructions .ROUTE .COMPLEX PRN (Reason: anxiety) RF: 0 acetaminophen [Tylenol] 325 mg tablet 1,000 mg PO PRN PRN (Reason: Pain) RF: 0 budesonide 0.5 mg/2 mL suspension for nebulization 0.5 mg inhalation BID PRN (Reason: shortness of breath or wheezing) RF: 0 aspirin 81 mg Tablet,Delayed Release (Dr/Ec) 81 mg PO DAILY@0800 RF: 0 promethazine 6.25 mg/5 mL syrup 25 mg PO Q6H PRN (Reason: nausea and vomiting) Qty: 473 RF: 0 Discharge Orders: Discharge ED (Routine); Ordered 09/22/20 Ordered By: Wild Gamez Referrals: Chi Cobb MD [Primary Care Provider] - 1-3 days (Please return the emergency department if your cough, stridor, or work of breathing increases. At this time, do not suspect anaphylaxis requiring epinephrine or other emergent interventions.) Discharge Diet: Advance as tolerated Discharge Activity: Increase activity as tolerated Coding Level of Care Code ED Day Care Aide for Sophiag Fwd Exam Comprehensive
[2020-09-22] MEDS: diphenhydrAMINE 50 mg/mL SDV 1mL 25 MG IVP (17:56)
== END 2020-09-22 19:07 | disposition home or self-care (01) ==
PROVIDERS: Emergency Provider Student in an Organized Health Care Education/Training Program; PCP Family Medicine
DX: T78.40XA Allergy, unspecified, initial encounter (principal); F45.8 Other somatoform disorders; R05 Cough; Z79.82 Long term (current) use of aspirin
CPT/HCPCS: 12345; 96361; 96374; 96375; 96376; 99282; 99283; C1751; J1200; J2060; J2765; J7030

== ENCOUNTER 2020-10-13 08:16 | Emergency (ER) | payer BC, SELFPAY ==
[2020-10-13 08:22] VITALS: BP 117/66; PULSE 89; RESP 18; TEMP 36.7; O2SAT 97; BMI 23.9
--- NOTE | 2020-10-13 08:30 | ED_ITS ---
HPI - Allergic Reaction General: Chief complaint: Allergic Reaction Stated complaint: REACTION TO COVID SHOT Time Seen by Provider: 10/13/20 08:19 History of Present Illness: HPI narrative: 45-year-old female presents emergency room after receiving her first dose of Materna COVID-19 vaccination. She has a very very mild rash on the anterior chest as well as a little bit of numbness and tingling around her lips. She has a long history of severe allergic reactions that in several cases have resulted in ICU admissions. She not having any difficulty breathing at this time she has no difficulty with stridor or choking sensation that she has had in the past with her allergic reactions. She denies any wheezing. MD complaint: allergic reaction Onset (ago): minute(s) Exposure: other (Moderna COVID-19 vaccination, first vaccination) Associated symptoms: Reports hoarseness, itching, lip swelling and rash; Deny abdominal pain, nausea or vomiting Severity: mild Treatment prior to arrival: none Previous Allergic Reaction History: prior ED visit(s), anaphylaxis, angioedema and intubation Review of Systems Const: Denies: fever(s), chills, body aches, change in appetite, fatigue or malaise ENMT: Reports: hoarseness Card: Denies: chest pain, edema, dyspnea on exertion or orthopnea Resp: Denies: dyspnea, productive cough or non-productive cough GI: Denies: abdominal pain, nausea, vomiting, hematemesis, coffee ground emesis, diarrhea, constipation, bloating, hematochezia or melena Skin/Breast: Reports: rash; Denies: pruritus PFS ED PFSH: Medical History (Updated 10/13/20 @ 12:10 by Dagoebrto Barraza DO) Alpha galactosidase deficiency Anxiety Cerebral hemorrhage with hemiparesis (~08/2019) Occurred while on epinephrine drip for anaphylaxis. Mild residual weakness on the left side History of anaphylaxis Requiring intubation History of gluten sensitivity Hyper-IgE syndrome Major depressive disorder Multiple environmental allergies Multiple food allergies PCOS (polycystic ovarian syndrome) PTSD (post-traumatic stress disorder) Rosacea Vocal cord palsy Surgical History History of abdominoplasty History of appendectomy History of artificial lens replacement History of cataract surgery History of section, low transverse History of eye surgery Surgical plate placement and removal History of surgery Intracranial angiogram Port-A-Cath in place (05/26/20) left subclavian Family History Mother Diabetes Thyroid condition Hypercholesteremia Family/Other Cancer Social History Smoking and tobacco status: never smoked Alcohol intake: current Alcohol intake frequency: few times a month Marital status: Current occupational status: employed 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 History: Date of last menstrual period: 10/13/20 Physical Exam Const: COMMON NORMALS: no acute distress GENERAL APPEARANCE: cooperative and comfortable ORIENTATION/CONSCIOUSNESS: Yes awake, Yes oriented to person, Yes oriented to place and Yes oriented to time HENMT: COMMON NORMALS: normocephalic, atraumatic and hearing grossly normal bilaterally HEAD & SCALP: normocephalic and atraumatic Neck/C-Spine: COMMON NORMALS: no JVD Resp: COMMON NORMALS: normal respiratory effort, No retractions, No use of accessory muscles and clear to auscultation bilaterally AUSCULTATION: clear to auscultation bilaterally Cardio: COMMON NORMALS: no JVD, regular rate, regular rhythm and No murmurs present (Cardio) RATE: regular rate RHYTHM: regular rhythm GI: COMMON NORMALS: Soft to palpation and No hepatosplenomegaly present AUSCULTATION: Yes normoactive bowel sounds PALPATION: Yes Soft to palpation, No Tenderness to palpation present (GI), No Guarding due to palpation present (GI) and Yes No hepatosplenomegaly present Extremity: COMMON NORMALS: normal to inspection, capillary refill normal, no clubbing, cyanosis or edema, no calf tenderness and no pedal edema Neuro: SENSORIUM/ORIENTATION: Yes oriented to person, Yes oriented to place and Yes oriented to time Skin: COMMON NORMALS: no rashes or lesions noted GENERAL SKIN EXAM: no rashes or lesions noted Course Vital Signs: Vital signs: Vital Signs Temperature 98.1 F 10/13/20 08:22 Pulse Rate 88 10/13/20 11:51 Respiratory Rate 18 10/13/20 12:00 Blood Pressure 112/58 10/13/20 09:51 Pulse Oximetry 98 10/13/20 11:51 MDM - Allergic Reaction MDM Narrative: Medical decision making narrative: Monitor 4 hours per protocol. Pt stable at this time. He was monitored for 4 hours had no further symptoms symptoms she did have completely resolved with no intervention. We will go ahead and discharge [facility] Discharge Plan Discharge Patient Disposition: Home Clinical Impression: Sensitivity to medication Condition: Stable Prescriptions: No Action fluoxetine 20 mg/5 mL (4 mg/mL) solution 60 mg PO DAILY RF: 0 famotidine 40 mg/5 mL (8 mg/mL) Suspension 40 mg PO BID@799,1999 RF: 0 diphenhydramine HCl 50 mg/mL solution 50 mg IM Q12H PRN (Reason: allergic reaction) 15 Days Qty: 25 RF: 2 cetirizine 5 mg/5 mL Solution 10 mg PO BID@799,1999 RF: 0 trazodone 100 mg Tablet 150 - 200 mg PO BEDTIME@1999 RF: 0 montelukast 4 mg Granules In Packet See Rx Instructions .ROUTE .COMPLEX RF: 0 lorazepam 2 mg/mL concentrate See Rx Instructions .ROUTE .COMPLEX PRN (Reason: anxiety) RF: 0 acetaminophen [Tylenol] 325 mg tablet 1,000 mg PO PRN PRN (Reason: Pain) RF: 0 budesonide 0.5 mg/2 mL suspension for nebulization 0.5 mg inhalation BID PRN (Reason: shortness of breath or wheezing) RF: 0 aspirin 81 mg Tablet,Delayed Release (Dr/Ec) 81 mg PO DAILY@0800 RF: 0 promethazine 6.25 mg/5 mL syrup 25 mg PO Q6H PRN (Reason: nausea and vomiting) Qty: 473 RF: 0 Discharge Orders: Discharge ED (Routine); Ordered 10/13/20 Ordered By: Dagoberto Barraza Referrals: Chi Cobb MD [Primary Care Provider] - Discharge Diet: Usual diet Discharge Activity: Increase activity as tolerated Coding Level of Care Code ED Tailor'S Aide for Shanthi Fwd Exam Comprehensive
[2020-10-13 09:51] VITALS: BP 112/58; PULSE 81; RESP 18; O2SAT 98
[2020-10-13 11:51] VITALS: PULSE 88; RESP 18; O2SAT 98
[2020-10-13 12:00] VITALS: RESP 18
[2020-10-13 12:36] VITALS: RESP 18
== END 2020-10-13 12:36 | disposition home or self-care (01) ==
PROVIDERS: Emergency Provider Family Medicine; PCP Family Medicine
DX: R20.2 Paresthesia of skin (principal); T50.Z95A Adverse effect of other vaccines and biological substances, initial encounter
CPT/HCPCS: 12345; 99283

== ENCOUNTER 2020-10-31 10:07 | Emergency (ER) | payer BC, SELFPAY ==
[2020-10-31 10:14] VITALS: BP 121/74; PULSE 84; RESP 18; TEMP 37.2; O2SAT 95; BMI 23.9
--- NOTE | 2020-10-31 10:18 | XRR_ITS ---
PROCEDURE INFORMATION: Exam: XR Left Hand Exam date and time: 10/31/2020 10:20 AM Age: 45 years old Clinical indication: Pain; Hand; Left; Additional info: Pain, fall TECHNIQUE: Imaging protocol: XR Left hand. Views: 3 or more views. COMPARISON: No relevant prior studies available. FINDINGS: Bones/joints: Normal. Soft tissues: Normal. XR/XR hand LT min 3V* [id number] IMPRESSION: No acute findings.
--- NOTE | 2020-10-31 10:18 | W.ED.UPPEXIN ---
HPI - Extremity Injury (Upper) General: Stated Complaint: FALL YESTERDAY, L HAND PAIN Time Seen by Provider: 10/31/20 10:10 History of Present Illness: HPI narrative: Patient complains about the left hand pain after fall while doing yoga yesterday. Complains about pain to the middle knuckle and the little finger also. complaint: injury to: left and hand Onset (ago): day(s) Other Extremity Injury: Left: hand Other injuries: none Handedness: right Place: home Severity: mild Relieving factors: immobilization Exacerbating factors: movement of extremity Context: fall and other (Doing yoga) Associated symptoms: Reports no associated symptoms Review of Systems Const: Denies: fever(s) or chills Musc: Reports: extremity pain (Left hand) Psych: Denies: depression PFSH ED PFSH: Medical History (Updated 10/21/20 @ 00:00 by ) Alpha galactosidase deficiency Anxiety Cerebral hemorrhage with hemiparesis (~08/2019) Occurred while on epinephrine drip for anaphylaxis. Mild residual weakness on the left side History of anaphylaxis Requiring intubation History of gluten sensitivity Hyper-IgE syndrome Major depressive disorder Multiple environmental allergies Multiple food allergies PCOS (polycystic ovarian syndrome) PTSD (post-traumatic stress disorder) Rosacea Vocal cord palsy Surgical History History of abdominoplasty History of appendectomy History of artificial lens replacement History of cataract surgery History of section, low transverse History of eye surgery Surgical plate placement and removal History of surgery Intracranial angiogram Port-A-Cath in place (05/26/20) left subclavian Family History Mother Diabetes Thyroid condition Hypercholesteremia Family/Other Cancer Social History Smoking and tobacco status: never smoked Alcohol intake: current Alcohol intake frequency: few times a month Marital status: Current occupational status: employed 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[place], [place] Female 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 History: Date of last menstrual period: 10/13/20 Physical Exam Const: COMMON NORMALS: no acute distress Extremity: LEFT UPPER EXTREMITY: Yes hand & digits (Patient has tenderness to left middle finger mCP joint and little finger MC) Left hand and digits: Yes other (Mild swelling noted to the fifth MCP) Psych: COMMON NORMALS: mental status grossly normal Discharge Plan Discharge Prescriptions: No Action fluoxetine 20 mg/5 mL (4 mg/mL) solution 60 mg PO DAILY RF: 0 famotidine 40 mg/5 mL (8 mg/mL) Suspension 40 mg PO BID@799,1999 RF: 0 diphenhydramine HCl 50 mg/mL solution 50 mg IM Q12H PRN (Reason: allergic reaction) 15 Days Qty: 25 RF: 2 cetirizine 5 mg/5 mL Solution 10 mg PO BID@799,1999 RF: 0 trazodone 100 mg Tablet 150 - 200 mg PO BEDTIME@1999 RF: 0 montelukast 4 mg Granules In Packet See Rx Instructions .ROUTE .COMPLEX RF: 0 lorazepam 2 mg/mL concentrate See Rx Instructions .ROUTE .COMPLEX PRN (Reason: anxiety) RF: 0 acetaminophen [Tylenol] 325 mg tablet 1,000 mg PO PRN PRN (Reason: Pain) RF: 0 budesonide 0.5 mg/2 mL suspension for nebulization 0.5 mg inhalation BID PRN (Reason: shortness of breath or wheezing) RF: 0 aspirin 81 mg Tablet,Delayed Release (Dr/Ec) 81 mg PO DAILY@0800 RF: 0 promethazine 6.25 mg/5 mL syrup 25 mg PO Q6H PRN (Reason: nausea and vomiting) Qty: 473 RF: 0 Coding Level of Care Code ED Optometrist for 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
[2020-10-31 10:22] VITALS: BP 121/74; PULSE 85; PULSE 91; RESP 18; TEMP 37.2; O2SAT 96
[2020-10-31 10:45] VITALS: BP 121/74; PULSE 87; RESP 18; TEMP 37.2; O2SAT 96
== END 2020-10-31 10:48 | disposition home or self-care (01) ==
PROVIDERS: Emergency Provider Nurse Practitioner Family; PCP Family Medicine
DX: M79.642 Pain in left hand (principal); Z79.82 Long term (current) use of aspirin
CPT/HCPCS: 12345; 29125; 73130; 99281; 99283

== ENCOUNTER → 2020-11-08 09:52 | Day surgery (SDC) | payer BC, SELFPAY ==
[2020-11-08 10:15] VITALS: BP 121/77; PULSE 69; RESP 18; TEMP 36.2; O2SAT 95
== END ==
PROVIDERS: PCP Family Medicine; Visit Provider Surgery
DX: Z45.2 Encounter for adjustment and management of vascular access device (principal)
CPT/HCPCS: 96368; 96523

== ENCOUNTER → 2020-11-16 08:51 | Outpatient (BNVA) | payer OTHER, SELFPAY | PROVIDERS: PCP Family Medicine; Visit Provider Psychiatry & Neurology Neurology | DX: F41.9 Anxiety disorder, unspecified (principal); F32.9 Major depressive disorder, single episode, unspecified; F43.12 Post-traumatic stress disorder, chronic; Z63.0 Problems in relationship with spouse or partner | CPT/HCPCS: 90791 ==

== ENCOUNTER → 2021-01-24 09:59 | Day surgery (SDC) | payer BC, SELFPAY ==
[2021-01-24 10:34] VITALS: BP 108/67; PULSE 79; RESP 18; TEMP 37.4; O2SAT 98; BMI 221.4
== END ==
PROVIDERS: PCP Family Medicine; Visit Provider Surgery
DX: T78.49XA Other allergy, initial encounter (principal)
CPT/HCPCS: 96368

== ENCOUNTER 2021-02-03 21:44 | Emergency (ER) | payer BC, SELFPAY ==
[2021-02-03 21:53] VITALS: BP 121/75; PULSE 96; RESP 17; TEMP 37.2; O2SAT 100; BMI 23.9
--- NOTE | 2021-02-03 21:53 | CTR_ITS ---
PROCEDURE INFORMATION: Exam: CT Neck With Contrast Exam date and time: 02/03/2021 9:56 PM Age: 45 years old Clinical indication: Dysphagia / difficulty swallowing; Prior surgery; Surgery type: Chest port; Patient HX: SOB and dyspnea. Dysphagia. TECHNIQUE: Imaging protocol: Computed tomography images of the neck with contrast. Radiation optimization: All CT scans at this facility use at least one of these dose optimization techniques: automated exposure control; mA and/or kV adjustment per patient size (includes targeted exams where dose is matched to clinical indication); or iterative reconstruction. Contrast material: VISI 320; Contrast volume: 65 ml; Contrast route: INTRAVENOUS (IV); COMPARISON: CT angio headneck* [id number] 2020-08-11 14:11 RADIATION DOSE METRICS: Total DLP (mGy-cm): 524.24 FINDINGS: Nasopharynx: Unremarkable. Oropharynx: Unremarkable. No significant tonsillar enlargement. Hypopharynx: Unremarkable. Larynx: Unremarkable. Normal epiglottis. Retropharyngeal space: Unremarkable. Submandibular/Parotid glands: Normal. Glands are normal in size. Thyroid: Normal. No enlarged or calcified nodules. Lymph nodes: Unremarkable. No lymphadenopathy. Trachea: Visualized trachea is unremarkable. Lungs: Left chest port. Bones/joints: Unremarkable. No acute fracture. Soft tissues: Unremarkable. No significant soft tissue swelling. CT/CT neck w con* [id number] IMPRESSION: No acute findings. Radiation Dose CTDIVOL = (mGy): DLP = 524.24 (mGy-cm)
--- NOTE | 2021-02-03 21:53 | XR_ITS ---
WS: [id number] Portable AP upright chest, 02/03/2021 Clinical Data: sob Comparison: Portable chest, 07/22/2020. Findings: No nodules, masses or effusions are seen. The heart is normal. The pulmonary vascularity is not increased. No pneumonia or pneumothorax is seen. There is an infusion port ending in the superio r vena cava. XR/XR chest 1V portable [id number] Impression: Negative chest.
--- NOTE | 2021-02-03 22:00 | ED_ITS ---
HPI - General Adult General: Chief complaint: General Medical Stated complaint: OBSTUCTION Time Seen by Provider: 02/03/21 21:47 Source: patient and EMS Mode of arrival: EMS Limitations: no limitations History of Present Illness: HPI narrative: 45-year-old female who is a history of severe allergic reactions. She states that over the last 4 to 5 days she has had a cough like she had bronchitis and has been on doxycycline. She states she had allergic reaction 2 days ago and had Decadron and Benadryl. She states that roughly 1 hour ago she started having a sudden onset of hoarseness. She did have a previous brain hemorrhage caused some paralysis to her vocal cords states that she has just had a cough hoarseness and some pain in her throat. She has no rash. Denies any fever. Denies any worsening improving factors. Patient was given albuterol in route. Associated symptoms: Reports dyspnea; Deny chest pain, headache(s), nausea, rash or vomiting Review of Systems Const: Denies: fever(s), chills, body aches or change in appetite Eyes: Denies: blurry vision or eye discomfort ENMT: Reports: throat pain and hoarseness Card: Denies: chest pain Resp: Reports: dyspnea GI: Denies: abdominal pain, nausea, vomiting or diarrhea : Denies: dysuria Musc: Denies: neck pain or back pain Skin/Breast: Denies: rash Neuro: Denies: headache(s) Psych: Denies: depression Nigel/Lymph: Denies: easy bruising All/Imm: Denies: urticaria PFS ED PFSH: Medical History (Updated 02/03/21 @ 23:40 by Patt Davenport MD) Alpha galactosidase deficiency Anxiety Cerebral hemorrhage with hemiparesis (~08/2019) Occurred while on epinephrine drip for anaphylaxis. Mild residual weakness on the left side History of anaphylaxis Requiring intubation History of gluten sensitivity Hyper-IgE syndrome Major depressive disorder Multiple environmental allergies Multiple food allergies PCOS (polycystic ovarian syndrome) PTSD (post-traumatic stress disorder) Rosacea Vocal cord palsy Surgical History History of abdominoplasty History of appendectomy History of artificial lens replacement History of cataract surgery History of section, low transverse History of eye surgery Surgical plate placement and removal History of surgery Intracranial angiogram Port-A-Cath in place (05/26/20) left subclavian Family History Mother Diabetes Thyroid condition Hypercholesteremia Family/Other Cancer Social History Smoking and tobacco status: never smoked Alcohol intake: current Alcohol intake frequency: few times a month Marital status: Current occupational status: employed 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 History: Date of last menstrual period: 10/13/20 Physical Exam Const: COMMON NORMALS: patient oriented x3 and healthy appearing GENERAL APPEARANCE: in distress HENMT: COMMON NORMALS: normocephalic and atraumatic HEAD & SCALP: normocephalic and atraumatic Eye: COMMON NORMALS: Equal, round and reactive pupils present and EOMs intact bilaterally PUPIL: Yes Equal, round and reactive pupils present Neck/C-Spine: COMMON NORMALS: full ROM and supple Chest: COMMONS NORMALS: normal inspection of the chest and normal palpation of entire chest wall Resp: COMMON NORMALS: normal respiratory effort, No retractions, No use of accessory muscles and clear to auscultation bilaterally AUSCULTATION: clear to auscultation bilaterally Cardio: COMMON NORMALS: regular rate, regular rhythm and No murmurs present (Cardio) RATE: regular rate RHYTHM: regular rhythm GI: COMMON NORMALS: Normal to inspection, nondistended, normoactive bowel sounds present, Soft to palpation, non-tender and no masses PALPATION: Yes Soft to palpation Extremity: COMMON NORMALS: normal to inspection and full ROM Neuro: COMMON NORMALS: patient oriented x3, moves all extremities and no focal motor deficits Psych: COMMON NORMALS: mental status grossly normal, Normal thought process present and cooperative THOUGHT PROCESS: Normal thought process present Skin: COMMON NORMALS: no rashes or lesions noted and no wounds GENERAL SKIN EXAM: no rashes or lesions noted Course Vital Signs: Vital signs: Vital Signs Temperature 98.9 F 02/03/21 21:53 Pulse Rate 79 02/04/21 00:39 Respiratory Rate 18 02/04/21 00:39 Blood Pressure 114/79 02/04/21 00:39 Pulse Oximetry 99 02/04/21 00:39 MDM - General Adult MDM Narrative: Medical decision making narrative: Patient presents here with hoarse voice and allergic reaction. She had extensive history is allergic reactions. She feels much improved after Benadryl and racemic epinephrine. CT of her neck is normal. She is stable for discharge to follow-up PCP and return if worsening. Lab Data: Labs: Lab Results 02/03/21 02/03/21 Range/Units 22:00 22:00 WBC 5.2 (4.0-10.0) 10^3/ uL RBC 3.72 L (4.1-5.3) 10^6/u L Hgb 10.2 L (11.5-15.3) g/dL Hct 32.0 L (37.0-47.0) % MCV 86.0 (81-99) fL MCH 27.4 L (28.0-34.0) pg MCHC 31.9 (30.0-36.0) g/dL RDW 14.5 (12.1-15.1) % Plt Count 299 (130-400) 10^3/c mm MPV 9.1 (7.4-10.4) fL Neut % (Auto) 50.3 % Lymph % (Auto) 37.2 % [place] % (Auto) 10.2 % Eos % (Auto) 1.3 % Baso % (Auto) 0.8 % Neut # (Auto) 2.61 (1.8-7.7) 10^3/u L Lymph # (Auto) 1.9 (0.8-4.8) 10^3/u L [place] # (Auto) 0.5 (0.2-0.9) 10^3/u L Eos # (Auto) 0.1 (0.0-0.8) 10^3/u L Baso # (Auto) 0.0 (0.0-0.1) 10^3/u L Nucleated RBC % (a uto) 0 % Nucleated RBCs # 0.0 /100WBC Sodium 138 (136-145) mmol/L Potassium 3.1 L (3.5-5.1) mmol/L Chloride 104 (98-107) mmol/L Carbon Dioxide 23 (22-29) mmol/L Anion Gap 14.1 (5-19) BUN 12 (6-20) mg/dL Creatinine 0.7 (0.5-0.9) mg/dL GFR Calculation 91.3 (90-130) mL/min Glucose 153 H (65-115) mg/dL Calculated Osmolal ity 289 (285-295) mOsm/k g Calcium 8.4 L (8.5-10.5) mg/dL Total Bilirubin 0.2 (0.15-1.2) mg/dL AST 10 (0-32) U/L ALT 10 (0-33) U/L Alkaline Phosphata se 88 (35-105) IU/L Total Protein 6.2 L (6.6-8.7) g/dL Albumin 4.0 (3.5-5.2) g/dL Globulin 2.2 (1.3-4.6) g/dL Imaging Data^: CXR: Attestation: I personally reviewed and interpreted this imaging study as follows: My impression: no acute abnormality ct neck: Attestation: I personally reviewed and interpreted this imaging study as follows: Radiologist's impression: [address] [address] [address] Scan Report Signed Patient: Estella Nathan Unit #: [id number] : 1975 Age/Sex: 45 / F ADM Date: 02/03/21 Loc: ER Room/Bed: Attending Dr: Ordering Provider/Ordering MD: Patt Davenport MD Date of Service: 02/03/21 Procedure(s): CT neck w con* [id number] Accession Number(s): [id number] Report Number: [id number] PROCEDURE INFORMATION: Exam: CT Neck With Contrast Exam date and time: 02/03/2021 9:56 PM Age: 45 years old Clinical indication: Dysphagia / difficulty swallowing; Prior surgery; Surgery type: Chest port; Patient HX: SOB and dyspnea. Dysphagia. TECHNIQUE: Imaging protocol: Computed tomography images of the neck with contrast. Radiation optimization: All CT scans at this facility use at least one of these dose optimization techniques: automated exposure control; mA and/or kV adjustment per patient size (includes targeted exams where dose is matched to clinical indication); or iterative reconstruction. Contrast material: VISI 320; Contrast volume: 65 ml; Contrast route: INTRAVENOUS (IV); COMPARISON: CT angio headneck* [id number] 2020-08-11 14:11 RADIATION DOSE METRICS: Total DLP (mGy-cm): 524.24 FINDINGS: Nasopharynx: Unremarkable. Oropharynx: Unremarkable. No significant tonsillar enlargement. Hypopharynx: Unremarkable. Larynx: Unremarkable. Normal epiglottis. Retropharyngeal space: Unremarkable. Submandibular/Parotid glands: Normal. Glands are normal in size. Thyroid: Normal. No enlarged or calcified nodules. Lymph nodes: Unremarkable. No lymphadenopathy. Trachea: Visualized trachea is unremarkable. Lungs: Left chest port. Bones/joints: Unremarkable. No acute fracture. Soft tissues: Unremarkable. No significant soft tissue swelling. CT/CT neck w con* [id number] IMPRESSION: No acute findings. Discharge Plan Discharge Patient Disposition: Home Clinical Impression: Hoarseness Allergic reaction Qualifiers: Encounter type: initial encounter Qualified Code(s): T78.40XA - Allergy, unspecified, initial encounter Condition: Stable Prescriptions: No Action famotidine 40 mg/5 mL (8 mg/mL) Suspension 40 mg PO BID@0800,1999 RF: 0 diphenhydramine HCl 50 mg/mL solution 50 mg IM Q12H PRN (Reason: allergic reaction) 15 Days Qty: 25 RF: 2 cetirizine 5 mg/5 mL Solution 10 mg PO TID RF: 0 trazodone 100 mg Tablet 150 - 200 mg PO BEDTIME@1999 RF: 0 lorazepam 2 mg/mL concentrate 0.5 - 1 mg PO Q6H PRN (Reason: anxiety) RF: 0 acetaminophen [Tylenol] 325 mg tablet 1,000 mg PO PRN PRN (Reason: Pain) RF: 0 budesonide 0.5 mg/2 mL suspension for nebulization 0.5 mg inhalation BID PRN (Reason: shortness of breath or wheezing) RF: 0 lithium carbonate 150 mg capsule 150 mg PO BEDTIME RF: 0 gabapentin 600 mg Tablet 600 mg PO BID RF: 0 fluoxetine 60 mg Tablet 60 mg PO DAILY RF: 0 Discharge Orders: Discharge ED (Routine); Ordered 02/03/21 Ordered By: Patt Davenport Referrals: Chi Cobb MD [Primary Care Provider] - 1-3 days Discharge Diet: Advance as tolerated Discharge Activity: Resume usual activity Patient Instructions: Allergic Reaction, Laryngitis (ED) Coding Level of Care Code ED Nuclear Plant Equipment Operator for Chg Fwd Exam Comprehensive
[2021-02-03] MEDS: dexamethasone 10 mg/mL INJ IVP (22:18)
[2021-02-03] MEDS: diphenhydrAMINE 50 mg/mL SDV 1mL IVP ×2 (22:19→22:57)
[2021-02-03 22:21] VITALS: BP 107/74; PULSE 98; RESP 18; O2SAT 99
[2021-02-03 22:22] VITALS: PULSE 97; RESP 18; O2SAT 98
[2021-02-03] MEDS: racepinephrine 0.5 mL Neb INHALATION (22:22)
[2021-02-03] MEDS: ondansetron 2 mg/ML SDV 2 mL 4 MG IVP (22:22)
[2021-02-03 22:29] VITALS: PULSE 105
[2021-02-03] MEDS: iodixanol 320 mg/mL 100mL Btl IV (22:40)
[2021-02-03 23:15] LABS: Basophils % 0.8 %; Eosinophils # 0.1 10^3/uL (0.0-0.8); Eosinophils % 1.3 %; Hemoglobin 10.2 g/dL (11.5-15.3); Lymphocytes # 1.9 10^3/uL (0.8-4.8); Lymphocytes % 37.2 %; Mean Corpuscular HGB Conc 31.9 g/dL (30.0-36.0); Mean Corpuscular Hemoglobin 27.4 pg (28.0-34.0); Mean Platelet Volume 9.1 fL (7.4-10.4); Monocytes # 0.5 10^3/uL (0.2-0.9); Monocytes % 10.2 %; Neutrophils # 2.61 10^3/uL (1.8-7.7); Neutrophils % 50.3 %; Nucleated Red Blood Cells % 0 %; Platelet Count 299 10^3/cmm (130-400); Red Blood Count 3.72 10^6/uL (4.1-5.3); Red Cell Distribution Width 14.5 % (12.1-15.1); White Blood Count 5.2 10^3/uL (4.0-10.0)
[2021-02-03 23:32] LABS: Alanine Aminotransferase 10 U/L (0-33); Alkaline Phosphatase 88 IU/L (35-105); Anion Gap 14.1 (5-19); Aspartate Amino Transferase 10 U/L (0-32); Blood Urea Nitrogen 12 mg/dL (6-20); Calcium 8.4 mg/dL (8.5-10.5); Carbon Dioxide 23 mmol/L (22-29); Chloride 104 mmol/L (98-107); Globulin 2.2 g/dL (1.3-4.6); Glomerular Filtration Rate 91.3 mL/min (90-130); Glucose 153 mg/dL (65-115); Osmolality Calculated 289 mOsm/kg (285-295); Potassium 3.1 mmol/L (3.5-5.1); Sodium 138 mmol/L (136-145); Total Bilirubin 0.2 mg/dL (0.15-1.2); Total Protein 6.2 g/dL (6.6-8.7)
[2021-02-04] VITALS: BP 114/79; PULSE 79; RESP 18; O2SAT 99
[2021-02-04] MEDS: diphenhydrAMINE 50 mg/mL SDV 1mL IVP (00:05)
[2021-02-04 00:39] VITALS: BP 114/79; PULSE 79; RESP 18; O2SAT 99
== END 2021-02-04 00:10 | disposition home or self-care (01) ==
PROVIDERS: Emergency Provider Emergency Medicine; PCP Family Medicine
DX: R49.0 Dysphonia (principal); T78.40XA Allergy, unspecified, initial encounter
CPT/HCPCS: 36591; 70491; 71045; 80053; 85025; 94640; 96374; 96375; 96376; 99284; J1100; J1200; J2405; Q9967

== ENCOUNTER 2021-02-08 08:51 | Emergency (ER) | payer BC, SELFPAY ==
[2021-02-08 08:52] VITALS: BP 121/90; PULSE 87; RESP 16; TEMP 36.7; O2SAT 100; BMI 23.9
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
[2021-02-08 09:02] VITALS: BP 121/90; PULSE 80; RESP 20; O2SAT 99
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
[2021-02-08 09:32] VITALS: BP 124/75; PULSE 81; RESP 18; O2SAT 98
[2021-02-08 09:37] LABS: Add Urine Microscopic? NO; Charge for UA Resulting for Rev
[2021-02-08 09:53] LABS: Bilirubin Urine Neg (Negative); Blood Urine Neg (Negative); Glucose Urine UA Norm (Normal); Ketones Urine Negative (Negative); Leukocyte Esterase Urine Negative (Negative); Nitrate Urine Negative (Negative); Protein Urine Neg (Negative); Urine Appearance Clear (CLEAR); Urine Color Yellow (Yellow); Urobilinogen Urine Norm (Negative); pH Urine 7 (5-7)
[2021-02-08 10:02] VITALS: BP 124/75; RESP 18; O2SAT 98
[2021-02-08 10:04] LABS: Basophils % 0.5 %; Eosinophils # 0.1 10^3/uL (0.0-0.8); Eosinophils % 0.8 %; Hematocrit 31.2 % (37.0-47.0); Lymphocytes # 1.3 10^3/uL (0.8-4.8); Mean Corpuscular HGB Conc 32.1 g/dL (30.0-36.0); Mean Corpuscular Hemoglobin 27.4 pg (28.0-34.0); Mean Corpuscular Volume 85.5 fL (81-99); Mean Platelet Volume 8.8 fL (7.4-10.4); Monocytes # 0.6 10^3/uL (0.2-0.9); Monocytes % 7.6 %; Neutrophils # 5.73 10^3/uL (1.8-7.7); Nucleated Red Blood Cells % 0 %; Platelet Count 250 10^3/cmm (130-400); Red Blood Count 3.65 10^6/uL (4.1-5.3); Red Cell Distribution Width 14.1 % (12.1-15.1); White Blood Count 7.8 10^3/uL (4.0-10.0)
[2021-02-08] MEDS: diphenhydrAMINE 50 mg/mL SDV 1mL IVP (10:08)
[2021-02-08 10:18] LABS: Alanine Aminotransferase 7 U/L (0-33); Albumin Level 3.6 g/dL (3.5-5.2); Alkaline Phosphatase 63 IU/L (35-105); Anion Gap 11.9 (5-19); Aspartate Amino Transferase 19 U/L (0-32); Blood Urea Nitrogen 13 mg/dL (6-20); Calcium 8.1 mg/dL (8.5-10.5); Carbon Dioxide 25 mmol/L (22-29); Chloride 105 mmol/L (98-107); Glomerular Filtration Rate 78.3 mL/min (90-130); Glucose 99 mg/dL (65-115); Osmolality Calculated 286 mOsm/kg (285-295); Potassium 3.9 mmol/L (3.5-5.1); Sodium 138 mmol/L (136-145); Total Bilirubin 0.2 mg/dL (0.15-1.2); Total Protein 5.6 g/dL (6.6-8.7)
[2021-02-08 10:49] VITALS: RESP 18
[2021-02-08] MEDS: morphine 4 mg/mL SDV 1 mL IVP (10:49)
[2021-02-08 10:59] VITALS: BP 122/80; PULSE 80; RESP 18; O2SAT 100
== END 2021-02-08 11:06 | disposition home or self-care (01) ==
PROVIDERS: Emergency Provider Family Medicine; PCP Family Medicine
DX: Z04.1 Encounter for examination and observation following transport accident (principal); V89.2XXA Person injured in unspecified motor-vehicle accident, traffic, initial encounter
CPT/HCPCS: 70450; 72125; 73000; 73130; 80053; 81003; 85025; 96374; 96375; 99283; J1200; J2270

== ENCOUNTER → 2021-03-01 15:49 | Day surgery (SDC) | payer BC, SELFPAY ==
[2021-03-01 14:00] VITALS: BP 120/80; PULSE 72; RESP 18; TEMP 36.2; O2SAT 96
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
== END ==
PROVIDERS: PCP Family Medicine; Visit Provider Surgery
DX: Z45.2 Encounter for adjustment and management of vascular access device (principal)
CPT/HCPCS: 96368; 96523

== ENCOUNTER → 2021-03-11 09:40 | Outpatient (BNVA) | payer BC, SELFPAY | PROVIDERS: PCP Family Medicine; Visit Provider Psychiatry & Neurology Psychiatry | DX: F41.9 Anxiety disorder, unspecified (principal); R45.86 Emotional lability; F43.10 Post-traumatic stress disorder, unspecified; F32.9 Major depressive disorder, single episode, unspecified | CPT/HCPCS: 90792 ==

== ENCOUNTER 2021-03-23 14:34 | Outpatient (CLI) | payer BC, SELFPAY ==
[2021-03-23 16:23] LABS: Lithium 0.2 mmol/L (0.6-1.2)
== END 2021-03-23 14:35 | disposition home or self-care (01) ==
LOC: LAB 14:36
PROVIDERS: PCP Family Medicine; Visit Provider Psychiatry & Neurology Psychiatry
DX: Z79.899 Other long term (current) drug therapy (principal)
CPT/HCPCS: 36415; 80178

== ENCOUNTER 2021-03-23 19:16 | Emergency (ER) | payer BC, SELFPAY ==
[2021-03-23] VITALS (13 sets, daily range): BP systolic 116–134; BP diastolic 81–92; PULSE 74–112; RESP 16–98; TEMP 37; O2SAT 96–99; BMI 23.9
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
[2021-03-23] MEDS: LORazepam 2 mg/mL INJ 1 mL 1 MG IVP (20:00)
[2021-03-23] MEDS: diphenhydrAMINE 50 mg/mL SDV 1mL IVP ×2 (20:05→20:10)
[2021-03-23 20:22] LABS: Basophils % 0.6 %; Eosinophils % 0.3 %; Hematocrit 29.8 % (37.0-47.0); Hemoglobin 9.5 g/dL (11.5-15.3); Lymphocytes # 1.8 10^3/uL (0.8-4.8); Lymphocytes % 28.6 %; Mean Corpuscular HGB Conc 31.9 g/dL (30.0-36.0); Mean Corpuscular Hemoglobin 26.8 pg (28.0-34.0); Mean Corpuscular Volume 84.2 fL (81-99); Mean Platelet Volume 9.6 fL (7.4-10.4); Monocytes # 0.5 10^3/uL (0.2-0.9); Monocytes % 7.9 %; Neutrophils # 3.86 10^3/uL (1.8-7.7); Neutrophils % 62.4 %; Nucleated Red Blood Cells % 0 %; Platelet Count 261 10^3/cmm (130-400); Red Blood Count 3.54 10^6/uL (4.1-5.3); Red Cell Distribution Width 13.9 % (12.1-15.1); White Blood Count 6.2 10^3/uL (4.0-10.0)
[2021-03-23 20:36] LABS: Lithium 0.2 mmol/L (0.6-1.2)
[2021-03-23] MEDS: racepinephrine 0.5 mL Neb INHALATION (21:03)
[2021-03-23] MEDS: morphine 4 mg/mL SDV 1 mL IVP (21:15)
[2021-03-23 21:18] LABS: Anion Gap 17.6 (5-19); Blood Urea Nitrogen 10 mg/dL (6-20); Calcium 8.2 mg/dL (8.5-10.5); Carbon Dioxide 19 mmol/L (22-29); Chloride 102 mmol/L (98-107); Glomerular Filtration Rate 78.3 mL/min (90-130); Glucose 109 mg/dL (65-115); Osmolality Calculated 280 mOsm/kg (285-295); Potassium 3.6 mmol/L (3.5-5.1); Sodium 135 mmol/L (136-145)
[2021-03-23] MEDS: HYDROcodone-acetaminophen 5-325 mg Tablet 1 TAB PO (22:19)
[2021-03-23] MEDS: famotidine 20 mg/2 mL INJ 40 MG IVP (23:01)
[2021-03-24 00:27] VITALS: BP 123/84; PULSE 86; RESP 18; O2SAT 97
[2021-03-24] MEDS: diphenhydrAMINE 50 mg/mL SDV 1mL IVP (00:54)
[2021-03-24 00:57] VITALS: BP 122/81; PULSE 74; RESP 18; O2SAT 96
[2021-03-24 02:25] VITALS: BP 122/81; PULSE 74; RESP 18; O2SAT 98
== END 2021-03-24 01:10 | disposition home or self-care (01) ==
PROVIDERS: Emergency Provider Emergency Medicine; PCP Family Medicine
DX: T78.40XA Allergy, unspecified, initial encounter (principal)
CPT/HCPCS: 80048; 80178; 85025; 94640; 96374; 96375; 96376; 99284; J1200; J2060; J2270; J2930; J3490

== ENCOUNTER 2021-03-24 14:10 | Emergency (ER) | payer BC, SELFPAY ==
[2021-03-24 14:17] VITALS: BP 125/75; PULSE 105; RESP 18; TEMP 37.1; O2SAT 96; BMI 23.9
[2021-03-24 14:22] VITALS: BP 140/82; PULSE 104; RESP 19; O2SAT 97
--- NOTE | 2021-03-24 14:38 | ECG_ITS ---
[facility] Test Date: 2021-03-24 Pat Name: Estella Nathan Department: Room: Gender: Female Log Manager: : 1975 Requested By: Jonathan Brewster Order Number: [id number] Mehrdad MD: Satish Gerardo M.D. Measurements Intervals [place] Rate: 98 P: 64 NE: 148 QRS: 78 QRSD: 84 T: 52 QT: 382 QTc: 489 Interpretive Statements SINUS RHYTHM NONSPECIFIC T-WAVE ABNORMALITY No previous ECG available for comparison Electronically Signed On 03-24-2021 16:45:38 CDT by Satish Gerardo M.D. [id number]
--- NOTE | 2021-03-24 14:43 | CT_ITS ---
WS: [id number] CT HEAD NONCONTRAST HISTORY: HEADACHE TECHNIQUE: Contiguous axial imaging performed through the brain in 2.5 mm imaging. Bone and soft tiss ue windows. Sagittal and coronal reformats reviewed. All CT scans at [facility] use at ast one of these dose optimization techniques: automated exposure control; mA and/or kV adjustment pe r patient size (includes targeted exams where dose is matched to clinical indication); or iterative r econstruction. DLP: 845.21 mGy.cm COMPARISON: 02/08/2021 No acute intracranial hemorrhage, midline shift or mass effect. Moderate chronic infarct involving the RIGHT parafalcine parietal lobe posteriorly. Similar to prior studies. No acute hemorrhage. No new or additional infarcts. Ventricles: Normal size with no hydrocephalus. No inferior displacement of cerebellar tonsils. Paranasal sinuses: As visualized are clear. Mastoid air cells: Well pneumatized. Calvarium and scalp: Skull is intact with no soft tissue edema or swelling. CT/CT head wo con* [id number] IMPRESSION: 1. No acute intracranial hemorrhage or edema. 2. Stable RIGHT parietal parafalcine infarct with encephalomalacia. No new inf arct.
--- NOTE | 2021-03-24 14:50 | ED_ITS ---
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 Patient ended up having significant stroke due to intracranial hemorrhaging. Patient has had significant issues related to PTSD and anxiety due to the same. Patient is having a tremor and is concerned that she is having allergic reaction. Patient had a been having multiple allergies all related to the drinking of milk and eating some pork. Patient says significant disability since this incident happened. Patient was seen in the emergency department yesterday for the same concern for allergic reaction. Take patient takes multiple medications including Benadryl daily for allergies. Patient is requesting allergy medication treatment through Benadryl IV she is concerned that she is having allergic reaction and itching. These are common symptoms for the patient patient does not appear to be in acute allergic reaction. And does not have any shortness of breath breath or rashes. Patient does take lithium. Her lithium level was 0.2 yesterday patient has been having a tremor. Associated symptoms: Deny abdominal pain, hoarseness, nausea or vomiting Review of Systems General: Reports: 10 or more systems reviewed and unremarkable except in HPI and below Const: Denies: fever(s), chills, body aches or fatigue Eyes: Denies: change in vision or blurry vision ENMT: Denies: throat pain, hoarseness or mouth pain Card: Denies: chest pain, palpitations, irregular heart rhythm, edema, swelling of feet/ankles or lightheadedness Resp: Denies: dyspnea, productive cough, non-productive cough, wheezing or pain on inspiration GI: Denies: abdominal pain, nausea or vomiting : Denies: flank pain, difficulty voiding, dysuria, urinary frequency, urinary urgency or urinary hesitancy Musc: Denies: neck pain, back pain, extremity pain, extremity swelling, joint pain, joint swelling, joint redness, joint warmth or limited range of motion Skin/Breast: Denies: rash, pruritus, erythema or skin tenderness Neuro: Denies: headache(s), numbness in extremities or weakness in extremities Psych: Reports: anxiety; Denies: depression PFSH ED PFSH: Medical History Alpha galactosidase deficiency Anxiety Cerebral hemorrhage with hemiparesis (~08/2019) Occurred while on epinephrine drip for anaphylaxis. Mild residual weakness on the left side History of anaphylaxis Requiring intubation History of gluten sensitivity Hyper-IgE syndrome Major depressive disorder Mood swings Multiple environmental allergies Multiple food allergies PCOS (polycystic ovarian syndrome) PTSD (post-traumatic stress disorder) Rosacea Vocal cord palsy Surgical History History of abdominoplasty History of appendectomy History of artificial lens replacement History of cataract surgery History of section, low transverse History of eye surgery Surgical plate placement and removal History of surgery Intracranial angiogram Port-A-Cath in place (05/26/20) left subclavian Family History Mother Diabetes Thyroid condition Hypercholesteremia Family/Other Cancer Social History Smoking and tobacco status: never smoked Alcohol intake: current Alcohol intake frequency: few times a month Marital status: Current occupational status: employed 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 Female 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 History: Date of last menstrual period: 03/21/21 Physical Exam Const: COMMON NORMALS: no acute distress, average body habitus, patient oriented x3, no limitations, healthy appearing, alert and well nourished HENMT: COMMON NORMALS: normocephalic, atraumatic, hearing grossly normal bilaterally, external ears normal, EAC's normal, TM's normal bilaterally, Normal external nose present, Normal nasal mucous membranes and turbinates present, moist oral mucous membranes, oropharynx normal, dentition normal and gingiva normal HEAD & SCALP: normocephalic and atraumatic NOSE: Normal external nose present and Normal nasal mucous membranes and turbinates present EXTERNAL EAR: Yes external ears normal EXTERNAL AUDITORY CANAL: EAC's normal TYMPANIC MEMBRANE: TM's normal bilaterally Neck/C-Spine: COMMON NORMALS: full ROM, no lymphadenopathy, supple, no meningeal signs, no JVD, Thyroid normal and No carotid bruits THYROID: Thyroid normal Chest: COMMONS NORMALS: normal inspection of the chest, normal palpation of entire chest wall, normal inspection of the breasts and normal palpation of the breasts Breast/axilla inspection: Yes normal inspection of the breasts BREAST/AXILLA PALPATION: Yes normal palpation of the breasts Resp: COMMON NORMALS: normal respiratory effort, No retractions, No use of accessory muscles, clear to auscultation bilaterally and percussion normal AUSCULTATION: clear to auscultation bilaterally PERCUSSION: percussion normal Cardio: COMMON NORMALS: no JVD, regular rate, regular rhythm, S1 normal heart sound present, S2 normal heart sound present, No gallops present (Cardio), No clicks present (Cardio), No murmurs present (Cardio), No rub (Cardio) and Peripheral pulses 2+ throughout RATE: regular rate RHYTHM: regular rhythm HEART SOUNDS: S1 normal heart sound present and S2 normal heart sound present PERIPHERAL PULSES: Peripheral pulses 2+ throughout GI: COMMON NORMALS: Normal to inspection, nondistended, normoactive bowel sounds present, Soft to palpation, non-tender, No hepatosplenomegaly present, no masses and no bruits PALPATION: Yes Soft to palpation and Yes No hepatosplenomegaly present Back/Pelvis: COMMON NORMALS: thoracic and lumbar spine normal to inspection, no thoracic nor lumbar tenderness, thoraco-lumbar ROM normal and straight leg raise negative bilaterally Extremity: COMMON NORMALS: normal to inspection, full ROM, capillary refill normal, no joint enlargement, no clubbing, cyanosis or edema, no calf tenderness and no pedal edema Neuro: COMMON NORMALS: patient oriented x3 SENSORIUM/ORIENTATION: Yes alert MENINGEAL SIGNS: Yes no meningeal signs Course Reevaluation(s): Reevaluation #1: Patient is insistent that she continues to have allergic reactions. She feels like people do not believe her. Advised the patient that I believe that this could be medication side effect causing some of her symptoms. Patient does not appear to be acutely short of breath and has no rash. Patient could be developing an anticholinergic side effect related to the amount of antihistamines that she takes. She states that she takes 30 mg of Zyrtec daily but she also takes Benadryl regularly. Patient is also on lithium. I advised the patient I will have psychiatry come and discuss with her possible medication changes. She does not appear to be very receptive to this idea in the beginning. I advised the patient that I believe that this is a medication side effect and medication adjustments could greatly help her. Dr. Baum will see shortly. Time: 15:38 Reevaluation #2: I discussed at length with Dr. Baum after he saw the patient. He states he believes patient has significant PTSD and anxiety issues but also does have significant neurological issues post stroke. He believes medication side effect is most likely compounding the issue he recommended the patient continue home medications however would keep a symptom log and a medication log for when she takes as needed's. And follow-up with primary care to review this log to see if the patient is actually taking too much anticholinergic medications. Or other issues. Will discuss with patient at discharge. Dr. Irvin recommends no medications changes. Time: 16:17 Consultations: Consultation #1: I did discuss at length with Dr. Joshi neurology at [facility]. We did review the patient's medications. He states that after the patient was treated and evaluated by Dr. Evans at [facility] patient was discharged and has not followed at the stroke center there. Please patient is being followed in [place] the neurology clinic. However he does recommend the patient have an outpatient neurological evaluation and possible outpatient MRI with neurology. Time: 15:21 Consultation #2: I did discuss at length with Dr. Baum psychiatry. We did review patient's medication list. And discussed patient's acute anxiety and her diagnosis of PTSD. 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 Patient ended up having significant stroke due to intracranial hemorrhaging. Patient has had significant issues related to PTSD and anxiety due to the same. Patient is having a tremor and is concerned that she is having allergic reaction. Patient had a been having multiple allergies all related to the drinking of milk and eating some pork. Patient says significant disability since this incident happened. Patient was seen in the emergency department y[place] em[place] for the same concern for allergic reaction. Take patient takes multiple medications including Benadryl daily for allergies. Patient is requesting allergy medication treatment through Benadryl IV she is concerned that she is having allergic reaction and itching. These are common symptoms for the patient patient does not appear to be in acute allergic reaction. And does not have any shortness of breath breath or rashes. Patient does take lithium. Her lithium level was 0.2 yesterday patient has been having a tremor. Patient is insistent that she continues to have allergic reactions. She feels like people do not believe her. Advised the patient that I believe that this could be medication side effect causing some of her symptoms. Patient does not appear to be acutely short of breath and has no rash. Patient could be developing an anticholinergic side effect related to the amount of antihistamines that she takes. She states that she takes 30 mg of Zyrtec daily but she also takes Benadryl regularly. Patient is also on lithium. I advised the patient I will have psychiatry come and discuss with her possible medication changes. She does not appear to be very receptive to this idea in the beginning. I advised the patient that I believe that this is a medication side effect and medication adjustments could greatly help her. Dr. Baum will see shortly. I did discuss at length with Dr. Adi flores at [facility]. We did review the patient's medications. He states that after the patient was treated and evaluated by Dr. Evans at [facility] patient was discharged and has not followed at the stroke center there. Please patient is being followed in [place] the neurology clinic. However he does recommend the patient have an outpatient neurological evaluation and possible outpatient MRI with neurology. I did discuss at length with Dr. Baum psychiatry. We did review patient's medication list. And discussed patient's acute anxiety and her diagnosis of PTSD. Lab Data: Labs: Lab Results 03/24/21 03/24/21 03/24/21 Range/Units 15:00 15:00 15:00 WBC 6.8 (4.0-10.0) 10^3/ uL RBC 3.60 L (4.1-5.3) 10^6/u L Hgb 9.7 L (11.5-15.3) g/dL Hct 30.6 L (37.0-47.0) % MCV 85.0 (81-99) fL MCH 26.9 L (28.0-34.0) pg MCHC 31.7 (30.0-36.0) g/dL RDW 13.8 (12.1-15.1) % Plt Count 305 (130-400) 10^3/c mm MPV 9.5 (7.4-10.4) fL Neut % (Auto) 74.5 % Lymph % (Auto) 15.5 % Karnes % (Auto) 9.6 % Eos % (Auto) 0.0 % Baso % (Auto) 0.3 % Neut # (Auto) 5.05 (1.8-7.7) 10^3/u L Lymph # (Auto) 1.1 (0.8-4.8) 10^3/u L Karnes # (Auto) 0.7 (0.2-0.9) 10^3/u L Eos # (Auto) 0.0 (0.0-0.8) 10^3/u L Baso # (Auto) 0.0 (0.0-0.1) 10^3/u L Nucleated RBC % (a uto) 0 % Nucleated RBCs # 0.0 /100WBC Sodium 138 (136-145) mmol/L Potassium 3.8 (3.5-5.1) mmol/L Chloride 106 (98-107) mmol/L Carbon Dioxide 21 L (22-29) mmol/L Anion Gap 14.8 (5-19) BUN 10 (6-20) mg/dL Creatinine 0.7 (0.5-0.9) mg/dL GFR Calculation 91.3 (90-130) mL/min Glucose 152 H (65-115) mg/dL Calculated Osmolal ity 288 (285-295) mOsm/k g Calcium 8.7 (8.5-10.5) mg/dL TSH 0.62 (0.27-4.20) uIU/ mL Tyhee 0.2 L (0.6-1.2) mmol/L Imaging Data^: CT Head: Attestation: I personally reviewed and interpreted this imaging study as follows: Radiologist's impression: COMPARISON: 02/08/2021 No acute intracranial hemorrhage, midline shift or mass effect. Moderate chronic infarct involving the RIGHT parafalcine parietal lobe posteriorly. Similar to prior studies. No acute hemorrhage. No new or additional infarcts. Ventricles: Normal size with no hydrocephalus. No inferior displacement of cerebellar tonsils. Paranasal sinuses: As visualized are clear. Mastoid air cells: Well pneumatized. Calvarium and scalp: Skull is intact with no soft tissue edema or swelling. CT/CT head wo con* [id number] IMPRESSION: 1. No acute intracranial hemorrhage or edema. 2. Stable RIGHT parietal parafalcine infarct with encephalomalacia. No new infarct. EKG Data^: EKG 1: Attestation: I personally reviewed and interpreted this EKG as follows: EKG interpretation date: 03/24/21 EKG interpretation time: 14:26 Prior EKG tracings: available for review Interpretation: Sinus tachycardia heart rate 103 nonspecific T wave changes. Discharge Plan Discharge Patient Disposition: Home Clinical Impression: Tremor, PTSD (post-traumatic stress disorder), Anxiety, Multiple environmental allergies, Tyhee use, Alpha galactosidase deficiency, Medication side effect Condition: Stable Prescriptions: No Action lorazepam 2 mg/mL concentrate 1 mg PO BID PRN (Reason: anxiety) Qty: 30 RF: 3 lithium carbonate 300 mg capsule 300 mg PO BEDTIME 30 Days Qty: 30 RF: 3 famotidine 40 mg/5 mL (8 mg/mL) Suspension 40 mg PO BID RF: 0 diphenhydramine HCl 50 mg/mL solution 50 mg IM Q12H PRN (Reason: allergic reaction) 15 Days Qty: 25 RF: 2 cetirizine 5 mg/5 mL Solution 10 mg PO TID RF: 0 trazodone 100 mg Tablet 150 - 200 mg PO BEDTIME RF: 0 acetaminophen [Tylenol] 325 mg tablet 1,000 mg PO PRN RF: 0 budesonide 0.5 mg/2 mL suspension for nebulization 0.5 mg inhalation BID PRN (Reason: shortness of breath or wheezing) RF: 0 fluoxetine 60 mg Tablet 60 mg PO DAILY RF: 0 oxycodone 5 mg/5 mL solution 5 mg PO Q6H PRN (Reason: Pain) RF: 0 gabapentin 300 mg Capsule 300 mg PO BID RF: 0 Discharge Orders: Discharge ED (Routine); Ordered 03/24/21 Ordered By: Jonathan Brewster Referrals: Chi Cobb MD [Primary Care Provider] - Discharge Diet: Advance as tolerated Discharge Activity: Resume usual activity Patient Instructions: Opioid Safety Activity Restrictions/Additional Instructions: Continue all home medications as instructed. Follow-up with neurology to schedule an outpatient neurological exam and possible outpatient EEG versus MRI through neurology. Follow-up with your primary care physician as instructed. Maintain a daily journal and list your daily signs and symptoms and also medication usage for when you self medicate with as needed medications. Discussed with your primary care physician to make sure that you are not having any significant adverse reactions to medications or symptoms from there are side effects that can be compounded by the multiple medications with similar side effect profiles. Monitor diet closely. Return to the emergency department if needed. Coding Level of Care Code ED Transmission And Coordination Engineer for Shanthi Fwbreanna Exam Comprehensive
[2021-03-24] MEDS: diphenhydrAMINE 50 mg/mL SDV 1mL IVP (15:00)
[2021-03-24 15:08] LABS: Basophils % 0.3 %; Hematocrit 30.6 % (37.0-47.0); Hemoglobin 9.7 g/dL (11.5-15.3); Lymphocytes # 1.1 10^3/uL (0.8-4.8); Lymphocytes % 15.5 %; Mean Corpuscular HGB Conc 31.7 g/dL (30.0-36.0); Mean Corpuscular Hemoglobin 26.9 pg (28.0-34.0); Mean Platelet Volume 9.5 fL (7.4-10.4); Monocytes # 0.7 10^3/uL (0.2-0.9); Monocytes % 9.6 %; Neutrophils # 5.05 10^3/uL (1.8-7.7); Neutrophils % 74.5 %; Nucleated Red Blood Cells % 0 %; Platelet Count 305 10^3/cmm (130-400); Red Cell Distribution Width 13.8 % (12.1-15.1); White Blood Count 6.8 10^3/uL (4.0-10.0)
[2021-03-24 15:27] LABS: Lithium 0.2 mmol/L (0.6-1.2)
[2021-03-24 15:41] LABS: Anion Gap 14.8 (5-19); Blood Urea Nitrogen 10 mg/dL (6-20); Calcium 8.7 mg/dL (8.5-10.5); Carbon Dioxide 21 mmol/L (22-29); Chloride 106 mmol/L (98-107); Glomerular Filtration Rate 91.3 mL/min (90-130); Glucose 152 mg/dL (65-115); Osmolality Calculated 288 mOsm/kg (285-295); Potassium 3.8 mmol/L (3.5-5.1); Sodium 138 mmol/L (136-145); Thyroid Stimulating Hormone 0.62 uIU/mL (0.27-4.20)
[2021-03-24 15:52] VITALS: BP 138/80; PULSE 110; O2SAT 98
--- NOTE | 2021-03-24 16:20 | PM.PSYCN ---
Providers/Reason for Consult Consulting Physican/Specialty*: Justina Baum DO Reason for Consult*: Report of transient cognitive clouding, tremor Requesting Physcian: Dr. Brewster/ED Primary Care Provider: Chi Cobb MD Psych Consult HPI History of Present Illness Estella Nathan is a 45 year old female with history of stroke, PTSD presented to the emergency department with complaint of transient episode of cognitive clouding and ongoing tremor. Patient currently denying any PTSD symptoms but reports intermittent episodes of anxiety related to her ongoing medical issues to include concerns about having allergic reactions. She does report having some intrusive thoughts as well as frustration about these concerns. Reports ongoing excessive worry and difficulty controlling her worrying and occasional racing thoughts but denies any recent panic symptoms or panic attacks. Denies any depressed symptoms, denies any suicidal ideation. Patient reports some cognitive complaints of difficulty thinking clearly at times and occasionally reporting that she feels like she is experiencing brain fog. Psychiatric review of systems is otherwise negative. Review of Systems General: Reports: 10 or more systems reviewed and unremarkable except in HPI and below PFSH NPU PFSH: Medical History Alpha galactosidase deficiency Anxiety Cerebral hemorrhage with hemiparesis (~08/2019) Occurred while on epinephrine drip for anaphylaxis. Mild residual weakness on the left side History of anaphylaxis Requiring intubation History of gluten sensitivity Hyper-IgE syndrome Major depressive disorder Mood swings Multiple environmental allergies Multiple food allergies PCOS (polycystic ovarian syndrome) PTSD (post-traumatic stress disorder) Rosacea Vocal cord palsy Surgical History History of abdominoplasty History of appendectomy History of artificial lens replacement History of cataract surgery History of section, low transverse History of eye surgery Surgical plate placement and removal History of surgery Intracranial angiogram Port-A-Cath in place (05/26/20) left subclavian Family History Mother Diabetes Thyroid condition Hypercholesteremia Family/Other Cancer Social History Smoking and tobacco status: never smoked Alcohol intake: current Alcohol intake frequency: few times a month Marital status: Current occupational status: employed 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[employer] Other Psychiatric History: Other Psychiatric History: Currently followed by a psychiatrist at [facility] for medication management, treatment for PTSD, anxiety Reports seeing a therapist in [place] every 2 weeks Reports any history of psychiatric hospitalization Denies any history of suicide attempt or self-harm behavior Mental Status Exam MSE Comments: Appears stated age, sitting up in gurney, calm, cooperative, interactive, good eye contact, appropriately groomed and dressed Psychomotor activity is neither increased nor decreased, no agitation no apparent restlessness although occasionally scratching at herself Speech is normal rate and volume, spontaneous, clear articulation, not pressured I feel frustrated, congruent affect, not labile Alert and oriented to person, place, time, situation Memory and concentration appear to be fair based on interview, occasionally having some difficulty with recent memory Intellectual functioning appears to be above average based on vocabulary, interview Thought process, occasional delays but linear, no flight of ideas, no looseness of associations Thought content, no delusions, no hallucinations, no suicidal homicidal ideation Insight and judgment appear to be intact Vitals/I&O/Wt Last Vital Signs Temp 98.7 F 03/24/21 14:17 Pulse 104 H 03/24/21 14:22 Resp 19 H 03/24/21 14:22 BP 140/82 03/24/21 14:22 Pulse Ox 97 03/24/21 14:22 Weight last 48 hrs Weight 61.235 kg A&P Assessment and plan (1) Tremor: Status: Acute (2) Medication side effect: Status: Acute (3) PTSD (post-traumatic stress disorder): Status: Chronic Additional A&P Information Patient states that she presented to the emergency department with regards to concerns about a transient event of cognitive clouding. She denies any current PTSD symptoms although reports some stress related anxiety and frustration with regards to her symptoms. Patient is on multiple anticholinergic medications as well as anticonvulsant medication which may potentiate episodes of cognitive clouding. Also discussed possibility of current medications that she takes that may exacerbate tremor to include her antidepressant and lithium although currently taking a low-dose of lithium. Patient had previously taken propranolol for tremor but states that she was having some difficulty with fatigue and exercise tolerance. No acute safety concerns, psychiatric hospitalization is not indicated; outpatient medication management, therapy of the least restrictive and appropriate level of care at this time Do not recommend any medication changes although did recommend being mindful of potential side effects and interactions of her medication and that keeping a medication diary may be helpful for identifying temporal relationship between medication that she takes and events in which she experiences cognitive clouding RECOMMEND continuing outpatient medication management follow-up as well as outpatient therapy for her chronic PTSD, anxiety Above assessment and recommendations were discussed with the patient who communicated her understanding and agreement. Above recommendations were discussed with Dr. Brewster/emergency physician Attestations NPU Medical Necessity Statement*: N/A Time Spent in Patient Care: Greater than 35 minutes (>than 50% of time spent in counselling and/or direct pt care on unit). Coding Level of Care Code Acute Educational Institution President for Shanthi Fwd Diagnoses Tremor R25.1 Medication side effect T88.7XXA PTSD (post-traumatic stress disorder) F43.10
[2021-03-24 16:57] VITALS: PULSE 112; O2SAT 99
== END 2021-03-24 16:58 | disposition home or self-care (01) ==
PROVIDERS: Emergency Provider Emergency Medicine; PCP Family Medicine
DX: T78.49XA Other allergy, initial encounter (principal); R25.1 Tremor, unspecified; F43.10 Post-traumatic stress disorder, unspecified; F41.9 Anxiety disorder, unspecified; F19.90 Other psychoactive substance use, unspecified, uncomplicated; E75.21 Fabry (-Anderson) disease; T50.905A Adverse effect of unspecified drugs, medicaments and biological substances, initial encounter
CPT/HCPCS: 70450; 80048; 80178; 84443; 85025; 93005; 96374; 99284; J1200

== ENCOUNTER 2021-05-21 09:00 | Emergency (ER) | payer OTHER, SELFPAY ==
--- NOTE | 2021-05-21 09:03 | ECG_ITS ---
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 Measurements Intervals Pass Christian Rate: 63 P: 38 AL: 134 QRS: 72 QRSD: 86 T: 57 QT: 445 QTc: 459 Interpretive Statements SINUS RHYTHM Compared to ECG 03/24/2021 15:06:17 T-wave abnormality no longer present Electronically Signed On 05-26-2021 9:39:44 CDT by Mirlande Mares M.D. [id number]
--- NOTE | 2021-05-21 09:03 | CTR_ITS ---
PROCEDURE INFORMATION: Exam: CT Head Without Contrast Exam date and time: 05/21/2021 9:03 AM Age: 45 years old Clinical indication: Walking, difficulty; Additional info: Imbalance TECHNIQUE: Imaging protocol: Computed tomography of the head without contrast. Radiation optimization: All CT scans at this facility use at least one of these dose optimization techniques: automated exposure control; mA and/or kV adjustment per patient size (includes targeted exams where dose is matched to clinical indication); or iterative reconstruction. COMPARISON: CT head wo con* [id number] 03/24/2021 3:15 PM RADIATION DOSE METRICS: Total DLP (mGy-cm): 778.79 FINDINGS: Brain: No hemorrhage. Unchanged patchy area of encephalomalacia in the right parafalcine frontoparietal region. Unremarkable white matter. No mass effect. Cerebral ventricles: No ventriculomegaly. Paranasal sinuses: Visualized sinuses are unremarkable. No fluid levels. Mastoid air cells: Visualized mastoid air cells are well aerated. Bones/joints: Unremarkable. No acute fracture. Soft tissues: Unremarkable. CT/CT head wo con* [id number] IMPRESSION: No acute intracranial abnormality. Radiation Dose CTDIVOL = (mGy): DLP = 778.79 (mGy-cm)
--- NOTE | 2021-05-21 09:28 | W.ED.NEUROSD ---
HPI - Neuro Symptoms/Deficit General: Chief Complaint: General Medical Stated Complaint: AMS; LEANING GAIT Time Seen by Provider: 05/21/21 09:02 History of Present Illness: HPI Narrative: 45-year-old female who presents to the emergency room with mild difficulty with balance and some confusion. She has an extensive history including allergic reaction causing constriction in the throat as well as cutaneous rash. She has been hospitalized multiple times for this including a couple of times where she was intubated. Approximately 2 years ago she suffered an intracranial bleed that was quite severe she was transferred to [place] and eventually recovered and returned home. She is continue to have sequela with difficulty with balance coordination and some tremor she has undergone extensive rehab and evaluation. Of late she has had several episodes where she will have recurrent allergic reactions. She has been given IM Benadryl for this and she is currently on oral steroids. She is also recently treated for UTI with Cipro x1 week. Today on presentation she is complaining difficulty with balance significant tremor. She thinks some of the tremors related to steroid use she is currently on 30 mg daily of oral prednisone. Imbalance she is found herself having to walk steadying herself against the wall. Is not had any difficulty with vision. She denies any vomiting or diarrhea. No recent cough cold or flu symptoms. She did take Benadryl last night at 6 PM which she only got minimal relief from it. 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 She felt that that went well but she had noticed a tremor at that time. The worst of the imbalance she reports began yesterday. Onset (ago): day(s) Location: other (Gait disturbance, tremor) History of same: Yes Severity: moderate Quality: weak Relieving factors: none (Minimal relief from injectable Benadryl last evening) Exacerbating factors: none Context: gradual onset Associated symptoms: Reports malaise and weakness; Deny chest pain, cough, diaphoresis, fevers/chills, headache(s), anorexia, nausea, seizures, short of breath, syncope, tingling, vertigo or vomiting Treatments Prior to Arrival: other medication (Benadryl) Review of Systems Const: Reports: malaise; Denies: diaphoresis ENMT: Denies: throat pain, ear or mastoid pain, nasal discharge or nasal congestion Card: Denies: chest pain or syncope Resp: Denies: dyspnea, productive cough or non-productive cough GI: Denies: nausea or vomiting : Denies: flank pain, difficulty voiding, dysuria, urinary frequency or urinary urgency Skin/Breast: Denies: rash or pruritus Neuro: Denies: headache(s) or vertigo [facility] ED PFSH: Medical History Alpha galactosidase deficiency Anxiety Cerebral hemorrhage with hemiparesis (~08/2019) Occurred while on epinephrine drip for anaphylaxis. Mild residual weakness on the left side History of anaphylaxis Requiring intubation History of gluten sensitivity Hyper-IgE syndrome Major depressive disorder Mood swings Multiple environmental allergies Multiple food allergies PCOS (polycystic ovarian syndrome) PTSD (post-traumatic stress disorder) Rosacea Vocal cord palsy Surgical History History of abdominoplasty History of appendectomy History of artificial lens replacement History of cataract surgery History of section, low transverse History of eye surgery Surgical plate placement and removal History of surgery Intracranial angiogram Port-A-Cath in place (05/26/20) left subclavian Family History Mother Diabetes Thyroid condition Hypercholesteremia Family/Other Cancer Social History Smoking and tobacco status: never smoked Alcohol intake: current Alcohol intake frequency: few times a month Marital status: Current occupational status: employed 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[employer] [place] 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 History: Date of last menstrual period: 03/21/21 Physical Exam Const: COMMON NORMALS: no acute distress GENERAL APPEARANCE: cooperative and comfortable ORIENTATION/CONSCIOUSNESS: Yes awake, Yes oriented to person, Yes oriented to place and Yes oriented to time HENMT: COMMON NORMALS: normocephalic, atraumatic and hearing grossly normal bilaterally HEAD & SCALP: normocephalic and atraumatic Neck/C-Spine: COMMON NORMALS: no JVD Resp: COMMON NORMALS: normal respiratory effort, No retractions, No use of accessory muscles and clear to auscultation bilaterally AUSCULTATION: clear to auscultation bilaterally Cardio: COMMON NORMALS: no JVD, regular rate, regular rhythm and No murmurs present (Cardio) RATE: regular rate RHYTHM: regular rhythm GI: COMMON NORMALS: Soft to palpation and No hepatosplenomegaly present AUSCULTATION: Yes normoactive bowel sounds PALPATION: Yes Soft to palpation, No Tenderness to palpation present (GI), No Guarding due to palpation present (GI) and Yes No hepatosplenomegaly present Extremity: COMMON NORMALS: normal to inspection, capillary refill normal, no clubbing, cyanosis or edema, no calf tenderness and no pedal edema Neuro: SENSORIUM/ORIENTATION: Yes oriented to person, Yes oriented to place and Yes oriented to time Skin: COMMON NORMALS: no rashes or lesions noted GENERAL SKIN EXAM: no rashes or lesions noted Course Vital Signs: Vital signs: Vital Signs Pulse Rate 72 05/21/21 09:56 Respiratory Rate 18 05/21/21 09:30 Blood Pressure 139/94 05/21/21 09:56 Pulse Oximetry 100 05/21/21 09:56 MDM - Neuro Symptoms/Deficit MDM Narrative: Medical decision making narrative: Patient has had multiple episodes like this. In the past we have given him fairly high-dose Benadryl. We repeated that today and much higher than we normally would she did have good results of that as well as an elevated steroid dose she is feeling better we will discharge her home she is currently taking 30 mg a day prednisone gave her prescription for 10 mg tablets prednisone she is going to go back up on her prednisone and resume the taper she was given previously. Is mildly hypokalemic gave her some potassium supplement as well encouraged to follow-up with her primary care doctor next week for repeat potassium check and follow-up. Lab Data: Labs: Lab Results 05/21/21 05/21/21 05/21/21 Range/Units 10:10 10:10 11:45 WBC 10.4 H (4.0-10.0) 10^3/ uL RBC 3.83 L (4.1-5.3) 10^6/u L Hgb 10.4 L (11.5-15.3) g/dL Hct 32.6 L (37.0-47.0) % MCV 85.1 (81-99) fL MCH 27.2 L (28.0-34.0) pg MCHC 31.9 (30.0-36.0) g/dL RDW 13.9 (12.1-15.1) % Plt Count 297 (130-400) 10^3/c mm MPV 9.9 (7.4-10.4) fL Neut % (Auto) 53.7 % Lymph % (Auto) 31.7 % [place] % (Auto) 14.2 % Eos % (Auto) 0.0 % Baso % (Auto) 0.2 % Neut # (Auto) 5.58 (1.8-7.7) 10^3/u L Lymph # (Auto) 3.3 (0.8-4.8) 10^3/u L [place] # (Auto) 1.5 H (0.2-0.9) 10^3/u L Eos # (Auto) 0.0 (0.0-0.8) 10^3/u L Baso # (Auto) 0.0 (0.0-0.1) 10^3/u L Nucleated RBC % (a uto) 0 % Nucleated RBCs # 0.0 /100WBC Sodium 137 (136-145) mmol/L Potassium 3.0 L (3.5-5.1) mmol/L Chloride 105 (98-107) mmol/L Carbon Dioxide 20 L (22-29) mmol/L Anion Gap 15.0 (5-19) BUN 9 (6-20) mg/dL Creatinine 0.8 (0.5-0.9) mg/dL GFR Calculation 78.3 L (90-130) mL/min Glucose 77 (65-115) mg/dL Calculated Osmolal ity 281 L (285-295) mOsm/k g Calcium 8.3 L (8.5-10.5) mg/dL Total Bilirubin 0.3 (0.15-1.2) mg/dL AST 10 (0-32) U/L ALT 6 (0-33) U/L Alkaline Phosphata se 53 (35-105) IU/L Creatine Kinase 58 (26-192) U/L Total Protein 6.0 L (6.6-8.7) g/dL Albumin 4.0 (3.5-5.2) g/dL Globulin 2.0 (1.3-4.6) g/dL Urine Color Yellow (Yellow) Urine Appearance Clear (CLEAR) Urine pH 6.5 (5-7) Ur Specific Gravit y 1.010 (1.005-1.030) Urine Protein Neg (Negative) Urine Glucose (UA) Norm (Normal) Urine Ketones Negative (Negative) Urine Blood Neg (Negative) Urine Nitrate Negative (Negative) Urine Bilirubin Neg (Negative) Urine Urobilinogen Norm (Negative) mg/dL Ur Leukocyte Carli ase Negative (Negative) Discharge Plan Discharge Patient Disposition: Home Clinical Impression: Allergic reaction, Hyper-IgE syndrome, History of anaphylaxis, Multiple environmental allergies, Alpha galactosidase deficiency, Hypokalemia Condition: Stable Prescriptions: New prednisone 10 mg tablet 10 mg PO DAILY Qty: 20 RF: 0 potassium chloride 20 mEq tablet extended release 20 meq PO BID Qty: 7 RF: 0 No Action lorazepam 2 mg/mL concentrate 1 mg PO BID PRN (Reason: anxiety) Qty: 30 RF: 3 lithium carbonate 150 mg capsule 150 mg PO QID RF: 0 fluoxetine 60 mg tablet 60 mg PO DAILY 30 Days Qty: 30 RF: 3 famotidine 40 mg/5 mL (8 mg/mL) Suspension 40 mg PO BID RF: 0 diphenhydramine HCl 50 mg/mL solution 50 mg IM Q12H PRN (Reason: allergic reaction) 15 Days Qty: 25 RF: 2 cetirizine 5 mg/5 mL Solution 10 mg PO TID RF: 0 trazodone 100 mg Tablet 150 - 200 mg PO BEDTIME RF: 0 acetaminophen [Tylenol] 325 mg tablet 1,000 mg PO PRN RF: 0 budesonide 0.5 mg/2 mL suspension for nebulization 0.5 mg inhalation BID PRN (Reason: shortness of breath or wheezing) RF: 0 gabapentin 300 mg Capsule 300 mg PO BID RF: 0 Discharge Orders: Discharge ED (Routine); Ordered 05/21/21 Ordered By: Dagoberto Barraza Referrals: Chi Cobb MD [Primary Care Provider] - Discharge Diet: Usual diet Patient Instructions: Opioid Safety Activity Restrictions/Additional Instructions: Return to the emergency room if you have any further problems. Coding Level of Care Code ED Gift Shop Assistant for Shanthi Fwd Exam Comprehensive
[2021-05-21 09:30] VITALS: BP 138/98; PULSE 71; RESP 18; O2SAT 100; BMI 23.0
[2021-05-21] MEDS: diphenhydrAMINE 50 mg/mL SDV 1mL IVP (09:49)
[2021-05-21] MEDS: sodium chloride 0.9% 1,000 ML 999 ML IV (09:55)
[2021-05-21 09:56] VITALS: BP 139/94; PULSE 72; O2SAT 100
[2021-05-21] MEDS: famotidine 20 mg/2 mL INJ 40 MG IVP (10:29)
[2021-05-21 10:32] LABS: Basophils % 0.2 %; Hematocrit 32.6 % (37.0-47.0); Hemoglobin 10.4 g/dL (11.5-15.3); Lymphocytes # 3.3 10^3/uL (0.8-4.8); Lymphocytes % 31.7 %; Mean Corpuscular HGB Conc 31.9 g/dL (30.0-36.0); Mean Corpuscular Hemoglobin 27.2 pg (28.0-34.0); Mean Corpuscular Volume 85.1 fL (81-99); Mean Platelet Volume 9.9 fL (7.4-10.4); Monocytes # 1.5 10^3/uL (0.2-0.9); Monocytes % 14.2 %; Neutrophils # 5.58 10^3/uL (1.8-7.7); Neutrophils % 53.7 %; Nucleated Red Blood Cells % 0 %; Platelet Count 297 10^3/cmm (130-400); Red Blood Count 3.83 10^6/uL (4.1-5.3); Red Cell Distribution Width 13.9 % (12.1-15.1); White Blood Count 10.4 10^3/uL (4.0-10.0)
[2021-05-21 10:49] LABS: Alanine Aminotransferase 6 U/L (0-33); Alkaline Phosphatase 53 IU/L (35-105); Aspartate Amino Transferase 10 U/L (0-32); Blood Urea Nitrogen 9 mg/dL (6-20); Calcium 8.3 mg/dL (8.5-10.5); Carbon Dioxide 20 mmol/L (22-29); Chloride 105 mmol/L (98-107); Creatine Phosphokinase 58 U/L (26-192); Creatinine Clr Calc Pharmacy 78.7667; Glomerular Filtration Rate 78.3 mL/min (90-130); Glucose 77 mg/dL (65-115); Osmolality Calculated 281 mOsm/kg (285-295); Sodium 137 mmol/L (136-145); Total Bilirubin 0.3 mg/dL (0.15-1.2)
[2021-05-21 11:50] LABS: Add Urine Microscopic? NO; Charge for UA Resulting for Rev
[2021-05-21] MEDS: diphenhydrAMINE 50 mg/mL SDV 1mL 25 MG IVP (11:50)
[2021-05-21 12:10] LABS: Bilirubin Urine Neg (Negative); Blood Urine Neg (Negative); Glucose Urine UA Norm (Normal); Ketones Urine Negative (Negative); Leukocyte Esterase Urine Negative (Negative); Nitrate Urine Negative (Negative); Protein Urine Neg (Negative); Urine Appearance Clear (CLEAR); Urine Color Yellow (Yellow); Urobilinogen Urine Norm (Negative); pH Urine 6.5 (5-7)
== END 2021-05-21 13:39 | disposition home or self-care (01) ==
PROVIDERS: Emergency Provider Family Medicine; PCP Family Medicine
DX: T78.40XA Allergy, unspecified, initial encounter (principal); D82.4 Hyperimmunoglobulin E [IgE] syndrome; Z87.892 Personal history of anaphylaxis; Z91.048 Other nonmedicinal substance allergy status; E74.29 Other disorders of galactose metabolism; E87.6 Hypokalemia
CPT/HCPCS: 70450; 80053; 81003; 82550; 85025; 93005; 96361; 96374; 96375; 96376; 99284; C1751; J1200; J2930; J3490; J7030

== ENCOUNTER 2021-06-01 00:49 | Emergency (ER) | payer OTHER, SELFPAY ==
[2021-06-01 00:51] VITALS: BP 133/81; PULSE 94; RESP 18; TEMP 36.7; O2SAT 97; BMI 23.9
--- NOTE | 2021-06-01 00:58 | ED_ITS ---
HPI - Allergic Reaction General: Chief complaint: Allergic Reaction Stated complaint: ALLERGIC REACTION Time Seen by Provider: 06/01/21 00:56 History of Present Illness: HPI narrative: Patient is a 45-year-old female comes to the ED via EMS with allergic reaction. Patient has a history of alpha gal and has had multiple allergic reactions over the past 2 years. Tonight patient had some food which she thinks was likely the milk that caused this allergic reaction. Around 2114 EMS came out to patient's house and she was given 100 mg of Benadryl and 125 mg of Solu-Medrol. Her symptoms improved and EMS left. They were then called back out 29 due to reoccurring pruritic rash. She was then given 15 mg of IV Benadryl in route. She started having hives and itching on arms and buttock. Here in the ED patient is still complaining of a pruritic rash on arms and legs bilaterally. She also reports having some nausea and a headache. Associated symptoms: Reports nausea; Deny abdominal pain or vomiting Review of Systems Const: Denies: fever(s), chills or fatigue Eyes: Denies: change in vision or eye discomfort ENMT: Denies: throat pain, odynophagia, nasal discharge or nasal congestion Card: Denies: chest pain, palpitations, edema, swelling of feet/ankles, dyspnea on exertion or orthopnea Resp: Denies: dyspnea, productive cough or non-productive cough GI: Reports: nausea; Denies: abdominal pain, vomiting, diarrhea, constipation or hematochezia : Denies: flank pain, dysuria or hematuria Musc: Denies: neck pain, back pain or extremity swelling Skin/Breast: Denies: rash or new lesions Neuro: Reports: headache(s); Denies: numbness in extremities or weakness in extremities All/Imm: Reports: urticaria PFSH ED PFSH: Medical History Alpha galactosidase deficiency Anxiety Cerebral hemorrhage with hemiparesis (~08/2019) Occurred while on epinephrine drip for anaphylaxis. Mild residual weakness on the left side History of anaphylaxis Requiring intubation History of gluten sensitivity Hyper-IgE syndrome Major depressive disorder Mood swings Multiple environmental allergies Multiple food allergies PCOS (polycystic ovarian syndrome) PTSD (post-traumatic stress disorder) Rosacea Vocal cord palsy Surgical History History of abdominoplasty History of appendectomy History of artificial lens replacement History of cataract surgery History of section, low transverse History of eye surgery Surgical plate placement and removal History of surgery Intracranial angiogram Port-A-Cath in place (05/26/20) left subclavian Family History Mother Diabetes Thyroid condition Hypercholesteremia Family/Other Cancer Social History Smoking and tobacco status: never smoked Alcohol intake: current Alcohol intake frequency: few times a month Marital status: Current occupational status: employed 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[place] 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 History: Date of last menstrual period: 03/21/21 Physical Exam Const: COMMON NORMALS: no acute distress, patient oriented x3, healthy appearing and alert GENERAL APPEARANCE: cooperative, comfortable and anxious HENMT: COMMON NORMALS: normocephalic HEAD & SCALP: normocephalic MOUTH: Normal oral and palatal mucosa present THROAT: posterior oropharynx normal and uvula midline Neck/C-Spine: COMMON NORMALS: supple GENERAL: Yes normal visual inspection Resp: COMMON NORMALS: normal respiratory effort, No retractions, No use of accessory muscles and clear to auscultation bilaterally AUSCULTATION: clear to auscultation bilaterally Cardio: COMMON NORMALS: regular rate, regular rhythm, S1 normal heart sound present, S2 normal heart sound present, No gallops present (Cardio), No clicks present (Cardio), No murmurs present (Cardio) and Peripheral pulses 2+ throughout RATE: regular rate RHYTHM: regular rhythm HEART SOUNDS: S1 normal heart sound present and S2 normal heart sound present PERIPHERAL PULSES: Peripheral pulses 2+ throughout GI: COMMON NORMALS: Normal to inspection, nondistended, normoactive bowel sounds present, Soft to palpation, non-tender and no masses PALPATION: Yes Soft to palpation : COMMON NORMALS: Yes no CVA tenderness BLADDER/KIDNEY EXAM: Yes no CVA tenderness Back/Pelvis: COMMON NORMALS: no CVA tenderness Extremity: COMMON NORMALS: normal to inspection Neuro: COMMON NORMALS: patient oriented x3 and moves all extremities SENSORIUM/ORIENTATION: Yes alert Skin: COMMON NORMALS: no rashes or lesions noted NARRATIVE SKIN EXAM: No visible rash seen. Patient was scratching her arms and thighs a lot during exam. GENERAL SKIN EXAM: no rashes or lesions noted Course ED course: Patient asked to be Covid tested because she is going to visit a relative that would be high risk if she got COVID-19. I performed a rapid Covid test on patient and it was negative and I told patient the results. Reevaluation(s): Reevaluation #1: I went in and checked on patient after she received meds here in the ED. She reports her symptoms of a headache, nausea and rash have resolved and she is feeling a lot better. Patient is ready to be discharged to go home. Time: 02:28 Vital Signs: Vital signs: Vital Signs Temperature 98.0 F 06/01/21 00:51 Pulse Rate 94 06/01/21 00:51 Respiratory Rate 18 06/01/21 00:51 Blood Pressure 133/81 06/01/21 00:51 Pulse Oximetry 97 06/01/21 00:51 MDM - Allergic Reaction MDM Narrative: Medical decision making narrative: Patient is a 45-year-old female comes to the ED via EMS with allergic reaction. Patient has a history of allergic reactions. patient thinks she ate something that caused symptoms. She is complaining of having a hives-like rash, headache and nausea. EMS gave patient 150 mg Benadryl and 125 mg of Solu-Medrol before coming to the ED. Upon arrival patient not have any visible hives-like rash, but was complaining of a headache and nausea. Exam was benign. She then received famotidine, Toradol, Phenergan and Ativan. She said her symptoms had completely resolved after meds. She requested a COVID-19 test because she is going to visit a relative that would be considered high risk. Covid 19 test was negative I told patient the results. Patient's vitals are stable and she is ready to be discharged home. Patient diagnosed with allergic reaction and told to follow-up with her PCP in 7 to 10 days for reevaluation. Return to ED precautions given. patient understood and agree with plan. Patient's son is here in the ED and will be taking patient home. Lab Data: Labs: Lab Results 06/01/21 Range/Units 02:03 SARS-CoV-2 Ag (Rap id) Negative (Negative) Discharge Plan Discharge Patient Disposition: Home Clinical Impression: Allergic reaction Qualifiers: Encounter type: initial encounter Qualified Code(s): T78.40XA - Allergy, unspecified, initial encounter Condition: Stable Prescriptions: No Action lorazepam 2 mg/mL concentrate 1 mg PO BID PRN (Reason: anxiety) Qty: 30 RF: 3 lithium carbonate 150 mg capsule 150 mg PO QID RF: 0 fluoxetine 60 mg tablet 60 mg PO DAILY 30 Days Qty: 30 RF: 3 famotidine 40 mg/5 mL (8 mg/mL) Suspension 40 mg PO BID RF: 0 diphenhydramine HCl 50 mg/mL solution 50 mg IM Q12H PRN (Reason: allergic reaction) 15 Days Qty: 25 RF: 2 cetirizine 5 mg/5 mL Solution 10 mg PO TID RF: 0 trazodone 100 mg Tablet 150 - 200 mg PO BEDTIME RF: 0 acetaminophen [Tylenol] 325 mg tablet 1,000 mg PO PRN RF: 0 budesonide 0.5 mg/2 mL suspension for nebulization 0.5 mg inhalation BID PRN (Reason: shortness of breath or wheezing) RF: 0 gabapentin 300 mg Capsule 300 mg PO BID RF: 0 prednisone 10 mg tablet 10 mg PO DAILY Qty: 20 RF: 0 potassium chloride 20 mEq tablet extended release 20 meq PO BID Qty: 7 RF: 0 Discharge Orders: Discharge ED (Routine); Ordered 06/01/21 Ordered By: Sanford Strong Referrals: Chi Cobb MD [Primary Care Provider] - Discharge Diet: Regular Discharge Activity: Increase activity as tolerated Patient Instructions: Allergic Reaction, Urticaria (ED) Activity Restrictions/Additional Instructions: Follow-up with medical provider as directed in 7 days for reevaluation. Continue taking all home medications as previously prescribed. Return to the ER or your medical provider if condition worsens. Please read and understand discharge instructions. Thank you for choosing [facility] for your healthcare needs today. Please realize this is an emergency room and that we are providing you with a medical screening exam and this may not be complete and all inclusive of all the testing and or work up that you may need to determine your ailment or severity of your illness. It is very important that you follow up as instructed or that you return to the Emergency Department should you have concerns or if your condition changes or worsens in any way. Coding Level of Care Code ED Executive Coordinator for Chg Fwd Exam Comprehensive
[2021-06-01] MEDS: famotidine 20 mg/2 mL INJ 40 MG IVP (01:56)
[2021-06-01] MEDS: promethazine 25 mg/mL SDV 1 mL IM (01:56)
[2021-06-01] MEDS: LORazepam 2 mg/mL INJ 1 mL IVP (01:57)
[2021-06-01] MEDS: ketorolac 30 mg/mL INJ IVP (01:57)
[2021-06-01 02:37] LABS: SARS Covid-2 Antigen Negative (Negative)
[2021-06-01 03:21] VITALS: BP 121/76; PULSE 71; RESP 16; TEMP 36.6; O2SAT 98
== END 2021-06-01 03:28 | disposition home or self-care (01) ==
PROVIDERS: Emergency Provider Physician Assistant; PCP Family Medicine
DX: T78.40XA Allergy, unspecified, initial encounter (principal); Z20.822 Contact with and (suspected) exposure to COVID-19
CPT/HCPCS: 87426; 96372; 96374; 96375; 99283; J1885; J2060; J2550; J3490

== ENCOUNTER 2021-06-13 16:38 | Emergency (ER) | payer OTHER, SELFPAY ==
[2021-06-13 16:47] VITALS: BP 121/71; PULSE 86; RESP 18; TEMP 36.6; O2SAT 98; BMI 23.0
--- NOTE | 2021-06-13 16:57 | CTR_ITS ---
PROCEDURE INFORMATION: Exam: CT Head Without Contrast Exam date and time: 06/13/2021 4:57 PM Age: 45 years old Clinical indication: Dizziness and weakness, extremity; Left; Additional info: Left arm and leg weakness TECHNIQUE: Imaging protocol: Computed tomography of the head without contrast. Radiation optimization: All CT scans at this facility use at least one of these dose optimization techniques: automated exposure control; mA and/or kV adjustment per patient size (includes targeted exams where dose is matched to clinical indication); or iterative reconstruction. COMPARISON: 1. CT head wo con* [id number] 05/21/2021 9:[address] head wo con* [id number] 02/08/2021 9:32:01 AM RADIATION DOSE METRICS: Total DLP (mGy-cm): 829.01 FINDINGS: Brain: There is a chronic infarct in the right posterior parietal region which is unchanged from the recent previous CT scans. There is no intracranial mass, hemorrhage or edema. Cerebral ventricles: Ventricles are within normal limits of size. Paranasal sinuses: Visualized sinuses are unremarkable. No fluid levels. Mastoid air cells: Visualized mastoid air cells are well aerated. Bones/joints: Unremarkable. No acute fracture. Soft tissues: Unremarkable. Other findings: Findings are not significantly changed from prior examinations. CT/CT head wo con* [id number] IMPRESSION: 1. Old right posterior parietal infarct. 2. No acute intracranial abnormality. Radiation Dose CTDIVOL = (mGy): DLP = 829.01 (mGy-cm)
--- NOTE | 2021-06-13 17:05 | W.ED.GENADLT ---
HPI - General Adult General: Chief complaint: General Medical Stated complaint: NUMBNESS IN LEG/HEAD PAIN Time Seen by Provider: 06/13/21 16:56 History of Present Illness: HPI narrative: 45-year-old female presents emergency room with complaint of left-sided weakness. Began shortly after she had been working out and she did not count of a heavy strength workout and began to have weakness in her left leg and a contracture-like sensation in her left hand. Approximately 2 years ago she had an intracranial bleed while in the ICU for a allergic reaction. She had been on epinephrine drip with steroids at the time. She is recovered from that has had a few more episodes but nothing significant. The discomfort today and her symptoms are unique and different from the past and that she has noticed symptoms of contracture in her left hand. She has had difficulty with weakness in her left leg when she exerts herself or becomes exhausted since the stroke but the left hand issue is new. She also felt a little off balance. She is not had any visual changes nausea or vomiting. Onset (ago): minute(s) Location: head Radiation: non-radiation Severity: mild Relieving factors: none Exacerbating factors: none Associated symptoms: Deny chest pain, confusion, cough, diaphoresis, decreased appetite, dyspnea, fevers/chills, headache(s), malaise, nausea, rash, palpitations, seizures, short of breath, syncope, vomiting or weakness Treatments prior to arrival: none Review of Systems Const: Denies: malaise or diaphoresis ENMT: Denies: throat pain, ear or mastoid pain, nasal discharge or nasal congestion Card: Denies: chest pain, palpitations or syncope Resp: Denies: dyspnea, productive cough or non-productive cough GI: Denies: nausea or vomiting : Denies: flank pain, difficulty voiding, dysuria, urinary frequency or urinary urgency Skin/Breast: Denies: rash Neuro: Denies: headache(s) or confusion PFSH ED PFSH: Medical History Alpha galactosidase deficiency Anxiety Cerebral hemorrhage with hemiparesis (~08/2019) Occurred while on epinephrine drip for anaphylaxis. Mild residual weakness on the left side History of anaphylaxis Requiring intubation History of gluten sensitivity Hyper-IgE syndrome Major depressive disorder Mood swings Multiple environmental allergies Multiple food allergies PCOS (polycystic ovarian syndrome) PTSD (post-traumatic stress disorder) Rosacea Vocal cord palsy Surgical History History of abdominoplasty History of appendectomy History of artificial lens replacement History of cataract surgery History of section, low transverse History of eye surgery Surgical plate placement and removal History of surgery Intracranial angiogram Port-A-Cath in place (05/26/20) left subclavian Family History Mother Diabetes Thyroid condition Hypercholesteremia Family/Other Cancer Social History Smoking and tobacco status: never smoked Alcohol intake: current Alcohol intake frequency: few times a month Marital status: Current occupational status: employed 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[employer] [place] 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 History: Date of last menstrual period: 03/21/21 Physical Exam Const: COMMON NORMALS: no acute distress GENERAL APPEARANCE: cooperative and comfortable ORIENTATION/CONSCIOUSNESS: Yes awake, Yes oriented to person, Yes oriented to place and Yes oriented to time HENMT: COMMON NORMALS: normocephalic, atraumatic and hearing grossly normal bilaterally HEAD & SCALP: normocephalic and atraumatic Eye: COMMON NORMALS: Equal, round and reactive pupils present, EOMs intact bilaterally, conjunctivae normal and no scleral icterus CONJUNCTIVA: Yes conjunctivae normal PUPIL: Yes Equal, round and reactive pupils present Neck/C-Spine: COMMON NORMALS: full ROM, no lymphadenopathy, supple and no JVD Lymph: LYMPHATIC: no lymphadenopathy noted and no lymphedema noted Resp: COMMON NORMALS: normal respiratory effort, No retractions, No use of accessory muscles and clear to auscultation bilaterally AUSCULTATION: clear to auscultation bilaterally Cardio: COMMON NORMALS: no JVD, regular rate, regular rhythm and No murmurs present (Cardio) RATE: regular rate RHYTHM: regular rhythm GI: COMMON NORMALS: Soft to palpation and No hepatosplenomegaly present AUSCULTATION: Yes normoactive bowel sounds PALPATION: Yes Soft to palpation, No Tenderness to palpation present (GI), No Guarding due to palpation present (GI) and Yes No hepatosplenomegaly present Extremity: COMMON NORMALS: normal to inspection, capillary refill normal, no clubbing, cyanosis or edema, no calf tenderness and no pedal edema Neuro: SENSORIUM/ORIENTATION: Yes oriented to person, Yes oriented to place and Yes oriented to time Skin: COMMON NORMALS: no rashes or lesions noted GENERAL SKIN EXAM: no rashes or lesions noted Course Vital Signs: Vital signs: Vital Signs Temperature 98 F 06/13/21 16:47 Pulse Rate 88 06/13/21 18:55 Respiratory Rate 16 06/13/21 20:14 Blood Pressure 136/80 06/13/21 18:55 Pulse Oximetry 99 06/13/21 18:55 MDM - General Adult MDM Narrative: Medical decision making narrative: CT head is unremarkable. Neuro repeat neurologic exam unchanged. Patient discharged home after flushing her port she was given 2 mg of lorazepam. Her discharge was arranged for and then she had issues with anxiety concerned about recurrent allergic reaction was given 100 mg total of IV Benadryl. Discharge Plan Discharge Patient Disposition: Home Clinical Impression: Left arm weakness, Cerebral hemorrhage with hemiparesis, Anxiety Condition: Stable Prescriptions: No Action lorazepam 2 mg/mL concentrate 1 mg PO BID PRN (Reason: anxiety) Qty: 30 RF: 3 lithium carbonate 150 mg capsule 150 mg PO QID RF: 0 fluoxetine 60 mg tablet 60 mg PO DAILY 30 Days Qty: 30 RF: 3 famotidine 40 mg/5 mL (8 mg/mL) Suspension 40 mg PO BID RF: 0 diphenhydramine HCl 50 mg/mL solution 50 mg IM Q12H PRN (Reason: allergic reaction) 15 Days Qty: 25 RF: 2 cetirizine 5 mg/5 mL Solution See Rx Instructions .ROUTE .COMPLEX RF: 0 trazodone 100 mg Tablet 150 - 200 mg PO BEDTIME RF: 0 acetaminophen [Tylenol] 325 mg tablet 1,000 mg PO PRN RF: 0 budesonide 0.5 mg/2 mL suspension for nebulization 0.5 mg inhalation BID PRN (Reason: shortness of breath or wheezing) RF: 0 gabapentin 300 mg Capsule 300 mg PO BID RF: 0 Discharge Orders: Discharge ED (Routine); Ordered 06/13/21 Ordered By: Dagoberto Barraza Referrals: Chi Cobb MD [Primary Care Provider] - Discharge Diet: Usual diet Patient Instructions: Opioid Safety Activity Restrictions/Additional Instructions: Follow-up with your primary care doctor or return to the ER if you worsen. 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
[2021-06-13] MEDS: LORazepam 2 mg/mL INJ 1 mL IVP (18:42)
[2021-06-13 18:55] VITALS: BP 136/80; PULSE 88; RESP 15; O2SAT 99
[2021-06-13] MEDS: diphenhydrAMINE 50 mg/mL SDV 1mL IVP ×2 (19:05→19:54)
[2021-06-13 20:14] VITALS: RESP 16
== END 2021-06-13 20:00 | disposition home or self-care (01) ==
PROVIDERS: Emergency Provider Family Medicine; PCP Family Medicine
DX: I61.9 Nontraumatic intracerebral hemorrhage, unspecified (principal); G81.90 Hemiplegia, unspecified affecting unspecified side; F41.9 Anxiety disorder, unspecified
CPT/HCPCS: 70450; 96374; 96375; 99284; J1200; J2060

== ENCOUNTER 2021-06-19 21:25 | Emergency (ER) | payer OTHER, SELFPAY ==
[2021-06-19 21:32] VITALS: BP 128/84; RESP 98; TEMP 36.8; O2SAT 98; BMI 23.9
[2021-06-19] MEDS: LORazepam 2 mg/mL INJ 1 mL IVP (22:20)
[2021-06-19] MEDS: famotidine 20 mg/2 mL INJ IVP (22:20)
[2021-06-19] MEDS: diphenhydrAMINE 50 mg/mL SDV 1mL IVP (22:20)
[2021-06-19 22:32] VITALS: BP 109/77; PULSE 97; RESP 16; TEMP 36.8; O2SAT 98
--- NOTE | 2021-06-19 22:55 | ED_ITS ---
HPI - Allergic Reaction General: Chief complaint: Allergic Reaction Stated complaint: ALLERGIC REACTION Time Seen by Provider: 06/19/21 21:32 History of Present Illness: HPI narrative: 45-year-old female presents with rash, itching, soreness of her tongue, and tingling feeling in the back of her throat. She states that she has had poison dmitry for around 2 weeks, and does not know if it has triggered her immune system, but she has problems with itching to her chest, arms, legs, and now neck that have been progressive. She does have a history of an alpha gal allergy. MD complaint: allergic reaction Onset (ago): day(s) Exposure: plant and other Associated symptoms: Reports itching and tongue swelling; Deny abdominal pain, difficulty breathing, dysphagia, facial swelling or hoarseness Severity: similar to previous episodes Treatment prior to arrival: benadryl and steroids Previous Allergic Reaction History: prior ED visit(s), anaphylaxis and intubation Review of Systems Const: Denies: fever(s) ENMT: Denies: hoarseness Card: Reports: palpitations; Denies: chest pain Resp: Reports: dyspnea; Denies: productive cough, non-productive cough or stridor GI: Denies: abdominal pain or dysphagia All/Imm: Reports: tongue swelling; Denies: facial swelling PFSH ED PFSH: Medical History Alpha galactosidase deficiency Anxiety Cerebral hemorrhage with hemiparesis (~08/2019) Occurred while on epinephrine drip for anaphylaxis. Mild residual weakness on the left side History of anaphylaxis Requiring intubation History of gluten sensitivity Hyper-IgE syndrome Major depressive disorder Mood swings Multiple environmental allergies Multiple food allergies PCOS (polycystic ovarian syndrome) PTSD (post-traumatic stress disorder) Rosacea Vocal cord palsy Surgical History History of abdominoplasty History of appendectomy History of artificial lens replacement History of cataract surgery History of section, low transverse History of eye surgery Surgical plate placement and removal History of surgery Intracranial angiogram Port-A-Cath in place (05/26/20) left subclavian Family History Mother Diabetes Thyroid condition Hypercholesteremia Family/Other Cancer Social History Smoking and tobacco status: never smoked Alcohol intake: current Alcohol intake frequency: few times a month Marital status: Current occupational status: employed 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 History: Date of last menstrual period: 03/21/21 Physical Exam Const: GENERAL APPEARANCE: cooperative, anxious and ill appearing Eye: COMMON NORMALS: Equal, round and reactive pupils present and EOMs intact bilaterally PUPIL: Yes Equal, round and reactive pupils present and Yes Dilated pupils (Mildly) bilaterally Chest: COMMONS NORMALS: normal inspection of the chest Resp: COMMON NORMALS: normal respiratory effort, No use of accessory muscles and clear to auscultation bilaterally AUSCULTATION: clear to auscultation bilaterally Cardio: COMMON NORMALS: regular rhythm RATE: tachycardic RHYTHM: regular rhythm Neuro: LONNY COMA SCALE: document GCS findings Lonny coma scale eye opening: Spontaneous Lonny coma scale verbal response: Orientated Lonny coma scale motor response: Obey commands Gregory coma scale total score: 15 Skin: NARRATIVE SKIN EXAM: Rash to anterior distal lower legs that appears lichenified. There is some diffuse redness to her anterior upper chest and right neck. No definite urticaria. Course Vital Signs: Vital signs: Vital Signs Temperature 98.2 F 06/19/21 22:32 Pulse Rate 83 06/20/21 02:26 Respiratory Rate 16 06/20/21 02:26 Blood Pressure 120/74 06/20/21 02:26 Pulse Oximetry 98 06/20/21 02:26 MDM - Allergic Reaction MDM Narrative: Medical decision making narrative: 45-year-old patient presents quite anxious, and scratching at arms legs and chest. I do not see visible urticaria present. Rash to the anterior legs appears to be lichenified contact dermatitis. She maintained oxygenation throughout her ER stay on room air. Anxiety was controlled with benzodiazepines. She was given Benadryl for the itch. She was also given IV fluid for apparent mild dehydration. I expressed to the patient concern over the repetitive use of Benadryl, as well as the dosages being used. Side effects such as QT prolongation, arrhythmia, seizure, and addiction were gone over with the patient. I spoke with the patient's family physician by phone, who wishes to see the patient later this week. Lab Data: Labs: Lab Results 06/19/21 06/19/21 06/19/21 Range/Units 22:54 22:54 22:54 WBC 10.7 H (4.0-10.0) 10^3/ uL RBC 3.74 L (4.1-5.3) 10^6/u L Hgb 10.3 L (11.5-15.3) g/dL Hct 31.8 L (37.0-47.0) % MCV 85.0 (81-99) fl MCH 27.5 L (28.0-34.0) pg MCHC 32.4 (30.0-36.0) g/dL RDW 14.6 (12.1-15.1) % Plt Count 272 (130-400) 10^3/c mm MPV 9.7 (7.4-10.4) fL Neut % (Auto) 79.8 % Lymph % (Auto) 10.7 % [place] % (Auto) 9.0 % Eos % (Auto) 0.0 % Baso % (Auto) 0.2 % Neut # (Auto) 8.54 H (1.8-7.7) 10^3/u L Lymph # (Auto) 1.1 (0.8-4.8) 10^3/u L [place] # (Auto) 1.0 H (0.2-0.9) 10^3/u L Eos # (Auto) 0.0 (0.0-0.8) 10^3/u L Baso # (Auto) 0.0 (0.0-0.1) 10^3/u L Nucleated RBC % (a uto) 0 % Nucleated RBCs # 0.0 /100WBC ESR 24 H (0-15) mm/hr Sodium 139 (136-145) mmol/L Potassium 3.7 (3.5-5.1) mmol/L Chloride 107 (98-107) mmol/L Carbon Dioxide 20 L (22-29) mmol/L Anion Gap 15.7 (5-19) BUN 8 (6-20) mg/dL Creatinine 0.7 (0.5-0.9) mg/dL GFR Calculation 91.3 (90-130) mL/min Glucose 120 H (65-115) mg/dL Calculated Osmolal ity 288 (285-295) mOsm/k g Calcium 8.8 (8.5-10.5) mg/dL Total Bilirubin 0.2 (0.15-1.2) mg/dL AST 22 (0-32) U/L ALT 11 (0-33) U/L Alkaline Phosphata se 74 (35-105) IU/L Creatine Kinase 514 H* (26-192) U/L C-Reactive Protein 2.8 (0.0-4.9) mg/L Total Protein 6.1 L (6.6-8.7) g/dL Albumin 4.1 (3.5-5.2) g/dL Globulin 2.0 (1.3-4.6) g/dL [place] (0.6-1.2) mmol/L 06/19/21 Range/Units 22:54 WBC (4.0-10.0) 10^3/ uL RBC (4.1-5.3) 10^6/u L Hgb (11.5-15.3) g/dL Hct (37.0-47.0) % MCV (81-99) fl MCH (28.0-34.0) pg MCHC (30.0-36.0) g/dL RDW (12.1-15.1) % Plt Count (130-400) 10^3/c mm MPV (7.4-10.4) fL Neut % (Auto) % Lymph % (Auto) % [place] % (Auto) % Eos % (Auto) % Baso % (Auto) % Neut # (Auto) (1.8-7.7) 10^3/u L Lymph # (Auto) (0.8-4.8) 10^3/u L [place] # (Auto) (0.2-0.9) 10^3/u L Eos # (Auto) (0.0-0.8) 10^3/u L Baso # (Auto) (0.0-0.1) 10^3/u L Nucleated RBC % (a uto) % Nucleated RBCs # /100WBC ESR (0-15) mm/hr Sodium (136-145) mmol/L Potassium (3.5-5.1) mmol/L Chloride (98-107) mmol/L Carbon Dioxide (22-29) mmol/L Anion Gap (5-19) BUN (6-20) mg/dL Creatinine (0.5-0.9) mg/dL GFR Calculation (90-130) mL/min Glucose (65-115) mg/dL Calculated Osmolal ity (285-295) mOsm/k g Calcium (8.5-10.5) mg/dL Total Bilirubin (0.15-1.2) mg/dL AST (0-32) U/L ALT (0-33) U/L Alkaline Phosphata se (35-105) IU/L Creatine Kinase (26-192) U/L C-Reactive Protein (0.0-4.9) mg/L Total Protein (6.6-8.7) g/dL Albumin (3.5-5.2) g/dL Globulin (1.3-4.6) g/dL [place] 0.8 (0.6-1.2) mmol/L Discharge Plan Discharge Patient Disposition: Home Clinical Impression: Anxiety Acute allergic reaction Qualifiers: Encounter type: initial encounter Qualified Code(s): T78.40XA - Allergy, unspecified, initial encounter Condition: Stable Prescriptions: New prednisone 10 mg tablet See Rx Instructions .ROUTE .COMPLEX Qty: 10 RF: 0 No Action lorazepam 2 mg/mL concentrate 1 mg PO BID PRN (Reason: anxiety) Qty: 30 RF: 3 lithium carbonate 150 mg capsule 150 mg PO QID RF: 0 fluoxetine 60 mg tablet 60 mg PO DAILY 30 Days Qty: 30 RF: 3 famotidine 40 mg/5 mL (8 mg/mL) Suspension 40 mg PO BID RF: 0 diphenhydramine HCl 50 mg/mL solution 50 mg IM Q12H PRN (Reason: allergic reaction) 15 Days Qty: 25 RF: 2 cetirizine 5 mg/5 mL Solution See Rx Instructions .ROUTE .COMPLEX RF: 0 trazodone 100 mg Tablet 150 - 200 mg PO BEDTIME RF: 0 acetaminophen [Tylenol] 325 mg tablet 1,000 mg PO PRN RF: 0 budesonide 0.5 mg/2 mL suspension for nebulization 0.5 mg inhalation BID PRN (Reason: shortness of breath or wheezing) RF: 0 gabapentin 300 mg Capsule 300 mg PO BID RF: 0 Discharge Orders: Discharge ED (Routine); Ordered 06/20/21 Ordered By: Tj Garcia Referrals: Chi Cobb MD [Primary Care Provider] - 1-3 days Discharge Diet: Usual diet Patient Instructions: Allergic Reaction Activity Restrictions/Additional Instructions: Let your commercial sales consultant know on sunday that you had to be seen over the weekend for allergic symptoms. Return for worsening conditions despite treatment. Follow up with your family doctor this coming week. Coding Level of Care Code ED Eap Clinician for Chg Fwd Exam Detailed
[2021-06-19] MEDS: sodium chloride 0.9% 1,000 ML 999 ML IV (22:56)
--- NOTE | 2021-06-19 22:57 | PC.NURSE ---
Accessed port with chen needle. Aseptic technique used. Aspirated blood to send to lab. Used asptic dressing. Patient tolerated it well.
[2021-06-19 22:58] LABS: Basophils % 0.2 %; Hematocrit 31.8 % (37.0-47.0); Hemoglobin 10.3 g/dL (11.5-15.3); Lymphocytes # 1.1 10^3/uL (0.8-4.8); Lymphocytes % 10.7 %; Mean Corpuscular HGB Conc 32.4 g/dL (30.0-36.0); Mean Corpuscular Hemoglobin 27.5 pg (28.0-34.0); Mean Platelet Volume 9.7 fL (7.4-10.4); Neutrophils # 8.54 10^3/uL (1.8-7.7); Neutrophils % 79.8 %; Nucleated Red Blood Cells % 0 %; Platelet Count 272 10^3/cmm (130-400); Red Blood Count 3.74 10^6/uL (4.1-5.3); Red Cell Distribution Width 14.6 % (12.1-15.1); White Blood Count 10.7 10^3/uL (4.0-10.0)
[2021-06-19 23:14] LABS: Alanine Aminotransferase 11 U/L (0-33); Albumin Level 4.1 g/dL (3.5-5.2); Alkaline Phosphatase 74 IU/L (35-105); Anion Gap 15.7 (5-19); Aspartate Amino Transferase 22 U/L (0-32); Blood Urea Nitrogen 8 mg/dL (6-20); C Reactive Protein 2.8 mg/L (0.0-4.9); Calcium 8.8 mg/dL (8.5-10.5); Carbon Dioxide 20 mmol/L (22-29); Chloride 107 mmol/L (98-107); Glomerular Filtration Rate 91.3 mL/min (90-130); Glucose 120 mg/dL (65-115); Osmolality Calculated 288 mOsm/kg (285-295); Potassium 3.7 mmol/L (3.5-5.1); Sodium 139 mmol/L (136-145); Total Bilirubin 0.2 mg/dL (0.15-1.2); Total Protein 6.1 g/dL (6.6-8.7)
[2021-06-19 23:15] LABS: Lithium 0.8 mmol/L (0.6-1.2)
[2021-06-19 23:19] LABS: Creatine Phosphokinase 514 U/L (26-192)
[2021-06-19 23:50] LABS: Erythrocyte Sedimentation Rate 24 mm/hr (0-15)
[2021-06-20] MEDS: LORazepam 2 mg/mL INJ 1 mL IVP (00:15)
[2021-06-20] MEDS: diphenhydrAMINE 50 mg/mL SDV 1mL 25 MG IVP (00:15)
[2021-06-20 01:11] VITALS: BP 128/88; PULSE 88; RESP 16; O2SAT 98
[2021-06-20] MEDS: diphenhydrAMINE 50 mg/mL SDV 1mL IM (02:23)
[2021-06-20 02:26] VITALS: BP 120/74; PULSE 83; RESP 16; O2SAT 98
[2021-06-22 12:26] LABS: THYROID PEROXIDASE ANTIBODIES 1 IU/mL (<9)
[2021-06-22 13:27] LABS: COMPLEMENT, TOTAL (CH50) 56 U/mL (31-60)
[2021-06-22 14:46] LABS: CENTROMERE B ANTIBODY <1.0 NEG AI (<1.0 NEG); JO-1 ANTIBODY <1.0 NEG AI (<1.0 NEG); RNP ANTIBODY <1.0 NEG AI (<1.0 NEG); SCL-70 ANTIBODY <1.0 NEG AI (<1.0 NEG); SJOGREN'S ANTIBODY (SS-A) <1.0 NEG AI (<1.0 NEG); SM ANTIBODY <1.0 NEG AI (<1.0 NEG); SS-B <1.0 NEG AI (<1.0 NEG)
[2021-06-22 15:22] LABS: COMPLEMENT COMPONENT C3C 116 mg/dL (83-193); COMPLEMENT COMPONENT C4C 23 mg/dL (15-57)
[2021-06-22 15:31] LABS: ANA SCREEN, IFA NEGATIVE (NEGATIVE)
[2021-06-24 10:28] LABS: DNA AB (DS) CRITHIDIA,IFA NEGATIVE (NEGATIVE)
== END 2021-06-20 02:21 | disposition home or self-care (01) ==
PROVIDERS: Emergency Provider Emergency Medicine; PCP Family Medicine
DX: T78.40XA Allergy, unspecified, initial encounter (principal); F41.9 Anxiety disorder, unspecified
CPT/HCPCS: 80053; 80178; 82550; 85025; 85651; 86140; 86160; 86162; 86235; 86255; 86376; 96361; 96372; 96374; 96375; 96376; 99284; J1200; J2060; J3490; J7030

== ENCOUNTER 2021-07-13 07:16 | Day surgery (SDC) | payer OTHER, SELFPAY ==
[2021-07-12 13:27] VITALS: BMI 23.0
--- NOTE | 2021-07-13 08:23 | P.HP_ITS ---
Same Day Surgery H&P Indication for Procedure/HPI DATE OF PROCEDURE: July 13, 2021 CHIEF COMPLAINT/INDICATIONFOR SURGICAL PROCEDURE: port removal PREOP DIAGNOSIS: Port removal PLANNED PROCEDRUE: Operation Date: 07/13/21 08:40 Proposed Procedures p Portacath Removal [id number] [id number](Not Applicable) - Tobi Laird MD Medications/Allergies* Home Medications Medication Instructions Recorded Confirmed Type famotidine 40 mg PO BID 05/21/20 07/13/21 History acetaminophen [Tylenol] 1,000 mg PO PRN 06/11/20 07/12/21 History cetirizine See Rx Instructions .ROUTE .COMPLEX 06/11/20 07/13/21 History trazodone 150 - 200 mg PO BEDTIME 06/11/20 07/13/21 History budesonide 0.5 mg INHALATION BID PRN 07/05/20 07/13/21 History gabapentin 300 mg PO BID 03/24/21 07/13/21 History lithium carbonate 150 mg capsule 150 mg PO QID 04/08/21 07/13/21 History Allergies/Adverse Reactions Allergy/AdvReac Type Severity Reaction Status Date / Time Beef Containing Products Allergy Severe ALGY-Anaphy Verified 07/13/21 07:34 laxis epinephrine Allergy Severe Hemorrhagic Verified 07/13/21 07:34 stroke after epi drip lactose Allergy Severe ALGY-Anaphy Verified 07/13/21 07:34 laxis Pork/Porcine Containing Allergy Severe ALGY-Anaphy Verified 07/13/21 07:34 Products laxis trimethobenzamide Allergy Severe ALGY-Anaphy Verified 07/13/21 07:34 [From Tigan] laxis digoxin Allergy ALGY-Hives Verified 07/13/21 07:34 egg Allergy ALGY-Anaphy Verified 07/13/21 07:34 laxis enoxaparin [From Lovenox] Allergy ALGY-Anaphy Verified 07/13/21 07:34 laxis gluten Allergy Unknown Verified 07/13/21 07:34 heparin (porcine) Allergy ALGY-Anaphy Verified 07/13/21 07:34 laxis Pertinent History/Comorbid Conditions* Medical History (Updated 06/21/21 @ 00:01 by ) Alpha galactosidase deficiency Anxiety Cerebral hemorrhage with hemiparesis (~08/2019) Occurred while on epinephrine drip for anaphylaxis. Mild residual weakness on the left side History of anaphylaxis Requiring intubation History of gluten sensitivity Hyper-IgE syndrome Major depressive disorder Mood swings Multiple environmental allergies Multiple food allergies PCOS (polycystic ovarian syndrome) PTSD (post-traumatic stress disorder) Rosacea Vocal cord palsy Surgical History (Updated 06/11/20 @ 13:25 by Tobi Laird MD) History of abdominoplasty History of appendectomy History of artificial lens replacement History of cataract surgery History of section, low transverse History of eye surgery Surgical plate placement and removal History of surgery Intracranial angiogram Port-A-Cath in place (05/26/20) left subclavian Family History (Updated 10/28/19 @ 16:45 by Sonia Steele LPN) Diabetes Mother Hypercholesteremia Mother Cancer Family/Other Thyroid condition Mother Social History Smoking and tobacco status: never smoked Alcohol intake: current Alcohol intake frequency: few times a month Marital status: Current occupational status: employed 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
[2021-07-13 08:53] VITALS: BP 114/72; PULSE 88; RESP 16; O2SAT 99
[2021-07-13 08:58] VITALS: BP 107/71; PULSE 81; RESP 16; O2SAT 100
[2021-07-13 09:03] VITALS: BP 112/75; PULSE 74; RESP 16; O2SAT 100
[2021-07-13] MEDS: lidocaine 1% INJ 20 mL INJECTION (09:03)
[2021-07-13 09:08] VITALS: BP 112/78; PULSE 87; RESP 16; O2SAT 99
[2021-07-13 09:13] VITALS: BP 114/76; PULSE 86; RESP 16; O2SAT 100
[2021-07-13 09:52] VITALS: BP 125/80; PULSE 89; RESP 18; TEMP 36.4; O2SAT 99
--- NOTE | 2021-07-13 13:02 | PM.OP ---
Operative Report Date of procedure: July 13, 2021 Pre-op Diagnosis: Port-A-Cath removal as is no longer being used Post-op diagnosis: same Procedure Done: Removal of Port-A-Cath from the left subclavian vein Pathology: none sent Surgeon: Tobi Laird Anesthesia: Local Condition: stable Disposition: PACU Procedure: Patient was taken to the operating room and her right chest was prepped and draped in a sterile manner. 20 mL of 1% lidocaine with 0.5% Marcaine was infiltrated around the MediPort and catheter in the left subclavian vein. Using a 15 blade the previous incision was opened, the subcutaneous tissue was divided using electrocautery and MediPort along the catheter was dissected free from the surrounding subcutaneous tissue and removed entirely. The capsule around the port was excised using electrocautery. The wound was irrigated with saline, hemostasis ensured with electrocautery and subcutaneous tissue was approximated using 3-0 Vicryl suture and skin was closed using running subcuticular 4-0 Monocryl suture. 4x4 and sterile dressings were used as a pressure dressing. The patient was transferred to the recovery room in stable condition.
== END 2021-07-13 09:30 | disposition home or self-care (01) ==
PROVIDERS: PCP Family Medicine; Visit Provider Surgery
PROC: (CPT 36589; principal; 2021-07-13 08:40)
DX: Z45.2 Encounter for adjustment and management of vascular access device (principal)
CPT/HCPCS: 36590; J3490

== ENCOUNTER → 2021-07-28 15:00 | Outpatient (BNVA) | payer OTHER, SELFPAY | PROVIDERS: PCP Family Medicine; Visit Provider Obstetrics & Gynecology | DX: N83.202 Unspecified ovarian cyst, left side (principal) | CPT/HCPCS: 76830 ==

== ENCOUNTER 2021-07-29 19:44 | Observation (INO) | payer OTHER, SELFPAY ==
[2021-07-29 19:47] VITALS: BP 113/84; PULSE 80; RESP 20; TEMP 36.7; O2SAT 99; BMI 23.0
--- NOTE | 2021-07-29 20:10 | ED_ITS ---
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 She was apparently at a libertarian this evening and there was meat being cooked the odor and fumes induced typical L allergic symptoms. She states that she took Zyrtec prior to arrival. She has been told to avoid Benadryl because of conflicts with her current job performance standards. She has had a longstanding history of similar allergies. She has had multiple ER visits in the past and in fact had issues with upper airway compromise requiring intubation. She subsequently developed a intraparenchymal hemorrhage of uncertain etiology and required prolonged hospitalization and rehabilitation. She states she continues to clear her throat and feels a bit anxious. She denies any nausea or vomiting. She is has mild itching but not a predominant symptom. MD complaint: allergic reaction Onset (ago): minute(s) (30) Associated symptoms: Reports hoarseness; Deny abdominal pain or vomiting Review of Systems Const: Denies: fever(s) or chills Eyes: Denies: change in vision ENMT: Reports: hoarseness Card: Denies: chest pain or palpitations Resp: Denies: productive cough, non-productive cough, wheezing or stridor GI: Denies: abdominal pain or vomiting : Denies: flank pain or difficulty voiding Musc: Denies: neck pain, back pain or extremity pain Skin/Breast: Reports: rash and pruritus Neuro: Denies: headache(s) or numbness in extremities Psych: Reports: anxiety Nigel/Lymph: Denies: easy bruising or easy bleeding PFS ED PFSH: Medical History Alpha galactosidase deficiency Anxiety Cerebral hemorrhage with hemiparesis (~08/2019) Occurred while on epinephrine drip for anaphylaxis. Mild residual weakness on the left side History of anaphylaxis Requiring intubation History of gluten sensitivity Hyper-IgE syndrome Major depressive disorder Mood swings Multiple environmental allergies Multiple food allergies PCOS (polycystic ovarian syndrome) PTSD (post-traumatic stress disorder) Rosacea Vocal cord palsy Surgical History History of abdominoplasty History of appendectomy History of artificial lens replacement History of cataract surgery History of section, low transverse History of eye surgery Surgical plate placement and removal History of surgery Intracranial angiogram Port-A-Cath in place (05/26/20) left subclavian Removed 07/13/2021 Family History Mother Diabetes Thyroid condition Hypercholesteremia Hypertension Family/Other Cancer Social History Smoking and tobacco status: never smoked Alcohol intake: current Alcohol intake frequency: few times a month Marital status: Current occupational status: employed 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 Eye: COMMON NORMALS: Equal, round and reactive pupils present, EOMs intact bilaterally and conjunctivae normal CONJUNCTIVA: Yes conjunctivae normal PUPIL: Yes Equal, round and reactive pupils present Neck/C-Spine: COMMON NORMALS: full ROM, no lymphadenopathy and supple Lymph: LYMPHATIC: no lymphadenopathy noted Chest: COMMONS NORMALS: normal inspection of the chest Resp: COMMON NORMALS: normal respiratory effort, No retractions, No use of accessory muscles and clear to auscultation bilaterally EFFORT & INSPECTION: Yes able to speak in complete sentences AUSCULTATION: clear to auscultation bilaterally Cardio: COMMON NORMALS: regular rate and No murmurs present (Cardio) RATE: regular rate GI: COMMON NORMALS: Normal to inspection, nondistended, normoactive bowel sounds present Back/Pelvis: COMMON NORMALS: thoracic and lumbar spine normal to inspection and thoraco-lumbar ROM normal Extremity: COMMON NORMALS: normal to inspection, full ROM, capillary refill normal and no clubbing, cyanosis or edema Neuro: COMMON NORMALS: patient oriented x3, moves all extremities, no focal motor deficits and no sensory deficits noted Course Reevaluation(s): Reevaluation #1: She is improving. She has received antihistamines, Solu-Medrol, albuterol neb. She is also received Ativan to help combat her anxiety. They are holding off on epinephrine at this time given that given the fact that she is responding to current therapy. Reevaluation #2: She continues to show improvement. She still has anxiety about how she perceives her whole current clinical condition. Her voice is clear without any stridor. She still episodically clearing her throat but again no stridor, no wheezes, she speaks in complete sentences without dyspnea. She is requesting some additional therapy. I think we discussed risks and benefits and will give her a half adult dose (pediatric dose) epi IM as well as some Phenergan for nausea and observe her in the emergency department for a period of time. If she is continue to improve and she is stable and comfortable we will plan on discharging her however she is not back to her baseline then we will continue her in observation in the hospital. She acknowledges our discussion and is stable and improving Reevaluation #3: Patient has been discussed with overnight ED physician who will make disposition depending on her clinical progress. Vital Signs: Vital signs: Vital Signs Temperature 98.2 F 07/30/21 10:25 Pulse Rate 91 07/30/21 10:25 Respiratory Rate 16 07/30/21 10:25 Blood Pressure 115/73 07/30/21 10:25 Pulse Oximetry 97 07/30/21 10:25 Discharge Plan Discharge Admit Provider: Reshma Monte Clinical Impression: Allergic reaction Qualifiers: Encounter type: initial encounter Qualified Code(s): T78.40XA - Allergy, unspecified, initial encounter Condition: Stable Discharge Orders: Discharge Order (Routine); Ordered 07/30/21 Ordered By: Mayra Kidd Discharge Diet: Cardiac Discharge Activity: Resume usual activity Sign Out Sign Out Data: Patient Sign Out occurred on 07/29/21 at 23:21. Patient's care was discussed, and care was transferred from to Paul Ball MD. Coding Level of Care Code ED Conductor And Engineer for Chg Fwd Exam Comprehensive Documented by User: Paul Ball MD 08/02/21 23:41 HPI - Allergic Reaction General: Chief complaint: Allergic Reaction Stated complaint: allergic reaction Time Seen by Provider: 07/29/21 20:00 PFSH ED PFSH: Medical History Alpha galactosidase deficiency Anxiety Cerebral hemorrhage with hemiparesis (~08/2019) Occurred while on epinephrine drip for anaphylaxis. Mild residual weakness on the left side History of anaphylaxis Requiring intubation History of gluten sensitivity Hyper-IgE syndrome Major depressive disorder Mood swings Multiple environmental allergies Multiple food allergies PCOS (polycystic ovarian syndrome) PTSD (post-traumatic stress disorder) Rosacea Vocal cord palsy Surgical History History of abdominoplasty History of appendectomy History of artificial lens replacement History of cataract surgery History of section, low transverse History of eye surgery Surgical plate placement and removal History of surgery Intracranial angiogram Port-A-Cath in place (05/26/20) left subclavian Removed 07/13/2021 Family History Mother Diabetes Thyroid condition Hypercholesteremia Hypertension Family/Other Cancer Social History Smoking and tobacco status: never smoked Alcohol intake: current Alcohol intake frequency: few times a month Marital status: Current occupational status: employed 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 Avila. Pending at time of handoff was reassessment. Patient reassessed and still with symptoms, repeat treatment ordered. Persistent symptoms despite repeat treatment and extensive treatment that the patient had received prior to me taking over care. Patient uncomfortable with discharge at this time. She has a complex history including severe anaphylaxis and at this time does not feel that her symptoms are improving over time. Hospitalist service contacted and agreed to admit the patient. Paul Ball MD Emergency Medicine Discharge Plan Discharge Admit Provider: Reshma Monte Clinical Impression: Allergic reaction Qualifiers: Encounter type: initial encounter Qualified Code(s): T78.40XA - Allergy, unsp ecified, initial encounter Condition: Stable Discharge Orders: Discharge Order (Routine); Ordered 07/30/21 Ordered By: Mayra Kidd Discharge Diet: Cardiac Discharge Activity: Resume usual activity Sign Out Sign Out Data: Patient Sign Out occurred on 07/29/21 at 23:21. Patient's care was discussed, and care was transferred from to Paul Ball MD. Coding Level of Care Code ED Conductor And Engineer for Shanthi Fwd Exam Comprehensive
[2021-07-29] MEDS: famotidine 20 mg/2 mL INJ 40 MG IVP (20:16)
[2021-07-29 20:27] VITALS: PULSE 73; RESP 16; O2SAT 99
[2021-07-29] MEDS: ondansetron 2 mg/ML SDV 2 mL 8 MG IVP (20:35)
[2021-07-29] MEDS: hyDROXYzine 25 mg Capsule 50 MG PO (20:35)
[2021-07-29] MEDS: sodium chloride 0.9% 1,000 ML 999 ML IV (20:36)
[2021-07-29] MEDS: LORazepam 2 mg/mL INJ 1 mL 1 MG IVP ×3 (21:10→23:36)
[2021-07-29] MEDS: dexamethasone 10 mg/mL INJ IVP (21:48)
[2021-07-29 21:59] VITALS: BP 131/76; PULSE 103; RESP 16; O2SAT 98
[2021-07-29 22:41] VITALS: BP 117/70; PULSE 111; RESP 18; O2SAT 98
[2021-07-29] MEDS: EPINEPHrine 1 mg/mL INJ 0.15 MG IM (23:06)
[2021-07-29] MEDS: promethazine 25 mg/mL SDV 1 mL IM (23:06)
[2021-07-29 23:46] VITALS: BP 120/77; PULSE 110; RESP 18; O2SAT 98
[2021-07-30] VITALS (9 sets, daily range): BP systolic 109–124; BP diastolic 68–78; PULSE 91–123; RESP 16–24; TEMP 36.8; O2SAT 97–99; BMI 23.0
[2021-07-30] MEDS: hyDROXYzine 25 mg Capsule PO ×2 (00:19→07:59)
--- NOTE | 2021-07-30 00:43 | XRR_ITS ---
PROCEDURE INFORMATION: Exam: XR Chest Exam date and time: 07/30/2021 12:43 AM Age: 45 years old Clinical indication: Shortness of breath; Prior surgery; Surgery type: Chest port; Patient HX: SOB TECHNIQUE: Imaging protocol: XR of the chest. Views: 1 view. COMPARISON: CR XR chest 1V portable [id number] 02/03/2021 10:01 PM FINDINGS: Lungs: Unremarkable. No consolidation. Pleural spaces: Unremarkable. No pleural effusion. No pneumothorax. Heart/Mediastinum: Unremarkable. No cardiomegaly. Bones/joints: Unremarkable. XR/XR chest 1V portable [id number] IMPRESSION: No acute findings. Radiation Dose CTDIVOL = (mGy): DLP = (mGy-cm)
[2021-07-30 01:35] LABS: Basophils % 0.2 %; Hemoglobin 9.6 g/dL (11.5-15.3); Lymphocytes # 0.2 10^3/uL (0.8-4.8); Lymphocytes % 2.7 %; Mean Corpuscular Hemoglobin 27.4 pg (28.0-34.0); Mean Corpuscular Volume 88.6 fl (81-99); Mean Platelet Volume 9.2 fL (7.4-10.4); Monocytes # 0.1 10^3/uL (0.2-0.9); Monocytes % 0.6 %; Neutrophils # 8.43 10^3/uL (1.8-7.7); Neutrophils % 96.3 %; Nucleated Red Blood Cells % 0 %; Platelet Count 296 10^3/cmm (130-400); Red Cell Distribution Width 14.5 % (12.1-15.1); White Blood Count 8.8 10^3/uL (4.0-10.0)
[2021-07-30 02:08] LABS: Anion Gap 18.4 (5-19); Blood Urea Nitrogen 8 mg/dL (6-20); Calcium 8.1 mg/dL (8.5-10.5); Carbon Dioxide 18 mmol/L (22-29); Chloride 106 mmol/L (98-107); Glomerular Filtration Rate 91.3 mL/min (90-130); Glucose 241 mg/dL (65-115); Osmolality Calculated 294 mOsm/kg (285-295); Potassium 3.4 mmol/L (3.5-5.1); Sodium 139 mmol/L (136-145)
--- NOTE | 2021-07-30 02:25 | PM.HP ---
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 Patient was exposed to fumes from meat being cooked earlier. Noted to have hoarseness requiring her to clear her throat. Due to prior history of analyphlaxis. Denied any tongue swelling, respiratory distress or uricarial rash. Upon arrival to ER initial lab work up showed WBC of 8.8, hemoglobin 9.6, hematocrit 31.0 and a platelet count of 296. Sodium 139, potassium 3.4, chloride 106, bicarb 18 , BUN 8 and creatinine of 0.7. Chest x-ray did not show any evidence of acute cardiopulmonary abnormality. In ER patient was given Decadron 10 mg IV x1. Head taking Zyrtec prior to arrival. Addition was feeling very anxious for which she was given Ativan 1 mg x1. Denies any recent fever , chills , nausea vomiting. No chest pain. Denied abdominal pain , diarrhea or constipation. Review of Systems General: Reports: 10 or more systems reviewed and unremarkable except in HPI and below Medications/Allergies Home Medications Medication Instructions Recorded Confirmed Last Taken Type famotidine 40 mg PO BID 05/21/20 07/13/21 07/13/21 History diphenhydramine HCl 50 mg IM Q12H PRN 15 Days #25 ml 05/23/20 07/13/21 07/12/21 Rx acetaminophen [Tylenol] 1,000 mg PO PRN 06/11/20 07/12/21 02/28/21 History cetirizine See Rx Instructions .ROUTE .COMPLEX 06/11/20 07/13/21 07/13/21 History trazodone 150 - 200 mg PO BEDTIME 06/11/20 07/13/21 07/12/21 History budesonide 0.5 mg INHALATION BID PRN 07/05/20 07/13/21 07/12/21 History gabapentin 300 mg PO BID 03/24/21 07/13/21 07/13/21 History fluoxetine 60 mg tablet 60 mg PO DAILY 30 Days #30 tab 04/08/21 07/13/21 07/13/21 Rx lithium carbonate 150 mg capsule 150 mg PO QID 04/08/21 07/13/21 07/12/21 History Allergies Allergy/AdvReac Type Severity Reaction Status Date / Time Beef Containing Products Allergy Severe ALGY-Anaphy Verified 07/13/21 07:34 laxis epinephrine Allergy Severe Hemorrhagic Verified 07/13/21 07:34 stroke after epi drip lactose Allergy Severe ALGY-Anaphy Verified 07/13/21 07:34 laxis Pork/Porcine Containing Allergy Severe ALGY-Anaphy Verified 07/13/21 07:34 Products laxis trimethobenzamide Allergy Severe ALGY-Anaphy Verified 07/13/21 07:34 [From Tigan] laxis digoxin Allergy ALGY-Hives Verified 07/13/21 07:34 egg Allergy ALGY-Anaphy Verified 07/13/21 07:34 laxis enoxaparin [From Lovenox] Allergy ALGY-Anaphy Verified 07/13/21 07:34 laxis gluten Allergy Unknown Verified 07/13/21 07:34 heparin (porcine) Allergy ALGY-Anaphy Verified 07/13/21 07:34 laxis PFSH Acute PFSH: Medical History Alpha galactosidase deficiency Anxiety Cerebral hemorrhage with hemiparesis (~08/2019) Occurred while on epinephrine drip for anaphylaxis. Mild residual weakness on the left side History of anaphylaxis Requiring intubation History of gluten sensitivity Hyper-IgE syndrome Major depressive disorder Mood swings Multiple environmental allergies Multiple food allergies PCOS (polycystic ovarian syndrome) PTSD (post-traumatic stress disorder) Rosacea Vocal cord palsy Surgical History History of abdominoplasty History of appendectomy History of artificial lens replacement History of cataract surgery History of section, low transverse History of eye surgery Surgical plate placement and removal History of surgery Intracranial angiogram Port-A-Cath in place (05/26/20) left subclavian Removed 07/13/2021 Family History Mother Diabetes Thyroid condition Hypercholesteremia Family/Other Cancer Social History Smoking and tobacco status: never smoked Alcohol intake: current Alcohol intake frequency: few times a month Marital status: Current occupational status: employed 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 History: Date of last menstrual period: 07/29/21 Vitals/I&O/Wt Last Vital Signs Temp 98.3 F 07/30/21 03:00 Pulse 104 H 07/30/21 03:00 Resp 18 07/30/21 03:00 BP 109/68 07/30/21 03:00 Pulse Ox 99 07/30/21 03:00 07/29/21 07/29/21 07/30/21 14:59 22:59 06:59 Intake Total 1000 / 1000 Balance 1000 / 1000 Weight last 48 hrs Weight 58.967 kg Weight 58.967 kg Physical Exam Narrative: EXAM NARRATIVE: General- drowsy however arousable, no apparent distress HEENT- grossly unremarkable CVS- regular rate rhythm Chest -clear to auscultation bilaterally Abdomen - soft nontender nondistended Extremities-no edema Data : 07/30/21 01:28 07/30/21 01:28 A&P Assessment and plan (1) Acute allergic reaction: Status: Acute Qualifiers: Encounter type: initial encounter Qualified Code(s): T78.40XA - Allergy, unspecified, initial encounter (2) Anxiety: Status: Chronic (3) Hyper-IgE syndrome: Status: Chronic (4) Cerebral hemorrhage with hemiparesis: Status: Chronic (5) Alpha galactosidase deficiency: Status: Chronic Additional A&P Information Symptoms resolved S/p decadron 10mg IV x 1 PRN Benadryl Pepcid 20 mg BID Admitted for observation Verify home meds in am and resume Attestations Medical Necessity Statement*: Anticipate less than 2 midnight stay in hospital for evaluation treatment Time Spent in Patient Care: Greater than 35 minutes (>than 50% of time spent in counselling and/or direct pt care on unit). Coding Level of Care Code Acute Mine Deputy for 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 Diagnoses Acute allergic reaction T78.40XA Encounter type: initial encounter Anxiety F41.9 Hyper-IgE syndrome D82.4 Cerebral hemorrhage with hemiparesis I61.9; G81.90 Alpha galactosidase deficiency E75.6
--- NOTE | 2021-07-30 03:55 | PC.NURSE ---
Patient arrived to floor via stretcher, minimal c/o pain, HR elevated and BP soft, patient sleepy. Resting comfortably, no needs at this time. Room clutter free and call light in reach. Will continue to monitor throughout shift.
[2021-07-30] MEDS: ketorolac 30 mg/mL INJ 15 MG IVP (07:59)
[2021-07-30] MEDS: LORazepam 2 mg/mL INJ 1 mL 0.5 MG IVP (10:03)
--- NOTE | 2021-07-30 10:10 | PC.NURSE ---
Discharge Note Patient discharged to home via private vehicle accompanied by son. Discharge instructions reviewed with patient and/or ambulatory service representative. Mobile pharmacy medications and/or prescriptions provided. Belongings/home medications returned.
--- NOTE | 2021-07-30 11:09 | PM.DCS ---
Discharge Providers Date of Admission: 07/30/21 00:47 Date of Discharge: July 30, 2021 Attending Provider at Admission: Reshma Monte Attending Provider at Discharge: Mayra Kidd MD Primary Care Provider: Chi Cobb MD Diagnoses at Discharge Discharge Diagnosis (1) Acute allergic reaction: Status: Acute Qualifiers: Encounter type: initial encounter Qualified Code(s): T78.40XA - Allergy, unspecified, initial encounter (2) Anxiety: Status: Chronic Permanent problem details: -on anxiolytics -low threshold for anxiety (3) Hyper-IgE syndrome: Status: Chronic (4) Cerebral hemorrhage with hemiparesis: Status: Chronic Permanent problem details: Occurred while on epinephrine drip for anaphylaxis. 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 Patient was exposed to fumes from meat being cooked earlier. Noted to have hoarseness requiring her to clear her throat. Due to prior history of analyphlaxis. Denied any tongue swelling, respiratory distress or uricarial rash. Upon arrival to ER initial lab work up showed WBC of 8.8, hemoglobin 9.6, hematocrit 31.0 and a platelet count of 296. Sodium 139, potassium 3.4, chloride 106, bicarb 18 , BUN 8 and creatinine of 0.7. Chest x-ray did not show any evidence of acute cardiopulmonary abnormality. In ER patient was given Decadron 10 mg IV x1. Head taking Zyrtec prior to arrival. Addition was feeling very anxious for which she was given Ativan 1 mg x1. Denies any recent fever , chills , nausea vomiting. No chest pain. Denied abdominal pain , diarrhea or constipation. Hospital course: Patient was given Decadron 10 mg IV in the ER with as needed Benadryl. She was admitted for observation. She was asymptomatic when seen in the morning. She no longer had any throat swelling. Did complain of some itchiness and she was given hydroxyzine for that upon her request. Patient was also a little anxious and therefore was given 1 dose of Ativan. She states he takes Ativan at home but only takes it as needed. She was sent home with a Medrol Dosepak and albuterol inhaler. Patient will follow up with her primary care physician Physical Exam Narrative: EXAM NARRATIVE: General: Alert oriented x3, patient seen sitting up in bed appearing comfortable. HEENT: Normocephalic, atraumatic, EOMI, breathing normally, nonlabored breathing. No evidence of stridor._No erythema or swelling noted in throat. Cardio: Regular rate rhythm, normal S1-S2, no murmurs rubs gallops, Respiratory: Good bilateral air entry, no wheezes no rhonchi appreciated GI: Abdomen soft, nontender, nondistended, bowel sounds + Behavior: Appropriate and cooperative, appears slightly anxious. Extremities: no edema, no cyanosis Discharge Data Data Completed and Pending: Completed Studies During Hospitalization Category Date Time Status XR chest 1V zee ble [id number] Stat Exams 07/30/21 00:43 Completed Labs from last 24 hours 07/30/21 07/30/21 01:28 01:28 WBC 8.8 RBC 3.50 L Hgb 9.6 L Hct 31.0 L MCV 88.6 MCH 27.4 L MCHC 31.0 RDW 14.5 Plt Count 296 MPV 9.2 Neut % (Auto) 96.3 Lymph % (Auto) 2.7 [place] % (Auto) 0.6 Eos % (Auto) 0.0 Baso % (Auto) 0.2 Neut # (Auto) 8.43 H Lymph # (Auto) 0.2 L [place] # (Auto) 0.1 L Eos # (Auto) 0.0 Baso # (Auto) 0.0 Nucleated RBC % (a uto) 0 Nucleated RBCs # 0.0 Sodium 139 Potassium 3.4 L Chloride 106 Carbon Dioxide 18 L Anion Gap 18.4 BUN 8 Creatinine 0.7 GFR Calculation 91.3 Glucose 241 H Calculated Osmolal ity 294 Calcium 8.1 L Vitals: Last Vital Signs Temp 98.2 F 07/30/21 10:25 Pulse 91 07/30/21 10:25 Resp 16 07/30/21 10:25 BP 115/73 07/30/21 10:25 Pulse Ox 97 07/30/21 10:25 Discharge Plan Discharge Patient Disposition: Home Condition: Stable Prescriptions: New Medrol (Godfrey) 4 mg tablets,dose pack See Rx Instructions .ROUTE .COMPLEX Qty: 21 RF: 0 albuterol sulfate 90 mcg/actuation HFA aerosol inhaler 2 inh inhalation Q6H PRN (Reason: shortness of breath or wheezing) 15 Days Qty: 8.5 RF: 0 Continued lithium carbonate 150 mg capsule 150 mg PO BEDTIME RF: 0 fluoxetine 60 mg tablet 60 mg PO DAILY 30 Days Qty: 30 RF: 3 famotidine 40 mg/5 mL (8 mg/mL) Suspension 40 mg PO BID RF: 0 cetirizine 5 mg/5 mL Solution See Rx Instructions .ROUTE .COMPLEX RF: 0 acetaminophen [Tylenol] 325 mg tablet 1,000 mg PO Q6H PRN (Reason: Pain) RF: 0 budesonide 0.5 mg/2 mL suspension for nebulization 0.5 mg inhalation BID PRN (Reason: shortness of breath or wheezing) RF: 0 gabapentin 300 mg Capsule 300 mg PO BID RF: 0 Discontinued diphenhydramine HCl 50 mg/mL solution 50 mg IM Q12H PRN (Reason: allergic reaction) 15 Days Qty: 25 RF: 2 trazodone 100 mg Tablet 150 - 200 mg PO BEDTIME RF: 0 No Action ibuprofen 800 mg Tablet 800 mg PO TID PRN (Reason: Pain) RF: 0 lorazepam 2 mg/mL Concentrate 1 mg PO BID PRN (Reason: Anxiety) RF: 0 Discharge Orders: Discharge Order (Routine); Ordered 07/30/21 Ordered By: Mayra Kidd Referrals: Chi Cobb MD [Primary Care Provider] - 4-7 days (Call Sunday to follow up with Primary care provider. ) Discharge Diet: Cardiac Discharge Activity: Resume usual activity Patient Instructions: Allergic Reaction, Albuterol (By breathing), Methylprednisolone (By mouth), Anaphylaxis (DC), Opioid Safety Discharge Attestations Time Spent in Discharge Care*: less than 30 min Specific Discharge Activities: educating patient and evaluating patient/reviewing data Status at Discharge: Cognitive status at discharge: cognitively intact, Behavioral status at discharge: cooperative and independent in ADL's, Quality Metrics Clinical Quality Measures During this hospital stay, did patient experience: None Coding Level of Care Code Acute Chg FW DC note Diagnoses Acute allergic reaction T78.40XA Encounter type: initial encounter Anxiety F41.9 Hyper-IgE syndrome D82.4 Cerebral hemorrhage with hemiparesis I61.9; G81.90 Alpha galactosidase deficiency E75.6
== END 2021-07-30 10:25 | disposition home or self-care (01) ==
LOC: ER 07-30 01:01 → MEDSURG 07-30 01:18
PROVIDERS: Admitting Provider Hospitalist; Emergency Provider Emergency Medicine; PCP Family Medicine; Visit Provider Internal Medicine
DX: T78.40XA Allergy, unspecified, initial encounter (principal); F41.9 Anxiety disorder, unspecified; D82.4 Hyperimmunoglobulin E [IgE] syndrome; E75.6 Lipid storage disorder, unspecified; F32.9 Major depressive disorder, single episode, unspecified; G81.92 Hemiplegia, unspecified affecting left dominant side
CPT/HCPCS: 71045; 80048; 85025; 94640; 96372; 96374; 96375; 96376; 99285; 99291; G0378; J0171; J1100; J1885; J2060; J2405; J2550; J2930; J3490; J7030; J7611

== ENCOUNTER 2021-08-04 15:48 | Emergency (ER) | payer OTHER, SELFPAY ==
[2021-08-04 15:55] VITALS: BP 105/69; PULSE 76; RESP 15; TEMP 36.9; O2SAT 99; BMI 23.0
--- NOTE | 2021-08-04 16:07 | ED_ITS ---
HPI - Wound/Laceration General: Chief Complaint: Wound/Laceration Stated Complaint: Blood draw, cut self while tending to pt Time Seen by Provider: 08/04/21 16:06 History of Present Illness: HPI narrative: Patient is a 45-year-old female that comes to the ED after exposure to bodily fluids after she accidentally cut left hand during a procedure. Patient has a doctor at the wound care clinic and was working on a patient's foot ulcer when she accidentally cut her left hand with an instrument. She is here at the ED for post exposure lab work. Denies any symptoms. Associated symptoms: Denies chills, fever(s), nausea or vomiting Review of Systems Narrative: exposure to bodily fluids Const: Denies: fever(s), chills or fatigue Eyes: Denies: change in vision or eye discomfort ENMT: Denies: throat pain, odynophagia, nasal discharge or nasal congestion Card: Denies: chest pain, palpitations, edema, swelling of feet/ankles, dyspnea on exertion or orthopnea Resp: Denies: dyspnea, productive cough or non-productive cough GI: Denies: abdominal pain, nausea, vomiting, diarrhea, constipation or hematochezia : Denies: flank pain, dysuria or hematuria Musc: Denies: neck pain, back pain or extremity swelling Skin/Breast: Denies: rash or new lesions Neuro: Denies: headache(s), numbness in extremities or weakness in extremities [facility] ED PFSH: Medical History Alpha galactosidase deficiency Anxiety Cerebral hemorrhage with hemiparesis (~08/2019) Occurred while on epinephrine drip for anaphylaxis. Mild residual weakness on the left side History of anaphylaxis Requiring intubation History of gluten sensitivity Hyper-IgE syndrome Major depressive disorder Mood swings Multiple environmental allergies Multiple food allergies PCOS (polycystic ovarian syndrome) PTSD (post-traumatic stress disorder) Rosacea Vocal cord palsy Surgical History History of abdominoplasty History of appendectomy History of artificial lens replacement History of cataract surgery History of section, low transverse History of eye surgery Surgical plate placement and removal History of surgery Intracranial angiogram Port-A-Cath in place (05/26/20) left subclavian Removed 07/13/2021 Family History Mother Diabetes Thyroid condition Hypercholesteremia Hypertension Family/Other Cancer Social History Smoking and tobacco status: never smoked Alcohol intake: current Alcohol intake frequency: few times a month Marital status: Current occupational status: employed 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 History: Date of last menstrual period: 07/29/21 Physical Exam Const: COMMON NORMALS: no acute distress, patient oriented x3 and alert GENERAL APPEARANCE: cooperative and comfortable HENMT: COMMON NORMALS: normocephalic HEAD & SCALP: normocephalic MOUTH: Normal oral and palatal mucosa present THROAT: posterior oropharynx normal and uvula midline Neck/C-Spine: COMMON NORMALS: supple GENERAL: Yes normal visual inspection Resp: COMMON NORMALS: normal respiratory effort, No retractions, No use of accessory muscles and clear to auscultation bilaterally AUSCULTATION: clear to auscultation bilaterally Cardio: COMMON NORMALS: regular rate, regular rhythm, S1 normal heart sound present, S2 normal heart sound present, No gallops present (Cardio), No clicks present (Cardio), No murmurs present (Cardio) and Peripheral pulses 2+ throughout RATE: regular rate RHYTHM: regular rhythm HEART SOUNDS: S1 normal heart sound present and S2 normal heart sound present PERIPHERAL PULSES: Peripheral pulses 2+ throughout GI: COMMON NORMALS: Normal to inspection, nondistended, normoactive bowel sounds present, Soft to palpation, non-tender and no masses PALPATION: Yes Soft to palpation : COMMON NORMALS: Yes no CVA tenderness BLADDER/KIDNEY EXAM: Yes no CVA tenderness Back/Pelvis: COMMON NORMALS: no CVA tenderness Extremity: NARRATIVE EXTREMITY EXAM: Small puncture wound on the thenar aspect of left palm of hand. No erythema, bleeding or purulent discharge seen. GENERAL: Yes normal exam except as noted Neuro: COMMON NORMALS: patient oriented x3 and moves all extremities SENSORIUM/ORIENTATION: Yes alert Skin: NARRATIVE SKIN EXAM: Small puncture wound on the thenar aspect of left palm of hand. No erythema, bleeding or purulent discharge seen. GENERAL SKIN EXAM: dry skin Course Vital Signs: Vital signs: Vital Signs Temperature 98.4 F 08/04/21 15:55 Pulse Rate 76 08/04/21 15:55 Respiratory Rate 15 10/21/21 15:55 Blood Pressure 105/69 08/04/21 15:55 Pulse Oximetry 99 08/04/21 15:55 MDM - Wound/Laceration MDM Narrative: Medical decision making narrative: Patient is a 45-year-old female comes to the ED for lab work due to post exposure to blood or bodily fluids. CBC, CMP, blood cultures, HIV and hepatitis panel are all pending. Patient was discharged home. follow-up with PCP in the next 5 to 7 days for reevaluation. Return to ED precautions given. Hospital will contact patient if any of the lab results come back as critical. Discharge Plan Discharge Patient Disposition: Home Clinical Impression: Exposure to blood or body fluid Condition: Stable Prescriptions: No Action lithium carbonate 150 mg capsule 150 mg PO BEDTIME RF: 0 fluoxetine 60 mg tablet 60 mg PO DAILY 30 Days Qty: 30 RF: 3 famotidine 40 mg/5 mL (8 mg/mL) Suspension 40 mg PO BID RF: 0 cetirizine 5 mg/5 mL Solution See Rx Instructions .ROUTE .COMPLEX RF: 0 acetaminophen [Tylenol] 325 mg tablet 1,000 mg PO Q6H PRN (Reason: Pain) RF: 0 budesonide 0.5 mg/2 mL suspension for nebulization 0.5 mg inhalation BID PRN (Reason: shortness of breath or wheezing) RF: 0 gabapentin 300 mg Capsule 300 mg PO BID RF: 0 Medrol (Godfrey) 4 mg tablets,dose pack See Rx Instructions .ROUTE .COMPLEX Qty: 21 RF: 0 albuterol sulfate 90 mcg/actuation HFA aerosol inhaler 2 inh inhalation Q6H PRN (Reason: shortness of breath or wheezing) 15 Days Qty: 8.5 RF: 0 ibuprofen 800 mg Tablet 800 mg PO TID PRN (Reason: Pain) RF: 0 Discharge Orders: Discharge ED (Routine); Ordered 08/04/21 Ordered By: Sanford Strong Referrals: Chi Cobb MD [Primary Care Provider] - Discharge Diet: Regular Discharge Activity: Resume usual activity Patient Instructions: Body Substance Exposure (ED) Activity Restrictions/Additional Instructions: Follow-up with medical provider as directed in the next 5 to 7 days for reevaluation and to discuss lab results. Recheck labs in 2 to 3 months. Return to the ER or your medical provider if condition worsens. Please read and understand discharge instructions. Thank you for choosing [facility] for your healthcare needs today. Please realize this is an emergency room and that we are providing you with a medical screening exam and this may not be complete and all inclusive of all the testing and or work up that you may need to determine your ailment or severity of your illness. It is very important that you follow up as instructed or that you return to the Emergency Department should you have concerns or if your condition changes or worsens in any way. Coding Level of Care Code ED Clinical Sciences Professor for 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 Exam Comprehensive
[2021-08-04 17:13] LABS: Basophils # 0.1 10^3/uL (0.0-0.1); Basophils % 0.7 %; Eosinophils # 0.2 10^3/uL (0.0-0.8); Eosinophils % 1.8 %; Hematocrit 34.8 % (37.0-47.0); Hemoglobin 10.4 g/dL (11.5-15.3); Lymphocytes # 2.1 10^3/uL (0.8-4.8); Lymphocytes % 24.6 %; Mean Corpuscular HGB Conc 29.9 g/dL (30.0-36.0); Mean Corpuscular Hemoglobin 26.7 pg (28.0-34.0); Mean Corpuscular Volume 89.2 fl (81-99); Mean Platelet Volume 8.9 fL (7.4-10.4); Monocytes # 0.9 10^3/uL (0.2-0.9); Monocytes % 10.2 %; Neutrophils # 5.35 10^3/uL (1.8-7.7); Neutrophils % 62.5 %; Nucleated Red Blood Cells % 0 %; Platelet Count 364 10^3/cmm (130-400); Red Cell Distribution Width 14.5 % (12.1-15.1); White Blood Count 8.6 10^3/uL (4.0-10.0)
[2021-08-04 17:42] LABS: Alanine Aminotransferase 9 U/L (0-33); Albumin Level 3.8 g/dL (3.5-5.2); Alkaline Phosphatase 76 IU/L (35-105); Aspartate Amino Transferase 12 U/L (0-32); Blood Urea Nitrogen 8 mg/dL (6-20); Calcium 8.5 mg/dL (8.5-10.5); Carbon Dioxide 23 mmol/L (22-29); Chloride 100 mmol/L (98-107); Creatinine Clr Calc Pharmacy 78.7667; Globulin 2.2 g/dL (1.3-4.6); Glomerular Filtration Rate 78.3 mL/min (90-130); Glucose 81 mg/dL (65-115); Osmolality Calculated 273 mOsm/kg (285-295); Sodium 133 mmol/L (136-145); Total Bilirubin 0.2 mg/dL (0.15-1.2)
[2021-08-04 17:55] LABS: HIV 1 & 2 Antibody Non-Reactive (Non-Reactiv); HIV 1 & 2 Antigen Non-Reactive (Non-Reactiv)
[2021-08-04 18:08] LABS: Hepatitis A Antibody IgM Non-Reactive (Nonreactive); Hepatitis B Core AB, Total Non-Reactive (Nonreactive); Hepatitis B Surface Antigen Non-Reactive (Nonreactive); Hepatitis C Virus Antibody Non-Reactive (Nonreactive)
== END 2021-08-04 17:31 | disposition home or self-care (01) ==
PROVIDERS: Emergency Provider Physician Assistant; PCP Family Medicine
DX: Z77.21 Contact with and (suspected) exposure to potentially hazardous body fluids (principal); Y99.0 Civilian activity done for income or pay
CPT/HCPCS: 80053; 85025; 86705; 86706; 86709; 86803; 87040; 87340; 87806; 99282; 99291

== ENCOUNTER → 2021-08-12 08:23 | Outpatient (BNVA) | payer OTHER, BC, SELFPAY | PROVIDERS: PCP Family Medicine; Visit Provider Obstetrics & Gynecology | DX: R10.2 Pelvic and perineal pain (principal); Z20.822 Contact with and (suspected) exposure to COVID-19 | CPT/HCPCS: 87635 ==

== ENCOUNTER 2021-08-17 12:25 | Day surgery (SDC) | payer OTHER, SELFPAY ==
[2021-08-16 11:44] VITALS: BMI 23.0
[2021-08-16 11:46] LABS: Basophils % 0.4 %; Eosinophils % 0.4 %; Hematocrit 34.7 % (37.0-47.0); Hemoglobin 10.5 g/dL (11.5-15.3); Lymphocytes # 1.5 10^3/uL (0.8-4.8); Lymphocytes % 16.1 %; Mean Corpuscular HGB Conc 30.3 g/dL (30.0-36.0); Mean Corpuscular Volume 85.9 fl (81-99); Mean Platelet Volume 9.6 fL (7.4-10.4); Monocytes # 0.7 10^3/uL (0.2-0.9); Monocytes % 7.6 %; Neutrophils # 7.06 10^3/uL (1.8-7.7); Neutrophils % 75.2 %; Nucleated Red Blood Cells % 0 %; Platelet Count 316 10^3/cmm (130-400); Red Blood Count 4.04 10^6/uL (4.1-5.3); Red Cell Distribution Width 14.1 % (12.1-15.1); White Blood Count 9.4 10^3/uL (4.0-10.0)
[2021-08-16 12:20] LABS: Add Urine Culture? No; Add Urine Microscopic? YES; Bacteria Urine 1+ /hpf; Bilirubin Urine Neg (Negative); Blood Urine 3+ (Negative); Glucose Urine UA Norm (Normal); Ketones Urine Negative (Negative); Leukocyte Esterase Urine 1+ (Negative); Mucus Urine TRACE /hpf; Nitrate Urine Negative (Negative); Protein Urine Neg (Negative); RBC Urine 15-25 /hpf (0-2); Specific Gravity, Urine 1.005 (1.005-1.030); Urine Appearance Clear (CLEAR); Urine Color Straw (Yellow); Urobilinogen Urine Norm (Negative); pH Urine 6 (5-7)
[2021-08-16 12:23] LABS: Alanine Aminotransferase 8 U/L (0-33); Albumin Level 4.2 g/dL (3.5-5.2); Alkaline Phosphatase 80 IU/L (35-105); Anion Gap 13.1 (5-19); Aspartate Amino Transferase 12 U/L (0-32); Blood Urea Nitrogen 9 mg/dL (6-20); Calcium 8.7 mg/dL (8.5-10.5); Carbon Dioxide 24 mmol/L (22-29); Chloride 101 mmol/L (98-107); Globulin 2.5 g/dL (1.3-4.6); Glomerular Filtration Rate 77.9 mL/min (90-130); Glucose 90 mg/dL (65-115); Osmolality Calculated 276 mOsm/kg (285-295); Potassium 4.1 mmol/L (3.5-5.1); Sodium 134 mmol/L (136-145); Total Bilirubin 0.2 mg/dL (0.15-1.2); Total Protein 6.7 g/dL (6.6-8.7)
[2021-08-16 21:12] LABS: OR HCG Qualitative Urine Negative (Negative)
[2021-08-17] VITALS (14 sets, daily range): BP systolic 96–124; BP diastolic 64–79; PULSE 81–111; RESP 12–16; TEMP 36.9–37.3; O2SAT 96–99
[2021-08-17] MEDS: scopolamine 1.5 Patch 1 PATCH TRANSDERMA (13:12)
[2021-08-17] MEDS: sodium chloride 0.9% 500 ML IV (13:23)
[2021-08-17] MEDS: sodium chloride 0.9% 1,000 ML 30 ML IV (13:33)
[2021-08-17 13:36] LABS: OR HCG Qualitative Urine Negative (Negative)
[2021-08-17] MEDS: midazolam 1 mg/mL INJ 2 mL 2 MG IVP (13:55)
--- NOTE | 2021-08-17 14:03 | W.PM.OPSUD ---
Surgery/Procedure H&P Update DATE OF PROCEDURE: August 17, 2021 DATE H&P PERFORMED: 08/02/21 H&P UPDATE INFORMATION: I have reviewed H&P completed within last 30 days, I have examined patient prior to procedure and No changes to prior documentation PREOP DIAGNOSIS: Pelvic pain PLANNED PROCEDURE: Operation Date: 08/17/21 13:40 Proposed Procedures p Laparoscopy Diagnostic 81417 R10.2(Not Applicable) - Mendoza Villatoro MD
--- NOTE | 2021-08-17 14:27 | ANES.PREANE2 ---
Pre-Anesthetic Assessment Pre-Anesthetic Assessment: Height/Weight: Height 1.6 m Weight 58.967 kg Temp Pulse Resp BP Pulse Ox 99.1 F 81 16 124/79 98 08/17/21 12:45 08/17/21 12:45 08/17/21 12:45 08/17/21 12:45 08/17/21 12:45 Preop Diagnosis: Pelvic pain Proposed Procedure: Operation Date: 08/17/21 13:40 Proposed Procedures p Laparoscopy Diagnostic 74179 R10.2(Not Applicable) - Mendoza Villatoro MD Familial anesthetic complications: none Was Beta Sid taken within 24 hours: N/A Was Clonidine taken within 24 hours: N/A Last intake: Intake Last Liquid Date 08/15/21 Last Liquid Time 23:00 Last Solid Date 08/16/21 Last Solid Time 22:00 Social: Social History: No alcohol and No tobacco Exam: Pre-Anes Outpt Exam: alert, oriented x 3, clear to auscultation bilaterally and regular rate & rhythm Airway: Cervical ROM: WNL MP: 2 Dentition: Full Neuropsych: Neuropsych: CVA Anesthetic Plan: ASA status: 2 Anesthesia: General Risk of > 500 ml blood loss (7ml/kg in children): No Other Pertinent Information: Alpha gal allergy Meds/Allergies Current Medications: Current Medications Generic Name Dose Route Start Last Admin Trade Name Freq PRN Reason Stop Dose Admin Sodium Chloride 1,000 mls @ 30 ml s/hr 08/17/21 12:45 08/17/21 13:33 Sodium Chloride 0.9% IV 08/18/21 12:44 30 mls/hr .Q24H RAYSA Administration Midazolam HCl 2 mg 08/17/21 12:45 08/17/21 13:55 Midazolam 1 Mg/M l Inj 2 Ml IVP 2 mg Q5M PRN Administration Preop Anxiety PFSH Anesthesia PFSH: Medical History Alpha galactosidase deficiency Anxiety Cerebral hemorrhage with hemiparesis (~08/2019) Occurred while on epinephrine drip for anaphylaxis. Mild residual weakness on the left side History of anaphylaxis Requiring intubation History of gluten sensitivity Hyper-IgE syndrome Major depressive disorder Mood swings Multiple environmental allergies Multiple food allergies PCOS (polycystic ovarian syndrome) PTSD (post-traumatic stress disorder) Rosacea Vocal cord palsy Surgical History History of abdominoplasty History of appendectomy History of artificial lens replacement History of cataract surgery History of section, low transverse History of eye surgery Surgical plate placement and removal History of surgery Intracranial angiogram Port-A-Cath in place (05/26/20) left subclavian Removed 07/13/2021 Family History Mother Diabetes Thyroid condition Hypercholesteremia Hypertension Family/Other Cancer Social History (Updated 08/16/21 @ 08:16 by Yun Bower, RN) Smoking and tobacco status: never smoked Alcohol intake: former Former alcohol use details: 2018 Marital status: Current occupational status: employed 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 History: Date of last menstrual period: 08/02/21 Data Anesthesia CBC & Chem 7: 08/16/21 11:25 08/16/21 11:25 Other Labs: Laboratory Results - last 48 hr 08/16/21 08/16/21 08/16/21 11:25 11:25 11:25 WBC 9.4 RBC 4.04 L Hgb 10.5 L Hct 34.7 L MCV 85.9 MCH 26.0 L MCHC 30.3 RDW 14.1 Plt Count 316 MPV 9.6 Neut % (Auto) 75.2 Lymph % (Auto) 16.1 [place] % (Auto) 7.6 Eos % (Auto) 0.4 Baso % (Auto) 0.4 Neut # (Auto) 7.06 Lymph # (Auto) 1.5 [place] # (Auto) 0.7 Eos # (Auto) 0.0 Baso # (Auto) 0.0 Nucleated RBC % (auto) 0 Nucleated RBCs # 0.0 Sodium 134 L Potassium 4.1 Chloride 101 Carbon Dioxide 24 Anion Gap 13.1 BUN 9 Creatinine 0.8 GFR Calculation 77.9 L Glucose 90 Calculated Osmolality 276 L Calcium 8.7 Total Bilirubin 0.2 AST 12 ALT 8 Alkaline Phosphatase 80 Total Protein 6.7 Albumin 4.2 Globulin 2.5 Urine Color Urine Appearance Urine pH Ur Specific [place] Urine Protein Urine Glucose (UA) Urine Ketones Urine Blood Urine Nitrate Urine Bilirubin Urine Urobilinogen Ur Leukocyte Esterase Urine RBC Urine WBC Ur Squamous Epith Cells Amorphous Sediment Urine Bacteria Urine Mucus Urine HCG, Qual Blood Type B Positive Rho(D) Type Positive Antibody Screen Negative 08/16/21 08/16/21 08/17/21 11:35 11:35 13:34 WBC RBC Hgb Hct MCV MCH MCHC RDW Plt Count MPV Neut % (Auto) Lymph % (Auto) [place] % (Auto) Eos % (Auto) Baso % (Auto) Neut # (Auto) Lymph # (Auto) [place] # (Auto) Eos # (Auto) Baso # (Auto) Nucleated RBC % (auto) Nucleated RBCs # Sodium Potassium Chloride Carbon Dioxide Anion Gap BUN Creatinine GFR Calculation Glucose Calculated Osmolality Calcium Total Bilirubin AST ALT Alkaline Phosphatase Total Protein Albumin Globulin Urine Color Straw Urine Appearance Clear Urine pH 6 Ur Specific [place] 1.005 Urine Protein Neg Urine Glucose (UA) Norm Urine Ketones Negative Urine Blood 3+ H Urine Nitrate Negative Urine Bilirubin Neg Urine Urobilinogen Norm Ur Leukocyte Esterase 1+ H Urine RBC 15-25 H Urine WBC 5-10 H Ur Squamous Epith Cells 10-15 H Amorphous Sediment Not Reportable Urine Bacteria 1+ H Urine Mucus Trace Urine HCG, Qual Negative Negative Blood Type Rho(D) Type Antibody Screen Cardiac Studies: No Data to Display
--- NOTE | 2021-08-17 15:31 | P.OP_ITS ---
Operative Report Date of procedure: August 17, 2021 Pre-op Diagnosis: Pelvic pain Post-op diagnosis: same Post-op Diagnosis: Endometriosis. Pelvis congestion. Uterine serosal leiomyomas Post-op Findings: endometriosis, fibroid uterus, pelvic vessels engorged. Procedure Done: Diagnostic laparoscopy. Fulguration of endometriosis lesions. Specimens removed/disposition: none Pathology: none sent Surgeon: Mendoza Villatoro MD Anesthesia: General Estimated blood loss (mL): 5 IV fluids (mL): 900 Urine output (mL): 100 Condition: stable Disposition: PACU Procedure: After informed consent, the patient was taken to the operating room where general anesthesia was administered. The patient was examined under anesthesia and found to have a normal uterus with normal adnexa. She was placed in the dorsal lithotomy position and prepped and draped in sterile fashion. Pre- Procedure Time-Out verifying the correct patient identity, correct procedure verified with consent, correct site and side, correct patient position, availability of correct implants and any special equipment or requirements was performed and acknowledge by the OR team. A weighted speculum was placed in the vagina, and the anterior lip of cervix was grasped with the single toothed tenaculum. A uterine manipulator was advanced into the endocervical. Tenaculum was removed after uterine manipulator was secured. The speculum was removed from the vagina. An intraumbilical incision was made with a scalpel. While tenting up on the abdomen, a Verres needle with sleeve was admitted into the intra-abdominal cavity. A saline drop test was performed and noted to be within normal limits. Pneumoperitoneum was attained with 4 liters of carbon dioxide. The Verres needle was removed. A 5 mm trocar and sleeve were admitted into the abdomen and laparoscopic confirmation of location was achieved, A second incision was made 3 cm above the symphysis pubis, and a 5 mm trocar and sleeve were admitted into the abdomen under direct, laparoscopic visualization without complication. A 5 mm blunt probe was advanced through the second trocar sleeve, and light manipulation of ovaries and uterus to assess the posterior aspects was performed. A survey revealed normal abdominal anatomy. Pelvic survey shows irregular uterus with multiple serosal leiomyomas. Adnexa survey showed engorged veselsand small lefty ovarian cyst. The cul de sac showed mild white endometriosis les ions. The lesions were fulgurated with monopolar spatula. The trocars were removed under visualization and no bleeding noted. Carbon dioxide was allowed to escape from the abdomen. The instruments were removed, and skin cover with a bandage. The instruments were removed from the vagina, and excellent hemostasis was noted. The patient tolerated the procedure well, and sponge, lap and needle count were correct times two. The patient taken to the recovery room in good condition.
[2021-08-17] MEDS: fentaNYL 50 mcg/mL INJ 2mL IVP ×2 (15:52→16:03)
[2021-08-17] MEDS: ondansetron 2 mg/ML SDV 2 mL 4 MG IVP ×2 (16:30→16:49)
--- NOTE | 2021-08-17 18:50 | ANE.PACU2 ---
Inpatient post-anesthesia follow up: Airway intact: Yes Vital signs: Temperature 98.6 F Pulse Rate 84 Respiratory Rate 16 Blood Pressure 123/64 Pulse Oximetry 99 Oxygen Delivery Me thod Room Air Oxygen Flow Rate Fraction of Inspir ed Oxygen Hydration adequate: Yes Nausea and vomiting: No Pain level: 2 Mental status: Baseline
[2021-10-03 19:02] LABS: Quest SARS-CoV-2 RNA DETECTED (NOT DETECTED)
== END 2021-08-17 17:43 | disposition home or self-care (01) ==
PROVIDERS: Anesthesiology; Nurse Practitioner; PCP Family Medicine; Visit Provider Obstetrics & Gynecology
PROC: (CPT 49320; principal; 2021-08-17 13:40)
DX: R10.2 Pelvic and perineal pain (principal); N80.9 Endometriosis, unspecified; N94.89 Other specified conditions associated with female genital organs and menstrual cycle; D25.2 Subserosal leiomyoma of uterus; N92.6 Irregular menstruation, unspecified; E28.2 Polycystic ovarian syndrome; R10.32 Left lower quadrant pain; G89.18 Other acute postprocedural pain; Z98.890 Other specified postprocedural states; Z90.89 Acquired absence of other organs
CPT/HCPCS: 49329; 36415; 80053; 81001; 81025; 84703; 85025; 86850; 86900; 96374; 96375; J0690; J2250; J2405; J2704; J3010; J3490; J7030; J7040

== ENCOUNTER → 2021-09-20 16:34 | Outpatient (BNVA) | payer OTHER, SELFPAY | PROVIDERS: PCP Family Medicine; Visit Provider Family Medicine | DX: Z20.828 Contact with and (suspected) exposure to other viral communicable diseases (principal) | CPT/HCPCS: 87426; 87635 ==

== ENCOUNTER → 2021-10-01 13:05 | Outpatient (BNVA) | payer OTHER, SELFPAY | PROVIDERS: PCP Family Medicine; Visit Provider Nurse Practitioner | DX: Z20.822 Contact with and (suspected) exposure to COVID-19 (principal) | CPT/HCPCS: 87426; 87635 ==

== ENCOUNTER 2021-10-03 09:38 | Outpatient (CLI) | payer OTHER, SELFPAY ==
[2021-10-03 09:48] VITALS: BP 97/65; PULSE 66; RESP 18; TEMP 36.8; O2SAT 98; BMI 23.0
[2021-10-03] MEDS: diphenhydrAMINE 25 mg Capsule PO (11:40)
[2021-10-03] MEDS: sodium chloride 0.9% 500 ML 999 ML IV (11:45)
[2021-10-03 12:15] VITALS: BP 156/93; PULSE 75; RESP 21; TEMP 37.2; O2SAT 99
--- NOTE | 2021-10-03 14:34 | PC.NURSE ---
Rapid Response/Anaphylactic reaction; Pt presented to Covid Infusion outpatient treatment with some s/s of covid. RN gave education on family medicine physician assistant, and collected signed consent treatment forms from pt. IV attempted to be initiated, and failed. Later, ultrasound guided IV initiated by second RN, after pt stated she was an extremely hard stick and primary RN unable to find IV site. Treatment initiated at 1107. Around 1109, pt began c/o difficulty breathing and verbalized what she felt to be swelling of the throat, with profound redness to face/neck visualized by RN. Infusion immediately stopped, and v/s obtained. Pt placed in tripod position to encourage airflow. Rapid response called overhead. 2LNC given as prophylaxis via oxymask. Pt stated I need my inhaler. And administered 2 puffs of asthmatic medication to self. 2 MD's responded to Rapid. Situational backstory given to MD's by RN. VSS. New orders given to move pt to lying position on gurney within infusion center location for observation. Other orders included 25mg Benadryl PO ONCE NOW, and 500mL NS bolus. Orders to also d/c covid monoclonal antibody infusion completely. After bolus completed and further observation, orders for patient to be discharged home with personal lines appraiser. (See Mar for family medicine physician assistant.) After 20 mins of observation, pt stated she still felt significant chest pressure, and difficulty breathing. Pt also c/o itching of skin. VSS. Pt verbalized Epi allergy and RN confirmed via chart. Pt stated last Epi administration also caused possible TIA. Dr. Russo was notified, and new orders to prepare pt for ED transfer for further observation and care. Dr. Russo, and second MD responded once again for pt transfer. HS also notified/responded for transfer.
== END 2021-10-03 09:39 | disposition home or self-care (01) ==
LOC: OPS 09:42
PROVIDERS: PCP Family Medicine; Visit Provider Family Medicine
DX: U07.1 COVID-19 (principal)
CPT/HCPCS: 96365; J7040

== ENCOUNTER 2021-10-03 11:56 | Observation (INO) | payer OTHER, SELFPAY ==
--- NOTE | 2021-10-03 12:18 | ECG_ITS ---
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
--- NOTE | 2021-10-03 12:18 | XR_ITS ---
WS: [id number] Exam: XR chest 1V portable [id number] Date/Time of Exam: 10/03/2021 12:30 PM Reason For Exam: chest pain Comparison 07/30/2021. The lungs are hyperinflated and clear. Chronic fibrous changes in the upper lobes. Normal cardiomedia stinal silhouette and regional bony structures. XR/XR chest 1V portable [id number] IMPRESSION: 1. Pulmonary hyperinflation and chronic interstitial changes. No acute process.
[2021-10-03] MEDS: famotidine 20 mg/2 mL INJ IVP (12:22)
[2021-10-03] MEDS: diphenhydrAMINE 50 mg/mL SDV 1mL IVP (12:23)
[2021-10-03] MEDS: sodium chloride 0.9% 1,000 ML 999 ML IV ×2 (12:26→14:06)
--- NOTE | 2021-10-03 12:26 | ED_ITS ---
HPI - General Adult General: Chief complaint: Allergic Reaction Stated complaint: SYNCOPAL EPISODE Time Seen by Provider: 10/03/21 12:08 History of Present Illness: HPI narrative: Patient is a 46-year-old female with multiple anaphylactic allergies presenting to the emergency room after receiving the BAM infusion as a rapid response. Patient was tested positive 3-4 days ago and was supposed to obtain outpatient regeneron infusion today instead of BAM. Patient had 2 minutes of infusion and developed short of breath, nausea, light-headedness and my throat is tightening. Patient has multiple anaphylactic allergies. Onset: 20 minutes ago Duration:20 minutes Location:[facility] infusion clinic Severity:moderate/severe Review of Systems Narrative: Constitutional: No fever, no chills. HEENT: No vision changes CV: No chest pain, no palpitations PULM: no cough, +dyspnea. GI: No abdominal pain, +N/-V/-D. : No dysuria MSKEL: No muscle pain SKIN: No new rashes, no lesions. NEURO: No headache, no focal weakness. HEME: No visible bruises PSYCH: Normal mood PFSH ED PFSH: Medical History Aftercare following surgery of the genitourinary system Alpha galactosidase deficiency Anxiety Cerebral hemorrhage with hemiparesis (~08/2019) Occurred while on epinephrine drip for anaphylaxis. Mild residual weakness on the left side History of anaphylaxis Requiring intubation History of gluten sensitivity Hyper-IgE syndrome Major depressive disorder Mood swings Multiple environmental allergies Multiple food allergies PCOS (polycystic ovarian syndrome) PTSD (post-traumatic stress disorder) Rosacea Vocal cord palsy Surgical History History of abdominoplasty History of appendectomy History of artificial lens replacement History of cataract surgery History of section, low transverse History of eye surgery Surgical plate placement and removal History of surgery Intracranial angiogram Port-A-Cath in place (05/26/20) left subclavian Removed 07/13/2021 Family History Mother Diabetes Thyroid condition Hypercholesteremia Hypertension Family/Other Cancer Social History Smoking and tobacco status: never smoked Alcohol intake: former Former alcohol use details: 2018 Marital status: Current occupational status: employed 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 NO guarding rebound, guarding, rigidity. No CVA tenderness to percussion. Neg Keane/Neg McBurney's point tenderness, no suprabupic tenderness to palpation. EXTREMITY: Normal ROM SKIN: No signs of rash or urticaria NEURO: Awake and alert, no focal motor deficits PSYCH: Normal mood and affect Course Vital Signs: Vital signs: Vital Signs Temperature 98.1 F 10/03/21 19:53 Pulse Rate 68 10/03/21 19:53 Respiratory Rate 17 10/03/21 19:53 Blood Pressure 108/69 10/03/21 19:53 Pulse Oximetry 97 10/03/21 19:53 MDM - General Adult MDM Narrative: Medical decision making narrative: 46-year-old female presents emergency room after possible allergic reaction to BAM infusion. On arrival, patient hemodynamically stable, no signs of oral airway compromise. Satting well. Patient has no wheezing on exam. No hives or urticaria. Prior to arrival in the ED, patient received 50 mg of Benadryl. S/p Pepcid, Benadryl, Solu-Medrol, IVF -continues to HDS no signs of worsening allergic reaction Will be admitted for observation given significant allergic reaction in the past. K of 2.9 and calcium of 5.7, s/p Kcl and calcium gluconate. Disposition: Admission Lab Data: Labs: Lab Results 10/03/21 10/03/21 10/03/21 12:32 12:32 12:32 WBC 5.2 10^3/uL 10^3/ uL (4.0-10.0) RBC 4.30 10^6/uL 10^6 /uL (4.1-5.3) Hgb 11.1 g/dL L g/dL (11.5-15.3) Hct 35.4 % L % (37.0-47.0) MCV 82.3 fl fl (81-99) MCH 25.8 pg L pg (28.0-34.0) MCHC 31.4 g/dL g/dL (30.0-36.0) RDW 14.4 % % (12.1-15.1) Plt Count 300 10^3/cmm 10^3 /cmm (130-400) MPV 9.7 fL fL (7.4-10.4) Neut % (Auto) 60.0 % % Lymph % (Auto) 29.8 % % [place] % (Auto) 6.7 % % Eos % (Auto) 2.3 % % Baso % (Auto) 0.8 % % Neut # (Auto) 3.13 10^3/uL 10^3 /uL (1.8-7.7) Lymph # (Auto) 1.6 10^3/uL 10^3/ uL (0.8-4.8) [place] # (Auto) 0.4 10^3/uL 10^3/ uL (0.2-0.9) Eos # (Auto) 0.1 10^3/uL 10^3/ uL (0.0-0.8) Baso # (Auto) 0.0 10^3/uL 10^3/ uL (0.0-0.1) Nucleated RBC % (a uto) 0 % % Nucleated RBCs # 0.0 /100WBC /100W BC Sodium 139 mmol/L mmol/L (136-145) Potassium 2.9 mmol/L L mmol /L (3.5-5.1) Chloride 113 mmol/L H mmol /L (98-107) Carbon Dioxide 16 mmol/L L mmol/ L (22-29) Anion Gap 12.9 (5-19) BUN 9 mg/dL mg/dL (6-20) Creatinine 0.5 mg/dL mg/dL (0.5-0.9) GFR Calculation 134.0 mL/min H mL /min (90-130) Glucose 74 mg/dL mg/dL (65-115) Estimat Average Gl ucose Hemoglobin A1c Calculated Osmolal ity 285 mOsm/kg mOsm/ kg (285-295) Calcium 5.7 mg/dL L* mg/d L (8.5-10.5) Ionized Calcium Me as Troponin T Gen 5 n g/L 6 ng/L ng/L (0-10) 25-OH Vitamin D To guevara PTH Intact Calcium (PTH Intac t) [place] 10/03/21 10/03/21 10/03/21 12:32 12:32 12:32 WBC RBC Hgb Hct MCV MCH MCHC RDW Plt Count MPV Neut % (Auto) Lymph % (Auto) [place] % (Auto) Eos % (Auto) Baso % (Auto) Neut # (Auto) Lymph # (Auto) [place] # (Auto) Eos # (Auto) Baso # (Auto) Nucleated RBC % (a uto) Nucleated RBCs # Sodium Potassium Chloride Carbon Dioxide Anion Gap BUN Creatinine GFR Calculation Glucose Estimat Average Gl ucose 123 Hemoglobin A1c 5.9 % % (4.0-6.0) Calculated Osmolal ity Calcium Ionized Calcium Me as 1.2 mmol/L mmol/L (1.1-1.4) Troponin T Gen 5 n g/L 25-OH Vitamin D To guevara 31 ng/mL ng/mL (30-100) PTH Intact 38.3 pg/mL pg/mL (15-65) Calcium (PTH Intac t) 8.5 mg/dL mg/dL (8.5-10.5) [place] 10/03/21 12:32 WBC RBC Hgb Hct MCV MCH MCHC RDW Plt Count MPV Neut % (Auto) Lymph % (Auto) [place] % (Auto) Eos % (Auto) Baso % (Auto) Neut # (Auto) Lymph # (Auto) [place] # (Auto) Eos # (Auto) Baso # (Auto) Nucleated RBC % (a uto) Nucleated RBCs # Sodium Potassium Chloride Carbon Dioxide Anion Gap BUN Creatinine GFR Calculation Glucose Estimat Average Gl ucose Hemoglobin A1c Calculated Osmolal ity Calcium Ionized Calcium Me as Troponin T Gen 5 n g/L 25-OH Vitamin D To guevara PTH Intact Calcium (PTH Intac t) [place] 0.1 mmol/L L mmol /L (0.6-1.2) Discharge Plan Discharge Patient Disposition: Admitted As Inpatient Admit Provider: David Moy Clinical Impression: Allergic reaction, Nausea, Hypocalcemia, Hypokalemia Condition: Stable Coding Level of Care Code ED Combination Saw Operator for Sophiag Belen
[2021-10-03 12:42] LABS: Basophils % 0.8 %; Eosinophils # 0.1 10^3/uL (0.0-0.8); Eosinophils % 2.3 %; Hematocrit 35.4 % (37.0-47.0); Hemoglobin 11.1 g/dL (11.5-15.3); Lymphocytes # 1.6 10^3/uL (0.8-4.8); Lymphocytes % 29.8 %; Mean Corpuscular HGB Conc 31.4 g/dL (30.0-36.0); Mean Corpuscular Hemoglobin 25.8 pg (28.0-34.0); Mean Corpuscular Volume 82.3 fl (81-99); Mean Platelet Volume 9.7 fL (7.4-10.4); Monocytes # 0.4 10^3/uL (0.2-0.9); Monocytes % 6.7 %; Neutrophils # 3.13 10^3/uL (1.8-7.7); Nucleated Red Blood Cells % 0 %; Platelet Count 300 10^3/cmm (130-400); Red Cell Distribution Width 14.4 % (12.1-15.1); White Blood Count 5.2 10^3/uL (4.0-10.0)
[2021-10-03 12:45] VITALS: BP 122/85; RESP 16; TEMP 36.7; O2SAT 99; BMI 23.0
[2021-10-03 12:56] VITALS: BP 122/85; PULSE 69; O2SAT 100
[2021-10-03 13:02] LABS: Anion Gap 12.9 (5-19); Blood Urea Nitrogen 9 mg/dL (6-20); Carbon Dioxide 16 mmol/L (22-29); Chloride 113 mmol/L (98-107); Creatinine Clr Calc Pharmacy 124.7274; Glucose 74 mg/dL (65-115); Osmolality Calculated 285 mOsm/kg (285-295); Sodium 139 mmol/L (136-145); Troponin T (5th) Once 6 ng/L (0-10)
[2021-10-03 13:23] LABS: Calcium 5.7 mg/dL (8.5-10.5); Potassium 2.9 mmol/L (3.5-5.1)
[2021-10-03] MEDS: LORazepam 2 mg/mL INJ 1 mL IVP ×2 (13:47→16:22)
[2021-10-03] MEDS: ondansetron 2 mg/ML SDV 2 mL 4 MG IVP (14:05)
--- NOTE | 2021-10-03 15:41 | PM.HP ---
Providers/Chief Complaint Primary Care Provider: Chi Cobb MD Chief Complaint: SYNCOPAL EPISODE History of Present Illness Estella Nathan Dr. is a 46 year old female who carries history of hyper IgE syndrome, alpha galactosidase deficiency, allergies to multiple drug and food, beef/pork, history of anxiety, depression, prior history of anaphylaxis presented today from [facility] infusion clinic for chief complaint of chest tightness. She is stating that her symptoms started around , she was experiencing fatigue and lethargy, today she went for monoclonal antibody infusion, she started spacing chest tightness just few minutes after initiation of monoclonal antibody infusion, she became tachypneic, she hunched over felt dizzy, no chest pain or syncopal event. She was brought to the ER for further evaluation, she was saturating well on room air, she was afebrile, no significant eosinophilia on CBC, CBC, unremarkable, BMP remarkable for hypocalcemia and hypokalemia consistent with panic hyperventilating episode. Chest x-ray unremarkable. At the time of my evaluation she was able to walk to the bathroom and provide above-mentioned history. She is stating that her family is not here her children are going for vacation to [place]. No one else is sick at home. She thinks she caught COVID-19 from the [place] which she attended last week. At the time of evaluation I have not noticed any skin rash, stridor, difficulty breathing, she is wearing eyelashes and there is some upper eyelid edema noted. Review of Systems Const: Reports: chills, body aches and fatigue Eyes: Denies: change in vision ENMT: Denies: throat pain Card: Denies: chest pain Resp: Reports: dyspnea GI: Denies: abdominal pain : Denies: flank pain Musc: Denies: neck pain Skin/Breast: Denies: rash Neuro: Reports: dizziness; Denies: headache(s) Psych: Reports: anxiety and depression Endo: Denies: polyuria Nigel/Lymph: Denies: easy bruising All/Imm: Denies: urticaria Medications/Allergies Home Medications Medication Instructions Recorded Confirmed Last Taken Type famotidine 40 mg PO BID 05/21/20 10/03/21 10/03/21 08:00 History cetirizine See Rx Instructions .ROUTE .COMPLEX 06/11/20 10/03/2121 History budesonide 0.5 mg INHALATION BID PRN 07/05/20 10/03/21 1 Week Ago History ~08/10/21 lithium carbonate 150 mg capsule 150 mg PO BEDTIME 04/08/21 10/03/21 10/02/21 History fluoxetine 60 mg tablet 60 mg PO DAILY 30 Days #30 tab 08/10/21 10/03/21 10/03/21 08:00 Rx trazodone 100 mg tablet 100 - 200 mg PO BEDTIME PRN tab 08/16/21 10/03/21 08/16/21 History acetaminophen [Tylenol Ex Str 1,000 mg PO Q6H PRN 10/03/21 10/03/21 Unknown History Rapid Release] dapsone 1 applic TOPICAL BID 10/03/21 10/03/21 Unknown History elagolix [Orilissa] 150 mg PO DAILY 10/03/21 10/03/21 Unknown History gabapentin 300 mg PO BID 10/03/21 10/03/21 10/03/21 08:00 History propranolol 20 mg PO BEDTIME 10/03/21 10/03/21 10/02/21 History Allergies Allergy/AdvReac Type Severity Reaction Status Date / Time Beef Containing Products Allergy Severe ALGY-Anaphy Verified 10/01/21 13:08 laxis epinephrine Allergy Severe Hemorrhagic Verified 10/01/21 13:08 stroke after epi drip lactose Allergy Severe ALGY-Anaphy Verified 10/01/21 13:08 laxis Pork/Porcine Containing Allergy Severe ALGY-Anaphy Verified 10/01/21 13:08 Products laxis trimethobenzamide Allergy Severe ALGY-Anaphy Verified 10/01/21 13:08 [From Tigan] laxis digoxin Allergy ALGY-Hives Verified 10/01/21 13:08 enoxaparin [From Lovenox] Allergy ALGY-Anaphy Verified 10/01/21 13:08 laxis gluten Allergy Unknown Verified 10/01/21 13:08 heparin (porcine) Allergy ALGY-Anaphy Verified 10/01/21 13:08 laxis PFSH Acute PFSH: Medical History Aftercare following surgery of the genitourinary system Alpha galactosidase deficiency Anxiety Cerebral hemorrhage with hemiparesis (~08/2019) Occurred while on epinephrine drip for anaphylaxis. Mild residual weakness on the left side History of anaphylaxis Requiring intubation History of gluten sensitivity Hyper-IgE syndrome Major depressive disorder Mood swings Multiple environmental allergies Multiple food allergies PCOS (polycystic ovarian syndrome) PTSD (post-traumatic stress disorder) Rosacea Vocal cord palsy Surgical History History of abdominoplasty History of appendectomy History of artificial lens replacement History of cataract surgery History of section, low transverse History of eye surgery Surgical plate placement and removal History of surgery Intracranial angiogram Port-A-Cath in place (05/26/20) left subclavian Removed 07/13/2021 Family History Mother Diabetes Thyroid condition Hypercholesteremia Hypertension Family/Other Cancer Social History Smoking and tobacco status: never smoked Alcohol intake: former Former alcohol use details: 2018 Marital status: Current occupational status: employed 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[employer] Female 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 History: Date of last menstrual period: 08/02/21 Vitals/I&O/Wt Last Vital Signs Temp 98.1 F 10/03/21 12:45 Pulse 69 10/03/21 12:56 Resp 16 10/03/21 12:45 BP 122/85 10/03/21 12:56 Pulse Ox 100 10/03/21 12:56 Weight last 48 hrs Weight 58.967 kg Physical Exam Narrative: EXAM NARRATIVE: Young female She was sitting at the bedside No active tremors No active skin rash No signs of anaphylaxis No stridor or wheezing Bilateral breath sound without adventitious rhonchi or crackles S1, S2 Abdomen soft Upper eyelid edema, she is wearing eyelashes Does not look dehydrated EOMI, PERRLA Nonfocal exam Does appear anxious with short attention span, she is not making eye contact during interview Data : 10/03/21 12:32 10/03/21 12:32 A&P Assessment and plan (1) Allergic reaction: Status: Acute (2) Hypocalcemia: Status: Acute (3) Hypokalemia: Status: Acute (4) COVID-19: Status: Acute (5) Celeste use: Status: Acute (6) Fatigue: Status: Acute Qualifiers: Fatigue type: other Qualified Code(s): R53.83 - Other fatigue (7) Autonomic dysfunction: Status: Acute (8) Hyperactive airway disease: Status: Acute Additional A&P Information Panic attack while getting monoclonal antibody infusion Hyperinflated lungs, hypocalcemia, hypokalemia related to respiratory alkalosis At the time of evaluation no active rash, no stridor no signs of anaphylaxis Eosinophil not remarkably high For now I will keep her on IV steroids, Benadryl and famotidine For anxiety we will keep her on IV as needed Ativan Check A1c level Check PTH, vitamin D, ionized calcium, She has been repleted with calcium and potassium, check mag level, No active fever Vegan diet SCDs, she is allergic to pork, cannot give her heparin products Not requiring oxygen, COVID-19 infection, if she is doing clinically well might be able to discharge her tomorrow, she is vaccinated, also received booster Attestations Medical Necessity Statement*: Anticipating discharge within 48 hours Time Spent in Patient Care: Greater than 35 minutes Coding Level of Care Code Acute Development Engineer for Chg Fwd Diagnoses Allergic reaction T78.40XA Hypocalcemia E83.51 Hypokalemia E87.6 COVID-19 U07.1 Celeste use Z79.899 Fatigue R53.83 Fatigue type: other Autonomic dysfunction G90.9 Hyperactive airway disease J45.909
[2021-10-03 16:22] LABS: Calcium 8.5 mg/dL (8.5-10.5)
[2021-10-03] MEDS: lidocaine 1% 5 ML in potassium chloride premix 100 ML 50 ML IV (16:27)
[2021-10-03 16:29] LABS: Parathyroid Hormone 38.3 pg/mL (15-65)
[2021-10-03] MEDS: hyDROXYzine 25 mg Capsule PO (16:31)
[2021-10-03 16:37] LABS: 25 Hydroxy Vitamin D 31 ng/mL (30-100)
[2021-10-03 16:40] LABS: Ionized Calcium 1.2 mmol/L (1.1-1.4)
[2021-10-03 18:37] VITALS: BMI 23.4
[2021-10-03 19:53] VITALS: BP 108/69; PULSE 68; RESP 17; TEMP 36.7; O2SAT 97
[2021-10-03] MEDS: potassium chloride ER 20 mEq Tablet 40 MEQ PO (19:55)
--- NOTE | 2021-10-03 20:19 | PC.NURSE ---
Shift report received from Patricia PORTER. Patient in bed/awake. Denies pain. Intermittent coughing. Requests benadryl for itching. No other needs voiced at this time.
[2021-10-03] MEDS: diphenhydrAMINE 50 mg/mL SDV 1mL 12.5 MG IVP (20:23)
[2021-10-03 20:26] LABS: Lithium 0.1 mmol/L (0.6-1.2)
[2021-10-03 20:33] LABS: Estmated Average Glucose 123; Hemoglobin A1C 5.9 % (4.0-6.0)
[2021-10-03] MEDS: LORazepam 2 mg/mL INJ 1 mL 1 MG IVP (22:54)
[2021-10-03 23:56] VITALS: BP 97/61; PULSE 75; RESP 16; TEMP 36.9; O2SAT 95
--- NOTE | 2021-10-04 01:56 | PC.NURSE ---
10/03/2021 2200 patient took home medication : gabapentin/ trazodone/ famotidine/lithium. Per shift report physician aware and approved to take home medication.
--- NOTE | 2021-10-04 02:06 | PC.NURSE ---
Patient in bed/sleeping. No s/s of pain or discomfort. No needs noted at this time.
[2021-10-04 04:00] VITALS: BP 108/66; PULSE 73; RESP 17; TEMP 36.9; O2SAT 97
--- NOTE | 2021-10-04 04:37 | PC.NURSE ---
Patient in bed /sleeping. No s/s of pain or discomfort. No needs noted at this time.
[2021-10-04 06:12] LABS: Basophils % 0.1 %; Hematocrit 33.6 % (37.0-47.0); Hemoglobin 10.3 g/dL (11.5-15.3); Lymphocytes # 1.3 10^3/uL (0.8-4.8); Lymphocytes % 18.6 %; Mean Corpuscular HGB Conc 30.7 g/dL (30.0-36.0); Mean Corpuscular Hemoglobin 25.8 pg (28.0-34.0); Mean Platelet Volume 9.3 fL (7.4-10.4); Monocytes # 0.8 10^3/uL (0.2-0.9); Monocytes % 11.6 %; Neutrophils # 4.71 10^3/uL (1.8-7.7); Neutrophils % 69.4 %; Nucleated Red Blood Cells % 0 %; Platelet Count 284 10^3/cmm (130-400); Red Cell Distribution Width 14.3 % (12.1-15.1); White Blood Count 6.8 10^3/uL (4.0-10.0)
[2021-10-04 06:35] LABS: C Reactive Protein 10.9 mg/L (0.0-4.9)
[2021-10-04 06:38] LABS: Blood Urea Nitrogen 7 mg/dL (6-20); Calcium 8.6 mg/dL (8.5-10.5); Carbon Dioxide 17 mmol/L (22-29); Chloride 107 mmol/L (98-107); Creatinine Clr Calc Pharmacy 104.7276; Glomerular Filtration Rate 108.6 mL/min (90-130); Glucose 103 mg/dL (65-115); Magnesium 1.8 mg/dL (1.7-2.3); Osmolality Calculated 284 mOsm/kg (285-295); Sodium 138 mmol/L (136-145)
[2021-10-04] MEDS: LORazepam 2 mg/mL INJ 1 mL 1 MG IVP (06:55)
[2021-10-04 06:57] LABS: Lactate Dehydrogenase 173 U/L (135-214)
[2021-10-04 07:55] VITALS: BP 134/83; PULSE 65; RESP 20; TEMP 37.2; O2SAT 96
[2021-10-04] MEDS: potassium chloride ER 20 mEq Tablet 40 MEQ PO (08:18)
[2021-10-04] MEDS: diphenhydrAMINE 50 mg/mL SDV 1mL 12.5 MG IVP (08:18)
--- NOTE | 2021-10-04 09:12 | PM.DCS ---
Discharge Providers Date of Admission: 10/03/21 13:22 Date of Discharge: October 04, 2021 Attending Provider at Admission: David Moy MD Attending Provider at Discharge: David Moy MD Primary Care Provider: Chi Cobb MD Diagnoses at Discharge Discharge Diagnosis (1) Allergic reaction: Status: Acute (2) Hypocalcemia: Status: Acute (3) Hypokalemia: Status: Acute (4) COVID-19: Status: Acute (5) [place] use: Status: Acute (6) Fatigue: Status: Acute Qualifiers: Fatigue type: other Qualified Code(s): R53.83 - Other fatigue (7) Autonomic dysfunction: Status: Acute (8) Hyperactive airway disease: Status: Acute Reason for Visit Reason for Visit: SYNCOPAL EPISODE Hospital Course Hospital Course Dr. Burgess was admitted for evaluation and management for possible allergic reaction to bam monoclonal antibody fusion on 10/03. Covid PCR positive on 10/01, her symptoms started on 09/29. At home she has not noticed severe respiratory distress, she has been experiencing fatigue, lethargy and loose stools. She has alpha galactosidase deficiency. At the time of my evaluation no active stridor no signs of anaphylaxis, she was afebrile, eosinophil count not remarkably high, she complain of rash around her breast otherwise no other signs of skin rash. She was wearing eyelashes, noticed edema of upper eyelid only. Her blood chemistry consistent with panic attack, respiratory alkalosis hypocalcemia and hypokalemia. Her electrolytes were replenished. Overnight she did not develop any symptoms. She was saturating well on room air. I was reluctant to recommend second monoclonal antibody since she has propensity to develop allergic reaction to most of the medications. Literature review also supports reserved approach in this kind of scenarios. She was given IV steroids, Benadryl, famotidine DuoNeb and budesonide. She was instructed to quarantine for next 20 days. Physical Exam Narrative: EXAM NARRATIVE: Saturating well on room air No active stridor No signs of anaphylaxis Upper eyelid swelling improved No skin rash She is feeling fine, no active shortness of breath, S1, S2 Abdomen soft Clinically euvolemic Appears anxious Awake and alert Nonfocal neuro exam Positive for fatigue and lethargy Discharge Data Data Completed and Pending: Completed Studies During Hospitalization Category Date Time Status XR chest 1V zee ble [id number] Urgent Exams 10/03/21 12:18 Completed Labs from last 24 hours 10/04/21 10/04/21 10/04/21 05:44 05:44 05:44 WBC 6.8 RBC 4.00 L Hgb 10.3 L Hct 33.6 L MCV 84.0 MCH 25.8 L MCHC 30.7 RDW 14.3 Plt Count 284 MPV 9.3 Neut % (Auto) 69.4 Lymph % (Auto) 18.6 Marshall % (Auto) 11.6 Eos % (Auto) 0.0 Baso % (Auto) 0.1 Neut # (Auto) 4.71 Lymph # (Auto) 1.3 Marshall # (Auto) 0.8 Eos # (Auto) 0.0 Baso # (Auto) 0.0 Nucleated RBC % (a uto) 0 Nucleated RBCs # 0.0 Sodium 138 Potassium 5.0 Chloride 107 Carbon Dioxide 17 L Anion Gap 19.0 BUN 7 Creatinine 0.6 GFR Calculation 108.6 Glucose 103 Estimat Average Gl ucose Hemoglobin A1c Calculated Osmolal ity 284 L Calcium 8.6 Ionized Calcium Me as Magnesium 1.8 Lactate Dehydrogen ase 173 Troponin T Gen 5 n g/L C-Reactive Protein 10.9 H 25-OH Vitamin D To guevara PTH Intact Calcium (PTH Intac t) [place] 10/03/21 10/03/21 10/03/21 12:32 12:32 12:32 WBC RBC Hgb Hct MCV MCH MCHC RDW Plt Count MPV Neut % (Auto) Lymph % (Auto) Marshall % (Auto) Eos % (Auto) Baso % (Auto) Neut # (Auto) Lymph # (Auto) Marshall # (Auto) Eos # (Auto) Baso # (Auto) Nucleated RBC % (a uto) Nucleated RBCs # Sodium Potassium Chloride Carbon Dioxide Anion Gap BUN Creatinine GFR Calculation Glucose Estimat Average Gl ucose 123 Hemoglobin A1c 5.9 Calculated Osmolal ity Calcium Ionized Calcium Me as 1.2 Magnesium Lactate Dehydrogen ase Troponin T Gen 5 n g/L C-Reactive Protein 25-OH Vitamin D To guevara 31 PTH Intact Calcium (PTH Intac t) [place] 0.1 L 10/03/21 10/03/21 10/03/21 12:32 12:32 12:32 WBC RBC Hgb Hct MCV MCH MCHC RDW Plt Count MPV Neut % (Auto) Lymph % (Auto) Marshall % (Auto) Eos % (Auto) Baso % (Auto) Neut # (Auto) Lymph # (Auto) Marshall # (Auto) Eos # (Auto) Baso # (Auto) Nucleated RBC % (a uto) Nucleated RBCs # Sodium 139 Potassium 2.9 L Chloride 113 H Carbon Dioxide 16 L Anion Gap 12.9 BUN 9 Creatinine 0.5 GFR Calculation 134.0 H Glucose 74 Estimat Average Gl ucose Hemoglobin A1c Calculated Osmolal ity 285 Calcium 5.7 L* Ionized Calcium Me as Magnesium Lactate Dehydrogen ase Troponin T Gen 5 n g/L 6 C-Reactive Protein 25-OH Vitamin D To guevara PTH Intact 38.3 Calcium (PTH Intac t) 8.5 [place] 10/03/21 12:32 WBC 5.2 RBC 4.30 Hgb 11.1 L Hct 35.4 L MCV 82.3 MCH 25.8 L MCHC 31.4 RDW 14.4 Plt Count 300 MPV 9.7 Neut % (Auto) 60.0 Lymph % (Auto) 29.8 Marshall % (Auto) 6.7 Eos % (Auto) 2.3 Baso % (Auto) 0.8 Neut # (Auto) 3.13 Lymph # (Auto) 1.6 Marshall # (Auto) 0.4 Eos # (Auto) 0.1 Baso # (Auto) 0.0 Nucleated RBC % (a uto) 0 Nucleated RBCs # 0.0 Sodium Potassium Chloride Carbon Dioxide Anion Gap BUN Creatinine GFR Calculation Glucose Estimat Average Gl ucose Hemoglobin A1c Calculated Osmolal ity Calcium Ionized Calcium Me as Magnesium Lactate Dehydrogen ase Troponin T Gen 5 n g/L C-Reactive Protein 25-OH Vitamin D To guevara PTH Intact Calcium (PTH Intac t) [place] Vitals: Last Vital Signs Temp 99.0 F 10/04/21 07:55 Pulse 65 10/04/21 07:55 Resp 20 H 10/04/21 07:55 BP 134/83 10/04/21 07:55 Pulse Ox 96 10/04/21 07:55 Discharge Plan Discharge Patient Disposition: Home Condition: Stable Prescriptions: No Action lithium carbonate 150 mg capsule 150 mg PO BEDTIME RF: 0 trazodone 100 mg tablet 100 - 200 mg PO BEDTIME PRN (Reason: Sleep) RF: 0 fluoxetine 60 mg tablet 60 mg PO DAILY 30 Days Qty: 30 RF: 3 famotidine 40 mg/5 mL (8 mg/mL) Suspension 40 mg PO BID RF: 0 cetirizine 5 mg/5 mL Solution See Rx Instructions .ROUTE .COMPLEX RF: 0 budesonide 0.5 mg/2 mL suspension for nebulization 0.5 mg inhalation BID PRN (Reason: shortness of breath or wheezing) RF: 0 gabapentin 600 mg tablet 300 mg PO BID RF: 0 Tylenol Ex Str Rapid Release 500 mg Tablet 1,000 mg PO Q6H PRN (Reason: Pain) RF: 0 propranolol 20 mg tablet 20 mg PO BEDTIME RF: 0 dapsone 5 % gel 1 applic TOPICAL BID RF: 0 Orilissa 150 mg tablet 150 mg PO DAILY RF: 0 Discharge Orders: Discharge Order (Routine); Ordered 10/04/21 Ordered By: David Moy Referrals: Chi Cobb MD [Primary Care Provider] - 10/12/21 2:00 pm Discharge Diet: As Directed Discharge Activity: Increase activity as tolerated Patient Instructions: Allergic Reaction, Acute Nausea and Vomiting (DC), Hypocalcemia (DC), COVID-19 (Coronavirus Disease 2019) (DC), Opioid Safety Activity Restrictions/Additional Instructions: Quarantine for atleast 20 days Discharge Attestations Time Spent in Discharge Care*: less than 30 min Status at Discharge: Cognitive status at discharge: cognitively intact, Behavioral status at discharge: cooperative and independent in ADL's, Quality Metrics Clinical Quality Measures During this hospital stay, did patient experience: None Coding Level of Care Code Acute Chg FW DC note Diagnoses Allergic reaction T78.40XA Hypocalcemia E83.51 Hypokalemia E87.6 COVID-19 U07.1 [place] use Z79.899 Fatigue R53.83 Fatigue type: other Autonomic dysfunction G90.9 Hyperactive airway disease J45.909
[2021-10-04 10:30] VITALS: O2SAT 98; O2SAT 99
[2021-10-04 11:46] VITALS: BP 134/83; PULSE 65; RESP 20; TEMP 37.2; O2SAT 96
== END 2021-10-04 11:00 | disposition home or self-care (01) ==
LOC: ER 15:01 → MEDSURG 17:01
PROVIDERS: Admitting Provider Internal Medicine; Emergency Provider Emergency Medicine; PCP Family Medicine; Visit Provider Internal Medicine
DX: T78.40XA Allergy, unspecified, initial encounter (principal); E83.51 Hypocalcemia; E87.6 Hypokalemia; U07.1 COVID-19; R53.83 Other fatigue; G90.9 Disorder of the autonomic nervous system, unspecified; J45.909 Unspecified asthma, uncomplicated; E74.29 Other disorders of galactose metabolism; Z79.899 Other long term (current) drug therapy
CPT/HCPCS: 36415; 71045; 80048; 80178; 82306; 82310; 82330; 83036; 83615; 83735; 83970; 84484; 85025; 86140; 93005; 96365; 96366; 96367; 96375; 99285; G0378; J0610; J1200; J2060; J2405; J2930; J3480; J3490; J7030

== ENCOUNTER → 2021-11-03 16:04 | Outpatient (BNVA) | payer OTHER, SELFPAY | PROVIDERS: PCP Family Medicine; Visit Provider Podiatrist Foot & Ankle Surgery | DX: M79.672 Pain in left foot (principal) | CPT/HCPCS: 73630 ==

== ENCOUNTER 2021-11-04 22:07 | Emergency (ER) | payer OTHER, SELFPAY ==
[2021-11-04 22:10] VITALS: BP 126/56; PULSE 67; RESP 18; TEMP 36.5; O2SAT 100; BMI 23.9
--- NOTE | 2021-11-04 22:21 | XRR_ITS ---
PROCEDURE INFORMATION: Exam: XR Chest Exam date and time: 11/04/2021 10:21 PM Age: 46 years old Clinical indication: Cough and shortness of breath; Prior surgery; Surgery type: Chest port; Patient HX: Cough and SOB due to allergic reaction. TECHNIQUE: Imaging protocol: XR of the chest. Views: 1 view. COMPARISON: CR XR chest 1V portable [id number] 10/03/2021 12:34 PM FINDINGS: Lungs: No CHF/pulmonary edema. Visible lungs appear essentially clear. Pleural spaces: No visible pneumothorax. No definite pleural fluid. Heart/Mediastinum: Heart size is within normal limits. Bones/joints: No significant acute finding. XR/XR chest 1V portable [id number] IMPRESSION: 1. Essentially unremarkable single view chest. 2. Other findings discussed above.
[2021-11-04] MEDS: diphenhydrAMINE 50 mg/mL SDV 1mL IVP (22:37)
[2021-11-04] MEDS: famotidine 20 mg/2 mL INJ 40 MG IVP (22:37)
[2021-11-04] MEDS: racepinephrine 0.5 mL Neb INHALATION (22:38)
[2021-11-04] MEDS: ondansetron 2 mg/ML SDV 2 mL 8 MG IVP (22:48)
[2021-11-05 00:14] LABS: Alanine Aminotransferase 10 U/L (0-33); Albumin Level 4.1 g/dL (3.5-5.2); Alkaline Phosphatase 78 IU/L (35-105); Aspartate Amino Transferase 16 U/L (0-32); Blood Urea Nitrogen 13 mg/dL (6-20); Calcium 9.4 mg/dL (8.5-10.5); Carbon Dioxide 17 mmol/L (22-29); Chloride 101 mmol/L (98-107); Globulin 2.2 g/dL (1.3-4.6); Glucose 130 mg/dL (65-115); Osmolality Calculated 284 mOsm/kg (285-295); Sodium 136 mmol/L (136-145); Total Bilirubin 0.2 mg/dL (0.15-1.2); Total Protein 6.3 g/dL (6.6-8.7)
[2021-11-05 00:18] LABS: Anion Gap 21.5 (5-19); Potassium 3.5 mmol/L (3.5-5.1)
[2021-11-05] MEDS: diphenhydrAMINE 50 mg/mL SDV 1mL 25 MG IVP ×2 (00:29→05:43)
[2021-11-05] MEDS: LORazepam 2 mg/mL INJ 1 mL IVP (00:29)
--- NOTE | 2021-11-05 00:44 | ED_ITS ---
HPI - Allergic Reaction General: Chief complaint: Allergic Reaction Stated complaint: sob Time Seen by Provider: 11/04/21 22:12 History of Present Illness: HPI narrative: 46-year-old female with a history of multiple anaphylactoid reactions as well as a history of alpha galactosidase deficiency. She notes that she had been doing well. At home tonight, she was making hot chocolate for her son, with milk, and was stirring it with a spoon. She instinctively licked the spoon as she would her own coffee or warm drink when she stopped. She immediately knew what she had done. Shortly thereafter, she developed cough, with some chest tightening and shortness of breath. She has had some itch, but not as much as usual exposures. No diarrhea, but she notes that her stomach is upset. She took 2 Zyrtec at home with some improvement MD complaint: facial swelling Onset (ago): hour(s) Exposure: food Associated symptoms: Reports difficulty breathing, itching, nausea and rash; Deny facial swelling, hoarseness, lip swelling, tongue swelling or vomiting Severity: similar to previous episodes Previous Allergic Reaction History: prior ED visit(s), anaphylaxis and intubation Review of Systems Const: Denies: fever(s) or chills ENMT: Denies: hoarseness Card: Reports: chest pain (Tightness) Resp: Reports: dyspnea and non-productive cough; Denies: wheezing GI: Reports: nausea; Denies: vomiting or diarrhea All/Imm: Denies: tongue swelling or facial swelling PFS ED PFSH: Medical History Aftercare following surgery of the genitourinary system Alpha galactosidase deficiency Anxiety Cerebral hemorrhage with hemiparesis (~08/2019) Occurred while on epinephrine drip for anaphylaxis. Mild residual weakness on the left side History of anaphylaxis Requiring intubation History of gluten sensitivity Hyper-IgE syndrome Major depressive disorder Mood swings Multiple environmental allergies Multiple food allergies PCOS (polycystic ovarian syndrome) PTSD (post-traumatic stress disorder) Rosacea Vocal cord palsy Surgical History History of abdominoplasty History of appendectomy History of artificial lens replacement History of cataract surgery History of section, low transverse History of eye surgery Surgical plate placement and removal History of surgery Intracranial angiogram Port-A-Cath in place (05/26/20) left subclavian Removed 07/13/2021 Family History Mother Diabetes Thyroid condition Hypercholesteremia Hypertension Family/Other Cancer Social History Smoking and tobacco status: never smoked Alcohol intake: former Former alcohol use details: 2018 Marital status: Current occupational status: employed 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 History: Date of last menstrual period: 08/02/21 Physical Exam Const: COMMON NORMALS: patient oriented x3 GENERAL APPEARANCE: cooperative and anxious (Mildly) HENMT: COMMON NORMALS: normocephalic and atraumatic HEAD & SCALP: normocephalic and atraumatic FACE & SINUS: normal facial exam Chest: COMMONS NORMALS: normal inspection of the chest Resp: COMMON NORMALS: clear to auscultation bilaterally EFFORT & INSPECTION: Yes tachypneic, No grunting and No stridor AUSCULTATION: clear to auscultation bilaterally Cardio: COMMON NORMALS: regular rhythm RATE: tachycardic RHYTHM: regular rhythm GI: INSPECTION: Yes normal to inspection Extremity: COMMON NORMALS: no pedal edema Neuro: COMMON NORMALS: patient oriented x3 Course Vital Signs: Vital signs: Vital Signs Temperature 97.7 F 11/04/21 22:10 Pulse Rate 67 11/04/21 22:10 Respiratory Rate 18 11/04/21 22:10 Blood Pressure 126/56 11/04/21 22:10 Pulse Oximetry 100 11/04/21 22:10 MDM - Allergic Reaction MDM Narrative: Medical decision making narrative: Patient presents initially clearing her throat, and moderately tachypneic. She does not show significant signs of rash, but is quite itchy. She is given IV Benadryl, Solu-Medrol, and Pepcid for allergic reaction protocol. She was also given 2 racemic epinephrine treatments, with significant improvement in her throat and chest symptoms. These are essentially resolved. She still having some itchiness. She is otherwise resting comfortably. She was given also Ativan IV for itchiness and anxiety with significant improvement saturations have been 98 to 100%. She has been given 2 racemic epinephrine treatments, she is resting in the ER under close observation at this point to see if there are any rebound symptoms. If not, she will be discharged home Lab Data: Labs: Lab Results 11/04/21 11/04/21 11/05/21 23:23 23:23 00:57 WBC Cancelled 8.3 10^3/uL 10^3/ uL (4.0-10.0) Corrected WBC Cancelled RBC Cancelled 4.20 10^6/uL 10^6 /uL (4.1-5.3) Hgb Cancelled 10.9 g/dL L g/dL (11.5-15.3) Hct Cancelled 35.5 % L % (37.0-47.0) MCV Cancelled 84.5 fl fl (81-99) MCH Cancelled 26.0 pg L pg (28.0-34.0) MCHC Cancelled 30.7 g/dL g/dL (30.0-36.0) RDW Cancelled 15.5 % H % (12.1-15.1) Plt Count Cancelled 315 10^3/cmm 10^3 /cmm (130-400) MPV Cancelled 9.7 fL fL (7.4-10.4) Gran % Cancelled Neut % (Auto) Cancelled 73.0 % % Lymph % (Auto) Cancelled 20.9 % % [place] % (Auto) Cancelled 4.6 % % Eos % (Auto) Cancelled 0.5 % % Baso % (Auto) Cancelled 0.6 % % Neut # (Auto) Cancelled 6.04 10^3/uL 10^3 /uL (1.8-7.7) Lymph # (Auto) Cancelled 1.7 10^3/uL 10^3/ uL (0.8-4.8) [place] # (Auto) Cancelled 0.4 10^3/uL 10^3/ uL (0.2-0.9) Eos # (Auto) Cancelled 0.0 10^3/uL 10^3/ uL (0.0-0.8) Baso # (Auto) Cancelled 0.1 10^3/uL 10^3/ uL (0.0-0.1) Absolute Gran (aut o) Cancelled Nucleated RBC % (a uto) Cancelled 0 % % Nucleated RBCs # Cancelled 0.0 /100WBC /100W BC Sodium 136 mmol/L mmol/L (136-145) Potassium 3.5 mmol/L mmol/L (3.5-5.1) Chloride 101 mmol/L mmol/L (98-107) Carbon Dioxide 17 mmol/L L mmol/ L (22-29) Anion Gap 21.5 H (5-19) BUN 13 mg/dL mg/dL (6-20) Creatinine 0.9 mg/dL mg/dL (0.5-0.9) GFR Calculation 68.0 mL/min L mL/ min (90-130) Glucose 130 mg/dL H mg/dL (65-115) Calculated Osmolal ity 284 mOsm/kg L mOs m/kg (285-295) Calcium 9.4 mg/dL mg/dL (8.5-10.5) Total Bilirubin 0.2 mg/dL mg/dL (0.15-1.2) AST 16 U/L U/L (0-32) ALT 10 U/L U/L (0-33) Alkaline Phosphata se 78 IU/L IU/L (35-105) Total Protein 6.3 g/dL L g/dL (6.6-8.7) Albumin 4.1 g/dL g/dL (3.5-5.2) Globulin 2.2 g/dL g/dL (1.3-4.6) Discharge Plan Discharge Patient Disposition: Home Clinical Impression: Allergic reaction Qualifiers: Encounter type: initial encounter Qualified Code(s): T78.40XA - Allergy, unspecified, initial encounter Condition: Stable Prescriptions: No Action lithium carbonate 150 mg capsule 150 mg PO BEDTIME RF: 0 trazodone 100 mg tablet 100 - 200 mg PO BEDTIME PRN (Reason: Sleep) RF: 0 (DME) Custom molded orthotics See Rx Instructions .Route .MEDSUPPLY Qty: 1 RF: 0 fluoxetine 60 mg tablet 60 mg PO DAILY 30 Days Qty: 30 RF: 3 famotidine 40 mg/5 mL (8 mg/mL) Suspension 40 mg PO BID RF: 0 cetirizine 5 mg/5 mL Solution See Rx Instructions .ROUTE .COMPLEX RF: 0 budesonide 0.5 mg/2 mL suspension for nebulization 0.5 mg inhalation BID PRN (Reason: shortness of breath or wheezing) RF: 0 gabapentin 600 mg tablet 300 mg PO BID RF: 0 Tylenol Ex Str Rapid Release 500 mg Tablet 1,000 mg PO Q6H PRN (Reason: Pain) RF: 0 propranolol 20 mg tablet 20 mg PO BEDTIME RF: 0 dapsone 5 % gel 1 applic TOPICAL BID RF: 0 [place] 150 mg tablet 150 mg PO DAILY RF: 0 Discharge Orders: Discharge ED (Routine); Ordered 11/05/21 Ordered By: Tj Garcia Referrals: Chi Cobb MD [Primary Care Provider] - 4-7 days Patient Instructions: Allergic Reaction Activity Restrictions/Additional Instructions: Return for any worsening of your symptoms. Coding Level of Care Code ED Professor Of Psychology for Chg Fwd Exam Detailed
[2021-11-05] MEDS: racepinephrine 0.5 mL Neb INHALATION (00:53)
[2021-11-05 01:04] LABS: Basophils # 0.1 10^3/uL (0.0-0.1); Basophils % 0.6 %; Eosinophils % 0.5 %; Hematocrit 35.5 % (37.0-47.0); Hemoglobin 10.9 g/dL (11.5-15.3); Lymphocytes # 1.7 10^3/uL (0.8-4.8); Lymphocytes % 20.9 %; Mean Corpuscular HGB Conc 30.7 g/dL (30.0-36.0); Mean Corpuscular Volume 84.5 fl (81-99); Mean Platelet Volume 9.7 fL (7.4-10.4); Monocytes # 0.4 10^3/uL (0.2-0.9); Monocytes % 4.6 %; Neutrophils # 6.04 10^3/uL (1.8-7.7); Nucleated Red Blood Cells % 0 %; Platelet Count 315 10^3/cmm (130-400); Red Cell Distribution Width 15.5 % (12.1-15.1); White Blood Count 8.3 10^3/uL (4.0-10.0)
--- NOTE | 2021-11-05 04:37 | PC.NURSE ---
pt resting quietly
== END 2021-11-05 05:53 | disposition home or self-care (01) ==
PROVIDERS: Emergency Provider Emergency Medicine; PCP Family Medicine
DX: T78.40XA Allergy, unspecified, initial encounter (principal)
CPT/HCPCS: 36415; 71045; 80053; 85025; 94640; 96374; 96375; 96376; 99284; J1200; J2060; J2405; J2930; J3490; J3535

== ENCOUNTER 2021-12-06 18:46 | Emergency (ER) | payer OTHER, SELFPAY ==
[2021-12-06 18:52] VITALS: BP 138/69; PULSE 64; RESP 20; TEMP 36.7; O2SAT 99; BMI 23.9
--- NOTE | 2021-12-06 19:05 | ED_ITS ---
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 She reports being at her baseline health the past few days without significant changes. She was in a building earlier and was exposed to smoke from cooking meat which she believes triggered allergic reaction symptoms. She has some cough and shortness of breath which is moderate in intensity and mildly worse with exertion. Since onset symptoms have mildly been worsening. She tried Zyrtec and albuterol with only minimal relief. She does have associated itching which has improved. Additionally she has chest pain which is substernal and left chest which is atypical for previous allergic reactions. No other typical cardiac features associated with this. No other system involvement consistent with anaphylaxis. Onset (ago): minute(s) Exposure: other Associated symptoms: Reports difficulty breathing; Deny dysphagia, facial swelling, nausea, rash, tongue swelling or vomiting Severity: moderate Treatment prior to arrival: bronchodilator and other Previous Allergic Reaction History: prior ED visit(s) and anaphylaxis Review of Systems General: Reports: 10 or more systems reviewed and unremarkable except in HPI and below ENMT: Denies: uvular edema GI: Denies: nausea, vomiting or dysphagia All/Imm: Denies: tongue swelling or facial swelling PFS ED PFSH: Medical History Aftercare following surgery of the genitourinary system Alpha galactosidase deficiency Anxiety Cerebral hemorrhage with hemiparesis (~08/2019) Occurred while on epinephrine drip for anaphylaxis. Mild residual weakness on the left side History of anaphylaxis Requiring intubation History of gluten sensitivity Hyper-IgE syndrome Major depressive disorder Mood swings Multiple environmental allergies Multiple food allergies PCOS (polycystic ovarian syndrome) PTSD (post-traumatic stress disorder) Rosacea Vocal cord palsy Surgical History History of abdominoplasty History of appendectomy History of artificial lens replacement History of cataract surgery History of section, low transverse History of eye surgery Surgical plate placement and removal History of surgery Intracranial angiogram Port-A-Cath in place (05/26/20) left subclavian Removed 07/13/2021 Family History Mother Diabetes Thyroid condition Hypercholesteremia Hypertension Family/Other Cancer Social History Smoking and tobacco status: never smoked Alcohol intake: former Former alcohol use details: 2018 Marital status: Current occupational status: employed 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 History: Date of last menstrual period: 11/22/21 Physical Exam Const: COMMON NORMALS: alert GENERAL APPEARANCE: cooperative and well developed HENMT: COMMON NORMALS: normocephalic and atraumatic HEAD & SCALP: normocephalic and atraumatic THROAT: posterior oropharynx normal and uvula midline; no uvular edema Eye: COMMON NORMALS: conjunctivae normal CONJUNCTIVA: Yes conjunctivae normal SCLERA: sclerae normal Neck/C-Spine: COMMON NORMALS: supple GENERAL: Yes trachea midline Resp: COMMON NORMALS: normal respiratory effort EFFORT & INSPECTION: Yes able to speak in complete sentences AUSCULTATION: wheezes expiratory wheezes (end) Cardio: COMMON NORMALS: regular rate and regular rhythm RATE: regular rate RHYTHM: regular rhythm GI: COMMON NORMALS: Soft to palpation PALPATION: Yes Soft to palpation and No Tenderness to palpation present (GI) PERCUSSION: normal to percussion Extremity: GENERAL: Yes normal exam except as noted and No edema Neuro: COMMON NORMALS: moves all extremities SENSORIUM/ORIENTATION: Yes alert and No Orientation impaired Psych: COMMON NORMALS: mental status grossly normal and Normal thought process present THOUGHT PROCESS: Normal thought process present Skin: COMMON NORMALS: no rashes or lesions noted GENERAL SKIN EXAM: no rashes or lesions noted Course ED course: - Patient was seen and evaluated by me at bedside - Patient placed on cardiac monitors, IV access obtained - Initial evaluation notable for exam as above, no evidence of anaphylaxis in addition to patient having history of cerebral hemorrhage secondary to epinephrine administration. - Allergic reaction treatments and RT treatment ordered. - Patient did have some improvement though given that chest pain is atypical for her allergic reaction treatments this requires further testing. - Labs notable for no leukocytosis, mild normocytic anemia fairly similar to baseline. Metabolic panel with hypokalemia, replenishment ordered. Troponin is negative. D-dimer negative. - Imaging notable for negative chest x-ray. - Upon serial reexamination after treatment the patient was improved - Based on patient history, evaluation, labs, and imaging as interpreted the most likely cause of the patient's condition is allergic reaction and chest pain of uncertain etiology - The results of ED evaluation were discussed with the patient including p rescriptions and/or symptomatic cares (if applicable) including appropriate and responsible use, followup plan, and return precautions. The patient verbalized understanding and felt safe for discharge. - Patient discharged in satisfactory condition. Note: Click bubbles or prepopulated alberto in note writing are used for assistance with data collection and billing and are inherently more limited than narrative and other text portions of this note. Please use narrative for additional clinical history and defer to narrative/free test for any case of contradictory information. If information appears in only free text or click bubble it should be considered present or absent as reported. Please contact note mortgage loan underwriter for clarifications of clinical information or contradictory information. MDM is a brief summary, contradictory or erroneous seeming information should be clarified and full note should be reviewed. Vital Signs: Vital signs: Vital Signs Temperature 98.1 F 12/06/21 18:52 Pulse Rate 103 H 12/07/21 01:08 Respiratory Rate 23 H 12/07/21 01:08 Blood Pressure 103/58 12/07/21 01:08 Pulse Oximetry 100 12/07/21 01:08 MDM - Allergic Reaction Medical Decision Making 46 yo lady presenting to the emergency department with allergic reaction and chest pain. No obvious cause of chest pain identified, patient low risk by heart score. Allergic reaction improved with treatment and we'll continue treatment in the outpatient setting. Medical Records I reviewed the patient's medical records. Lab Data I reviewed the patient's lab results. : 12/06/21 22:19 12/06/21 22:19 Radiology Impressions Chest X-Ray 12/06/21 20:30 IMPRESSION: No acute cardiopulmonary process. The Laboratory Results WBC 5.3 10^3/uL (4.0-10.0) 12/06/21 22: RBC 3.72 10^6/uL (4.1-5.3) L 12/06/21 22:19 Hgb 9.7 g/dL (11.5-15.3) L 12/06/21 22: Hct 30.7 % (37.0-47.0) L 12/06/21: MCV 82.5 fl (81-99) 12/06/21: MCH 26.1 pg (28.0-34.0) L 12/06/21: MCHC 31.6 g/dL (30.0-36.0) 12/06/21: RDW 14.9 % (12.1-15.1) 12/06/21: Plt Count 256 10^3/cmm (130-400) 12/06/21: MPV 9.4 fL (7.4-10.4) 12/06/21: Neut % (Auto) 82.4 % 12/06/21: Lymph % (Auto) 14.4 % 12/06/21: [place] % (Auto) 2.4 % 12/06/21: Eos % (Auto) 0.2 % 12/06/21: Baso % (Auto) 0.2 % 12/06/21: Neut # (Auto) 4.39 10^3/uL (1.8-7.7) 12/06/21: Lymph # (Auto) 0.8 10^3/uL (0.8-4.8) 12/06/21: [place] # (Auto) 0.1 10^3/uL (0.2-0.9) L 12/06/21: Eos # (Auto) 0.0 10^3/uL (0.0-0.8) 12/06/21: Baso # (Auto) 0.0 10^3/uL (0.0-0.1) 12/06/21: Nucleated RBC % (auto) 0 % 12/06/21: Nucleated RBCs # 0.0 /100WBC 12/06/21: D-Dimer 0.32 ug/mIFEU (0-0.59) 12/06/21: Sodium 139 mmol/L (136-145) 12/06/21: Potassium 3.1 mmol/L (3.5-5.1) L 12/06/21: Chloride 106 mmol/L (98-107) 02/22/22 22:19 Carbon Dioxide 20 mmol/L (22-29) L 12/06/21 22:19 Anion Gap 16.1 (5-19) 12/06/21 22:19 BUN 10 mg/dL (6-20) 12/06/21 22:19 Creatinine 0.8 mg/dL (0.5-0.9) 12/06/21 22:19 GFR Calculation 77.9 mL/min (90-130) L 12/06/21 22: Glucose 132 mg/dL (65-115) H 12/06/21 22:19 Calculated Osmolality 289 mOsm/kg (285-295) 12/06/21 22: Calcium 8.7 mg/dL (8.5-10.5) 12/06/21 22: Total Bilirubin 0.2 mg/dL (0.15-1.2) 12/06/21 22: AST 29 U/L (0-32) 12/06/21 22: ALT 22 U/L (0-33) 12/06/21 22: Alkaline Phosphatase 73 IU/L (35-105) 12/06/21 22:19 Troponin T Baseline 6 ng/L (0-10) 12/06/21 22:19 Total Protein 6.0 g/dL (6.6-8.7) L 12/06/21 22: Albumin 4.4 g/dL (3.5-5.2) 12/06/21 22: Globulin 1.6 g/dL (1.3-4.6) 12/06/21 22: TSH 1.01 uIU/mL (0.27-4.20) 12/06/21 22:19 EKG Data EKG 1: I personally reviewed and interpreted this EKG as follows: EKG interpretation date: 01/03/22 EKG interpretation time: 20:35 Interpretation: Twelve-lead EKG shows a regular rhythm at a rate of 97. MI interval 139, QRS duration 98, QTc 436. Normal axis. Interpretation: Sinus rhythm. PACs. Discharge Plan Discharge Patient Disposition: Home Clinical Impression: Allergic reaction, Chest pain, Hypokalemia, Anemia Condition: Stable Prescriptions: New Pepcid 40 mg tablet 40 mg PO BID Qty: 10 0RF Benadryl 25 mg capsule 25 mg PO TID PRN (Reason: allergic reaction) Qty: 15 0RF No Action lithium carbonate 150 mg capsule 150 mg PO BEDTIME 0RF trazodone 100 mg tablet 100 - 200 mg PO BEDTIME PRN (Reason: Sleep) 0RF Label Comments: 1-1.5 mg at hs (DME) Custom molded orthotics See Rx Instructions .Route .MEDSUPPLY Qty: 1 0RF Rx Instructions: As directed fluoxetine 60 mg tablet 60 mg PO DAILY 30 Days Qty: 30 3RF Rx Instructions: compounded capsule oxycodone 5 mg/5 mL solution 5 mg PO Q6H PRN (Reason: pain) 3 Days Qty: 30 0RF famotidine 40 mg/5 mL (8 mg/mL) Suspension 40 mg PO BID 0RF cetirizine 5 mg/5 mL Solution See Rx Instructions .ROUTE .COMPLEX 0RF Rx Instructions: 10 mg orally in the morning and 20 mg in the evening. budesonide 0.5 mg/2 mL suspension for nebulization 0.5 mg inhalation BID PRN (Reason: shortness of breath or wheezing) 0RF gabapentin 600 mg tablet 300 mg PO BID 0RF Tylenol Ex Str Rapid Release 500 mg Tablet 1,000 mg PO Q6H PRN (Reason: Pain) 0RF propranolol 20 mg tablet 20 mg PO BEDTIME 0RF dapsone 5 % gel 1 applic TOPICAL BID 0RF [place] 150 mg tablet 150 mg PO DAILY 0RF Rx Instructions: pt not started yet Discharge Orders: Discharge ED (Routine); Ordered 12/06/21 Ordered By: Paul Ball Referrals: Chi Cobb MD [Primary Care Provider] - Discharge Diet: Usual diet Discharge Activity: Resume usual activity Patient Instructions: Allergic Reaction, Chest Pain (ED), Opioid Safety Activity Restrictions/Additional Instructions: Thank you for visiting the emergency department. You were seen and evaluated for allergic reaction and chest pain. The exact cause your symptoms is unclear regarding the chest pain. We are pleased that you have improvement with treat ment regarding your allergic reaction. You will be given a prescription for steroids and also Pepcid, in addition you can use Benadryl for continued symptoms despite steroids and Benadryl. Please follow-up with your primary care provider. Please return to the emergency department for recurrent symptoms, worsening symptoms, anaphylaxis, or anything else that you are concerned about and feel needs emergency department evaluation. Coding Level of Care Code ED Deck Mate for 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
[2021-12-06] MEDS: sodium chloride 0.9% 1,000 ML 999 ML IV (19:43)
[2021-12-06] MEDS: diphenhydrAMINE 50 mg/mL SDV 1mL IVP (19:43)
[2021-12-06] MEDS: famotidine 20 mg/2 mL INJ 40 MG IVP (19:43)
[2021-12-06] MEDS: ondansetron 2 mg/ML SDV 2 mL 4 MG IVP (20:00)
[2021-12-06 20:04] VITALS: BP 145/68; PULSE 63; RESP 16; O2SAT 100
[2021-12-06] MEDS: ipratropium-albuterol 3 mL Neb 9 ML INHALATION (20:06)
[2021-12-06 20:17] VITALS: PULSE 77; RESP 15; O2SAT 100
[2021-12-06 20:20] VITALS: PULSE 98
--- NOTE | 2021-12-06 20:30 | ECG_ITS ---
[facility] Test Date: 2021-12-06 Pat Name: Estella Nathan DrDepartment: Room: Gender: Female [employer]: : 1975 Requested By: Paul Ball Order Number: [id number] Mehrdad MD: Mirlande Mares M.D. Measurements Intervals [place] Rate: 97 P: 57 [place]: 139 QRS: 66 QRSD: 98 T: 37 QT: 382 QTc: 486 Interpretive Statements SINUS RHYTHM WITH FREQUENT ECTOPIC PREMATURE COMPLEXES POSSIBLE LEFT ATRIAL ENLARGEMENT [-0.1mV P-WAVE IN V1/V2] No previous ECG available for comparison Electronically Signed On 12-07-2021 7:19:58 [employer]OTTON AGENT by Mirlande Mares M.D. [id number]
--- NOTE | 2021-12-06 20:30 | XRR_ITS ---
PROCEDURE INFORMATION: Exam: XR Chest Exam date and time: 12/06/2021 8:30 PM Age: 46 years old Clinical indication: Chest wall pain; Additional info: Chest pain TECHNIQUE: Imaging protocol: XR of the chest. Views: 1 view. COMPARISON: CR (CHEST, ) 11/04/2021 10:36 PM FINDINGS: Lungs: Lungs are clear bilaterally. Pleural spaces: No pleural effusion. No pneumothorax. Heart/Mediastinum: The cardiac silhouette and mediastinal contours are unremarkable. Bones/joints: Unremarkable for age. XR/XR chest 1V portable [id number] IMPRESSION: No acute cardiopulmonary process. The
[2021-12-06 22:17] VITALS: RESP 14; O2SAT 93
[2021-12-06] MEDS: morphine 4 mg/mL SDV 1 mL IVP (22:17)
[2021-12-06 22:23] VITALS: BP 124/76; PULSE 113; RESP 14; O2SAT 92
[2021-12-06 22:25] LABS: Basophils % 0.2 %; Eosinophils % 0.2 %; Hematocrit 30.7 % (37.0-47.0); Hemoglobin 9.7 g/dL (11.5-15.3); Lymphocytes # 0.8 10^3/uL (0.8-4.8); Lymphocytes % 14.4 %; Mean Corpuscular HGB Conc 31.6 g/dL (30.0-36.0); Mean Corpuscular Hemoglobin 26.1 pg (28.0-34.0); Mean Corpuscular Volume 82.5 fl (81-99); Mean Platelet Volume 9.4 fL (7.4-10.4); Monocytes # 0.1 10^3/uL (0.2-0.9); Monocytes % 2.4 %; Neutrophils # 4.39 10^3/uL (1.8-7.7); Neutrophils % 82.4 %; Nucleated Red Blood Cells % 0 %; Platelet Count 256 10^3/cmm (130-400); Red Blood Count 3.72 10^6/uL (4.1-5.3); Red Cell Distribution Width 14.9 % (12.1-15.1); White Blood Count 5.3 10^3/uL (4.0-10.0)
[2021-12-06 22:46] LABS: Troponin(5th) Baseline 6 ng/L (0-10)
[2021-12-06 22:53] LABS: Alanine Aminotransferase 22 U/L (0-33); Albumin Level 4.4 g/dL (3.5-5.2); Alkaline Phosphatase 73 IU/L (35-105); Anion Gap 16.1 (5-19); Aspartate Amino Transferase 29 U/L (0-32); Blood Urea Nitrogen 10 mg/dL (6-20); Calcium 8.7 mg/dL (8.5-10.5); Carbon Dioxide 20 mmol/L (22-29); Chloride 106 mmol/L (98-107); Creatinine Clr Calc Pharmacy 79.2398; Globulin 1.6 g/dL (1.3-4.6); Glomerular Filtration Rate 77.9 mL/min (90-130); Glucose 132 mg/dL (65-115); Osmolality Calculated 289 mOsm/kg (285-295); Potassium 3.1 mmol/L (3.5-5.1); Sodium 139 mmol/L (136-145); Thyroid Stimulating Hormone 1.01 uIU/mL (0.27-4.20); Total Bilirubin 0.2 mg/dL (0.15-1.2)
[2021-12-06 23:12] LABS: D Dimer 0.32 ug/mIFEU (0-0.59)
[2021-12-07] MEDS: potassium chloride ER 20 mEq Tablet 40 MEQ PO (00:07)
[2021-12-07 01:08] VITALS: BP 103/58; PULSE 103; RESP 23; O2SAT 100
== END 2021-12-07 01:12 | disposition home or self-care (01) ==
PROVIDERS: Emergency Provider Emergency Medicine; PCP Family Medicine
DX: T78.40XA Allergy, unspecified, initial encounter (principal); R07.9 Chest pain, unspecified; E87.6 Hypokalemia; D64.9 Anemia, unspecified
CPT/HCPCS: 71045; 80053; 84443; 84484; 85025; 85378; 93005; 94640; 96361; 96374; 96375; 99285; J1200; J2270; J2405; J2930; J3475; J3490; J7030

== ENCOUNTER 2021-12-20 11:44 | Outpatient (CLI) | payer OTHER, SELFPAY | END 2021-12-20 11:45 | disposition home or self-care (01) | LOC: SPT 11:45 | PROVIDERS: PCP Family Medicine; Visit Provider Podiatrist Foot & Ankle Surgery | DX: Z46.89 Encounter for fitting and adjustment of other specified devices (principal); M76.829 Posterior tibial tendinitis, unspecified leg; M79.673 Pain in unspecified foot | CPT/HCPCS: 97760; L3030 ==

== ENCOUNTER 2022-02-13 18:44 | Emergency (ER) | payer OTHER, SELFPAY ==
[2022-02-13] VITALS (10 sets, daily range): BP systolic 112–146; BP diastolic 73–79; PULSE 71–89; RESP 16–20; O2SAT 98–100; BMI 23.9
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
--- NOTE | 2022-02-13 18:53 | ECG_ITS ---
[facility] Test Date: 2022-02-13 Pat Name: Estella Nathan DrDepartment: Room: Gender: Female Group President: : 1975 Requested By: Paul Ball Order Number: [id number] Mehrdad MD: Satish Gerardo M.D. Measurements Intervals [place] Rate: 74 P: [place]: QRS: 66 QRSD: 85 T: 48 QT: 424 QTc: 472 Interpretive Statements SINUS RHYTHM WITH PACs Compared to ECG 12/06/2021 20:32:06 Ventricular premature complex(es) now present Aberrant conduction of supraventricular beat(s) now present Sinus rhythm no longer present Electronically Signed On 02-14-2022 20:57:01 CDT by Satish Gerardo M.D. [id number]
--- NOTE | 2022-02-13 19:01 | PC.NURSE ---
190 assumed pt care from Hayder PORTER
[2022-02-13] MEDS: ipratropium-albuterol 3 mL Neb INHALATION (19:08)
[2022-02-13] MEDS: diphenhydrAMINE 50 mg/mL SDV 1mL IVP (19:08)
[2022-02-13] MEDS: famotidine 20 mg/2 mL INJ 40 MG IVP (19:14)
[2022-02-13] MEDS: sodium chloride 0.9% 1,000 ML 999 ML IV (19:25)
[2022-02-13] MEDS: diphenhydrAMINE 50 mg/mL SDV 1mL IM (21:11)
== END 2022-02-13 21:29 | disposition home or self-care (01) ==
PROVIDERS: Emergency Provider Emergency Medicine; PCP Family Medicine
DX: T78.40XA Allergy, unspecified, initial encounter (principal); L50.0 Allergic urticaria; R06.02 Shortness of breath; Z87.892 Personal history of anaphylaxis; Z91.018 Allergy to other foods
CPT/HCPCS: 93005; 94640; 96361; 96372; 96374; 96375; 99284; J1200; J2930; J3490; J7030; J7611

== ENCOUNTER 2022-02-14 12:54 | Emergency (ER) | payer OTHER, SELFPAY ==
[2022-02-14] VITALS (8 sets, daily range): BP systolic 137–140; BP diastolic 80–86; PULSE 68–81; RESP 13–16; TEMP 38.3; O2SAT 98–99; BMI 23.9
--- NOTE | 2022-02-14 13:06 | ECG_ITS ---
[facility] Test Date: 2022-02-14 Pat Name: Estella Nathan DrDepartment: Room: Gender: Female Pot[place] Flaker: : 1975 Requested By: Dagoberto Clarke Order Number: [id number] Reading MD: Satish Gerardo M.D. Measurements Intervals [place] Rate: 70 P: -8 ND: 123 QRS: 78 QRSD: 85 T: 62 QT: 414 QTc: 449 Interpretive Statements SINUS RHYTHM WITH OCCASIONAL VENTRICULAR PREMATURE COMPLEXES Compared to ECG 02/13/2022 19:55:16 Ventricular premature complex(es) now present Electronically Signed On 02-14-2022 22:31:33 CDT by Satish Gerardo M.D. [id number]
--- NOTE | 2022-02-14 13:08 | XRR_ITS ---
PROCEDURE INFORMATION: Exam: XR Chest Exam date and time: 02/14/2022 1:32 PM Age: 46 years old Clinical indication: Cough and dyspnea. TECHNIQUE: Imaging protocol: XR of the chest. Views: 1 view. COMPARISON: CR XR chest 1V portable [id number] 12/06/2021 8:53 PM FINDINGS: Lungs: No pulmonary consolidation. Pleural spaces: No pleural effusion. No pneumothorax. Heart/Mediastinum: The cardiac silhouette is unremarkable. No gross evidence of pneumomediastinum. Bones/joints: No gross fracture. Soft tissues: There is a faint nodular density overlying the lower right chest measuring 1.5 cm. This could reflect a nipple shadow. XR/XR chest 1V portable [id number] IMPRESSION: There is a faint nodular density overlying the lower right chest measuring 1.5 cm. This could reflect a nipple shadow. Consider repeat chest radiograph with nipple markers to confirm.
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
[2022-02-14] MEDS: famotidine 20 mg/2 mL INJ 40 MG IVP (13:16)
[2022-02-14] MEDS: diphenhydrAMINE 50 mg/mL SDV 1mL 25 MG IVP ×2 (13:16→14:23)
[2022-02-14] MEDS: ipratropium-albuterol 3 mL Neb INHALATION ×2 (13:30→16:02)
[2022-02-14 14:21] LABS: Influenza A by IFA Negative (Negative); Influenza B by IFA Negative (Negative)
[2022-02-14 14:52] LABS: Basophils % 0.1 %; Hemoglobin 11.2 g/dL (11.5-15.3); Lymphocytes # 1.9 10^3/uL (0.8-4.8); Lymphocytes % 17.9 %; Mean Corpuscular Hemoglobin 26.6 pg (28.0-34.0); Mean Corpuscular Volume 83.1 fl (81-99); Mean Platelet Volume 9.7 fL (7.4-10.4); Monocytes # 1.1 10^3/uL (0.2-0.9); Monocytes % 10.6 %; Neutrophils # 7.67 10^3/uL (1.8-7.7); Neutrophils % 71.1 %; Nucleated Red Blood Cells % 0 %; Platelet Count 333 10^3/cmm (130-400); Red Blood Count 4.21 10^6/uL (4.1-5.3); Red Cell Distribution Width 14.5 % (12.1-15.1); White Blood Count 10.8 10^3/uL (4.0-10.0)
[2022-02-14 15:19] LABS: Alanine Aminotransferase 11 U/L (0-33); Albumin Level 4.6 g/dL (3.5-5.2); Alkaline Phosphatase 86 IU/L (35-105); Blood Urea Nitrogen 11 mg/dL (6-20); Calcium 8.7 mg/dL (8.5-10.5); Carbon Dioxide 19 mmol/L (22-29); Chloride 105 mmol/L (98-107); Creatinine Clr Calc Pharmacy 79.2398; Globulin 2.2 g/dL (1.3-4.6); Glomerular Filtration Rate 77.9 mL/min (90-130); Glucose 120 mg/dL (65-115); Osmolality Calculated 283 mOsm/kg (285-295); Sodium 136 mmol/L (136-145); Total Bilirubin 0.2 mg/dL (0.15-1.2); Total Protein 6.8 g/dL (6.6-8.7)
[2022-02-14 15:23] LABS: Anion Gap 15.7 (5-19); Aspartate Amino Transferase 16 U/L (0-32); Potassium 3.7 mmol/L (3.5-5.1)
[2022-02-14 15:30] LABS: Urine Color Straw (Yellow)
[2022-02-14 15:31] LABS: Add Urine Microscopic? YES; Bilirubin Urine Neg (Negative); Blood Urine 2+ (Negative); Glucose Urine UA Norm (Normal); Ketones Urine Negative (Negative); Leukocyte Esterase Urine Negative (Negative); Nitrate Urine Negative (Negative); Protein Urine Neg (Negative); Specific Gravity, Urine 1.005 (1.005-1.030); Urine Appearance Clear (CLEAR); Urobilinogen Urine Norm (Negative); pH Urine 6.5 (5-7)
[2022-02-14 15:32] LABS: Add Urine Culture? No; RBC Urine 0-4 /hpf (0-2); Squamous Epithelial Cell Urine RARE /hpf (0-5); WBC Urine 0-4 /hpf (0-5)
== END 2022-02-14 16:25 | disposition home or self-care (01) ==
PROVIDERS: Emergency Provider Family Medicine; PCP Family Medicine
DX: T78.49XA Other allergy, initial encounter (principal); X58.XXXA Exposure to other specified factors, initial encounter
CPT/HCPCS: 71045; 80053; 81001; 85025; 87040; 87804; 93005; 94640; 96374; 96375; 96376; 99284; J1200; J2930; J3490

== ENCOUNTER 2022-03-13 18:38 | Observation (INO) | payer OTHER, SELFPAY ==
[2022-03-13] VITALS (11 sets, daily range): BP systolic 115–150; BP diastolic 76–80; PULSE 68–119; RESP 16–22; TEMP 36.8; O2SAT 94–99; BMI 23.9
--- NOTE | 2022-03-13 18:55 | ED_ITS ---
HPI - Allergic Reaction General: Chief complaint: Allergic Reaction Stated complaint: Allergic Reaction Time Seen by Provider: 03/13/22 18:44 [facility] ED PFSH: Medical History Aftercare following surgery of the genitourinary system Alpha galactosidase deficiency Anxiety Cerebral hemorrhage with hemiparesis (~08/2019) Occurred while on epinephrine drip for anaphylaxis. Mild residual weakness on the left side History of anaphylaxis Requiring intubation History of gluten sensitivity Hyper-IgE syndrome Major depressive disorder Mood swings Multiple environmental allergies Multiple food allergies PCOS (polycystic ovarian syndrome) PTSD (post-traumatic stress disorder) Rosacea Vocal cord palsy Surgical History History of abdominoplasty History of appendectomy History of artificial lens replacement History of cataract surgery History of section, low transverse History of eye surgery Surgical plate placement and removal History of surgery Intracranial angiogram Port-A-Cath in place (05/26/20) left subclavian Removed 07/13/2021 Family History Mother Diabetes Thyroid condition Hypercholesteremia Hypertension Family/Other Cancer Social History Smoking and tobacco status: never smoked Alcohol intake: former Former alcohol use details: 2018 Marital status: Current occupational status: employed 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 History: Date of last menstrual period: 11/22/21 Course Vital Signs: Vital signs: Vital Signs Temperature 98.3 F 03/13/22 18:45 Pulse Rate 71 03/13/22 18:53 Respiratory Rate 16 03/13/22 18:53 Blood Pressure 150/78 03/13/22 18:53 Pulse Oximetry 94 03/13/22 18:53 Discharge Plan Discharge Condition: Stable Prescriptions: No Action trazodone 100 mg tablet 100 - 200 mg PO BEDTIME PRN (Reason: Sleep) 0RF Label Comments: 1-1.5 mg at hs gabapentin 300 mg capsule 300 mg PO DAILY 0RF (DME) Custom molded orthotics See Rx Instructions .Route .MEDSUPPLY Qty: 1 0RF Rx Instructions: As directed fluoxetine 60 mg tablet 60 mg PO DAILY 30 Days Qty: 30 3RF cetirizine 5 mg/5 mL Solution See Rx Instructions .ROUTE .COMPLEX 0RF Rx Instructions: 10 mg orally in the morning and 20 mg in the evening. budesonide 0.5 mg/2 mL suspension for nebulization 0.5 mg inhalation BID PRN (Reason: shortness of breath or wheezing) 0RF Tylenol Ex Str Rapid Release 500 mg Tablet 1,000 mg PO Q6H PRN (Reason: Pain) 0RF propranolol 20 mg tablet 20 mg PO BEDTIME 0RF dapsone 5 % gel 1 applic TOPICAL BID 0RF Pepcid 40 mg tablet 40 mg PO BID Qty: 10 0RF albuterol sulfate 2.5 mg /3 mL (0.083 %) solution for nebulization 2.5 mg inhalation Q6H PRN (Reason: shortness of breath or wheezing) Qty: 75 0RF Referrals: Chi Cobb MD [Primary Care Provider] - Coding Level of Care Code ED Mail Distribution Scheme Examiner for 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
--- NOTE | 2022-03-13 19:01 | W.ED.GENADLT ---
HPI - General Adult General: Chief complaint: Allergic Reaction Stated complaint: Allergic Reaction Time Seen by Provider: 03/13/22 18:44 History of Present Illness: Patient is a 46-year-old female with multiple anaphylactic allergies presenting to the emergency room after eating containing products earlier today. [place] airport [place]. The, patient reports mild throat tightness and hives over the neck and anterior chest. Patient reports mild nausea and abdominal cramps without diarrhea or vomiting. Patient says that she took about 20 mg of Zyrtec and 2 puffs of albuterol with improvement in symptoms. Patient has a prior history of severe anaphylactic attack as well as alpha gal and wanted to be evaluated in the emergency room. Onset: 2 hr ago Duration:2 hrs Location:outside Severity:moderate Associated symptoms: Deny chest pain, dyspnea, nausea, palpitations or vomiting Review of Systems Const: Denies: fever(s) or chills Eyes: Denies: change in vision ENMT: Denies: mouth pain Card: Denies: chest pain or palpitations Resp: Denies: dyspnea or non-productive cough GI: Denies: abdominal pain, nausea, vomiting or diarrhea : Denies: dysuria Musc: Denies: extremity pain Skin/Breast: Reports: new lesions (+hives over neck and anterior chest) Neuro: Denies: weakness in extremities Psych: Reports: other (Normal mood) Nigel/Lymph: Denies: easy bruising PFS ED PFSH: Medical History Aftercare following surgery of the genitourinary system Alpha galactosidase deficiency Anxiety Cerebral hemorrhage with hemiparesis (~08/2019) Occurred while on epinephrine drip for anaphylaxis. Mild residual weakness on the left side History of anaphylaxis Requiring intubation History of gluten sensitivity Hyper-IgE syndrome Major depressive disorder Mood swings Multiple environmental allergies Multiple food allergies PCOS (polycystic ovarian syndrome) PTSD (post-traumatic stress disorder) Rosacea Vocal cord palsy Surgical History History of abdominoplasty History of appendectomy History of artificial lens replacement History of cataract surgery History of section, low transverse History of eye surgery Surgical plate placement and removal History of surgery Intracranial angiogram Port-A-Cath in place (05/26/20) left subclavian Removed 07/13/2021 Family History Mother Diabetes Thyroid condition Hypercholesteremia Hypertension Family/Other Cancer Social History Smoking and tobacco status: never smoked Alcohol intake: former Former alcohol use details: 2018 Marital status: Current occupational status: employed 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 History: Date of last menstrual period: 11/22/21 Physical Exam Const: COMMON NORMALS: alert HENMT: COMMON NORMALS: atraumatic HEAD & SCALP: atraumatic MOUTH: moist mucous membranes not abnormal OTHER: + Posterior oral airway intact Eye: COMMON NORMALS: EOMs intact bilaterally and conjunctivae normal CONJUNCTIVA: Yes conjunctivae normal Neck/C-Spine: COMMON NORMALS: full ROM and supple Resp: COMMON NORMALS: normal respiratory effort and clear to auscultation bilaterally AUSCULTATION: clear to auscultation bilaterally OTHER: No wheezes b/l Cardio: COMMON NORMALS: regular rate RATE: regular rate GI: COMMON NORMALS: Soft to palpation and non-tender PALPATION: Yes Soft to palpation Extremity: COMMON NORMALS: full ROM Neuro: SENSORIUM/ORIENTATION: Yes alert MOTOR EXAM: No Abnormal motor strength present and Other motor observations present (no focal motor deficits) Psych: COMMON NORMALS: speech normal SPEECH: Yes normal speech MOOD & AFFECT: Yes euthymic mood Skin: NARRATIVE SKIN EXAM: + Mild anterior neck erythema Course Vital Signs: Vital signs: Vital Signs Temperature 98.3 F 03/13/22 18:45 Pulse Rate 119 H 03/13/22 21:53 Respiratory Rate 18 03/13/22 21:39 Blood Pressure 115/79 03/13/22 19:15 Pulse Oximetry 97 03/13/22 21:39 MDM - General Adult Medical Decision Making 46-year-old female with multiple anaphylactic allergies presenting to the emergency room for evaluation of neck erythema after consuming milk like products at the airport. Patient has no signs of oral airway compromise. Continued satting well. Lungs appear to be clear. Patient is noted to have mild erythema of the neck. Labs unremarkable. Patient received Pepcid, Benadryl, duoneb, and Solu-Medrol in the room with improvement symptom. However, patient continues to have mild erythema around the neck. Patient would like to be observed overnight. Patient received additional treatment of Solu-Medrol, Pepcid, Benadryl and duoneb Disposition: admission Lab Data : 03/13/22 19:03 03/13/22 19:03 Laboratory Results WBC 6.1 10^3/uL (4.0-10.0) 03/13/22 19: RBC 4.48 10^6/uL (4.1-5.3) 03/13/22 19:03 Hgb 11.8 g/dL (11.5-15.3) 03/13/22 19:03 Hct 36.3 % (37.0-47.0) L 03/13/22 19: MCV 81.0 fl (81-99) 03/13/22 19: MCH 26.3 pg (28.0-34.0) L 03/13/22 19: MCHC 32.5 g/dL (30.0-36.0) 03/13/22 19: RDW 15.3 % (12.1-15.1) H 03/13/22 19:03 Plt Count 314 10^3/cmm (130-400) 03/13/22 19: MPV 9.9 fL (7.4-10.4) 03/13/22 19:03 Neut % (Auto) 46.3 % 03/13/22 19: Lymph % (Auto) 39.0 % 03/13/22 19: [place] % (Auto) 10.7 % 03/13/22 19: Eos % (Auto) 3.1 % 03/13/22 19: Baso % (Auto) 0.7 % 03/13/22 19:03 Neut # (Auto) 2.81 10^3/uL (1.8-7.7) 03/13/22 19: Lymph # (Auto) 2.4 10^3/uL (0.8-4.8) 03/13/22 19:03 [place] # (Auto) 0.7 10^3/uL (0.2-0.9) 03/13/22 19:03 Eos # (Auto) 0.2 10^3/uL (0.0-0.8) 03/13/22 19:03 Baso # (Auto) 0.0 10^3/uL (0.0-0.1) 03/13/22 19:03 Nucleated RBC % (auto) 0 % 03/13/22 19:03 Nucleated RBCs # 0.0 /100WBC 03/13/22 19:03 Sodium 139 mmol/L (136-145) 03/13/22 19:03 Potassium 3.8 mmol/L (3.5-5.1) 03/13/22 19:03 Chloride 104 mmol/L (98-107) 03/13/22 19:03 Carbon Dioxide 24 mmol/L (22-29) 03/13/22 19:03 Anion Gap 14.8 (5-19) 03/13/22 19:03 BUN 12 mg/dL (6-20) 03/13/22 19:03 Creatinine 0.8 mg/dL (0.5-0.9) 03/13/22 19:03 GFR Calculation 77.9 mL/min (90-130) L 03/13/22 19:03 Glucose 132 mg/dL (65-115) H 03/13/22 19:03 Calculated Osmolality 290 mOsm/kg (285-295) 03/13/22 19:03 Calcium 9.4 mg/dL (8.5-10.5) 03/13/22 19:03 Discharge Plan Discharge Patient Disposition: Admitted As Inpatient Clinical Impression: Allergic reaction Condition: Stable Discharge Diet: Advance as tolerated Discharge Activity: Increase activity as tolerated Coding Level of Care Code ED Chief Mechanical Officer for Shanthi Fwd Exam Comprehensive
[2022-03-13] MEDS: diphenhydrAMINE 50 mg/mL SDV 1mL IVP ×2 (19:04→22:21)
[2022-03-13] MEDS: sodium chloride 0.9% 1,000 ML 999 ML IV (19:06)
[2022-03-13] MEDS: famotidine 20 mg/2 mL INJ 40 MG IVP ×2 (19:09→22:21)
[2022-03-13 19:29] LABS: Basophils % 0.7 %; Eosinophils # 0.2 10^3/uL (0.0-0.8); Eosinophils % 3.1 %; Hematocrit 36.3 % (37.0-47.0); Hemoglobin 11.8 g/dL (11.5-15.3); Lymphocytes # 2.4 10^3/uL (0.8-4.8); Mean Corpuscular HGB Conc 32.5 g/dL (30.0-36.0); Mean Corpuscular Hemoglobin 26.3 pg (28.0-34.0); Mean Platelet Volume 9.9 fL (7.4-10.4); Monocytes # 0.7 10^3/uL (0.2-0.9); Monocytes % 10.7 %; Neutrophils # 2.81 10^3/uL (1.8-7.7); Neutrophils % 46.3 %; Nucleated Red Blood Cells % 0 %; Platelet Count 314 10^3/cmm (130-400); Red Blood Count 4.48 10^6/uL (4.1-5.3); Red Cell Distribution Width 15.3 % (12.1-15.1); White Blood Count 6.1 10^3/uL (4.0-10.0)
[2022-03-13] MEDS: ipratropium-albuterol 3 mL Neb INHALATION ×6 (19:55→21:47)
[2022-03-13 19:58] LABS: Anion Gap 14.8 (5-19); Blood Urea Nitrogen 12 mg/dL (6-20); Calcium 9.4 mg/dL (8.5-10.5); Carbon Dioxide 24 mmol/L (22-29); Chloride 104 mmol/L (98-107); Creatinine Clr Calc Pharmacy 79.2398; Glomerular Filtration Rate 77.9 mL/min (90-130); Glucose 132 mg/dL (65-115); Osmolality Calculated 290 mOsm/kg (285-295); Potassium 3.8 mmol/L (3.5-5.1); Sodium 139 mmol/L (136-145)
--- NOTE | 2022-03-13 23:59 | P.HP_ITS ---
Providers/Chief Complaint Admitting Physician: Josh Vanessa MD Primary Care Provider: Chi Cobb MD Chief Complaint: Allergic Reaction History of Present Illness Estella Jac Benjamin is a 46 year old female with a past medical history of alcoholic galactosidase, hyper IgE, history of food allergies to beef, pork, lactose, mammalian products, gluten, dairy, history of intracranial bleed associate with epinephrine/steroids, history of prior anaphylaxis, anxiety, dep ression who presents to [facility] due to concern for allergic reaction. Patient was at a barbecue yesterday, in [place], when she felt that the smoke from the barbecue, gave her an allergic reaction, she started to feel short of breath, started to develop hives, but her symptoms improved. This afternoon, she was eating food products, when she again noticed shortness of breath, feeling of throat tightening, hives. She took Zyrtec, albuterol without improvement of symptoms. Here in the emergency room she was given Solu-Medrol, Pepcid, Benadryl, and her symptoms have resolved. She is worried about going home, worried about worsening of allergic reaction, she was hoping we can monitor here as she has had anaphylactic reactions in the past Review of Systems Const: Denies: fever(s) Resp: Denies: dyspnea, productive cough, non-productive cough or wheezing GI: Denies: abdominal pain, nausea or vomiting Medications/Allergies Home Medications Medication Instructions Recorded Confirmed Last Taken Type cetirizine 5 mg/5 mL oral solution See Rx Instructions .ROUTE .COMPLEX 06/11/20 12/23/21 10/03/21 History budesonide 0.5 mg/2 mL suspension 0.5 mg INHALATION BID PRN 07/05/20 12/23/21 1 Week Ago History for nebulization ~08/10/21 trazodone 100 mg tablet 100 - 200 mg PO BEDTIME PRN tab 08/16/21 12/23/21 08/16/21 History acetaminophen 500 mg tablet 1,000 mg PO Q6H PRN 10/03/21 12/23/21 Unknown History dapsone 5 % topical gel 1 applic TOPICAL BID 10/03/21 12/23/21 Unknown History propranolol 20 mg tablet 20 mg PO BEDTIME 10/03/21 12/23/21 10/02/21 History Custom molded orthotics #1 ea 11/03/21 12/23/21 Unknown Rx famotidine 40 mg tablet (Pepcid) 40 mg PO BID #10 tab 12/06/21 12/23/21 Unknown Rx gabapentin 300 mg capsule 300 mg PO DAILY 12/23/21 12/23/21 Unknown History fluoxetine 60 mg tablet 60 mg PO DAILY 30 Days #30 tab 01/10/22 Unknown Rx albuterol sulfate 2.5 mg (3 mL) INHALATION Q6H PRN 02/14/22 Unknown Rx #75 ml albuterol sulfate 90 mcg/actuation 2 inh INHALATION Q4H PRN 5 Days 03/13/22 Unknown Rx aerosol inhaler #6.7 g diphenhydramine HCl 25 mg capsule 25 mg PO Q8H PRN 4 Days #12 cap 03/13/22 Un known Rx (Benadryl) epinephrine 0.3 mg/0.3 mL 0.3 mg (0.3 mL) IM Q10M PRN #2 ea 03/13/22 Unknown Rx injection, auto-injector (EpiPen) famotidine 20 mg tablet (Pepcid) 20 mg PO BID PRN 10 Days #20 tab 03/13/22 Unknown Rx Allergies Allergy/AdvReac Type Severity Reaction Status Date / Time Beef Containing Products Allergy Severe ALGY-Anaphy Verified 03/13/22 18:44 laxis epinephrine Allergy Severe Hemorrhagic Verified 03/13/22 18:44 stroke after epi drip lactose Allergy Severe ALGY-Anaphy Verified 03/13/22 18:44 laxis Pork/Porcine Containing Allergy Severe ALGY-Anaphy Verified 03/13/22 18:44 Products laxis trimethobenzamide Allergy Severe ALGY-Anaphy Verified 03/13/22 18:44 [From Tigan] laxis digoxin Allergy ALGY-Hives Verified 03/13/22 18:44 enoxaparin [From Lovenox] Allergy ALGY-Anaphy Verified 03/13/22 18:44 laxis gluten Allergy Unknown Verified 03/13/22 18:44 heparin (porcine) Allergy ALGY-Anaphy Verified 03/13/22 18:44 laxis PFSH Acute PFSH: Medical History Aftercare following surgery of the genitourinary system Alpha galactosidase deficiency Anxiety Cerebral hemorrhage with hemiparesis (~08/2019) Occurred while on epinephrine drip for anaphylaxis. Mild residual weakness on the left side History of anaphylaxis Requiring intubation History of gluten sensitivity Hyper-IgE syndrome Major depressive disorder Mood swings Multiple environmental allergies Multiple food allergies PCOS (polycystic ovarian syndrome) PTSD (post-traumatic stress disorder) Rosacea Vocal cord palsy Surgical History History of abdominoplasty History of appendectomy History of artificial lens replacement History of cataract surgery History of section, low transverse History of eye surgery Surgical plate placement and removal History of surgery Intracranial angiogram Port-A-Cath in place (05/26/20) left subclavian Removed 07/13/2021 Family History Mother Diabetes Thyroid condition Hypercholesteremia Hypertension Family/Other Cancer Social History Smoking and tobacco status: never smoked Alcohol intake: former Former alcohol use details: 2018 Marital status: Current occupational status: employed 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 History: Date of last menstrual period: 11/22/21 Vitals/I&O/Wt Last Vital Signs Temp 98.3 F 03/13/22 18:45 Pulse 102 H 03/13/22 22:30 Resp 20 H 03/13/22 22:30 BP 121/80 03/13/22 22:30 Pulse Ox 98 03/13/22 22:30 03/13/22 03/13/22 03/14/22 14:59 22:59 06:59 Intake Total 1000 / 1000 Balance 1000 / 1000 Weight last 48 hrs Weight 61.235 kg Physical Exam Const: COMMON NORMALS: no acute distress and patient oriented x3 HENMT: COMMON NORMALS: normocephalic HEAD & SCALP: normocephalic Resp: COMMON NORMALS: normal respiratory effort, No retractions, No use of accessory muscles and clear to auscultation bilaterally AUSCULTATION: clear to auscultation bilaterally Cardio: COMMON NORMALS: no JVD, regular rate, regular rhythm, S1 normal heart sound present and S2 normal heart sound present RATE: regular rate RHYTHM: regular rhythm HEART SOUNDS: S1 normal heart sound present and S2 normal heart sound present GI: COMMON NORMALS: Normal to inspection, nondistended, normoactive bowel sounds present, Soft to palpation, non-tender, No hepatosplenomegaly present, no masses and no bruits PALPATION: Yes Soft to palpation Extremity: COMMON NORMALS: capillary refill normal, no clubbing, cyanosis or edema, no calf tenderness and no pedal edema Neuro: COMMON NORMALS: patient oriented x3 Psych: COMMON NORMALS: mental status grossly normal Data : 03/13/22 19:03 03/13/22 19:03 A&P Assessment and plan (1) Allergic reaction: - Allergic reaction, will monitor in ICU -As needed Benadryl, Pepcid -EpiPen if required -Has received Solu-Medrol, Benadryl, Pepcid in the emergency room -Ativan for anxiety as needed -Full code -SCDs for DVT prophylaxis Status: Acute Attestations Medical Necessity Statement*: Patient requires hospitalization for allergic reaction concerns for anaphylaxis, outpatient with observation Coding Level of Care Code Acute Public Policy Analyst for 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 Diagnoses Allergic reaction T78.40XA
[2022-03-14] VITALS (21 sets, daily range): BP systolic 94–153; BP diastolic 46–99; PULSE 67–126; RESP 13–20; TEMP 37.1; O2SAT 96–100; BMI 25.4
[2022-03-14] MEDS: LORazepam 2 mg/mL INJ 1 mL 0.5 MG IVP ×2 (01:04→08:48)
[2022-03-14] MEDS: budesonide 0.5 mg/2 mL Neb INHALATION (07:36)
--- NOTE | 2022-03-14 09:36 | PC.CHAP ---
Pastoral Care Encounter/Spiritual Assessment Type of Contact [] Declined vacuum pan tender visit [] Patient/Family/Request visit [] Outpatient visit [] Follow-up visit [] Physician referral [] Code/Alert [x] Routine visit [] Staff referral [] Actively dying [] Patient sleeping [] Family support [] [] Out of room [] Palliative care [] [] Receiving care in room [] Pre-surgical visit [] Trauma [] Long length of stay [x] ICU visit [] Other: Relational/Emotional Strength [] Patient feels connected with others/family/visitors/staff [] Distress [] Loneliness/isolation [] Abandonment Spirituality of Patient [] Person of Evy [] Attends Congregation of their Eyv [] Believes in Prayer [] Reads Bible or Restoration materials [] There are Spiritual issues to be addressed Engraver Interventions [x] Prayer [x] Active listening [x] Non-anxious presence [x] Spiritual/emotional support [] Crisis/trauma care [] Spiritual counseling [] Bereavement support [] Provided bereavement packet [] Provided Bible/devotional materials [] Provided toy/stuffed animal, coloring book to patient or family member [] Provided Communion [] Anointing/[place] [] Salvation [x] Completed spiritual assessment [] Other: Impact on Illness or Injury [] Angry [] Fearful [] Anxious [] Often cries [] Exhaustion [] Unable to work [] Unable to attend rastafari [] Unable to walk/stand [] Unable to read [] Unable to drive [] Unable to eat/drink [] Unable to sleep [] Unable to be with family [] Patient intubated [] Other: Summary patinet feeling much better... Time spent with patient 5 min
--- NOTE | 2022-03-14 10:39 | P.DS_ITS ---
Discharge Providers Date of Admission: 03/13/22 22:09 Date of Discharge: March 14, 2022 Attending Provider at Admission: Josh Vanessa MD Attending Provider at Discharge: Jere Lynne MD Primary Care Provider: Chi Cobb MD Diagnoses at Discharge Discharge Diagnosis (1) Allergic reaction: Status: Acute Reason for Visit Reason for Visit: Allergic Reaction Hospital Course Hospital Course Estella Jac Benjamin is a 46 year old female with a past medical history of alcoholic galactosidase, hyper IgE, history of food allergies to beef, pork, lactose, mammalian products, gluten, dairy, history of intracranial bleed associate with epinephrine/steroids, history of prior anaphylaxis, anxiety, depression who presents to [facility] due to concern for allergic reaction.? Patient was at a barbecue yesterday, in [place], when she felt that the smoke from the barbecue, gave her an allergic reaction, she started to feel short of breath, started to develop hives, but her symptoms improved.? This afternoon, she was eating food products, when she again noticed shortness of breath, feeling of throat tightening, hives.? She took Zyrtec, albuterol without improvement of symptoms.? Here in the emergency room she was given Solu-Medrol, Pepcid, Benadryl, and her symptoms have resolved.? She is worried about going home, worried about worsening of allergic reaction, she was hoping we can monitor here as she has had anaphylactic reactions in the past. Patient to the hospital for monitoring and to rule out anaphylaxis. She was treated with an as-needed basis of Benadryl. She responded well to the treatment and did not have any further episodes difficulty in breathing, anaphylaxis or shortness of breath. She has been discharged in hemodynamically stable condition back home on p.o. Benadryl every 8 hourly as needed basis. Patient would also benefit from Xopenex inhaler on as-needed basis but not till now has been using albuterol on as-needed basis. Have asked pharmacy to look into potential or possible allergic reactions with interaction with medications. If given all okay I will call in to the pharmacy. Patient has been made aware and is agreeable. Physical Exam Const: COMMON NORMALS: no acute distress and patient oriented x3 HENMT: COMMON NORMALS: normocephalic HEAD & SCALP: normocephalic Neck/C-Spine: COMMON NORMALS: no JVD Resp: COMMON NORMALS: normal respiratory effort, No retractions, No use of accessory muscles and clear to auscultation bilaterally AUSCULTATION: clear to auscultation bilaterally Cardio: COMMON NORMALS: no JVD, regular rate, regular rhythm, S1 normal heart sound present and S2 normal heart sound present RATE: regular rate RHYTHM: regular rhythm HEART SOUNDS: S1 normal heart sound present and S2 normal heart sound present GI: COMMON NORMALS: Normal to inspection, nondistended, normoactive bowel sounds present, Soft to palpation, non-tender, No hepatosplenomegaly present, no masses and no bruits PALPATION: Yes Soft to palpation and Yes No hepatosplenomegaly present Extremity: COMMON NORMALS: capillary refill normal, no clubbing, cyanosis or edema, no calf tenderness and no pedal edema Neuro: COMMON NORMALS: patient oriented x3 Psych: COMMON NORMALS: mental status grossly normal Discharge Data Studies Completed and Pending Laboratory Results WBC 6.1 10^3/uL (4.0-10.0) 03/13/22 19:03 RBC 4.48 10^6/uL (4.1-5.3) 03/13/22 19:03 Hgb 11.8 g/dL (11.5-15.3) 03/13/22 19:03 Hct 36.3 % (37.0-47.0) L 03/13/22 19:03 MCV 81.0 fl (81-99) 03/13/22 19:03 MCH 26.3 pg (28.0-34.0) L 03/13/22 19:03 MCHC 32.5 g/dL (30.0-36.0) 03/13/22 19:03 RDW 15.3 % (12.1-15.1) H 03/13/22 19:03 Plt Count 314 10^3/cmm (130-400) 03/13/22 19:03 MPV 9.9 fL (7.4-10.4) 03/13/22 19:03 Neut % (Auto) 46.3 % 03/13/22 19:03 Lymph % (Auto) 39.0 % 03/13/22 19:03 [place] % (Auto) 10.7 % 03/13/22 19:03 Eos % (Auto) 3.1 % 03/13/22 19:03 Baso % (Auto) 0.7 % 03/13/22 19:03 Neut # (Auto) 2.81 10^3/uL (1.8-7.7) 03/13/22 19:03 Lymph # (Auto) 2.4 10^3/uL (0.8-4.8) 03/13/22 19:03 [place] # (Auto) 0.7 10^3/uL (0.2-0.9) 03/13/22 19:03 Eos # (Auto) 0.2 10^3/uL (0.0-0.8) 03/13/22 19:03 Baso # (Auto) 0.0 10^3/uL (0.0-0.1) 03/13/22 19:03 Nucleated RBC % (auto) 0 % 03/13/22 19:03 Nucleated RBCs # 0.0 /100WBC 03/13/22 19:03 Sodium 139 mmol/L (136-145) 03/13/22 19:03 Potassium 3.8 mmol/L (3.5-5.1) 03/13/22 19:03 Chloride 104 mmol/L (98-107) 03/13/22 19:03 Carbon Dioxide 24 mmol/L (22-29) 03/13/22 19:03 Anion Gap 14.8 (5-19) 03/13/22 19:03 BUN 12 mg/dL (6-20) 03/13/22 19:03 Creatinine 0.8 mg/dL (0.5-0.9) 03/13/22 19:03 GFR Calculation 77.9 mL/min (90-130) L 03/13/22 19:03 Glucose 132 mg/dL (65-115) H 03/13/22 19:03 Calculated Osmolality 290 mOsm/kg (285-295) 03/13/22 19:03 Calcium 9.4 mg/dL (8.5-10.5) 03/13/22 19:03 Vitals Last Vital Signs Temp 98.7 F 03/14/22 07:24 Pulse 113 H 03/14/22 07:35 Resp 17 03/14/22 07:24 BP 99/54 03/14/22 07:24 Pulse Ox 97 03/14/22 07:24 Discharge Plan Discharge Patient Disposition: Home Condition: Stable Prescriptions: New Pepcid 20 mg tablet 20 mg PO BID PRN (Reason: abdominal pain) 10 Days Qty: 20 0RF albuterol sulfate 90 mcg/actuation HFA aerosol inhaler 2 inh inhalation Q4H PRN (Reason: shortness of breath or wheezing) 5 Days Qty: 6.7 0RF Benadryl 25 mg capsule 25 mg PO Q8H PRN (Reason: allergic reaction) 4 Days Qty: 12 0RF EpiPen 0.3 mg/0.3 mL auto-injector 0.3 mg IM Q10M PRN (Reason: anaphylaxis) Qty: 2 0RF Rx Instructions: for 2 doses Continued trazodone 100 mg tablet 100 - 200 mg PO BEDTIME PRN (Reason: Sleep) 0RF gabapentin 300 mg capsule 300 mg PO DAILY 0RF (DME) Custom molded orthotics See Rx Instructions .Route .MEDSUPPLY Qty: 1 0RF Rx Instructions: As directed fluoxetine 60 mg tablet 60 mg PO DAILY 30 Days Qty: 30 3RF cetirizine 5 mg/5 mL Solution See Rx Instructions .ROUTE .COMPLEX 0RF Rx Instructions: 10 mg orally in the morning and 20 mg in the evening. budesonide 0.5 mg/2 mL suspension for nebulization 0.5 mg inhalation BID PRN (Reason: shortness of breath or wheezing) 0RF acetaminophen 500 mg Tablet 1,000 mg PO Q6H PRN (Reason: Pain) 0RF propranolol 20 mg tablet 20 mg PO BEDTIME 0RF famotidine [Pepcid] 40 mg tablet 40 mg PO BID Qty: 10 0RF albuterol sulfate 2.5 mg /3 mL (0.083 %) solution for nebulization 2.5 mg inhalation Q6H PRN (Reason: shortness of breath or wheezing) Qty: 75 0RF Discharge Orders: Discharge Order (Routine); Ordered 03/14/22 Ordered By: Jere Lynne Referrals: Chi Cobb MD [Primary Care Provider] - Discharge Diet: Advance as tolerated Discharge Activity: Increase activity as tolerated Patient Instructions: Allergies (ED), Opioid Safety Activity Restrictions/Additional Instructions: Please use your EpiPen as appropriate. Come back to the emergency have any new or concerning complaints. Discharge Attestations Time Spent in Discharge Care*: greater than 30 min Specific Discharge Activities: educating patient, discussing with pcp/other providers, discussing with special education case manager/social workers/dc planners, documenting/other paperwork and evaluating patient/reviewing data Status at Discharge: Cognitive status at discharge: cognitively intact , Behavioral status at discharge: cooperative and independent in ADL's , Quality Metrics Clinical Quality Measures [ No reported AMI, CVA or VTE this stay] Coding Level of Care Code Acute Chg FW DC note Diagnoses Allergic reaction T78.40XA
== END 2022-03-14 12:09 | disposition home or self-care (01) ==
LOC: ER 22:20 → ICU 23:30
PROVIDERS: Admitting Provider Family Medicine; Emergency Provider Emergency Medicine; PCP Family Medicine; Visit Provider Student in an Organized Health Care Education/Training Program
DX: T78.40XA Allergy, unspecified, initial encounter (principal); F41.9 Anxiety disorder, unspecified; E28.2 Polycystic ovarian syndrome
CPT/HCPCS: 80048; 85025; 94640; 96374; 96375; 96376; 99285; G0378; J1200; J2060; J2930; J3490; J7030; J7611; J7626

== ENCOUNTER → 2022-04-25 12:25 | Outpatient (BNVA) | payer OTHER, SELFPAY | PROVIDERS: PCP Family Medicine; Visit Provider Specialist | DX: L27.2 Dermatitis due to ingested food (principal); L50.0 Allergic urticaria; A77 Spotted fever [tick-borne rickettsioses] | CPT/HCPCS: 83520; 84443; 86000; 86003; 86038; 86376; 86617; 86666; 86757; 86800 ==

== ENCOUNTER 2022-05-09 18:44 | Emergency (ER) | payer OTHER, SELFPAY ==
[2022-05-09 18:53] VITALS: BP 154/89; PULSE 93; RESP 18; TEMP 36.6; O2SAT 98; BMI 23.9
--- NOTE | 2022-05-09 19:12 | W.ED.ALLEREA ---
HPI - Allergic Reaction General: Chief complaint: Allergic Reaction Stated complaint: Allergic Reaction Time Seen by Provider: 05/09/22 19:08 Source: patient Mode of arrival: ambulatory Limitations: no limitations History of Present Illness: HPI narrative: 46-year-old female has a history of severe allergic reactions in the past. States that she has had itching over the last 2 days she been taking Solu-Medrol at home and states its not improved. She denies any respiratory distress denies any shortness of breath she denies any worsening proving factors. Associated symptoms: Deny abdominal pain, nausea or vomiting Review of Systems Const: Denies: fever(s), chills, body aches or change in appetite Eyes: Denies: blurry vision or eye discomfort ENMT: Denies: throat pain or dental pain Card: Denies: chest pain Resp: Denies: dyspnea GI: Denies: abdominal pain, nausea, vomiting or diarrhea : Denies: dysuria Musc: Denies: neck pain or back pain Skin/Breast: Reports: pruritus Neuro: Denies: headache(s) Psych: Denies: depression Nigel/Lymph: Denies: easy bruising All/Imm: Denies: urticaria PFSH ED PFSH: Medical History Aftercare following surgery of the genitourinary system Alpha galactosidase deficiency Anxiety Cerebral hemorrhage with hemiparesis (~08/2019) Occurred while on epinephrine drip for anaphylaxis. Mild residual weakness on the left side History of anaphylaxis Requiring intubation History of gluten sensitivity Hyper-IgE syndrome Major depressive disorder Mood swings Multiple environmental allergies Multiple food allergies PCOS (polycystic ovarian syndrome) PTSD (post-traumatic stress disorder) Rosacea Vocal cord palsy Surgical History History of abdominoplasty History of appendectomy History of artificial lens replacement History of cataract surgery History of section, low transverse History of eye surgery Surgical plate placement and removal History of surgery Intracranial angiogram Port-A-Cath in place (05/26/20) left subclavian Removed 07/13/2021 Family History Mother Diabetes Thyroid condition Hypercholesteremia Hypertension Family/Other Cancer Social History Smoking and tobacco status: never smoked Alcohol intake: former Former alcohol use details: 2018 Marital status: Current occupational status: employed 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 History: Date of last menstrual period: 02/19/22 Physical Exam Const: COMMON NORMALS: no acute distress, patient oriented x3 and healthy appearing HENMT: COMMON NORMALS: normocephalic and atraumatic HEAD & SCALP: normocephalic and atraumatic Eye: COMMON NORMALS: Equal, round and reactive pupils present and EOMs intact bilaterally PUPIL: Yes Equal, round and reactive pupils present Neck/C-Spine: COMMON NORMALS: full ROM and supple Chest: COMMONS NORMALS: normal inspection of the chest and normal palpation of entire chest wall Resp: COMMON NORMALS: normal respiratory effort, No retractions, No use of accessory muscles and clear to auscultation bilaterally AUSCULTATION: clear to auscultation bilaterally Cardio: COMMON NORMALS: regular rate, regular rhythm and No murmurs present (Cardio) RATE: regular rate RHYTHM: regular rhythm GI: COMMON NORMALS: Normal to inspection, nondistended, normoactive bowel sounds present, Soft to palpation, non-tender and no masses PALPATION: Yes Soft to palpation Extremity: COMMON NORMALS: normal to inspection and full ROM Neuro: COMMON NORMALS: patient oriented x3, moves all extremities and no focal motor deficits Psych: COMMON NORMALS: mental status grossly normal, Normal thought process present and cooperative THOUGHT PROCESS: Normal thought process present Skin: COMMON NORMALS: no rashes or lesions noted and no wounds GENERAL SKIN EXAM: no rashes or lesions noted Course Vital Signs: Vital signs: Vital Signs Temperature 97.8 F 05/09/22 18:53 Pulse Rate 93 05/09/22 18:53 Respiratory Rate 18 05/09/22 18:53 Blood Pressure 154/89 05/09/22 18:53 Pulse Oximetry 98 05/09/22 18:53 MDM - Allergic Reaction Medical Decision Making Patient presents here with allergic reaction she feels much improved here she is stable for discharge she has no signs of anaphylaxis she is stable for discharge is to follow-up PCP and return if worsening. Discharge Plan Discharge Patient Disposition: Home Clinical Impression: Allergic reaction Qualifiers: Encounter type: initial encounter Qualified Code(s): T78.40XA - Allergy, unspecified, initial encounter Condition: Stable Prescriptions: New Benadryl Allergy 12.5 mg/5 mL liquid 25 mg PO Q8H PRN (Reason: allergic reaction) Qty: 150 0RF No Action trazodone 100 mg tablet 100 - 200 mg PO BEDTIME PRN (Reason: Sleep) 0RF gabapentin 300 mg capsule 300 mg PO DAILY 0RF (DME) Custom molded orthotics See Rx Instructions .Route .MEDSUPPLY Qty: 1 0RF Rx Instructions: As directed fluoxetine 60 mg tablet 60 mg PO DAILY 30 Days Qty: 30 3RF cetirizine 5 mg/5 mL Solution See Rx Instructions .ROUTE .COMPLEX 0RF Rx Instructions: 10 mg orally in the morning and 20 mg in the evening. budesonide 0.5 mg/2 mL suspension for nebulization 0.5 mg inhalation BID PRN (Reason: shortness of breath or wheezing) 0RF acetaminophen 500 mg Tablet 1,000 mg PO Q6H PRN (Reason: Pain) 0RF propranolol 20 mg tablet 20 mg PO BEDTIME 0RF famotidine [Pepcid] 40 mg tablet 40 mg PO BID Qty: 10 0RF albuterol sulfate 2.5 mg /3 mL (0.083 %) solution for nebulization 2.5 mg inhalation Q6H PRN (Reason: shortness of breath or wheezing) Qty: 75 0RF EpiPen 0.3 mg/0.3 mL auto-injector 0.3 mg IM Q10M PRN (Reason: anaphylaxis) Qty: 2 0RF Rx Instructions: for 2 doses Discharge Orders: Discharge ED (Routine); Ordered 05/09/22 Ordered By: Patt Davenport Referrals: Chi Cobb MD [Primary Care Provider] - 1-3 days Discharge Diet: Advance as tolerated Discharge Activity: Resume usual activity Patient Instructions: General Allergic Reaction (ED) Coding Level of Care Code ED Underwriting Service Representative for Shanthi Fwbreanna Exam Comprehensive
[2022-05-09] MEDS: diphenhydrAMINE 50 mg/mL SDV 1mL IVP (19:17)
[2022-05-09] MEDS: famotidine 20 mg/2 mL INJ 40 MG IVP (19:22)
[2022-05-09 20:25] VITALS: PULSE 80; O2SAT 100
[2022-05-09] MEDS: midazolam 1 mg/mL INJ 2 mL IVP (20:26)
[2022-05-09 21:53] VITALS: PULSE 81; O2SAT 100
[2022-05-09] MEDS: ondansetron 2 mg/ML SDV 2 mL 4 MG IVP (21:54)
== END 2022-05-09 21:54 | disposition home or self-care (01) ==
PROVIDERS: Emergency Provider Emergency Medicine; PCP Family Medicine
DX: T78.40XA Allergy, unspecified, initial encounter (principal)
CPT/HCPCS: 96374; 96375; 99284; J1200; J2250; J2405; J2930; J3490

== ENCOUNTER 2022-07-17 15:39 | Emergency (ER) | payer OTHER, SELFPAY ==
[2022-07-17 15:55] VITALS: BP 131/77; PULSE 70; RESP 18; TEMP 36.5; O2SAT 98
--- NOTE | 2022-07-17 16:04 | W.ED.WOUNDLC ---
HPI - Wound/Laceration General: Chief Complaint: Needlestick/Injury/Exposure Stated Complaint: needlestick Time Seen by Provider: 07/17/22 15:59 History of Present Illness: Patient is a 46-year-old female comes to the ED with accidental needlestick injury. 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 Denies any other injuries or traumas. Patient states that the person she was suturing up was clear for hepatitis and HIV. Associated symptoms: Denies chills, fever(s), nausea or vomiting Review of Systems Const: Denies: fever(s), chills or fatigue Eyes: Denies: change in vision or eye discomfort ENMT: Denies: throat pain, odynophagia, nasal discharge or nasal congestion Card: Denies: chest pain, palpitations, edema, swelling of feet/ankles, dyspnea on exertion or orthopnea Resp: Denies: dyspnea, productive cough or non-productive cough GI: Denies: abdominal pain, nausea, vomiting, diarrhea, constipation or hematochezia : Denies: flank pain, dysuria or hematuria Musc: Denies: neck pain, back pain or extremity swelling Skin/Breast: Reports: new lesions (Accidental needlestick puncture wound to finger on right hand); Denies: rash Neuro: Denies: headache(s), numbness in extremities or weakness in extremities PFS ED PFSH: Medical History Aftercare following surgery of the genitourinary system Alpha galactosidase deficiency Anxiety Cerebral hemorrhage with hemiparesis (~08/2019) Occurred while on epinephrine drip for anaphylaxis. Mild residual weakness on the left side History of anaphylaxis Requiring intubation History of gluten sensitivity Hyper-IgE syndrome Major depressive disorder Mood swings Multiple environmental allergies Multiple food allergies PCOS (polycystic ovarian syndrome) PTSD (post-traumatic stress disorder) Rosacea Vocal cord palsy Surgical History History of abdominoplasty History of appendectomy History of artificial lens replacement History of cataract surgery History of section, low transverse History of eye surgery Surgical plate placement and removal History of surgery Intracranial angiogram Port-A-Cath in place (05/26/20) left subclavian Removed 07/13/2021 Family History Mother Diabetes Thyroid condition Hypercholesteremia Hypertension Family/Other Cancer Social History Smoking and tobacco status: never smoked Alcohol intake: former Former alcohol use details: 2018 Marital status: Current occupational status: employed 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 History: Date of last menstrual period: 02/19/22 Physical Exam Const: COMMON NORMALS: patient oriented x3 HENMT: COMMON NORMALS: normocephalic HEAD & SCALP: normocephalic MOUTH: Normal oral and palatal mucosa present THROAT: posterior oropharynx normal and uvula midline Neck/C-Spine: COMMON NORMALS: supple GENERAL: Yes normal visual inspection Resp: COMMON NORMALS: normal respiratory effort, No retractions, No use of accessory muscles and clear to auscultation bilaterally AUSCULTATION: clear to auscultation bilaterally Cardio: COMMON NORMALS: regular rate, regular rhythm, S1 normal heart sound present, S2 normal heart sound present, No gallops present (Cardio), No clicks present (Cardio), No murmurs present (Cardio) and Peripheral pulses 2+ throughout RATE: regular rate RHYTHM: regular rhythm HEART SOUNDS: S1 normal heart sound present and S2 normal heart sound present PERIPHERAL PULSES: Peripheral pulses 2+ throughout GI: COMMON NORMALS: Normal to inspection, nondistended, normoactive bowel sounds present, Soft to palpation, non-tender and no masses PALPATION: Yes Soft to palpation : COMMON NORMALS: Yes no CVA tenderness BLADDER/KIDNEY EXAM: Yes no CVA tenderness Back/Pelvis: COMMON NORMALS: no CVA tenderness Extremity: NARRATIVE EXTREMITY EXAM: Right hand fourth digit small superficial puncture wound noted. No erythema, warmth or drainage seen. 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 Patient was suturing up patient and excellently punctured right hand finger with suture needle. Postexposure protocol and labs performed. CBC CMP, hepatitis panel HIV are all pending. Patient was stable for discharge home and told to follow-up with her PCP within the next 4 to 6 weeks to repeat labs. Return ED precautions given. Patient understood and agreed with plan. Lab Data I reviewed the patient's lab results. : 07/17/22 16:35 07/17/22 16:35 Laboratory Results WBC 5.5 10^3/uL (4.0-10.0) 07/17/22 16:35 RBC 4.09 10^6/uL (4.1-5.3) L 07/17/22 16:35 Hgb 11.2 g/dL (11.5-15.3) L 07/17/22 16:35 Hct 35.4 % (37.0-47.0) L 07/17/22 16:35 MCV 86.6 fl (81-99) 07/17/22 16:35 MCH 27.4 pg (28.0-34.0) L 07/17/22 16:35 MCHC 31.6 g/dL (30.0-36.0) 07/17/22 16:35 RDW 13.9 % (12.1-15.1) 07/17/22 16:35 Plt Count 294 10^3/cmm (130-400) 07/17/22 16:35 MPV 9.7 fL (7.4-10.4) 07/17/22 16:35 Neut % (Auto) 47.3 % 07/17/22 16:35 Lymph % (Auto) 38.0 % 07/17/22 16:35 Pershing % (Auto) 12.3 % 07/17/22 16:35 Eos % (Auto) 1.3 % 07/17/22 16:35 Baso % (Auto) 0.9 % 07/17/22 16:35 Neut # (Auto) 2.61 10^3/uL (1.8-7.7) 07/17/22 16:35 Lymph # (Auto) 2.1 10^3/uL (0.8-4.8) 07/17/22 16:35 Pershing # (Auto) 0.7 10^3/uL (0.2-0.9) 07/17/22 16:35 Eos # (Auto) 0.1 10^3/uL (0.0-0.8) 07/17/22 16:35 Baso # (Auto) 0.1 10^3/uL (0.0-0.1) 07/17/22 16:35 Nucleated RBC % (auto) 0 % 07/17/22 16:35 Nucleated RBCs # 0.0 /100WBC 07/17/22 16:35 Sodium 134 mmol/L (136-145) L 07/17/22 16:35 Potassium 3.7 mmol/L (3.5-5.1) 07/17/22 16:35 Chloride 102 mmol/L (98-107) 07/17/22 16:35 Carbon Dioxide 20 mmol/L (22-29) L 07/17/22 16:35 Anion Gap 15.7 (5-19) 07/17/22 16:35 BUN 9 mg/dL (6-20) 07/17/22 16:35 Creatinine 0.8 mg/dL (0.5-0.9) 07/17/22 16:35 GFR Calculation 77.9 mL/min (90-130) L 07/17/22 16:35 Glucose 127 mg/dL (65-115) H 07/17/22 16:35 Calculated Osmolality 278 mOsm/kg (285-295) L 07/17/22 16:35 Calcium 8.9 mg/dL (8.5-10.5) 07/17/22 16:35 Total Bilirubin 0.2 mg/dL (0.15-1.2) 07/17/22 16:35 AST 13 U/L (0-32) 07/17/22 16:35 ALT 9 U/L (0-33) 07/17/22 16:35 Alkaline Phosphatase 89 U/L (35-105) 07/17/22 16:35 Total Protein 6.6 g/dL (6.6-8.7) 07/17/22 16:35 Albumin 4.3 g/dL (3.5-5.2) 07/17/22 16:35 Globulin 2.3 g/dL (1.3-4.6) 07/17/22 16:35 Hepatitis A IgM Ab Non-reactive (Nonreactive) 07/17/22 16:35 Hep Bs Antigen Non-reactive (Nonreactive) 07/17/22 16:35 Hep Bs Antibody 26.7 (11.5-1000) 07/17/22 16:35 Hep B Core Total Ab Non-reactive (Nonreactive) 07/17/22 16:35 Hepatitis C Antibody Non-reactive (Nonreactive) 07/17/22 16:35 HIV 1&2 Ab & HIV 1 Ag Non-reactive (Non-Reactiv) 07/17/22 16:35 HIV 1&2 Antibody Non-reactive (Non-Reactiv) 07/17/22 16:35 Discharge Plan Discharge Patient Disposition: Home Clinical Impression: Accidental needlestick injury with exposure to body fluid Condition: Stable Prescriptions: No Action trazodone 100 mg tablet 100 - 200 mg PO BEDTIME PRN (Reason: Sleep) gabapentin 300 mg capsule 300 mg PO DAILY (DME) Custom molded orthotics See Rx Instructions .Route .MEDSUPPLY Qty: 1 0RF Rx Instructions: As directed fluoxetine 60 mg tablet 60 mg PO DAILY 30 Days Qty: 30 3RF cetirizine 5 mg/5 mL Solution See Rx Instructions .ROUTE .COMPLEX Rx Instructions: 10 mg orally in the morning and 20 mg in the evening. budesonide 0.5 mg/2 mL suspension for nebulization 0.5 mg inhalation BID PRN (Reason: shortness of breath or wheezing) acetaminophen 500 mg Tablet 1,000 mg PO Q6H PRN (Reason: Pain) propranolol 20 mg tablet 20 mg PO BEDTIME famotidine [Pepcid] 40 mg tablet 40 mg PO BID Qty: 10 0RF albuterol sulfate 2.5 mg /3 mL (0.083 %) solution for nebulization 2.5 mg inhalation Q6H PRN (Reason: shortness of breath or wheezing) Qty: 75 0RF Benadryl Allergy 12.5 mg/5 mL liquid 25 mg PO Q8H PRN (Reason: allergic reaction) Qty: 150 0RF EpiPen 0.3 mg/0.3 mL auto-injector 0.3 mg IM Q10M PRN (Reason: anaphylaxis) Qty: 2 0RF Rx Instructions: for 2 doses Discharge Orders: Discharge ED (Routine); Ordered 07/17/22 Ordered By: Sanford Strong Referrals: Chi Cobb MD [Primary Care Provider] - Discharge Diet: Regular Discharge Activity: Resume usual activity Patient Instructions: Blood/Body Fluid Exposure - Occupational, Needle Stick Injuries (ED) Activity Restrictions/Additional Instructions: Labs are pending and you can call [facility] in the next couple hours to find out results. Follow-up with medical provider as directed in the next 4 to 6 weeks to have CBC, CMP, HIV and hepatitis panel labs rechecked. Return to the ER or your medical provider if condition worsens. Please read and understand discharge instructions. [facility] you [facility]. Please realize this is an emergency room and that we are providing you with a medical screening exam and this may not be complete and all inclusive of all the testing and or work up that you may need to determine your ailment or severity of your illness. It is very important that you follow up as instructed or that you return to the Emergency Department should you have concerns or if your condition changes or worsens in any way. Coding Level of Care Code ED Rate And Cost Analyst for Shanthi Fwbreanna Exam Comprehensive
[2022-07-17 16:45] LABS: Basophils # 0.1 10^3/uL (0.0-0.1); Basophils % 0.9 %; Eosinophils # 0.1 10^3/uL (0.0-0.8); Eosinophils % 1.3 %; Hematocrit 35.4 % (37.0-47.0); Hemoglobin 11.2 g/dL (11.5-15.3); Lymphocytes # 2.1 10^3/uL (0.8-4.8); Mean Corpuscular HGB Conc 31.6 g/dL (30.0-36.0); Mean Corpuscular Hemoglobin 27.4 pg (28.0-34.0); Mean Corpuscular Volume 86.6 fl (81-99); Mean Platelet Volume 9.7 fL (7.4-10.4); Monocytes # 0.7 10^3/uL (0.2-0.9); Monocytes % 12.3 %; Neutrophils # 2.61 10^3/uL (1.8-7.7); Neutrophils % 47.3 %; Nucleated Red Blood Cells % 0 %; Platelet Count 294 10^3/cmm (130-400); Red Blood Count 4.09 10^6/uL (4.1-5.3); Red Cell Distribution Width 13.9 % (12.1-15.1); White Blood Count 5.5 10^3/uL (4.0-10.0)
[2022-07-17 17:10] LABS: Alanine Aminotransferase 9 U/L (0-33); Albumin Level 4.3 g/dL (3.5-5.2); Alkaline Phosphatase 89 U/L (35-105); Anion Gap 15.7 (5-19); Aspartate Amino Transferase 13 U/L (0-32); Blood Urea Nitrogen 9 mg/dL (6-20); Calcium 8.9 mg/dL (8.5-10.5); Carbon Dioxide 20 mmol/L (22-29); Chloride 102 mmol/L (98-107); Creatinine Clr Calc Pharmacy 79.2398; Globulin 2.3 g/dL (1.3-4.6); Glomerular Filtration Rate 77.9 mL/min (90-130); Glucose 127 mg/dL (65-115); Osmolality Calculated 278 mOsm/kg (285-295); Potassium 3.7 mmol/L (3.5-5.1); Sodium 134 mmol/L (136-145); Total Bilirubin 0.2 mg/dL (0.15-1.2); Total Protein 6.6 g/dL (6.6-8.7)
[2022-07-17 17:40] LABS: Hepatitis A Antibody IgM Non-Reactive (Nonreactive); Hepatitis B Core AB, Total Non-Reactive (Nonreactive); Hepatitis B Surface AB 26.7 (11.5-1000); Hepatitis B Surface Antigen Non-Reactive (Nonreactive); Hepatitis C Virus Antibody Non-Reactive (Nonreactive)
[2022-07-17 20:28] LABS: HIV 1 & 2 Antibody Non-Reactive (Non-Reactiv); HIV 1 & 2 Antigen Non-Reactive (Non-Reactiv)
== END 2022-07-17 16:47 | disposition home or self-care (01) ==
PROVIDERS: Emergency Provider Physician Assistant; PCP Family Medicine
DX: S61.230A Puncture wound without foreign body of right index finger without damage to nail, initial encounter (principal); W46.1XXA Contact with contaminated hypodermic needle, initial encounter
CPT/HCPCS: 36415; 80053; 85025; 86705; 86706; 86709; 86803; 87340; 87806; 99283

== ENCOUNTER 2022-09-01 18:42 | Emergency (ER) | payer OTHER, SELFPAY ==
[2022-09-01] VITALS (55 sets, daily range): BP systolic 118–133; BP diastolic 63–78; PULSE 75–134; RESP 10–24; TEMP 36.8–36.9; O2SAT 89–100; BMI 23.9
[2022-09-01] MEDS: albuterol 2.5 mg/3 mL Neb 5 MG INHALATION (20:10)
[2022-09-01] MEDS: ondansetron 2 mg/ML SDV 2 mL 4 MG IVP (20:19)
[2022-09-01] MEDS: diphenhydrAMINE 50 mg/mL SDV 1mL IVP (20:20)
[2022-09-01] MEDS: metoprolol tartrate 1 mg/1 mL SDV 5 mL 2.5 MG IVP (20:34)
[2022-09-01] MEDS: midazolam 1 mg/mL INJ 2 mL 2 MG IVP ×2 (20:37→23:03)
[2022-09-01] MEDS: diphenhydrAMINE 50 mg/mL SDV 1mL 25 MG IVP ×2 (20:37→21:52)
[2022-09-01] MEDS: sodium chloride 0.9% 1,000 ML 999 ML IV (20:49)
[2022-09-01] MEDS: famotidine 20 mg/2 mL INJ 40 MG IVP (21:52)
[2022-09-01] MEDS: lidocaine 4% PF 5 mL INJ INHALATION (22:15)
[2022-09-01] MEDS: levalbuterol 1.25 mg/3 mL Neb INHALATION (23:23)
[2022-09-02] VITALS (8 sets, daily range): BP systolic 132; BP diastolic 78; PULSE 116–127; RESP 10–18; O2SAT 94–100
--- NOTE | 2022-09-02 00:17 | XRR_ITS ---
PROCEDURE INFORMATION: Exam: XR Chest Exam date and time: 09/02/2022 1:38 AM Age: 47 years old Clinical indication: Cough; Additional info: Cough HX pneumonia TECHNIQUE: Imaging protocol: Radiologic exam of the chest. Views: 1 view. COMPARISON: CR XR chest 1V portable [id number] 02/14/2022 1:32 PM FINDINGS: Lungs: Stable hyperaerated lungs consistent with deep inspiratory effort vs significant reactive airway disease vs moderate COPD . Pleural spaces: Unremarkable. No pleural effusion. No pneumothorax. Heart/Mediastinum: Unremarkable. No cardiomegaly. Bones/joints: Unremarkable. XR/XR chest 1V portable [id number] IMPRESSION: Stable hyperaerated lungs consistent with deep inspiratory effort vs significant reactive airway disease vs moderate COPD .
--- NOTE | 2022-09-02 00:17 | XRR_ITS ---
PROCEDURE INFORMATION: Exam: XR Soft Tissue Neck Exam date and time: 09/02/2022 1:40 AM Age: 47 years old Clinical indication: Other: Stridor TECHNIQUE: Imaging protocol: Radiologic exam of the soft tissues of the neck. COMPARISON: CT neck w con* [id number] 02/03/2021 10:45 PM FINDINGS: Airway: Normal. No abnormal narrowing. Soft tissues: Normal. Normal epiglottis. Bones/joints: Mild to moderate multilevel spine degenerative changes including degenerative disc disease, spondylosis and facet degenerative changes. XR/XR soft tissue neck [id number] IMPRESSION: 1. Normal epiglottis. 2. No obvious radiographic croup. 3. Unchanged soft tissue neck compared with the PA and lateral companion caregiver films from comparison CT neck. 4. Interval removal of the right Mediport catheter.
--- NOTE | 2022-09-02 15:26 | W.ED.ALLEREA ---
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 She presents after developing symptoms of throat tightness, shortness of breath, cough, and itching sometime around 4:00 PM this afternoon. She is unsure of her exposure. She had been doing quite well to this point, and it had been several months since her last significant reaction. She has taken Zyrtec, Benadryl and albuterol at home without much relief. She notes also that she started Levaquin yesterday for clinically diagnosed pneumonia, but that she is not aware of any interactions with her food allergies at all. MD complaint: allergic reaction Onset (ago): hour(s) Exposure: unknown and food (likely) Associated symptoms: Reports difficulty breathing, dysphagia, dizziness and itching; Deny abdominal pain, facial swelling, lip swelling or vomiting Severity: similar to previous episodes Treatment prior to arrival: benadryl and bronchodilator Previous Allergic Reaction History: prior ED visit(s), anaphylaxis and intubation Review of Systems Const: Denies: fever(s) ENMT: Reports: throat pain and odynophagia Card: Reports: palpitations; Denies: chest pain Resp: Reports: dyspnea, productive cough (recent dx of pneumonia) and stridor GI: Reports: dysphagia; Denies: abdominal pain or vomiting Skin/Breast: Reports: rash and pruritus Neuro: Reports: dizziness All/Imm: Denies: facial swelling PFSH ED PFSH: Medical History Aftercare following surgery of the genitourinary system Alpha galactosidase deficiency Anxiety Cerebral hemorrhage with hemiparesis (~08/2019) Occurred while on epinephrine drip for anaphylaxis. Mild residual weakness on the left side History of anaphylaxis Requiring intubation History of gluten sensitivity Hyper-IgE syndrome Major depressive disorder Mood swings Multiple environmental allergies Multiple food allergies PCOS (polycystic ovarian syndrome) PTSD (post-traumatic stress disorder) Rosacea Vocal cord palsy Surgical History History of abdominoplasty History of appendectomy History of artificial lens replacement History of cataract surgery History of section, low transverse History of eye surgery Surgical plate placement and removal History of surgery Intracranial angiogram Port-A-Cath in place (05/26/20) left subclavian Removed 07/13/2021 Family History Mother Diabetes Thyroid condition Hypercholesteremia Hypertension Family/Other Cancer Social History Smoking and tobacco status: never smoked Alcohol intake: former Former alcohol use details: 2018 Marital status: Current occupational status: employed 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 History: Date of last menstrual period: 02/19/22 Physical Exam Const: GENERAL APPEARANCE: cooperative, well kempt and anxious (mildly) NUTRITIONAL APPEARANCE: thin HENMT: COMMON NORMALS: normocephalic, atraumatic and Normal external nose present HEAD & SCALP: normocephalic and atraumatic FACE & SINUS: normal facial exam and face symmetric NOSE: Normal external nose present THROAT: posterior oropharynx normal Eye: COMMON NORMALS: Equal, round and reactive pupils present and EOMs intact bilaterally PUPIL: Yes Equal, round and reactive pupils present Neck/C-Spine: GENERAL: Yes trachea midline and No anterior neck swelling Chest: CHEST: Yes Symmetrical chest wall rise Resp: COMMON NORMALS: clear to auscultation bilaterally EFFORT & INSPECTION: Yes tachypneic, Yes labored (at times), Yes Actively coughing and Yes uses accessory muscles AUSCULTATION: clear to auscultation bilaterally Cardio: COMMON NORMALS: regular rhythm RATE: tachycardic RHYTHM: regular rhythm GI: INSPECTION: Yes normal to inspection Extremity: COMMON NORMALS: no pedal edema GENERAL: No cyanosis Neuro: NORMA COMA SCALE: document GCS findings [place] coma scale eye opening: Spontaneous [place] coma scale verbal response: Orientated [place] coma scale motor response: Obey commands [place] coma scale total score: 15 Psych: COMMON NORMALS: mental status grossly normal and speech normal APPEARANCE: Yes well kempt SPEECH: Yes normal speech Course Vital Signs: Vital signs: Vital Signs Temperature 98.2 F 09/01/22 18:52 Pulse Rate 126 H 09/02/22 00:35 Respiratory Rate 18 09/02/22 00:35 Blood Pressure 132/78 09/02/22 00:35 Pulse Oximetry 98 09/02/22 00:35 Oxygen Delivery Me thod 09/01/22 23:24 MDM - Allergic Reaction Medical Decision Making The patient has received albuterol nebulizer treatment here with adverse reaction of significant sinus tachycardia in the 150s, improved over time. She has received 2 doses of benadryl, pepcid, solu medrol, and some midazolam for dizziness and reaction provoked anxiety. After several episodes of transient relapse, she seems to be improving slowly and steadily, likely as the steroid has had a chance to work. Lidocaine neb treatment did not seem to alleviate larygnospasm symptoms. With her improvmenet, negative imaging studies of the neck soft tissue and chest, she feels more comfortable going home to continue steroids she has there as well as antihistamines per protocol worked out previously. She knows to return for any return of her symptoms that is significant. Lab Data Radiology Impressions Chest X-Ray 09/02/22 00:17 IMPRESSION: Stable hyperaerated lungs consistent with deep inspiratory effort vs significant reactive airway disease vs moderate COPD . Soft Tissue Neck X-Ray 09/02/22 00:17 IMPRESSION: 1. Normal epiglottis. 2. No obvious radiographic croup. 3. Unchanged soft tissue neck compared with the PA and lateral video game technician films from comparison CT neck. 4. Interval removal of the right Mediport catheter. Discharge Plan Discharge Patient Disposition: Home Clinical Impression: Allergic reaction Condition: Stable Prescriptions: No Action trazodone 100 mg tablet 100 - 200 mg PO BEDTIME PRN (Reason: Sleep) gabapentin 300 mg capsule 300 mg PO DAILY (DME) Custom molded orthotics See Rx Instructions .Route .MEDSUPPLY Qty: 1 0RF Rx Instructions: As directed fluoxetine 60 mg tablet 60 mg PO DAILY 30 Days Qty: 30 3RF levofloxacin 750 mg tablet 750 mg PO DAILY Qty: 7 0RF Rx Instructions: 340b cetirizine 5 mg/5 mL Solution See Rx Instructions .ROUTE .COMPLEX Rx Instructions: 10 mg orally in the morning and 20 mg in the evening. budesonide 0.5 mg/2 mL suspension for nebulization 0.5 mg inhalation BID PRN (Reason: shortness of breath or wheezing) acetaminophen 500 mg Tablet 1,000 mg PO Q6H PRN (Reason: Pain) propranolol 20 mg tablet 20 mg PO BEDTIME famotidine [Pepcid] 40 mg tablet 40 mg PO BID Qty: 10 0RF albuterol sulfate 2.5 mg /3 mL (0.083 %) solution for nebulization 2.5 mg inhalation Q6H PRN (Reason: shortness of breath or wheezing) Qty: 75 0RF Benadryl Allergy 12.5 mg/5 mL liquid 25 mg PO Q8H PRN (Reason: allergic reaction) Qty: 150 0RF EpiPen 0.3 mg/0.3 mL auto-injector 0.3 mg IM Q10M PRN (Reason: anaphylaxis) Qty: 2 0RF Rx Instructions: for 2 doses Discharge Orders: Discharge ED (Routine); Ordered 09/02/22 Ordered By: Tj Garcia Referrals: Chi Cobb MD [Primary Care Provider] - 4-7 days Patient Instructions: General Allergic Reaction (ED), Laryngospasm (DC) Activity Restrictions/Additional Instructions: Continue your oral steroids as appropriate. Return for any worsening trouble breathing, vomiting, worsening rash, any other concerning symptoms Coding Level of Care Code ED Cylinder Grinder for 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
== END 2022-09-02 01:55 | disposition home or self-care (01) ==
PROVIDERS: Emergency Provider Emergency Medicine; PCP Family Medicine
DX: T78.40XA Allergy, unspecified, initial encounter (principal)
CPT/HCPCS: 70360; 71045; 94640; 96374; 96375; 96376; 99284; J1200; J2250; J2405; J2930; J3490; J7030; J7613; J7614

== ENCOUNTER → 2022-12-14 09:34 | Outpatient (BNVA) | payer OTHER, SELFPAY | PROVIDERS: PCP Family Medicine; Referring Provider Family Medicine; Visit Provider Student in an Organized Health Care Education/Training Program | DX: R22.31 Localized swelling, mass and lump, right upper limb (principal); R20.0 Anesthesia of skin; R20.2 Paresthesia of skin; G56.20 Lesion of ulnar nerve, unspecified upper limb | CPT/HCPCS: 73080; 73110 ==

== ENCOUNTER 2023-01-15 11:17 | Outpatient (CLI) | payer OTHER, SELFPAY ==
--- NOTE | 2023-01-15 11:25 | MR_ITS ---
WS: [id number] INDICATION: Numbness of arm and hand. Palpable marker in the area of soft tissue mass TECHNIQUE: MRI of the RIGHT forearm without and with gadolinium enhancement. FINDINGS: Palpable marker overlying the dorsal mid forearm. No evidence of underlying enhancing subcu taneous mass or lesion. No abnormal enhancing mass or lesion in this location. Normal underlying subc utaneous fat in this location. There may be a small ill-defined lipoma in this location. Otherwise no rmal. Otherwise normal visualized soft tissues. The radius and ulna are normal in appearance. Visualized ol ecranon and radial head and neck are normal in appearance. Normal olecranon fossa. No other suspiciou s findings. MR/MR forearm RT wo/w con [id number] IMPRESSION: 1. No evidence of enhancing subcutaneous mass or lesion in the area of palpabl e concern. 2. Normal underlying subcutaneous fat in this location. There may be a small i ll-defined lipoma in this area. Area of concern demonstrates normal fat signal.
[2023-01-15] MEDS: gadobenate dimeglumine 20 mL vial IV (13:42)
== END 2023-01-15 11:18 | disposition home or self-care (01) ==
LOC: RAD 11:19
PROVIDERS: PCP Family Medicine; Visit Provider Student in an Organized Health Care Education/Training Program
DX: R22.31 Localized swelling, mass and lump, right upper limb (principal)
CPT/HCPCS: 73220; A9577

== ENCOUNTER 2023-01-19 13:45 | Outpatient (CLI) | payer OTHER, SELFPAY ==
--- NOTE | 2023-01-19 13:45 | MR_ITS ---
WS: [id number] MRI HEAD WITH CONTRAST TECHNIQUE: Sagittal T1, T2 axial, T2 axial FLAIR, axial susceptibility weighted imaging, axial diffus ion weighted images, and coronal T2 images were obtained. Pre and post-T1 axial and post T1 coronal i mages. ADC and FSPGR images. CLINICAL INFORMATION: central vertigo, Hx of significant CVA COMPARISON: MRI [address] June 13, 2021 FINDINGS: Incidental slightly low-lying cerebellar tonsils unchanged. No evidence of restricted diffusion to lisa ggest acute ischemia. Ventricular system and basal cisterns are patent. Chronic RIGHT parasagittal pa rietal infarct with encephalomalacia and gliosis. Mild ex vacuo dilatation posterior lateral ventricl e. No other suspicious intracranial signal abnormalities. Normal parenchymal volume. Normal vascular flow voids at the skull base. No extra-axial fluid collections. No evidence of mass o r mass effect. Normal posterior nasopharynx. Normal parapharyngeal fat. Small retention cyst RIGHT ma xillary sinus measuring 12 mm. Mild mucosal thickening ethmoid air cells. Normal optic chiasm and pituitary infundibulum. Temporal lobes and hippocampal formations are normal in appearance. Chronic hemosiderin in the RIGHT parasagittal parietal infarct bed. No other foci of h emosiderin. No abnormal gadolinium enhancement. Normal optic chiasm and pituitary infundibulum. Normal cavernous sinuses and Meckel's cave. Normal visualized dural venous sinuses. No abnormal intracranial enhanceme nt. MR/MR head wo/w con [id number] IMPRESSION: 1. No evidence of restricted diffusion to suggest acute ischemia. 2. Chronic RIGHT parasagittal parietal infarct with encephalomalacia and glios is. Associated laminar necrosis. Chronic hemosiderin within the infarct bed. 3. Mild ex vacuo dilatation posterior horn RIGHT lateral ventricle. 4. No abnormal intracranial enhancement. 5. Minimal slightly low-lying cerebellar tonsils. Normal 4th ventricle. No hyd rocephalus. 6. No other suspicious findings.
[2023-01-19] MEDS: gadobenate dimeglumine 20 mL vial IV (14:27)
== END 2023-01-19 13:46 | disposition home or self-care (01) ==
LOC: RAD 13:47
PROVIDERS: PCP Family Medicine; Visit Provider Family Medicine
DX: R42 Dizziness and giddiness (principal); I63.9 Cerebral infarction, unspecified; Q04.8 Other specified congenital malformations of brain
CPT/HCPCS: 70553; A9577

== ENCOUNTER 2023-03-28 06:25 | Outpatient (CLI) | payer OTHER, SELFPAY ==
--- NOTE | 2023-03-28 06:45 | US_ITS ---
WS: [id number] RIGHT UPPER QUADRANT ULTRASOUND HISTORY: RUQ pain COMPARISON: None available. Liver: 13.9 cm in length. Normal size liver and echogenicity. No bile duct dilatation or mass. Portal Vein: Normal hepatopetal flow with monophasic waveform. Gallbladder: Normally distended gallbladder with no stones or wall thickening. CBD: 0.4 cm Pancreas: Normal size and echogenicity. Right kidney: 9.8 cm in length. Normal size and echogenicity. No hydronephrosis or mass. Aorta and IVC: Unremarkable abdominal aorta and IVC. No ascites. US/US gall bladder [id number] IMPRESSION: Normal RIGHT upper quadrant ultrasound.
== END 2023-03-28 06:26 | disposition home or self-care (01) ==
PROVIDERS: PCP Family Medicine; Visit Provider Family Medicine
DX: R10.11 Right upper quadrant pain (principal)
CPT/HCPCS: 76705

== ENCOUNTER → 2023-05-25 11:43 | Outpatient (BNVA) | payer OTHER, SELFPAY | PROVIDERS: PCP Family Medicine; Visit Provider Family Medicine | DX: L98.9 Disorder of the skin and subcutaneous tissue, unspecified (principal) | CPT/HCPCS: 88304 ==

== ENCOUNTER 2023-08-03 07:52 | Outpatient (CLI) | payer OTHER, SELFPAY ==
--- NOTE | 2023-08-03 08:15 | US_ITS ---
WS: [id number] RIGHT UPPER QUADRANT ULTRASOUND HISTORY: RUQ pain COMPARISON: 03/28/2023 Liver: 13.1 cm in length. Normal size liver and echogenicity. No bile duct dilatation or mass. Portal Vein: Normal hepatopetal flow with monophasic waveform. Gallbladder: Normally distended gallbladder with no stones or wall thickening. CBD: 0.5 cm Pancreas: Normal size and echogenicity. Right kidney: 9.6 cm in length. Normal size and echogenicity. No hydronephrosis or mass. Aorta and IVC: Unremarkable abdominal aorta and IVC. No ascites. IMPRESSION: Normal RIGHT upper quadrant ultrasound.
== END 2023-08-03 07:53 | disposition home or self-care (01) ==
LOC: RAD 07:52
PROVIDERS: PCP Family Medicine; Visit Provider Family Medicine
DX: R10.11 Right upper quadrant pain (principal)
CPT/HCPCS: 76705

== ENCOUNTER 2023-08-19 12:00 | Emergency (ER) | payer OTHER, SELFPAY ==
[2023-08-19 12:02] VITALS: BP 151/91; PULSE 66; TEMP 36.9; O2SAT 100; BMI 24.7
--- NOTE | 2023-08-19 12:14 | CTR_ITS ---
PROCEDURE INFORMATION: Exam: CT Head Without Contrast Exam date and time: 08/19/2023 1:32 PM Age: 48 years old Clinical indication: Pain; Dizziness; Headache not specified; Additional info: Headache, vertigo TECHNIQUE: Imaging protocol: Computed tomography of the head without contrast. Radiation optimization: All CT scans at this facility use at least one of these dose optimization techniques: automated exposure control; mA and/or kV adjustment per patient size (includes targeted exams where dose is matched to clinical indication); or iterative reconstruction. REPORTING DATA: Count of CT and Cardiac NM exams in prior 12 months: This patient has received 0 known CTs and 0 known cardiac nuclear medicine studies in the 12 months prior to the current study. COMPARISON: MR head wo/w con [id number] 01/19/2023 1:54 PM RADIATION DOSE METRICS: Total DLP (mGy-cm): 1031.28 FINDINGS: Brain: Encephalomalacia right parasagittal frontoparietal cortex as seen on prior exams. No midline shift. No acute infarct, hemorrhage or extra-axial fluid collection. Cerebral ventricles: No ventriculomegaly. Paranasal sinuses: Visualized sinuses are unremarkable. No fluid levels. Mastoid air cells: Visualized mastoid air cells are well aerated. Bones/joints: Unremarkable. No acute fracture. Soft tissues: Unremarkable. CT/CT head wo con* [id number] IMPRESSION: No acute intracranial abnormality.
--- NOTE | 2023-08-19 12:18 | ECG_ITS ---
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 Measurements Intervals [place] Rate: 61 P: -20 OR: 144 QRS: 69 QRSD: 86 T: 50 QT: 429 QTc: 432 Interpretive Statements SINUS RHYTHM No previous ECG available for comparison Electronically Signed On 08-19-2023 15:30:27 [address] DESIGNER by Mirlande Mares M.D. [id number]
[2023-08-19 12:22] VITALS: BP 151/91; PULSE 61; RESP 17; O2SAT 98; O2SAT 99
[2023-08-19 12:42] LABS: Basophils % 0.5 %; Eosinophils # 0.1 10^3/uL (0.0-0.8); Eosinophils % 1.2 %; Hematocrit 37.5 % (36-47); Lymphocytes # 2.1 10^3/uL (0.8-4.8); Lymphocytes % 28.1 %; Mean Corpuscular HGB Conc 32.3 g/dL (30-55); Mean Corpuscular Hemoglobin 29.4 pg (27-33); Mean Corpuscular Volume 91.2 fl (85-98); Mean Platelet Volume 10.1 fL (7.4-10.4); Monocytes # 0.6 10^3/uL (0.2-0.9); Neutrophils # 4.55 10^3/uL (1.8-7.7); Neutrophils % 62.1 %; Nucleated Red Blood Cells % 0 %; Platelet Count 307 10^3/cmm (157-399); Red Blood Count 4.11 10^6/uL (3.85-5.65); Red Cell Distribution Width 13.1 % (12.1-15.1); White Blood Count 7.34 10^3/uL (3.29-11.43)
[2023-08-19 12:59] LABS: Alanine Aminotransferase 13 U/L (0-33); Albumin Level 4.4 g/dL (3.5-5.2); Alkaline Phosphatase 75 U/L (35-105); Blood Urea Nitrogen 16 mg/dL (6-20); Calcium 9.1 mg/dL (8.5-10.5); Carbon Dioxide 22 mmol/L (22-29); Chloride 100 mmol/L (98-107); Globulin 2.5 g/dL (1.3-4.6); Glomerular Filtration Rate 67.4 mL/min (90-130); Glucose 105 mg/dL (65-115); Osmolality Calculated 280 mOsm/kg (285-295); Sodium 134 mmol/L (136-145); Total Bilirubin 0.3 mg/dL (0.15-1.2); Total Protein 6.9 g/dL (6.6-8.7)
[2023-08-19] MEDS: LORazepam 2 mg/mL INJ 1 mL IVP (13:04)
[2023-08-19 13:05] LABS: Aspartate Amino Transferase 17 U/L (0-32)
[2023-08-19 13:06] LABS: Lactic Sepsis W/Reflex 1.1 mmol/L (0.5-2.2)
[2023-08-19 13:07] VITALS: BP 129/81; PULSE 66; RESP 17; O2SAT 100
--- NOTE | 2023-08-19 13:10 | PC.NURSE ---
SEIZURE PADS PLACED, SUCTION SET UP AND O2 AT BEDSIDE AT PATIENT ARRIVAL
--- NOTE | 2023-08-19 13:42 | W.ED.SYNCOPE ---
HPI - Syncope General: Chief Complaint: Syncope Stated Complaint: SYNCOPE Time Seen by Provider: 08/19/23 12:03 Source: patient Mode of arrival: EMS History of Present Illness: 48-year-old female with history of alpha gal and recurrent allergic reactions. She presented to the emergency room while she was at work she got lightheaded dizzy and collapsed she had what bystanders reported as seizure-like activity. No loss of bowel or bladder control. On arrival here she is awake and alert and able to give a very good history. Patient has a history of a previous hemorrhagic stroke associated with an alpha gal reaction at the time she was on norepinephrine. complaint: collapsed Onset (ago): minute(s) Prodromal symptoms: lightheaded Witnessed: Yes - by Bystander Associated symptoms: Reports lightheadedness and nausea; Deny abdominal pain, chest pain, fever(s), headache(s), short of breath, vertigo or weakness Treatments prior to arrival: none Review of Systems Const: Denies: fever(s) or chills Card: Reports: lightheadedness; Denies: chest pain Resp: Denies: dyspnea GI: Reports: nausea; Denies: abdominal pain : Denies: dysuria, urinary frequency or urinary urgency Musc: Denies: neck pain or back pain Skin/Breast: Denies: rash Neuro: Denies: headache(s) or vertigo [facility] ED PFSH: Medical History Alpha galactosidase deficiency Anxiety -on anxiolytics -low threshold for anxiety 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 Major depressive disorder Mood swings Multiple environmental allergies Multiple food allergies PCOS (polycystic ovarian syndrome) Pelvic pain PTSD (post-traumatic stress disorder) Rosacea Surgical History History of abdominoplasty History of appendectomy History of artificial lens replacement History of cataract surgery History of section, low transverse History of eye surgery Surgical plate placement and removal History of surgery Intracranial angiogram Port-A-Cath in place (05/26/20) left subclavian Removed 07/13/2021 Family History Mother Diabetes Thyroid disease Hypercholesteremia Hypertension Family/Other Cancer Father Cancer leiomyosarcoma leg Social History Smoking and tobacco/nicotine status: never used tobacco/nicotine Alcohol intake: former Former alcohol use details: 2019 Substance/Drug Use: never Lives independently: Yes Marital status: Current occupational status: employed 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[employer] 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 Exam Const: COMMON NORMALS: no acute distress GENERAL APPEARANCE: cooperative and comfortable ORIENTATION/CONSCIOUSNESS: Yes awake, Yes oriented to person, Yes oriented to place and Yes oriented to time HENMT: COMMON NORMALS: normocephalic, atraumatic and hearing grossly normal bilaterally HEAD & SCALP: normocephalic and atraumatic Resp: COMMON NORMALS: normal respiratory effort, No retractions, No use of accessory muscles and clear to auscultation bilaterally AUSCULTATION: clear to auscultation bilaterally Cardio: COMMON NORMALS: regular rate, regular rhythm and No murmurs present (Cardio) RATE: regular rate RHYTHM: regular rhythm GI: COMMON NORMALS: Soft to palpation and No hepatosplenomegaly present AUSCULTATION: Yes normoactive bowel sounds PALPATION: Yes Soft to palpation, No Tenderness to palpation present (GI), No Guarding due to palpation present (GI) and Yes No hepatosplenomegaly present Extremity: COMMON NORMALS: normal to inspection, capillary refill normal, no clubbing, cyanosis or edema, no calf tenderness and no pedal edema Neuro: SENSORIUM/ORIENTATION: Yes oriented to person, Yes oriented to place and Yes oriented to time Skin: COMMON NORMALS: no rashes or lesions noted GENERAL SKIN EXAM: no rashes or lesions noted Course Vital Signs: Vital signs: Vital Signs Temperature 98.5 F 08/19/23 12:02 Pulse Rate 70 08/19/23 14:45 Respiratory Rate 16 08/19/23 14:45 Blood Pressure 115/71 08/19/23 14:45 Pulse Oximetry 100 08/19/23 14:45 Oxygen Delivery Me thod Room Air 08/19/23 14:45 MDM - Syncope Medical Decision Making Patient still sees Dr. Cuenca neurologist that it previously practice in the area now is in [place]. I discussed the case with him as well since he is still following her based on her description and the events we do not believe she actually has seizure think this was a orthostatic syncopal episode her blood pressures have improved with fluids working to discharge patient home have her follow-up with neurology. Discussed with the patient she is comfortable with this. Continue previously prescribed medications do not recommend antiseizure medicines at this time. Medical Records I reviewed the patient's medical records. Lab Data I reviewed the patient's lab results. 08/19/23 12:30 08/19/23 12:[address] 08/19/23 12:14 IMPRESSION: No acute intracranial abnormality. Laboratory Results WBC 7.34 10^3/uL (3.29-11.43) 08/19/23 12:30 RBC 4.11 10^6/uL (3.85-5.65) 08/19/23 12:30 Hgb 12.10 g/dL (11.27-16.99) 08/19/23 12:30 Hct 37.5 % (36-47) 08/19/23 12:30 MCV 91.2 fl (85-98) 08/19/23 12:30 MCH 29.4 pg (27-33) 08/19/23 12:30 MCHC 32.3 g/dL (30-55) 08/19/23 12:30 RDW 13.1 % (12.1-15.1) 08/19/23 12:30 Plt Count 307 10^3/cmm (157-399) 08/19/23 12:30 MPV 10.1 fL (7.4-10.4) 08/19/23 12:30 Neut % (Auto) 62.1 % 08/19/23 12:30 Lymph % (Auto) 28.1 % 08/19/23 12:30 [place] % (Auto) 8.0 % 08/19/23 12:30 Eos % (Auto) 1.2 % 08/19/23 12:30 Baso % (Auto) 0.5 % 08/19/23 12:30 Neut # (Auto) 4.55 10^3/uL (1.8-7.7) 08/19/23 12:30 Lymph # (Auto) 2.1 10^3/uL (0.8-4.8) 08/19/23 12:30 [place] # (Auto) 0.6 10^3/uL (0.2-0.9) 08/19/23 12:30 Eos # (Auto) 0.1 10^3/uL (0.0-0.8) 08/19/23 12:30 Baso # (Auto) 0.0 10^3/uL (0.0-0.1) 08/19/23 12:30 Nucleated RBC % (auto) 0 % 08/19/23 12:30 Nucleated RBCs # 0.0 /100WBC 08/19/23 12:30 Sodium 134 mmol/L (136-145) L 08/19/23 12:30 Potassium 4.0 mmol/L (3.5-5.1) 08/19/23 12:30 Chloride 100 mmol/L (98-107) 08/19/23 12:30 Carbon Dioxide 22 mmol/L (22-29) 08/19/23 12:30 Anion Gap 16.0 (5-19) 08/19/23 12:30 BUN 16 mg/dL (6-20) 08/19/23 12:30 Creatinine 0.9 mg/dL (0.5-0.9) 08/19/23 12:30 GFR Calculation 67.4 mL/min (90-130) L 08/19/23 12:30 Glucose 105 mg/dL (65-115) 08/19/23 12:30 Calculated Osmolality 280 mOsm/kg (285-295) L 08/19/23 12:30 Lactic Acid 1.1 mmol/L (0.5-2.2) 08/19/23 12:30 Calcium 9.1 mg/dL (8.5-10.5) 08/19/23 12:30 Total Bilirubin 0.3 mg/dL (0.15-1.2) 08/19/23 12:30 AST 17 U/L (0-32) 08/19/23 12:30 ALT 13 U/L (0-33) 08/19/23 12:30 Alkaline Phosphatase 75 U/L (35-105) 08/19/23 12:30 Total Protein 6.9 g/dL (6.6-8.7) 08/19/23 12:30 Albumin 4.4 g/dL (3.5-5.2) 08/19/23 12:30 Globulin 2.5 g/dL (1.3-4.6) 08/19/23 12:30 All radiology interpretation(s) finalized by discharge Discharge Plan Discharge Patient Disposition: Home Clinical Impression: Orthostatic syncope, Vertigo Condition: Stable Prescriptions: No Action (DME) Custom molded orthotics See Rx Instructions .Route .MEDSUPPLY Qty: 1 0RF Rx Instructions: As directed amitriptyline 50 mg tablet 50 mg PO .qhs propranolol 20 mg tablet 20 mg PO TID clonazepam 1 mg tablet 1 mg PO DAILY Qty: 7 0RF folic acid 1 mg tablet 1 mg PO DAILY Qty: 30 1RF fluoxetine 60 mg tablet 60 mg PO DAILY 30 Days Qty: 30 3RF ibuprofen 600 mg tablet 600 mg PO Q8H PRN (Reason: pain) Qty: 270 1RF albuterol sulfate [Ventolin HFA] 90 mcg/actuation HFA aerosol inhaler 2 puff inhalation Q6H PRN (Reason: shortness of breath or wheezing) Qty: 8.5 0RF gabapentin 600 mg tablet 600 mg PO BID Qty: 180 1RF mupirocin 2 % ointment 1 applic topical BID Qty: 22 0RF trazodone 50 mg tablet 25 mg PO .hs Qty: 60 1RF Ubrelvy 50 mg tablet 50 mg PO ONCE Qty: 30 0RF Rx Instructions: may repeat dose x 1 after 2hrs prednisolone 15 mg/5 mL solution See Rx Instructions PO .COMPLEX Qty: 75 0RF Rx Instructions: 60mg - 20ml day 1 50mg - 16.7ml day 2 40mg - 13.4ml day 3 30mg - 10ml day 4 20mg - 6.7ml day 5 10mg - 3.4ml day 6 lorazepam 2 mg/mL concentrate 1 mg PO TID PRN (Reason: anxiety) 7 Days Qty: 30 0RF cetirizine 5 mg/5 mL Solution See Rx Instructions .ROUTE .COMPLEX Rx Instructions: 10 mg orally in the morning and 20 mg in the evening. budesonide 0.5 mg/2 mL suspension for nebulization 0.5 mg inhalation BID PRN (Reason: shortness of breath or wheezing) acetaminophen 500 mg Tablet 1,000 mg PO Q6H PRN (Reason: Pain) albuterol sulfate 2.5 mg /3 mL (0.083 %) solution for nebulization 2.5 mg inhalation Q6H PRN (Reason: shortness of breath or wheezing) Qty: 75 0RF Benadryl Allergy 12.5 mg/5 mL liquid 25 mg PO Q8H PRN (Reason: allergic reaction) Qty: 150 0RF EpiPen 0.3 mg/0.3 mL auto-injector 0.3 mg IM Q10M PRN (Reason: anaphylaxis) Qty: 2 0RF Rx Instructions: for 2 doses Discharge Orders: Discharge ED (Routine); Ordered 08/19/23 Ordered By: Dagoberto Barraza Referrals: Saul Valero MD [Primary Care Provider] - Discharge Diet: Usual diet Discharge Activity: Increase activity as tolerated Patient Instructions: Opioid Safety, Pain Management Activity Restrictions/Additional Instructions: Thank you for choosing [facility] for your healthcare needs today. Please realize this is an emergency room and that we are providing you with a medical screening exam and this may not be complete and all inclusive of all the testing and or work up that you may need to determine your ailment or severity of your illness. It is very important that you follow up as instructed or that you return to the Emergency Department should you have concerns or if your condition changes or worsens in any way. Continue with steroids clonazepam and Benadryl as per Dr. Cuenca's instruction. Recommend you follow-up with him sometime within the next 1 to 2 weeks. Coding Level of Care Code ED Equipment Hire Manager for 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
[2023-08-19 14:00] VITALS: BP 102/77; BP 110/73; PULSE 65; PULSE 73; RESP 15; O2SAT 100
[2023-08-19 14:45] VITALS: BP 115/71; BP 118/79; BP 120/86; PULSE 67; PULSE 70; PULSE 76; PULSE 80; RESP 16; O2SAT 100
== END 2023-08-19 15:04 | disposition home or self-care (01) ==
PROVIDERS: Emergency Provider Family Medicine; PCP Family Medicine
DX: I95.1 Orthostatic hypotension (principal); R42 Dizziness and giddiness
CPT/HCPCS: 70450; 80053; 83605; 85025; 93005; 96374; 99285; J2060

== ENCOUNTER → 2023-08-21 12:58 | Outpatient (BNVA) | payer OTHER, SELFPAY | PROVIDERS: PCP Family Medicine; Visit Provider Family Medicine | DX: R42 Dizziness and giddiness (principal) | CPT/HCPCS: 82607; 82746; 83090; 83921 ==

== ENCOUNTER 2023-09-21 07:50 | Outpatient (CLI) | payer OTHER, SELFPAY ==
--- NOTE | 2023-09-21 08:00 | MR_ITS ---
WS: [id number] MRI HEAD WITH CONTRAST TECHNIQUE: Sagittal T1, T2 axial, T2 axial FLAIR, axial susceptibility weighted imaging, axial diffus ion weighted images, and coronal T2 images were obtained. Pre and post-T1 axial and post T1 coronal i mages. ADC and FSPGR images. CLINICAL INFORMATION: vertigo COMPARISON: MRI 01/19/2023 FINDINGS: No evidence of restricted diffusion to suggest acute ischemia. Ventricular system and basal cisterns are patent. Normal posterior fossa. Normal vascular flow voids at the skull base. No extra-axial flui d collections. No evidence of mass or mass effect. Paranasal sinuses are well aerated. Mastoid air ce lls are well aerated. Normal posterior nasopharynx. Chronic infarct with hemosiderin in the RIGHT parasagittal parietal lobe with encephalomalacia and gl iosis. This is unchanged from previous. No new intracranial signal abnormalities. Normal optic chiasm and pituitary infundibulum. Temporal lobes and hippocampal formations are normal in appearance. No abnormal gadolinium enhancement. Normal visualized dural venous sinuses. Incidental slightly low-lying cerebellar tonsils unchanged. IMPRESSION: 1. No evidence of restricted diffusion to suggest acute ischemia. 2. Chronic infarct in the RIGHT parasagittal parietal lobe with encephalomalacia and gliosis. Associ ated hemosiderin. 3. No new suspicious intracranial signal abnormalities. 4. No abnormal gadolinium enhancement. 5. Stable incidental slightly low-lying cerebellar tonsils. 6. No other suspicious findings.
[2023-09-21] MEDS: gadobenate dimeglumine 20 mL vial IV (08:59)
== END 2023-09-21 07:51 | disposition home or self-care (01) ==
LOC: RAD 07:50
PROVIDERS: PCP Family Medicine; Visit Provider Family Medicine
DX: G43.809 Other migraine, not intractable, without status migrainosus (principal); I82.619 Acute embolism and thrombosis of superficial veins of unspecified upper extremity; G93.89 Other specified disorders of brain
CPT/HCPCS: 70553; A9577

== ENCOUNTER 2023-11-12 05:49 | Day surgery (SDC) | payer OTHER, SELFPAY ==
[2023-11-12] VITALS (9 sets, daily range): BP systolic 89–118; BP diastolic 58–87; PULSE 68–90; RESP 12–18; TEMP 36.1–36.8; O2SAT 97–100; BMI 24.7
[2023-11-12] MEDS: sodium chloride 0.9% 1,000 ML 100 ML IV (06:25)
[2023-11-12] MEDS: ketorolac 30 mg/mL INJ IVP (06:28)
[2023-11-12] MEDS: acetaminophen 1,000 MG/100 ML PIGGYBACK 400 MG IV (06:29)
[2023-11-12] MEDS: scopolamine 1.5 Patch 1 PATCH TRANSDERMA (06:29)
[2023-11-12 06:45] LABS: OR HCG Qualitative Urine Negative (Negative)
--- NOTE | 2023-11-12 06:54 | P.ANESASSM_ITS ---
Pre-Anesthetic Assessment Height/Weight: Height 1.6 m Weight 63.503 kg Temp Pulse Resp BP Pulse Ox O2 Del Method 97.2 F L 68 18 110/70 99 Room Air 11/12/23 06:08 11/12/23 06:08 11/12/23 06:08 11/12/23 06:29 11/12/23 06:08 11/12/23 06:08 Operation Date: 11/12/23 07:00 Proposed Procedures p Carpal Tunnel Release/ RIGHT CARPAL TUNNEL RELEASE(Right) - Scott Strong DO Familial anesthetic complications: Alpha gal allergy Was Beta Sid taken within 24 hours: N/A Was Clonidine taken within 24 hours: N/A Last intake: Intake Last Liquid Date 11/11/23 Last Liquid Time 21:00 Last Solid Date 11/11/23 Last Solid Time 19:30 Social No alcohol and No tobacco Exam alert, oriented x 3, clear to auscultation bilaterally and regular rate & rhythm Airway Mallampati: Class I Dentition: full GI Gastroesophageal Reflux Disease Neuropsych Cerebrovascular Accident (hemorrhagic) and Seizure Anesthetic Plan ASA status: 3 Anesthesia: MAC Risk of > 500 ml blood loss (7ml/kg in children): No Medications/Allergies Home Medications Medication Instructions Recorded Confirmed Last Taken Type cetirizine 5 mg/5 mL oral solution See Rx Instructions .Route .COMPLEX 06/11/20 11/09/23 11/11/23 History budesonide 0.5 mg/2 mL suspension 0.5 mg inhalation BID PRN 07/05/20 11/09/23 1 Week Ago History for nebulization shortness of breath or wheezing ~08/10/21 acetaminophen 500 mg tablet 1,000 mg PO Q6H PRN Pain 10/03/21 11/09/23 11/09/23 History albuterol sulfate 2.5 mg/3 mL 2.5 mg (3 mL) inhalation Q6H PRN 02/14/22 11/09/23 Unknown Rx (0.083 %) solution for nebulization shortness of breath or wheezing #75 mL epinephrine 0.3 mg/0.3 mL 0.3 mg (0.3 mL) IM Q10M PRN 03/13/22 11/09/23 Unknown Rx injection, auto-injector (EpiPen) anaphylaxis #2 ea ibuprofen 600 mg tablet 600 mg PO Q8H PRN pain #270 tabs 02/01/23 11/09/23 11/02/23 Rx albuterol sulfate 90 mcg/actuation 2 puff inhalation Q6H PRN 02/27/23 11/09/23 Unknown Rx aerosol inhaler (Ventolin HFA) shortness of breath or wheezing #8.5 grams amitriptyline 50 mg tablet 50 mg PO .qhs 03/27/23 11/09/23 11/11/23 History propranolol 20 mg tablet 20 mg PO TID 03/27/23 11/12/23 11/11/23 21:00 History folic acid 1 mg tablet 1 mg PO DAILY #30 tabs 08/22/23 11/09/23 11/11/23 Rx fluoxetine 20 mg tablet 20 mg PO DAILY 30 days #30 tabs 08/28/23 11/09/23 11/12/23 Rx fluoxetine 60 mg tablet 60 mg PO DAILY 30 days #30 tabs 08/28/23 11/09/23 11/12/23 Rx gabapentin 600 mg tablet 600 mg PO DAILY 11/09/23 11/09/23 11/11/23 History pantoprazole 40 mg tablet,delayed 40 mg PO DAILY 11/09/23 11/09/23 11/12/23 History release ubrogepant 50 mg tablet (Ubrelvy) 50 mg PO PRN headache 11/09/23 11/09/23 10/26/23 History Allergies Allergy/AdvReac Type Severity Reaction Status Date / Time Beef Containing Products Allergy Severe ALGY-Anaphy Verified 10/25/23 14:53 laxis epinephrine Allergy Severe Hemorrhagic Verified 10/25/23 14:53 stroke after epi drip lactose Allergy Severe ALGY-Anaphy Verified 10/25/23 14:53 laxis Pork/Porcine Containing Allergy Severe ALGY-Anaphy Verified 10/25/23 14:53 Products laxis trimethobenzamide Allergy Severe ALGY-Anaphy Verified 10/25/23 14:53 [From Tigan] laxis clonazepam Allergy Intermediate ALGY-Hives Verified 10/25/23 14:53 Alpha-Gal Allergy ALGY-Anaphy Verified 11/09/23 10:27 (Cammxonwu-Axatf-3,3-Gala laxis digoxin Allergy ALGY-Hives Verified 10/25/23 14:53 enoxaparin [From Lovenox] Allergy ALGY-Anaphy Verified 10/25/23 14:53 laxis gluten Allergy Unknown Verified 10/25/23 14:53 heparin (porcine) Allergy ALGY-Anaphy Verified 10/25/23 14:53 laxis Current Medications Generic Name Dose Route Start Last Admin Trade Name Rocky PRN Reason Stop Dose Admin Sodium Chloride 1,000 mls @ 100 mls/hr 11/12/23 06:00 11/12/23 06:25 Sodium Chloride 0.9% IV 11/13/23 05:59 100 mls/hr .Q10H RAYSA Administration PFSH Anesthesia Medical History COVID-19 Endometriosis determined by laparoscopy Pelvic pain [place] use Mood swings 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 Mild residual weakness on the left side Surgical History Port-A-Cath in place (05/26/20) left subclavian Removed 07/13/2021 History of surgery Intracranial angiogram History of eye surgery Surgical plate placement and removal History of appendectomy History of abdominoplasty History of artificial lens replacement History of cataract surgery History of section, low transverse Family History Mother Diabetes Thyroid disease Hypercholesteremia Hypertension Family/Other Cancer Father Cancer leiomyosarcoma leg Social History Smoking and tobacco/nicotine status: never used tobacco/nicotine Alcohol intake: former Former alcohol use details: 2019 Substance/Drug Use: never Lives independently: Yes Marital status: Current occupational status: employed 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
--- NOTE | 2023-11-12 06:59 | W.PM.OPSUD ---
Surgery/Procedure H&P Update DATE OF PROCEDURE: November 12, 2023 DATE H&P PERFORMED: 10/25/23 H&P UPDATE INFORMATION: I have reviewed H&P completed within last 30 days, I have examined patient prior to procedure and No changes to prior documentation PREOP DIAGNOSIS: Right carpal tunnel syndrome PRIMARY INDICATION FOR PROCEDURE: right carpal tunnel syndrome PLANNED PROCEDURE: Operation Date: 11/12/23 07:00 Proposed Procedures p Carpal Tunnel Release/ RIGHT CARPAL TUNNEL RELEASE(Right) - Scott Strong DO
[2023-11-12] MEDS: ceFAZolin 2,000 MG in sodium chloride 0.9% (plus) 50 ML 100 MG IV (07:00)
[2023-11-12] MEDS: BUPivacaine 0.5% INJ 10 mL 5 ML INJECTION (07:40)
[2023-11-12] MEDS: ROPivacaine 0.5% SDV 30 mL 25 MG INJECTION (07:40)
--- NOTE | 2023-11-12 07:50 | P.BOP_ITS ---
Date of Procedure: 11/12/2023 Surgeon: Scott Strong DO Digital Forensics Investigator(s): Sanford Strong PA-C Procedure(s) performed: Right carpal tunnel release Findings of the procedure(s): Right carpal tunnel syndrome, procedure went as planned with no complications Estimated blood loss: 2 mL Specimen(s) removed: None Post-operative diagnosis: Right carpal tunnel syndrome
--- NOTE | 2023-11-12 07:53 | PM.OP ---
Operative Report Date of procedure: November 12, 2023 Surgeon: Scott Strong DO Sales Associate: Sanford Strong PA-C: PA was necessary for assistance in this case with hand positioning to execute the procedure, retraction and protection of neurovascular structures as well as to assist with wound closure and dressing application. Procedure: Preoperative diagnosis: Right carpal tunnel syndrome Post-op diagnosis: Same Procedure done: 1.?Right carpal tunnel?release Surgeon: Scott Strong DO Anesthesia: MAC (Local) Estimated blood loss: 2 mL Tourniquet time 10 minutes IV fluids: See anesthesia?record Complications: None Findings: See operative?report narrative Condition: stable Disposition: same day Brief History: Patient is a pleasant 48 year-old female with?right carpal tunnel syndrome.? Patient has been worked up in the outpatient setting findings and physical examination consistent with this.? Patient nerve conduction studies normal study however she had a trial injection and had several months of complete relief consistent with carpal tunnel syndrome as a result she elects to proceed with surgical intervention. We detailed out patient's?risk benefits complication alternatives with surgical and nonsurgical treatment options. Through shared decision making, patient agrees to proceed with surgical intervention of the left carpal tunnel?release .? Patient understands and agrees with current plan.? All questions answered.? Patient elects to proceed with surgical intervention with carpal tunnel?release. Procedure: Patient seen and evaluated in the preoperative holding area.? Consent was?reviewed and signed with patient.? Correct extremity was marked.? Patient was seen evaluated by the anesthesia department once cleared for surgery was brought back to the operative suite.? Patient was kept on [facility] in supine position all bony prominences were well-padded patient properly secured to the bed.??Right upper extremity was then placed onto an armboard.? A nonsterile tourniquet was applied to the?RIght upper arm.? Patient underwent anesthesia per the anesthesia department.? Patient's?Right upper extremity was then prepped and draped in standard orthopedic fashion.? Final timeout performed.? Patient?received appropriate preoperative antibiotics. Under sterile aseptic technique patient?received local anesthesia over the preplanned carpal tunnel incision site. Esmarch was used to exsanguinate the?Right upper extremity and tourniquet was insufflated to 250 mmHg. A standard mini open?Right carpal tunnel incision was made.? Starting distally at Sanchez's cardinal line in line with the fourth?ray extending proximally distal to the wrist crease centered over the carpal tunnel.? Sharp scalpel incision was made through skin and subcutaneous tissue.? Self-retaining?retractor was placed and the palmar fascia was identified.? This was then split longitudinally and direct visualization of the transverse carpal ligament was then made.? I then utilizing scalpel feathered through the transverse carpal ligament until I entered the floor of the transverse carpal tunnel ligament into the carpal tunnel.? Next I switched to dissection scissors and completed my?release of the transverse carpal ligament distally with care to protect the?recurrent motor branch.? I completely?released into the palmar fat and until no entrapment was noted distally.? Care was made to protect the superficial palmar arch during my distal dissection.?? Next I utilized a nasal speculum placed on top of the transverse carpal ligament and utilize this to?retract the subcutaneous fat and tissue and under direct loupe magnification was able to identify the transverse carpal ligament.? Next I then placed a Lawrence underneath the transverse carpal tunnel ligament to protect the contents of the carpal tunnel and subsequently utilizing dissection scissors under loupe magnification completely?released the transverse carpal ligament proximally into the median antebrachial fascia.? Care was made to protect the palmar cutaneous branch by keeping my scissors curved ulnarly.? Once completely?released, I then placed my Lawrence and had appropriate decompression of the carpal tunnel proximally as well as distally.? I then inspected the contents of the carpal tunnel which showed an hourglass shape of the median nerve showing its compression.? No masses were noted.? Tendons appeared healthy.? Wound was then thoroughly irrigated.? Tourniquet deflated.? Hemostasis satisfactory with bipolar electrocautery.? I then closed the incision with interrupted nylon stitches.? Xeroform 4 x 4's and a bulky soft dressing was applied.? Patient was then awakened from anesthesia and taken to PACU in stable condition.? Patient tolerated procedure without complications. Disposition: Patient taken to PACU in stable condition?recovering well.? Dressing clean dry and intact.? Patient will?receive appropriate discharge instructions as well as pain medication postoperatively.? Patient to follow-up with me in the office in 2 weeks.? They understand they may be weightbearing as tolerated to the?right hand.? Patient should keep incision clean dry and intact.? Patient understands if any questions or concerns may contact the office.
--- NOTE | 2023-11-12 08:08 | PM.PACU ---
PACU note Narrative: Patient is a 48-year-old female that just underwent a right carpal tunnel release. Patient transferred to PACU in stable condition. Pain is well controlled. Dressing on hand is dry and in place. Patient's fingers are warm and well-perfused. Patient can wiggle fingers. normal cap refill under 2 seconds. Patient has normal elbow range of motion. Unable to assess sensation due to residual localized anesthetic. Exam: awake Disposition: discharged
--- NOTE | 2023-11-12 09:30 | ANE.PACU2 ---
Inpatient post-anesthesia follow up: Airway intact: Yes Vital signs: Temperature 98.3 F Pulse Rate 83 Respiratory Rate 18 Blood Pressure 116/87 Pulse Oximetry 97 Oxygen Delivery Me thod Room Air Oxygen Flow Rate Fraction of Inspir ed Oxygen Hydration adequate: Yes Nausea and vomiting: No Pain level: 1 Mental status: Baseline
== END 2023-11-12 09:29 | disposition home or self-care (01) ==
PROVIDERS: Anesthesiology; PCP Family Medicine; Visit Provider Student in an Organized Health Care Education/Training Program
PROC: (CPT 64721; principal; 2023-11-12 07:00)
DX: G56.01 Carpal tunnel syndrome, right upper limb (principal); K21.9 Gastro-esophageal reflux disease without esophagitis; Z86.73 Personal history of transient ischemic attack (TIA), and cerebral infarction without residual deficits; Z86.16 Personal history of COVID-19
CPT/HCPCS: 64721; 81025; 84703; J0131; J0690; J1885; J2250; J2704; J2795; J3010; J3490; J7030

== ENCOUNTER → 2024-01-24 15:28 | Outpatient (BNVA) | payer OTHER, SELFPAY | PROVIDERS: PCP Family Medicine; Visit Provider Registered Nurse Neonatal Intensive Care | DX: R35.0 Frequency of micturition (principal) | CPT/HCPCS: 81000; 87086 ==

== ENCOUNTER → 2024-05-29 11:49 | Outpatient (BNVA) | payer OTHER, SELFPAY | PROVIDERS: PCP Family Medicine; Visit Provider Obstetrics & Gynecology | DX: R10.2 Pelvic and perineal pain (principal) | CPT/HCPCS: 83001 ==

== ENCOUNTER → 2024-06-23 08:01 | Outpatient (BNVA) | payer OTHER, SELFPAY | PROVIDERS: PCP Family Medicine; Visit Provider Obstetrics & Gynecology | DX: N80.9 Endometriosis, unspecified (principal); R10.2 Pelvic and perineal pain; Z98.890 Other specified postprocedural states | CPT/HCPCS: 76830 ==

== ENCOUNTER 2024-07-16 11:36 | Outpatient (CLI) | payer OTHER, SELFPAY ==
--- NOTE | 2024-07-16 11:39 | MR_ITS ---
WS: [id number] MRI CERVICAL SPINE NONCONTRAST TECHNIQUE: Sagittal T1, T2 and STIR imaging. Axial T2, gradient, and fiesta imaging. CLINICAL INFORMATION: CERVICAL RADICULOPATHY COMPARISON: MRI cervical spine 2013. CT cervical spine 2020. FINDINGS: Straightening of the normal cervical lordosis. Mild disc bulging at C3-C4 C4-C5 and C5-C6. Cord signa l is normal. No high-grade central canal stenosis. Slight retrolisthesis C3 on C4, C4 on C5 and C5 on C6. Disc bulging is similar to previous 2014. Incidental slightly prominent central canal in the upp er cervical cord unchanged since 2011. C2-C3: Normal. C3-C4: Mild disc osteophyte complex with endplate ridging. Mild facet arthropathy. Spinal canal and f oramen are patent. C4-C5: Shallow central disc osteophyte protrusion. Slight effacement of the ventral thecal sac. Spina l canal is patent. Mild LEFT bony foraminal narrowing. Uncovertebral joint hypertrophy with mild face t arthropathy. C5-C6: Mild disc osteophyte complex with slight effacement of the ventral thecal sac. This is similar to previous with mild central canal stenosis. Mild to moderate LEFT and mild RIGHT bony foraminal na rrowing. Mild facet arthropathy with uncovertebral joint hypertrophy. C6-C7: Disc osteophyte complex with endplate ridging eccentric to the LEFT. Moderate LEFT bony forami nal narrowing slightly progressed compared to previous. RIGHT foramen is patent. Spinal canal is bright nt. Mild facet arthropathy. C7-T1: Spinal canal and foramen are patent. Visualized brain stem structures: Stable low-lying cerebellar tonsils. No crowding at the foramen mag num. Prevertebral soft tissues: Normal. MR/MR cervical spin wo con* [id number] IMPRESSION: 1. Small disc osteophyte protrusions at C4-C6 with mild central canal stenosis at C5-6. This is similar to 2014. Slight contact of the cervical cord at RIGHT C4-C5 and C5-C6. 2. Mild to moderate LEFT C5-C6 and moderate LEFT C6-7 bony foraminal narrowing progressed compared to previous. Recommend correlation for LEFT C6 and C7 nerv e root symptoms. 3. Mild LEFT C4-5 bony foraminal narrowing appears stable 4. Straightening with slight reversal of normal cervical lordosis similar in a ppearance to 2014
== END 2024-07-16 11:37 | disposition home or self-care (01) ==
LOC: RAD 11:36
PROVIDERS: PCP Family Medicine; Visit Provider Family Medicine
DX: M47.22 Other spondylosis with radiculopathy, cervical region (principal); M25.78 Osteophyte, vertebrae; M48.02 Spinal stenosis, cervical region; M50.31 Other cervical disc degeneration, high cervical region; M50.321 Other cervical disc degeneration at C4-C5 level; M50.322 Other cervical disc degeneration at C5-C6 level
CPT/HCPCS: 72141

== ENCOUNTER 2024-10-25 10:04 | Emergency (ER) | payer OTHER, SELFPAY ==
[2024-10-25 10:07] VITALS: BP 115/65; PULSE 96; RESP 17; TEMP 37.3; O2SAT 100; BMI 25.7
[2024-10-25 10:41] VITALS: BP 115/88; PULSE 84; O2SAT 100
--- NOTE | 2024-10-25 10:45 | ECG_ITS ---
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
[2024-10-25 10:50] LABS: Basophils % 0.6 %; Eosinophils # 0.1 10^3/uL (0.0-0.8); Eosinophils % 1.3 %; Hematocrit 33.6 % (36-47); Lymphocytes # 1.6 10^3/uL (0.8-4.8); Lymphocytes % 24.3 %; Mean Corpuscular HGB Conc 32.7 g/dL (30-55); Mean Corpuscular Hemoglobin 29.3 pg (27-33); Mean Corpuscular Volume 89.4 fl (85-98); Mean Platelet Volume 9.5 fL (7.4-10.4); Monocytes # 0.5 10^3/uL (0.2-0.9); Neutrophils # 4.46 10^3/uL (1.8-7.7); Neutrophils % 66.5 %; Nucleated Red Blood Cells % 0 %; Platelet Count 265 10^3/cmm (157-399); Red Blood Count 3.76 10^6/uL (3.85-5.65); Red Cell Distribution Width 12.8 % (12.1-15.1); White Blood Count 6.71 10^3/uL (3.29-11.43)
--- NOTE | 2024-10-25 10:56 | W.ED.SEIZURE ---
HPI - Seizure General: Chief Complaint: Seizure Stated Complaint: post seizure History of Present Illness: HPI Narrative: 49-year-old female presents to the emergency room after a syncopal episode questionable possible seizure. She has had seizures in the past several years ago had a hemorrhagic stroke. She has had a bit of upper respiratory infection recently as well. She also had the start of a migraine. She does frequently get had migraine headaches usually on the left side this 1 is on the left as well. Associated symptoms: Deny chest pain, chills or fever(s) Related Data Home Medications Medication Instructions Recorded Confirmed cetirizine 5 mg/5 mL oral solution See Rx Instructions .Route .COMPLEX 06/11/20 06/30/24 budesonide 0.5 mg/2 mL suspension 0.5 mg inhalation BID PRN 07/05/20 06/30/24 for nebulization shortness of breath or wheezing acetaminophen 500 mg tablet 1,000 mg PO Q6H PRN Pain 10/03/21 06/30/24 amitriptyline 50 mg tablet 50 mg PO .qhs 03/27/23 06/30/24 propranolol 20 mg tablet 20 mg PO TID 03/27/23 06/30/24 gabapentin 600 mg tablet 600 mg PO DAILY 11/09/23 06/30/24 pantoprazole 40 mg tablet,delayed 40 mg PO DAILY 11/09/23 06/30/24 release Previous Rx's Medication Instructions Recorded albuterol sulfate 2.5 mg/3 mL 2.5 mg (3 mL) inhalation Q6H PRN 02/14/22 (0.083 %) solution for nebulization shortness of breath or wheezing #75 mL epinephrine 0.3 mg/0.3 mL 0.3 mg (0.3 mL) IM Q10M PRN 03/13/22 injection, auto-injector (EpiPen) anaphylaxis #2 ea ibuprofen 600 mg tablet 600 mg PO Q8H PRN pain #270 tabs 02/01/23 albuterol sulfate 90 mcg/actuation 2 puff inhalation Q6H PRN 02/27/23 aerosol inhaler (Ventolin HFA) shortness of breath or wheezing #8.5 grams folic acid 1 mg tablet 1 mg PO DAILY #30 tabs 08/22/23 fluoxetine 20 mg tablet 20 mg PO DAILY 30 days #30 tabs 12/31/23 fluconazole 150 mg tablet 150 mg PO Q72H #2 tabs 01/15/24 ubrogepant 50 mg tablet (Ubrelvy) 50 mg PO PRN headache #30 tabs 02/20/24 ondansetron HCl 4 mg/5 mL oral 6 mg (7.5 mL) PO Q6H PRN nausea 05/31/24 solution and vomiting #100 mL fluoxetine 60 mg tablet 60 mg PO DAILY 30 days #30 tabs 07/09/24 Allergies Allergy/AdvReac Type Severity Reaction Status Date / Time Beef Containing Products Allergy Severe ALGY-Anaphy Verified 06/30/24 10:06 laxis epinephrine Allergy Severe Hemorrhagic Verified 06/30/24 10:06 stroke after epi drip lactose Allergy Severe ALGY-Anaphy Verified 06/30/24 10:06 laxis Pork/Porcine Containing Allergy Severe ALGY-Anaphy Verified 06/30/24 10:06 Products laxis trimethobenzamide Allergy Severe ALGY-Anaphy Verified 06/30/24 10:06 [From Tigan] laxis clonazepam Allergy Intermediate ALGY-Hives Verified 06/30/24 10:06 Alpha-Gal Allergy ALGY-Anaphy Verified 06/30/24 10:06 ([id number],3-Gala laxis digoxin Allergy ALGY-Hives Verified 06/30/24 10:06 enoxaparin [From Lovenox] Allergy ALGY-Anaphy Verified 06/30/24 10:06 laxis gluten Allergy Unknown Verified 06/30/24 10:06 heparin (porcine) Allergy ALGY-Anaphy Verified 06/30/24 10:06 laxis Review of Systems Const: Denies: fever(s) or chills Card: Denies: chest pain Resp: Denies: dyspnea GI: Denies: abdominal pain : Denies: dysuria, urinary frequency or urinary urgency Musc: Denies: neck pain or back pain Skin/Breast: Denies: rash Neuro: Reports: headache(s) PFSH ED PFSH: Medical History COVID-19 Endometriosis determined by laparoscopy Pelvic pain [place] use Mood swings 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 Mild residual weakness on the left side Surgical History Port-A-Cath in place (05/26/20) left subclavian Removed 07/13/2021 History of surgery Intracranial angiogram History of eye surgery Surgical plate placement and removal History of appendectomy History of abdominoplasty History of artificial lens replacement History of cataract surgery History of section, low transverse Family History Mother Diabetes Thyroid disease Hypercholesteremia Hypertension Family/Other Cancer Father Cancer leiomyosarcoma leg Social History Smoking and tobacco/nicotine status: never used tobacco/nicotine Physical Exam Const: COMMON NORMALS: no acute distress GENERAL APPEARANCE: cooperative and comfortable ORIENTATION/CONSCIOUSNESS: Yes awake, Yes oriented to person, Yes oriented to place and Yes oriented to time HENMT: COMMON NORMALS: normocephalic, atraumatic and hearing grossly normal bilaterally HEAD & SCALP: normocephalic and atraumatic Resp: COMMON NORMALS: normal respiratory effort, No retractions, No use of accessory muscles and clear to auscultation bilaterally AUSCULTATION: clear to auscultation bilaterally Cardio: COMMON NORMALS: regular rate, regular rhythm and No murmurs present (Cardio) RATE: regular rate RHYTHM: regular rhythm GI: COMMON NORMALS: Soft to palpation and No hepatosplenomegaly present AUSCULTATION: Yes normoactive bowel sounds PALPATION: Yes Soft to palpation, No Tenderness to palpation present (GI), No Guarding due to palpation present (GI) and Yes No hepatosplenomegaly present Extremity: COMMON NORMALS: normal to inspection, capillary refill normal, no clubbing, cyanosis or edema, no calf tenderness and no pedal edema Neuro: SENSORIUM/ORIENTATION: Yes oriented to person, Yes oriented to place and Yes oriented to time OTHER: No focal or lateralizing deficits noted. Skin: COMMON NORMALS: no rashes or lesions noted GENERAL SKIN EXAM: no rashes or lesions noted Course Vital Signs: Vital signs: Vital Signs Temperature 99.1 F 10/25/24 10:07 Pulse Rate 85 10/25/24 13:15 Respiratory Rate 16 10/25/24 13:15 Blood Pressure 124/75 10/25/24 13:15 Pulse Oximetry 100 10/25/24 13:15 Oxygen Delivery Me thod Room Air 10/25/24 10:07 MDM - Seizure MDM Narrative Medical decision making narrative: Ammonia lactic acid and CPK are negative. I suspect she had a syncopal episode and not a seizure at this point. She is feeling better. She has had similar syncopal episodes in the past. We had ordered a CT of the head patient declined because she has had several before she has no focal neurologic deficits. Will discharge her home. Orthostatics done prior to discharge were stable. Lab Data 10/25/24 10:45 10/25/24 10:45 Labs: Laboratory Results WBC 6.71 10^3/uL (3.29-11.43) 10/25/24 10:45 RBC 3.76 10^6/uL (3.85-5.65) L 10/25/24 10:45 Hgb 11.00 g/dL (11.27-16.99) L 10/25/24 10:45 Hct 33.6 % (36-47) L 10/25/24 10:45 MCV 89.4 fl (85-98) 10/25/24 10:45 MCH 29.3 pg (27-33) 10/25/24 10:45 MCHC 32.7 g/dL (30-55) 10/25/24 10:45 RDW 12.8 % (12.1-15.1) 10/25/24 10:45 Plt Count 265 10^3/cmm (157-399) 10/25/24 10:45 MPV 9.5 fL (7.4-10.4) 10/25/24 10:45 Neut % (Auto) 66.5 % 10/25/24 10:45 Lymph % (Auto) 24.3 % 10/25/24 10:45 [place] % (Auto) 7.0 % 10/25/24 10:45 Eos % (Auto) 1.3 % 10/25/24 10:45 Baso % (Auto) 0.6 % 10/25/24 10:45 Neut # (Auto) 4.46 10^3/uL (1.8-7.7) 10/25/24 10:45 Lymph # (Auto) 1.6 10^3/uL (0.8-4.8) 10/25/24 10:45 [place] # (Auto) 0.5 10^3/uL (0.2-0.9) 10/25/24 10:45 Eos # (Auto) 0.1 10^3/uL (0.0-0.8) 10/25/24 10:45 Baso # (Auto) 0.0 10^3/uL (0.0-0.1) 10/25/24 10:45 Nucleated RBC % (auto) 0 % 10/25/24 10:45 Nucleated RBCs # 0.0 /100WBC 10/25/24 10:45 Sodium 137 mmol/L (136-145) 10/25/24 10:45 Potassium 4.1 mmol/L (3.5-5.1) 10/25/24 10:45 Chloride 102 mmol/L (98-107) 10/25/24 10:45 Carbon Dioxide 19 mmol/L (22-29) L 10/25/24 10:45 Anion Gap 20.1 (5-19) H 10/25/24 10:45 BUN 12 mg/dL (6-20) 10/25/24 10:45 Creatinine 0.8 mg/dL (0.5-0.9) 10/25/24 10:45 GFR Calculation 76.9 mL/min (90-130) L 10/25/24 10:45 Glucose 117 mg/dL (65-115) H 10/25/24 10:45 Calculated Osmolality 285 mOsm/kg (285-295) 10/25/24 10:45 Lactic Acid 1.2 mmol/L (0.5-2.2) 10/25/24 10:45 Calcium 8.7 mg/dL (8.5-10.5) 10/25/24 10:45 Total Bilirubin 0.2 mg/dL (0.15-1.2) 10/25/24 10:45 AST 13 U/L (0-32) 10/25/24 10:45 ALT 7 U/L (0-33) 10/25/24 10:45 Alkaline Phosphatase 86 U/L (35-105) 10/25/24 10:45 Ammonia 24 umol/L (11-51) 10/25/24 10:45 Creatine Kinase 72 U/L (26-192) 10/25/24 10:45 Total Protein 6.6 g/dL (6.6-8.7) 10/25/24 10:45 Albumin 4.1 g/dL (3.5-5.2) 10/25/24 10:45 Globulin 2.5 g/dL (1.3-4.6) 10/25/24 10:45 No radiology studies performed this visit Discharge Plan Discharge Patient Disposition: Home Clinical Impression: Syncope and collapse Condition: Stable Prescriptions: No Action amitriptyline 50 mg tablet 50 mg PO .qhs propranolol 20 mg tablet 20 mg PO TID folic acid 1 mg tablet 1 mg PO DAILY Qty: 30 1RF ibuprofen 600 mg tablet 600 mg PO Q8H PRN (Reason: pain) Qty: 270 1RF albuterol sulfate [Ventolin HFA] 90 mcg/actuation HFA aerosol inhaler 2 puff inhalation Q6H PRN (Reason: shortness of breath or wheezing) Qty: 8.5 0RF fluoxetine 20 mg tablet 20 mg PO DAILY 30 Days Qty: 30 3RF Rx Instructions: take with 60mg tab for daily total of 80mg fluconazole 150 mg tablet 150 mg PO Q72H Qty: 2 0RF Ubrelvy 50 mg tablet 50 mg PO PRN Qty: 30 0RF Rx Instructions: may repeat dose x 1 after 2hrs ondansetron HCl 4 mg/5 mL solution 6 mg PO Q6H PRN (Reason: nausea and vomiting) Qty: 100 0RF fluoxetine 60 mg tablet 60 mg PO DAILY 30 Days Qty: 30 3RF Rx Instructions: take with 20mg tab for daily total of 80mg cetirizine 5 mg/5 mL Solution See Rx Instructions .ROUTE .COMPLEX Rx Instructions: 10 mg orally in the morning and 20 mg in the evening. budesonide 0.5 mg/2 mL suspension for nebulization 0.5 mg inhalation BID PRN (Reason: shortness of breath or wheezing) acetaminophen 500 mg Tablet 1,000 mg PO Q6H PRN (Reason: Pain) albuterol sulfate 2.5 mg /3 mL (0.083 %) solution for nebulization 2.5 mg inhalation Q6H PRN (Reason: shortness of breath or wheezing) Qty: 75 0RF epinephrine [EpiPen] 0.3 mg/0.3 mL auto-injector 0.3 mg IM Q10M PRN (Reason: anaphylaxis) Qty: 2 0RF Rx Instructions: for 2 doses pantoprazole 40 mg Tablet,Delayed Release (Dr/Ec) 40 mg PO DAILY gabapentin 600 mg tablet 600 mg PO DAILY Discharge Orders: Discharge ED (Routine); Ordered 10/25/24 Ordered By: Dagoberto Barraza Referrals: Saul Valero MD [Primary Care Provider] - Discharge Diet: Usual diet Discharge Activity: Increase activity as tolerated Patient Instructions: Opioid Safety, Pain Management Activity Restrictions/Additional Instructions: Thank you for choosing [facility] for your healthcare needs today. It is very important that you follow up as instructed or that you return to the Emergency Department should you have concerns or if your condition changes or worsens in any way. You are seen in the emergency room after a syncopal episode. Your laboratory test did not show significant abnormality based on the history and labs do not believe you had a seizure at this time. Recommend you follow-up with your primary care doctor Coding Level of Care Code ED Commercial Portfolio Manager for 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
--- NOTE | 2024-10-25 11:15 | PC.NURSE ---
this nurse assumed pt care at 1100.
[2024-10-25 11:16] LABS: Lactic Sepsis W/Reflex 1.2 mmol/L (0.5-2.2)
[2024-10-25 11:17] VITALS: BP 107/77; PULSE 81; RESP 16; O2SAT 98
[2024-10-25 11:17] LABS: Alanine Aminotransferase 7 U/L (0-33); Albumin Level 4.1 g/dL (3.5-5.2); Alkaline Phosphatase 86 U/L (35-105); Anion Gap 20.1 (5-19); Aspartate Amino Transferase 13 U/L (0-32); Blood Urea Nitrogen 12 mg/dL (6-20); Calcium 8.7 mg/dL (8.5-10.5); Carbon Dioxide 19 mmol/L (22-29); Chloride 102 mmol/L (98-107); Creatine Phosphokinase 72 U/L (26-192); Creatinine Clr Calc Pharmacy 79.2537; Globulin 2.5 g/dL (1.3-4.6); Glomerular Filtration Rate 76.9 mL/min (90-130); Glucose 117 mg/dL (65-115); Osmolality Calculated 285 mOsm/kg (285-295); Potassium 4.1 mmol/L (3.5-5.1); Sodium 137 mmol/L (136-145); Total Bilirubin 0.2 mg/dL (0.15-1.2); Total Protein 6.6 g/dL (6.6-8.7)
[2024-10-25 11:18] LABS: Ammonia 24 umol/L (11-51)
[2024-10-25 12:00] VITALS: BP 121/85; BP 127/79; BP 128/92; PULSE 85; PULSE 88; PULSE 99
[2024-10-25 12:02] VITALS: BP 121/85; PULSE 88; RESP 16; O2SAT 100
[2024-10-25 13:15] VITALS: BP 124/75; PULSE 85; RESP 16; O2SAT 100
== END 2024-10-25 13:16 | disposition home or self-care (01) ==
PROVIDERS: Emergency Provider Family Medicine; PCP Family Medicine
DX: R55 Syncope and collapse (principal)
CPT/HCPCS: 80053; 82140; 82550; 83605; 85025; 93005; 99284

== ENCOUNTER 2024-11-18 09:27 | Observation (INO) | payer OTHER, SELFPAY ==
[2024-11-13 10:40] LABS: Bilirubin Urine Negative (Negative); Blood Urine Negative (Negative); Glucose Urine UA Negative (Normal); Ketones Urine Negative (Negative); Leukocyte Esterase Urine Negative (Negative); Nitrate Urine Negative (Negative); Protein Urine Negative (Negative); Specific Gravity, Urine 1.009 (1.005-1.030); Urine Appearance Clear (CLEAR); Urine Color Yellow (Yellow); Urobilinogen Urine 0.2 mg/dL (Negative)
[2024-11-13 10:46] LABS: Add Urine Microscopic? YES; Bacteria Urine None Seen /hpf; Hyaline Casts Urine 0-4 /lpf; RBC Urine 0-2 /hpf (0-2); Squamous Epithelial Cell Urine 0-5 /hpf (0-5); WBC Urine 0-5 /hpf (0-5)
[2024-11-18] VITALS (21 sets, daily range): BP systolic 94–121; BP diastolic 63–76; PULSE 79–104; RESP 12–18; TEMP 36.2–37.1; O2SAT 90–99; BMI 24.7
[2024-11-18 06:26] LABS: OR HCG Qualitative Urine Negative (Negative)
[2024-11-18] MEDS: sodium chloride 0.9% 1,000 ML 30 ML IV (06:41)
[2024-11-18] MEDS: scopolamine 1 mg PATCH 1 PATCH TRANSDERMA (06:44)
[2024-11-18] MEDS: metroNIDAZOLE IV 500 MG/100 ML PREMIX 100 MG IV (06:45)
--- NOTE | 2024-11-18 06:52 | ANES.PREANE2 ---
Pre-Anesthetic Assessment Height/Weight: Height 1.6 m Weight 63.503 kg Temp Pulse Resp BP Pulse Ox O2 Del Method 97.1 F L 80 17 121/75 96 Room Air 11/18/24 06:15 11/18/24 06:15 11/18/24 06:15 11/18/24 06:15 11/18/24 06:15 11/18/24 06:16 Preop Diagnosis: menorrhagia, abnormal uterine bleeding Operation Date: 11/18/24 07:00 Proposed Procedures p Total Abdominal Hysterectomy 76971, N93.9, R10.2(Not Applicable) - Mendoza Villatoro MD Familial anesthetic complications: None Was Beta Sid taken within 24 hours: N/A Was Clonidine taken within 24 hours: N/A Last intake: Intake Last Liquid Date 11/17/24 Last Liquid Time 21:00 Last Solid Date 11/17/24 Last Solid Time 21:00 Social No alcohol and No tobacco Exam alert, oriented x 3, clear to auscultation bilaterally and regular rate & rhythm Airway Mallampati: Class II Dentition: full GI Gastroesophageal Reflux Disease Neuropsych Cerebrovascular Accident and Seizure Anesthetic Plan ASA status: 3 Anesthesia: General Risk of > 500 ml blood loss (7ml/kg in children): Yes, adequate IV access and fluids planned Medications/Allergies Home Medications ?Medication ?Instructions ?Recorded ?Confirmed ?Last Taken ?Type cetirizine 5 mg/5 mL oral solution 5 mg PO DAILY 06/11/20 11/18/24 11/17/24 History acetaminophen 500 mg tablet 1,000 mg PO Q6H PRN Pain 10/03/21 11/13/24 11/12/24 History albuterol sulfate 2.5 mg/3 mL 2.5 mg (3 mL) inhalation Q6H PRN 02/14/22 11/13/24 Unknown Rx (0.083 %) solution for nebulization shortness of breath or wheezing #75 mL ibuprofen 600 mg tablet 600 mg PO Q8H PRN pain #270 tabs 02/01/23 11/13/24 11/02/23 Rx albuterol sulfate 90 mcg/actuation 2 puff inhalation Q6H PRN 02/27/23 11/13/24 Unknown Rx aerosol inhaler (Ventolin HFA) shortness of breath or wheezing #8.5 grams amitriptyline 50 mg tablet 50 mg PO .qhs 03/27/23 11/18/24 11/17/24 History propranolol 20 mg tablet 20 mg PO TID 03/27/23 11/18/24 11/17/24 History gabapentin 600 mg tablet 600 mg PO DAILY 11/09/23 11/13/24 11/12/24 History pantoprazole 40 mg tablet,delayed 40 mg PO DAILY PRN reflux 11/09/23 11/13/24 11/12/23 History release fluoxetine 20 mg tablet 20 mg PO DAILY 30 days #30 tabs 12/31/23 11/18/24 11/18/24 Rx ubrogepant 50 mg tablet (Ubrelvy) 50 mg PO PRN headache #30 tabs 02/20/24 11/13/24 Unknown Rx ondansetron HCl 4 mg/5 mL oral 6 mg (7.5 mL) PO Q6H PRN nausea 05/31/24 11/13/24 Unknown Rx solution and vomiting #100 mL fluconazole 150 mg tablet 150 mg PO Q72H 11/13/24 11/13/24 Unknown History lorazepam 1 mg tablet 1 mg PO DAILY PRN angiety 11/13/24 11/18/24 11/18/24 History fluoxetine 60 mg tablet 60 mg PO DAILY 30 days #30 tabs 11/17/24 11/18/24 11/18/24 Rx Allergies Allergy/AdvReac Type Severity Reaction Status Date / Time Beef Containing Products Allergy Severe ALGY-Anaphy Verified 11/13/24 07:55 laxis epinephrine Allergy Severe Hemorrhagic Verified 11/13/24 07:55 stroke after epi drip lactose Allergy Severe ALGY-Anaphy Verified 11/13/24 07:55 laxis Pork/Porcine Containing Allergy Severe ALGY-Anaphy Verified 11/13/24 07:55 Products laxis trimethobenzamide (From Allergy Severe ALGY-Anaphy Verified 11/13/24 07:55 Tigan) laxis clonazepam Allergy Intermediate ALGY-Hives Verified 11/13/24 07:55 Alpha-Gal Allergy ALGY-Anaphy Verified 11/13/24 07:55 (Fnrbczkgb-Qhqzs-6,3-Gala laxis digoxin Allergy ALGY-Hives Verified 11/13/24 07:55 enoxaparin (From Lovenox) Allergy ALGY-Anaphy Verified 11/13/24 07:55 laxis gluten Allergy Unknown Verified 11/13/24 07:55 heparin (porcine) Allergy ALGY-Anaphy Verified 11/13/24 07:55 laxis Current Medications Generic Name Dose Route Start Last Admin Trade Name Rocky PRN Reason Stop Dose Admin Sodium Chloride 1,000 mls @ 30 mls/hr 11/18/24 06:15 11/18/24 06:41 Sodium Chloride 0.9% IV 11/19/24 06:14 30 mls/hr .Q24H RAYSA Administration Metronidazole 500 mg in 100 mls @ 100 mls/hr 11/18/24 06:03 11/18/24 06:45 Flagyl Iv IV 11/18/24 07:02 100 mls/hr [employer] Administration Protocol [facility] Anesthesia Medical History COVID-19 Endometriosis determined by laparoscopy Pelvic pain [place] use Mood swings 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 Mild residual weakness on the left side Surgical History Port-A-Cath in place (05/26/20) left subclavian Removed 07/13/2021 History of surgery Intracranial angiogram History of eye surgery Surgical plate placement and removal History of appendectomy History of abdominoplasty History of artificial lens replacement History of cataract surgery History of section, low transverse Family History Mother Diabetes Thyroid disease Hypercholesteremia Hypertension Family/Other Cancer Father Cancer leiomyosarcoma leg Social History Smoking and tobacco/nicotine status: never used tobacco/nicotine Female 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 History Date of last menstrual period: 10/16/24 Data Anesthesia Cardiac Studies: No Data to Display
--- NOTE | 2024-11-18 06:59 | W.PM.OPSUD ---
Surgery/Procedure H&P Update DATE OF PROCEDURE: November 18, 2024 DATE H&P PERFORMED: 11/13/24 H&P UPDATE INFORMATION: I have reviewed H&P completed within last 30 days, I have examined patient prior to procedure and No changes to prior documentation PREOP DIAGNOSIS: menorrhagia, abnormal uterine bleeding PLANNED PROCEDURE: Operation Date: 11/18/24 07:00 Proposed Procedures p Total Abdominal Hysterectomy 39260, N93.9, R10.2(Not Applicable) - Mendoza Villatoro MD
--- NOTE | 2024-11-18 07:10 | SUR.PREOP ---
IV was placed by CHARLOTTE Calderon using the ultrasound. Patient tolerated well
[2024-11-18] MEDS: ceFAZolin 2,000 mg SDV 2000 MG IVP (07:13)
[2024-11-18] MEDS: BUPivacaine 0.5% INJ 30 mL INJECTION (07:50)
--- NOTE | 2024-11-18 09:25 | W.PM.BPON ---
Date of Procedure: 11/18/24 Surgeon: Mendoza Villatoro MD Career Orientation Teacher(s): Gregory Garces MD Procedure(s) performed: Total abdominal hysterectomy Findings of the procedure(s): Uterine fibroid Estimated blood loss: 50 Specimen(s) removed: Uterus with left the right fallopian tube, left ovarian cyst Post-operative diagnosis: Status post SEDA
--- NOTE | 2024-11-18 09:27 | P.OP_ITS ---
Operative Report Date of procedure: November 18, 2024 Pre-op diagnosis: Chronic pelvic pain Abnormal uterine bleeding Fibroid uterus Endometriosis Post-op diagnosis: same Post-op findings: Fibroid uterus Procedure done: Total abdominal hysterectomy with bilateral salpingectomy Left ovarian cystectomy Specimens removed/disposition: Uterus Left the right fallopian tube Left ovarian cyst Surgeon: Mendoza Villatoro MD Estimated blood loss (mL): 50 IV fluids (mL): 1,500 Urine output (mL): 100 Complications: none Procedure: The patient was taken to the operating room, and after adequate level of general anesthesia was achieved, the patient was placed in the Trendelenburg position, prepped and draped in the usual sterile fashion. Subsequently, a Pfannenstiel incision was made and the incision was taken down to the fascia. The fascia was opened up sharply. The fascia was extended to the length of the incision using the Bear scissors. At this time, the rectus muscles were dissected from the fascia superiorly and inferiorly to the symphysis pubis. The midline rectus muscles were opened sharply and extended superiorly and inferiorly. The peritoneum was visualized, grasped, opened sharply, and extended superiorly and inferiorly towards the bladder. The abdominal contents were packed superiorly away from the operative site using the lap packs. At this time, the pelvic organs were noted. The inferior and superior blades were placed in place on the Olman self-retaining retractor. Bowel was packed away from the operative site. The fundus of the uterus was then grasped and retracted out of the pelvic cavity into the abdominal site. At this point, Shawna clamps were placed in both right and left adnexal regions. Subsequently, using the LigaSure cautery unit, the round ligaments were grasped, cauterized, and dissected. The bladder flap was then formed and the bladder flap was pushed away down anteriorly over the lower uterine segment, pushed away from the operative site on both the right and left sides. Subsequently, the posterior leaf of the broad ligament was opened sharply and the LigaSure instrument was then placed below the level of the ovary in both the right and left side, care being taken not to damage bowel and the tubo- ovarian ligament was then grasped, cauterized, and again dissected. Further dissection of the broad ligament was carried down posteriorly towards the uterine vessels. The bladder was pushed inferiorly down towards the vagina. Subsequently, the uterine vessels were then grasped again with the LigaSure machine, cauterized, and dissected. The cardinal ligaments were further grasped, dissected, and suture ligated, again with the LigaSure machine. At that point, the LigaSure device instrument was stopped and straight Zeppelin clamps were used on the cardinal ligaments down towards the uterosacral ligaments. The cardinal ligaments were grasped, dissected with a scalpel and then ligated with transfixion sutures with #1 Vicryl suture down to the uterosacral ligaments. The uterosacral ligaments were grasped, dissected, and suture ligated again with #1 Vicryl suture and transfixion sutures. At that time, the bladder had been pushed over the vagina and at this time right-angle Zeppelin clamps were placed on the vagina at the level of the cervix, and using the Jake scissors, the cervix was dissected away from the vagina. At this time, the vaginal cuff was then closed using interrupted sutures of #1 Vicryl suture from the midline to each lateral corner. After the good hemostasis had been achieved in the vaginal cuff, both the right and left adnexa was visualized and no more bleeding was noted. The cuff was intact with no bleeding noted. The bladder was visualized and no bleeding was noted. Seprafilm was then placed over the vaginal cuff. The Olman self-retaining retractor was removed as well as the anterior and inferior blad es. The lap packs were removed, and at this time, general closure of the abdomen was carried out. The peritoneum was closed with a 2-0 Vicryl suture and continuous running suture. The fascia was closed using a #1 Vicryl suture from each corner to the midline. Subcutaneous tissue was cauterized. No bleeding was noted. The subcutaneous tissue was then reapproximated using plain sutures and interrupted sutures, and the skin was closed using Insorb absorbable subcuticular itzel. Incision was infiltrated with Marcaine. The patient tolerated the procedure well and was transferred to the recovery room in excellent condition. The patient returned to the floor for recovery.
[2024-11-18] MEDS: HYDROmorphone 1 mg/mL INJ 1 mL 0.5 MG IVP (09:39)
--- NOTE | 2024-11-18 10:00 | ANE.PACU2 ---
Inpatient post-anesthesia follow up: Airway intact: Yes Vital signs: Temperature 98.6 F Pulse Rate 83 Respiratory Rate 17 Blood Pressure 100/64 Pulse Oximetry 90 Oxygen Delivery Me thod Room Air Oxygen Flow Rate 6 Fraction of Inspir ed Oxygen Hydration adequate: Yes Nausea and vomiting: No Pain level: 1 Mental status: Baseline
[2024-11-18] MEDS: ketorolac 30 mg/mL INJ IVP ×3 (10:39→22:31)
[2024-11-18] MEDS: HYDROmorphone 1 mg/mL INJ 1 mL 1.5 MG IVP ×2 (11:13→14:11)
[2024-11-18] MEDS: dextrose 5%-lactated ringers 1,000 ML 125 ML IV ×2 (13:24→22:31)
[2024-11-18] MEDS: diphenhydrAMINE 50 mg/mL SDV 1mL 25 MG IVP ×2 (14:50→20:28)
[2024-11-18] MEDS: ondansetron 2 mg/ML SDV 2 mL 4 MG IVP (14:50)
[2024-11-18] MEDS: morphine 4 mg/mL SDV 1 mL IVP ×2 (16:32→20:28)
--- NOTE | 2024-11-18 17:25 | PC.NURSE ---
this nurse educated pt on clear liquid diet and only advancing to solids when pt has passed flatulences, pt verbalized understanding and has brought food from home due to severe ALPHA-GAL, pt reported to take it slow on progressing from clear liquid diet to a solid diet
[2024-11-18] MEDS: MAGNESIUM GLYCINATE PO (20:29)
[2024-11-18] MEDS: GABAPENTIN 600 MG 600 EACH PO (20:29)
[2024-11-19 00:31] VITALS: RESP 18
[2024-11-19] MEDS: morphine 4 mg/mL SDV 1 mL IVP ×4 (00:31→12:24)
[2024-11-19] MEDS: diphenhydrAMINE 50 mg/mL SDV 1mL 25 MG IVP ×2 (00:34→04:35)
[2024-11-19 04:00] VITALS: BP 108/68; PULSE 79; RESP 18; TEMP 36.9; O2SAT 97
[2024-11-19 04:36] VITALS: RESP 18
[2024-11-19] MEDS: ketorolac 30 mg/mL INJ IVP (04:36)
[2024-11-19 05:05] LABS: Hematocrit 27.2 % (36-47); Mean Corpuscular HGB Conc 32.7 g/dL (30-55); Mean Corpuscular Hemoglobin 29.1 pg (27-33); Mean Corpuscular Volume 88.9 fl (85-98); Mean Platelet Volume 9.6 fL (7.4-10.4); Platelet Count 211 10^3/cmm (157-399); Red Blood Count 3.06 10^6/uL (3.85-5.65); Red Cell Distribution Width 12.9 % (12.1-15.1); White Blood Count 7.71 10^3/uL (3.29-11.43)
[2024-11-19 08:37] VITALS: RESP 16
[2024-11-19] MEDS: MAGNESIUM GLYCINATE PO (08:37)
[2024-11-19] MEDS: FLUOXETINE 60 EACH PO (08:38)
[2024-11-19] MEDS: PANTOPRAZOLE 40 MG PO (08:38)
[2024-11-19] MEDS: GABAPENTIN 600 MG 600 EACH PO (08:39)
[2024-11-19] MEDS: propranolol 20 mg Tablet PO (08:42)
[2024-11-19] MEDS: ibuprofen 800 mg tablet PO (10:32)
--- NOTE | 2024-11-19 11:11 | PM.OBGYDC ---
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 Nathan is a 49 year old , with a history of abnormal uterine bleeding unresponsive to medical management, chronic pelvic pain, endometriosis diagnosed by laparoscopy was admitted for planned total abdominal hysterectomy. The procedure was performed without complications. Overnight observation uneventful. She is afebrile and hemodynamically stable postoperative day 1. Tolerating diet well. Ambulating without difficulty. She was counseled regarding pelvic rest for 6 weeks (no sex, no tampons, no vaginal douches). Return to the emergency room if any fever, increased bleeding or pain. Physical Exam Narrative: GA: Alert and oriented ?3. HEENT: WNL. Heart: Regular rate and rhythm. Lungs: Clear to auscultation bilaterally. Abdomen: Bowel sounds present, nontender, minimal tenderness, incision clean and dry, no redness, pain or edema. REMEDIAL TEACHER: spotting bleeding. Extremities: No edema, no cyanosis, no calves pain. Urinary Catheter Management: Bentley: Cath Placed During This Visit: yes, but has since been removed by the nurse Reason for Continuing Indwelling Catheter: Decision to DC Catheter Urinary Catheter Date of Insertion: 11/18/24 Urinary Catheter Time of Insertion: 07:28 Date Urinary Catheter Removed: 11/19/24 Time Urinary Catheter Discontinued: 05:01 History History History 1 Term 1 0 Miscarriages/Ectopic 0 Living Children 2 Discharge Data Studies Completed and Pending Pending at discharge Category Date Time Status Pathology: Surgical [PTH] Routine Pth 11/18/24 08:29 Received Laboratory Results WBC 7.71 10^3/uL (3.29-11.43) 11/19/24 04:59 RBC 3.06 10^6/uL (3.85-5.65) L 11/19/24 04:59 Hgb 8.90 g/dL (11.27-16.99) L 11/19/24 04:59 Hct 27.2 % (36-47) L 11/19/24 04:59 MCV 88.9 fl (85-98) 11/19/24 04:59 MCH 29.1 pg (27-33) 11/19/24 04:59 MCHC 32.7 g/dL (30-55) 11/19/24 04:59 RDW 12.9 % (12.1-15.1) 11/19/24 04:59 Plt Count 211 10^3/cmm (157-399) 11/19/24 04:59 MPV 9.6 fL (7.4-10.4) 11/19/24 04:59 Urine Color Yellow (Yellow) 11/13/24 10:10 Urine Appearance Clear (CLEAR) 11/13/24 10:10 Urine pH 7.0 (5-7) 11/13/24 10:10 Ur Specific [place] 1.009 (1.005-1.030) 11/13/24 10:10 Urine Protein Negative (Negative) 11/13/24 10:10 Urine Glucose (UA) Negative (Normal) 11/13/24 10:10 Urine Ketones Negative (Negative) 11/13/24 10:10 Urine Blood Negative (Negative) 11/13/24 10:10 Urine Nitrate Negative (Negative) 11/13/24 10:10 Urine Bilirubin Negative (Negative) 11/13/24 10:10 Urine Urobilinogen 0.2 mg/dL (Negative) 11/13/24 10:10 Ur Leukocyte Esterase Negative (Negative) 11/13/24 10:10 Urine RBC 0-2 /hpf (0-2) 11/13/24 10:10 Urine WBC 0-5 /hpf (0-5) 11/13/24 10:10 Ur Squamous Epith Cells 0-5 /hpf (0-5) 11/13/24 10:10 Amorphous Sediment Not Reportable 11/13/24 10:10 Urine Bacteria None seen /hpf (NONE) 11/13/24 10:10 Hyaline Casts 0-4 /lpf H 11/13/24 10:10 Urine HCG, Qual Negative (Negative) 11/18/24 06:25 Blood Type B Positive 11/18/24 06:35 Rho(D) Type Rh positive 11/18/24 06:35 Antibody Screen Negative 11/18/24 06:35 Procedures Performed Total abdominal hysterectomy. Vitals Last Vital Signs Temp 98.4 F 11/19/24 04:00 Pulse 79 11/19/24 04:00 Resp 16 11/19/24 08:37 BP 108/68 11/19/24 04:00 Pulse Ox 97 11/19/24 04:00 O2 Del Method Room Air 11/19/24 04:00 O2 Flow Rate 6 11/18/24 09:20 Results Labs OB ([facility]): Blood Type B Positive 11/18/24 Antibody Screen Negative 11/18/24 Hct 27.2 % (36-47) L 11/19/24 Hgb 8.90 g/dL (11.27-16.99) L 11/19/24 Rho(D) Type Rh positive 11/18/24 Plt Count 211 10^3/cmm (157-399) 11/19/24 FSH 3.2 mIU/mL 05/29/24 Micro Urine Specimen 01/24/24 Discharge Plan Discharge Patient Disposition: Home Condition: Stable Prescriptions: New oxycodone 5 mg/5 mL solution 7.5 mg PO Q4H PRN (Reason: pain) Qty: 250 0RF ibuprofen 800 mg tablet 800 mg PO TID PRN (Reason: pain) Qty: 60 0RF acetaminophen 325 mg capsule 325 mg PO Q4H PRN (Reason: Postoperative fever or pain) Qty: 60 0RF Continued amitriptyline 50 mg tablet 50 mg PO .qhs propranolol 20 mg tablet 20 mg PO TID ibuprofen 600 mg tablet 600 mg PO Q8H PRN (Reason: pain) Qty: 270 1RF albuterol sulfate [Ventolin HFA] 90 mcg/actuation HFA aerosol inhaler 2 puff inhalation Q6H PRN (Reason: shortness of breath or wheezing) Qty: 8.5 0RF fluoxetine 20 mg tablet 20 mg PO DAILY 30 Days Qty: 30 3RF Rx Instructions: take with 60mg tab for daily total of 80mg Ubrelvy 50 mg tablet 50 mg PO PRN Qty: 30 0RF Rx Instructions: may repeat dose x 1 after 2hrs ondansetron HCl 4 mg/5 mL solution 6 mg PO Q6H PRN (Reason: nausea and vomiting) Qty: 100 0RF fluoxetine 60 mg tablet 60 mg PO DAILY 30 Days Qty: 30 3RF Rx Instructions: take with 20mg tab for daily total of 80mg cetirizine 5 mg/5 mL Solution 5 mg PO DAILY Rx Instructions: 10 mg orally in the morning and 20 mg in the evening. acetaminophen 500 mg Tablet 1,000 mg PO Q6H PRN (Reason: Pain) albuterol sulfate 2.5 mg /3 mL (0.083 %) solution for nebulization 2.5 mg inhalation Q6H PRN (Reason: shortness of breath or wheezing) Qty: 75 0RF pantoprazole 40 mg Tablet,Delayed Release (Dr/Ec) 40 mg PO DAILY PRN (Reason: reflux) gabapentin 600 mg tablet 600 mg PO DAILY lorazepam 1 mg Tablet 1 mg PO DAILY PRN (Reason: angiety) fluconazole 150 mg tablet 150 mg PO Q72H Discharge Orders: Discharge Order (Routine); Ordered 11/19/24 Ordered By: Mendoza Villatoro Referrals: Mendoza Villatoro MD [Physician] - 12/29/24 10:30 am Ashley Lion APN, WHNP [Nurse Practitioner] - 12/02/24 10:00 am Discharge Diet: Usual diet Discharge Activity: Limit activity as instructed Patient Instructions: Acute Wound Care (DC), Opioid Safety (DC), Vaginal Hysterectomy (DC), OB Discharge Report, OB Food/Drug Interaction Guide, Opioid Safety, Post Anesthesia Care Activity Restrictions/Additional Instructions: 1. Please call [facility] on next working day to make your post-operative appointment in 2 weeks. 2. Please stay home until you come back to the clinic on first post-hospatilization check up. 3. Please follow instructions on your medications CAREFULLY. 4. If you have abdominal incision, do not cover it unless dressing is necessary because of drainage. OK to shower, but avoid bath. Leave steri-strips until they fall off. If they are still on one week after surgery, you may remove them. 5. If you had vaginal surgery or vaginal repair, Dr. Villatoro may instruct you to take SITZ bath. 6. Yellow, blood tinged odorous vaginal discharge is usually normal after hysterectomy or vaginal surgeries. 7. No SEXUAL INTERCOURSE, tampons, or douches until you are completely released from the post-operative care. 8. Avoid constipation by eating right and maybe using some Metamucil or Milk of Magnesia. 9. All prescription refills are given during the working hours. Please do no wait till it runs out. Call the clinic at [phone] before your medication runs out. The clinic will get in touch with your doctor to prescribe medications if necessary. 10. Please remain within 40 mile radius from our hospital because emergencies do happen now and then during the post-operative period. 11. If you have stairs at home, take one step at a time slowly and minimize the number of trips. It helps to stay in one floor for the next few days. No lifting except what you can lift by one hand until you are released from the post-operative care. 12. Driving is discouraged until you are well healed. It may be 3-4 weeks before you feel strong enough to drive. You should be able to turn and look through the rear window without pain and you should be able to push the brake pedal very hard without pain before you drive. No fast rules, but SAFETY should be your primary concern. DO NOT drive if you are on sedating medications such as narcotics. 13. Call the clinic (during working hours) to make urgent appointment or go to the Emergency room, if any of the following occurs: i. Vaginal bleeding becomes heavy, more than a period. ii. Incision becomes red and sore, or drains pus. iii. Your TEMPERATURE is over 100.4F or you have chill. iv. IV site becomes red and swollen (a little ``knot?? is usually OK) v. Persistent nausea and vomiting vi. Persistent constipation or diarrhea vii. Rash or allergic reaction to medications. Discharge Attestations TIPPING MACHINE OPERATOR AUTOMATIC Time Spent in Discharge Care*: greater than 30 min Status at Discharge: Cognitive status at discharge: cognitively intact, Behavioral status at discharge: cooperative and independent in ADL's, Coding Level of Care Code Acute Code for Chg Fwbreanna
[2024-11-19 12:24] VITALS: RESP 16
[2024-11-19 12:50] VITALS: BP 101/66; PULSE 81; RESP 16; TEMP 36.8; O2SAT 98
== END 2024-11-19 13:05 | disposition home or self-care (01) ==
LOC: OBGYN 09:29
PROVIDERS: Admitting Provider Obstetrics & Gynecology; PCP Family Medicine; Visit Provider Obstetrics & Gynecology
PROC: 0UT90ZZ Resection of Uterus, Open Approach (ICD-10-PCS; CPT 58150; principal; 2024-11-18 07:00)
PROC: (CPT 58700; 2024-11-18 07:00)
DX: N87.9 Dysplasia of cervix uteri, unspecified (principal); N88.8 Other specified noninflammatory disorders of cervix uteri; N80.03 Adenomyosis of the uterus; D25.2 Subserosal leiomyoma of uterus; D26.1 Other benign neoplasm of corpus uteri; N93.9 Abnormal uterine and vaginal bleeding, unspecified; F41.9 Anxiety disorder, unspecified; E28.2 Polycystic ovarian syndrome; D82.4 Hyperimmunoglobulin E [IgE] syndrome; Z79.899 Other long term (current) drug therapy; Z88.8 Allergy status to other drugs, medicaments and biological substances; Z91.014 Allergy to mammalian meats; Z91.011 Allergy to milk products; Z86.16 Personal history of COVID-19; Z87.892 Personal history of anaphylaxis; F32.9 Major depressive disorder, single episode, unspecified; F43.10 Post-traumatic stress disorder, unspecified; I69.154 Hemiplegia and hemiparesis following nontraumatic intracerebral hemorrhage affecting left non-dominant side; Z91.09 Other allergy status, other than to drugs and biological substances; E75.21 Fabry (-Anderson) disease
CPT/HCPCS: 58150; 58925; 36415; 51702; 81001; 81025; 85027; 86850; 86900; 88307; A4216; G0378; J0131; J0690; J1100; J1171; J1200; J1885; J2250; J2270; J2405; J2704; J3010; J3490; J3535; J7030; J7121

== ENCOUNTER 2024-12-23 10:54 | Outpatient (CLI) | payer OTHER, SELFPAY ==
[2024-12-23 11:21] LABS: Bilirubin Urine Negative (Negative); Blood Urine Negative (Negative); Glucose Urine UA Negative (Normal); Ketones Urine Trace (Negative); Leukocyte Esterase Urine Negative (Negative); Nitrate Urine Negative (Negative); Protein Urine Trace (Negative); Specific Gravity, Urine 1.029 (1.005-1.030); Urine Appearance Clear (CLEAR); Urine Color Yellow (Yellow); pH Urine 5.5 (5-7)
[2024-12-23 11:23] LABS: Add Urine Microscopic? YES; Bacteria Urine None Seen /hpf; Squamous Epithelial Cell Urine 0-5 /hpf (0-5); WBC Urine 0-5 /hpf (0-5)
== END 2024-12-23 10:55 | disposition home or self-care (01) ==
LOC: LAB 10:55
PROVIDERS: PCP Family Medicine; Visit Provider Family Medicine
DX: R30.0 Dysuria (principal)
CPT/HCPCS: 81001

== ENCOUNTER 2025-01-12 20:00 | Outpatient (CLI) | payer OTHER, SELFPAY | END 2025-01-12 20:01 | disposition home or self-care (01) | LOC: SLEEP 23:16 | PROVIDERS: PCP Family Medicine; Visit Provider Psychiatry & Neurology Neurology | DX: R53.83 Other fatigue (principal); G47.19 Other hypersomnia; Z86.79 Personal history of other diseases of the circulatory system | CPT/HCPCS: 95810 ==

== ENCOUNTER → 2025-02-17 16:58 | Outpatient (BNVA) | payer OTHER, SELFPAY | PROVIDERS: PCP Family Medicine | DX: R11.0 Nausea (principal) | CPT/HCPCS: 80053; 85025 ==

== ENCOUNTER 2025-04-08 08:20 | Outpatient (CLI) | payer OTHER, SELFPAY ==
--- NOTE | 2025-04-08 | ECG_ITS ---
[employer] Test Date: 2025-04-08 Pat Name: Estella Burgess Department: Room: Gender: Female Community Health Educator: : 1975 Requested By: Ollie Ohara Order Number: [id number] Mehrdad MD: Satish Gerardo M.D. Interpretive Statements EXERCISE MIBI EXERCISE DATA: The patient was exercised by Andres protocol. Baseline heart rate was 96 beats per minute. Baseline blood pressure was 110/77millimeters of mercury. Maximal predicted heart rate was 173 beats per minute. Maximum heart rate achieved was 163 which was 94% of the maximum predicted heart rate. Maximum blood pressure was 146/85 millimeters of mercury. Total exercise time was 7 minutes and 30 seconds. Maximum METs achieved was 10.2. The reason for ending the test was maximal effort achieved. The patient complained of shortness of breath during the stress test, which then resolved at the end of the test. ELECTROCARDIOGRAM: BASELINE: Showed sinus rhythm, normal axis, no significant ST-T changes at the baseline noted. [] EXERCISE: At the peak exercise level, [] No significant ST-T changes suggestive of ischemia noted. [] RECOVERY: During the recovery period, heart rate dropped appropriately. No significant ST-T changes in the recovery suggestive of ischemia noted. [] CONCLUSION: 1. Exercise capacity is good. 2. Heart rate response was appropriate 3. Blood pressure response was appropriate 4. Symptoms not suggestive of ischemia. 5. Electrocardiogram portion of the stress test was not suggestive of ischemia. 6. Nuclear scan will be documented separately. Electronically Signed On 04-25-2025 13:31:35 CDT by Satish Gerardo M.D. [email or web address]
[2025-04-08 08:34] VITALS: BMI 24.7
--- NOTE | 2025-04-08 08:35 | NMCV_ITS ---
NM marie perf SPECT r/s* [id number] Estella Ferreira Age: 49 Gender: F : 1975 Exam Date: 04/08/2025 09:19 Ordering Phys: Ollie Angulo MD Technologist: QUE Friedman Exam Location: [facility] Indications: CP STRESS TEST [facility] IMAGE PROTOCOL Rest/Stress 1 Exercise Day Radiopharmaceutical Dose (mCi) Administration Site Administered by Rest: Tc-99m 10.4 IV Aurea Ricardo, SENIOR LEAD SOFTWARE ENGINEER Sestamibi Stress:Tc-99m 32.4 IV Aurea Ricardo, SENIOR LEAD SOFTWARE ENGINEER Sestamibi Rest: 08-Apr-2025 60 Discovery 630 Stress: 08-Apr-2025 30 Discovery 630 Radiopharmaceutical was injected at 91 % maximum heart rate. Images obtained in supine and prone position. SPECT RESULTS Technical Quality: Good Raw Data Analysis: Normal Image Corrections: No attenuation or motion correction applied Summed Stress Score: 0 Summed Rest Score: 0 Summed Difference Score: 0 PERFUSION FINDINGS SPECT images demonstrate homogeneous tracer distribution throughout the myocardium. FUNCTIONAL RESULTS (calculated via Gated SPECT) Stress Image LV EF (%): 86 Stress EDV (mL):63 TID: 0.62 Stress ESV (mL):9 FUNCTIONAL FINDINGS: There is normal left ventricular systolic function. IMPRESSIONS 1. Normal myocardial perfusion imaging with no evidence of ischemia 2. LV systolic function is normal Satish Gerardo MD (Electronically Signed) Final Date: 11 April 2025 12:10 S
[2025-04-08 10:17] VITALS: BP 122/75; PULSE 101
== END 2025-04-08 08:21 | disposition home or self-care (01) ==
PROVIDERS: PCP Family Medicine; Visit Provider Family Medicine
DX: R07.9 Chest pain, unspecified (principal)
CPT/HCPCS: 36415; 78452; 93017; A9500

== ENCOUNTER 2025-07-08 12:22 | Outpatient (CLI) | payer OTHER, SELFPAY ==
--- NOTE | 2025-07-08 12:29 | XR_ITS ---
WS: [id number] Exam: XR chest 2V* [id number] Date/Time of Exam: 07/08/2025 12:42 PM Reason For Exam: R06.02 - Shortness of breath Comparison 09/02/2022. The lungs are clear and fully inflated. Normal cardiomediastinal silhouette. No pleural effusion. Normal bony structures. XR/XR chest 2V* [id number] IMPRESSION: 1. Negative chest.
== END 2025-07-08 12:23 | disposition home or self-care (01) ==
PROVIDERS: PCP Family Medicine; Visit Provider Nurse Practitioner
DX: R06.02 Shortness of breath (principal)
CPT/HCPCS: 71046